=== PATIENT | female | born 1955 | race Caucasian/White ===

== ENCOUNTER 2018-10-17 21:09 | Emergency (ER) | payer MEDICARE, MEDICAID ==
[~2018-10-17] VITALS: Ht 154.9 cm; Wt 90.7 kg
--- OUTSIDE RECORDS SUMMARY | 2018-10-17 21:13 | XMS REPORT | Clinical Summary ---
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 history of psychiatric condition FH DIABETES V18.0 Active Shannan Sullivan RN Family history of diabetes mellitus HYPERTENSION 401.1 Active Andrea Man MD Benign essential hypertension DEPRESSION 311 Active Andrea Man MD Depressive disorder, not elsewhere classified HEALTH MAINTENANCE EXAM V70.0 Active Andrea Man MD Routine general medical examination at a health care facility ANXIETY 300.00 Active Andrea Man MD Anxiety state, unspecified PERIMENOPAUSAL STATUS V49.81 Active Andrea Man MD Asymptomatic postmenopausal status (age-related) (natural) TOBACCO ABUSE 305.1 Active Andrea Man MD Tobacco use disorder OTHER ABNORMAL GLUCOSE 790.29 Active May OLSEN Other abnormal glucose Medication List Medication Instructions Start Date Stop Date Generic Name NDC Status Provider Patient Instruction HYDROCODONE-ACETAMINOPHEN 7.5-325 MG TABS 1-2 TABS A DAY NEEDED FOR PAIN HYDROCODONE-ACETAMINOPHEN 24894437959 Active Andrea Man MD Active HYDROCODONE-ACETAMINOPHEN 7.5-500 MG TABS 1 to 2 a day as needed for pain HYDROCODONE-ACETAMINOPHEN 71210933383 No Longer Active Gris [place] Active ZOLOFT 50 MG TAB 1 tablet by mouth daily for stress/anxiety SERTRALINE HCL 66925382783 Active Sheila Casillas [employer] 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 [employer]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 Active ALPRAZOLAM 1 MG TAB 1/2 to 1 bid prn ALPRAZOLAM 49243256614 Active Andrea Man MD Active HYDROCODONE-ACETAMINOPHEN 7.5-500 MG/15ML SOLN 1-2 Q 4-6 HRS PAIN HYDROCODONE-ACETAMINOPHEN 24027302376 No Longer Active May Radford RMA Active AZOPT 1 % SUSP 2drops each at bedtime BRINZOLAMIDE 71194785223 Active Shannan Sullivan RN Active TRAVATAN Z 0.004 % SOLN 1-2 drops each 4x aday TRAVOPROST 32298377716 Active Shannan Sullivan RN Active HYDROCHLOROTHIAZIDE 25 MG TABS 1 DAILY HYDROCHLOROTHIAZIDE 58225869440 Active Andrea Man MD Active ATENOLOL 50 MG TABS 1 DAILY ATENOLOL 29879828512 Active Andrea Man MD Active DIAZEPAM 5 MG TABS TAKE ONE TABLET BY MOUTH TWO TIMES DAILY DIAZEPAM 75781818417 No Longer Active Andrea Man MD Active HYDROCODONE-ACETAMINOPHEN 7.5-500 MG/15ML SOLN 1-2 Q 4-6 HRS PAIN HYDROCODONE-ACETAMINOPHEN 7.5-500 MG/15ML SOLN 2825714 HYDROCODONE- ACETAMINOPHEN Inactive HYDROCODONE-ACETAMINOPHEN 7.5-500 MG TABS 1 to 2 a day as needed for pain HYDROCODONE-ACETAMINOPHEN 7.5-500 MG TABS 183969 HYDROCODONE-ACETAMINOPHEN Inactive Immunizations Vaccine Administration Date Value Standard Description Seasonal influenza vaccine, injectable, containing preservative, for > 3 years old (Afluria, FluLaval, Fluzone, Fluvirin, Fluarix, Agriflu(>=18 yo)) Fluzone (>3 yrs.) [[id number]] Influenza, seasonal, injectable Encounters Code Encounter Date Provider Facility CPT-68205 Level 3 Est. Patient 12:46:17 CDT Andrea Man MD [facility] CPT-05929 Level 3 Est. Patient 11:14:42 CDT Andrea Man MD [facility] Procedures Code Procedure Name Date Entry Date Standard Description CPT-000 Give Appropriate Flu Vaccine 11:14:42 CDT CPT-87849 Administration single or combination vaccine inc oral 10 :10:38 CDT CPT-43471 Influenza split virus > age 3 10:10:38 CDT
--- OUTSIDE RECORDS SUMMARY | 2018-10-17 21:13 | XMS REPORT | Clinical Summary ---
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 psychiatric condition FH DIABETES V18.0 [...] TABS A DAY NEEDED FOR PAIN HYDROCODONE-ACETAMINOPHEN 61307646451 Active Andrea Man MD Active HYDROCODONE-ACETAMINOPHEN 7.5-500 MG TABS 1 to 2 a day as needed for pain HYDROCODONE-ACETAMINOPHEN 70482372161 No Longer Active Grisconnor Omerr Active ZOLOFT 50 MG TAB 1 tablet by mouth daily for stress/anxiety SERTRALINE HCL 26142767059 Active Sheila Casillas WEALTH MANAGEMENT MANAGER Active ALPRAZOLAM 1 MG TAB 1/2 to 1 bid prn ALPRAZOLAM 47834330893 Active Andrea Man MD Active HYDROCODONE-ACETAMINOPHEN 7.5-500 MG/15ML SOLN 1-2 Q 4-6 HRS PAIN HYDROCODONE-ACETAMINOPHEN 40141866488 No Longer Active May Radford RMA Active AZOPT 1 % SUSP 2drops each at bedtime BRINZOLAMIDE 91577889365 Active Shannan Sullivan RN Active TRAVATAN Z 0.004 % SOLN 1-2 drops each 4x aday TRAVOPROST 24950445988 Active Shannan Sullivan RN Active HYDROCHLOROTHIAZIDE 25 MG TABS 1 DAILY HYDROCHLOROTHIAZIDE 77335614822 Active Andrea Man MD Active ATENOLOL 50 MG TABS 1 DAILY ATENOLOL 70838356476 Active Andrea Man MD Active DIAZEPAM 5 MG TABS TAKE ONE TABLET BY MOUTH TWO TIMES DAILY DIAZEPAM 16575800783 No Longer Active Andrea Man MD Active HYDROCODONE-ACETAMINOPHEN 7.5-500 MG/15ML SOLN 1-2 Q 4-6 HRS PAIN HYDROCODONE-ACETAMINOPHEN 7.5-500 MG/15ML SOLN HYDROCODONE- ACETAMINOPHEN Inactive HYDROCODONE-ACETAMINOPHEN 7.5-500 MG TABS 1 to 2 a day as needed for pain HYDROCODONE-ACETAMINOPHEN 7.5-500 MG TABS HYDROCODONE-ACETAMINOPHEN Inactive Immunizations Vaccine Administration Date Value Standard Description Seasonal influenza vaccine, injectable, containing preservative, for > 3 years old (Afluria, FluLaval, Fluzone, Fluvirin, Fluarix, Agriflu(>=18 yo)) Fluzone (>3 yrs.) [[id number]] Influenza, seasonal, injectable Encounters Code Encounter Date Provider Facility CPT-86217 Level 3 Est. Patient 12:46:17 CDT Andrea Man MD [facility] CPT-57756 Level 3 Est. Patient 11:14:42 CDT Andrea Man MD [facility] Procedures Code Procedure Name Date Entry Date Standard Description CPT-000 Give Appropriate Flu Vaccine 11:14:42 CDT CPT-33976 Administration single or combination vaccine inc oral 10 :10:38 CDT CPT-31309 Influenza split virus > age 3 10:10:38 CDT
--- OUTSIDE RECORDS SUMMARY | 2018-10-17 21:13 | XMS REPORT | Clinical Summary ---
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 FH DIABETES V18.0 [...] TABS A DAY NEEDED FOR PAIN HYDROCODONE-ACETAMINOPHEN 98343919800 Active Andrea Man MD Active HYDROCODONE-ACETAMINOPHEN 7.5-500 MG TABS 1 to 2 a day as needed for pain HYDROCODONE-ACETAMINOPHEN 70615384414 No Longer Active Gris [place] Active ZOLOFT 50 MG TAB 1 tablet by mouth daily for stress/anxiety SERTRALINE HCL 57883926550 Active Sheila Casillas RESEARCH ASSOCIATE QUALITY CONTROL QC Active ALPRAZOLAM 1 MG TAB 1/2 to 1 bid prn ALPRAZOLAM 61041629233 Active Andrea Man MD Active HYDROCODONE-ACETAMINOPHEN 7.5-500 MG/15ML SOLN 1-2 Q 4-6 HRS PAIN HYDROCODONE-ACETAMINOPHEN 63645319953 No Longer Active May Radford RMA Active AZOPT 1 % SUSP 2drops each at bedtime BRINZOLAMIDE 27208017426 Active Shannan Sullivan RN Active TRAVATAN Z 0.004 % SOLN 1-2 drops each 4x aday TRAVOPROST 28651461021 Active Shannan Sullivan RN Active HYDROCHLOROTHIAZIDE 25 MG TABS 1 DAILY HYDROCHLOROTHIAZIDE 66413404942 Active Andrea Man MD Active ATENOLOL 50 MG TABS 1 DAILY ATENOLOL 95826423559 Active Andrea Man MD Active DIAZEPAM 5 MG TABS TAKE ONE TABLET BY MOUTH TWO TIMES DAILY DIAZEPAM 13955998080 No Longer Active Andrea Man MD Active HYDROCODONE-ACETAMINOPHEN 7.5-500 MG/15ML SOLN 1-2 Q 4-6 HRS PAIN HYDROCODONE-ACETAMINOPHEN 7.5-500 MG/15ML SOLN 6657966 HYDROCODONE- ACETAMINOPHEN Inactive HYDROCODONE-ACETAMINOPHEN 7.5-500 MG TABS 1 to 2 a day as needed for pain HYDROCODONE-ACETAMINOPHEN 7.5-500 MG TABS 728158 HYDROCODONE-ACETAMINOPHEN Inactive Immunizations Vaccine Administration Date Value Standard Description Seasonal influenza vaccine, injectable, containing preservative, for > 3 years old (Afluria, FluLaval, Fluzone, Fluvirin, Fluarix, Agriflu(>=18 yo)) Fluzone (>3 yrs.) [[id number]] Influenza, seasonal, injectable Encounters Code Encounter Date Provider Facility CPT-17974 Level 3 Est. Patient 12:46:17 CDT Andrea Man MD [facility] CPT-59598 Level 3 Est. Patient 11:14:42 CDT Andrea Man MD [facility] Procedures Code Procedure Name Date Entry Date Standard Description CPT-000 Give Appropriate Flu Vaccine 11:14:42 CDT CPT-32208 Administration single or combination vaccine inc oral 10 :10:38 CDT CPT-57970 Influenza split virus > age 3 10:10:38 CDT
--- OUTSIDE RECORDS SUMMARY | 2018-10-17 21:14 | XMS REPORT | Clinical Summary ---
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 FH DIABETES V18.0 [...] TABS A DAY NEEDED FOR PAIN HYDROCODONE-ACETAMINOPHEN 71057315659 Active Andrea Man MD Active HYDROCODONE-ACETAMINOPHEN 7.5-500 MG TABS 1 to 2 a day as needed for pain HYDROCODONE-ACETAMINOPHEN 43395487646 No Longer Active Grisconnor Omerr Active ZOLOFT 50 MG TAB 1 tablet by mouth daily for stress/anxiety SERTRALINE HCL 05757001372 Active Sheila Casillas MARKET DIRECTOR Active ALPRAZOLAM 1 MG TAB 1/2 to 1 bid prn ALPRAZOLAM 23181507464 Active Andrea Man MD Active HYDROCODONE-ACETAMINOPHEN 7.5-500 MG/15ML SOLN 1-2 Q 4-6 HRS PAIN HYDROCODONE-ACETAMINOPHEN 16211849120 No Longer Active May Radford RMA Active AZOPT 1 % SUSP 2drops each at bedtime BRINZOLAMIDE 51767143039 Active Shannan Sullivan RN Active TRAVATAN Z 0.004 % SOLN 1-2 drops each 4x aday TRAVOPROST 18215679791 Active Shannan Sullivan RN Active HYDROCHLOROTHIAZIDE 25 MG TABS 1 DAILY HYDROCHLOROTHIAZIDE 40471305465 Active Andrea Man MD Active ATENOLOL 50 MG TABS 1 DAILY ATENOLOL 00239227424 Active Andrea Man MD Active DIAZEPAM 5 MG TABS TAKE ONE TABLET BY MOUTH TWO TIMES DAILY DIAZEPAM 11994226366 No Longer Active Andrea Man MD Active [...] Fluvirin, Fluarix, Agriflu(>=18 yo)) Fluzone (>3 yrs.) [[id number]] Influenza, seasonal, injectable Encounters Code Encounter Date Provider Facility CPT-95115 Level 3 Est. Patient 12:46:17 CDT Andrea Man MD [facility] CPT-58453 Level 3 Est. Patient 11:14:42 CDT Andrea Man MD [facility] Procedures Code Procedure Name Date Entry Date Standard Description CPT-000 Give Appropriate Flu Vaccine 11:14:42 CDT CPT-73908 Administration single or combination vaccine inc oral 10 :10:38 CDT CPT-92198 Influenza split virus > age 3 10:10:38 CDT
--- OUTSIDE RECORDS SUMMARY | 2018-10-17 21:14 | XMS REPORT | Clinical Summary ---
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 history of psychiatric condition FH DIABETES V18.0 [...] TABS A DAY NEEDED FOR PAIN HYDROCODONE-ACETAMINOPHEN 72872967226 Active Andrea Man MD Active HYDROCODONE-ACETAMINOPHEN 7.5-500 MG TABS 1 to 2 a day as needed for pain HYDROCODONE-ACETAMINOPHEN 69742182104 No Longer Active Gris Oliver Active ZOLOFT 50 MG TAB 1 tablet by mouth daily for stress/anxiety SERTRALINE HCL 28951282224 Active Sheila Casillas MMD UNIT TEACHER Active ALPRAZOLAM 1 MG TAB 1/2 to 1 bid prn ALPRAZOLAM 15440228013 Active Andrea Man MD Active HYDROCODONE-ACETAMINOPHEN 7.5-500 MG/15ML SOLN 1-2 Q 4-6 HRS PAIN HYDROCODONE-ACETAMINOPHEN 36475368137 No Longer Active May Radford RMA Active AZOPT 1 % SUSP 2drops each at bedtime BRINZOLAMIDE 56483962128 Active Shannan Sullivan RN Active TRAVATAN Z 0.004 % SOLN 1-2 drops each 4x aday TRAVOPROST 77120854986 Active Shannan Sullivan RN Active HYDROCHLOROTHIAZIDE 25 MG TABS 1 DAILY HYDROCHLOROTHIAZIDE 79952748339 Active Andrea Man MD Active ATENOLOL 50 MG TABS 1 DAILY ATENOLOL 10926310359 Active Andrea Man MD Active DIAZEPAM 5 MG TABS TAKE ONE TABLET BY MOUTH TWO TIMES DAILY DIAZEPAM 56511143067 No Longer Active Andrea Man MD Active HYDROCODONE-ACETAMINOPHEN 7.5-500 MG/15ML SOLN 1-2 Q 4-6 HRS PAIN HYDROCODONE-ACETAMINOPHEN 7.5-500 MG/15ML SOLN 7426989 HYDROCODONE- ACETAMINOPHEN Inactive HYDROCODONE-ACETAMINOPHEN 7.5-500 MG TABS 1 to 2 a day as needed for pain HYDROCODONE-ACETAMINOPHEN 7.5-500 MG TABS 249302 HYDROCODONE-ACETAMINOPHEN Inactive Immunizations Vaccine Administration Date Value Standard Description Seasonal influenza vaccine, injectable, containing preservative, for > 3 years old (Afluria, FluLaval, Fluzone, Fluvirin, Fluarix, Agriflu(>=18 yo)) Fluzone (>3 yrs.) [[id number]] Influenza, seasonal, injectable Encounters Code Encounter Date Provider Facility CPT-38721 Level 3 Est. Patient 12:46:17 CDT Andrea Man MD [facility] CPT-49675 Level 3 Est. Patient 11:14:42 CDT Andrea Man MD [facility] Procedures Code Procedure Name Date Entry Date Standard Description CPT-000 Give Appropriate Flu Vaccine 11:14:42 CDT CPT-74973 Administration single or combination vaccine inc oral 10 :10:38 CDT CPT-00930 Influenza split virus > age 3 10:10:38 CDT
--- OUTSIDE RECORDS SUMMARY | 2018-10-17 21:14 | XMS REPORT | Clinical Summary ---
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 history of psychiatric condition FH DIABETES V18.0 [...] TABS A DAY NEEDED FOR PAIN HYDROCODONE-ACETAMINOPHEN 19628419525 Active Andrea Man MD Active HYDROCODONE-ACETAMINOPHEN 7.5-500 MG TABS 1 to 2 a day as needed for pain HYDROCODONE-ACETAMINOPHEN 68988674695 No Longer Active Grisconnor Omerr Active ZOLOFT 50 MG TAB 1 tablet by mouth daily for stress/anxiety SERTRALINE HCL 94838049547 Active Sheila Casillas SCHOOL TEACHER Active ALPRAZOLAM 1 MG TAB 1/2 to 1 bid prn ALPRAZOLAM 97089191690 Active Andrea Man MD Active HYDROCODONE-ACETAMINOPHEN 7.5-500 MG/15ML SOLN 1-2 Q 4-6 HRS PAIN HYDROCODONE-ACETAMINOPHEN 92291904642 No Longer Active May Radford RMA Active AZOPT 1 % SUSP 2drops each at bedtime BRINZOLAMIDE 64354933624 Active Shannan Sullivan RN Active TRAVATAN Z 0.004 % SOLN 1-2 drops each 4x aday TRAVOPROST 96122341783 Active Shannan Sullivan RN Active HYDROCHLOROTHIAZIDE 25 MG TABS 1 DAILY HYDROCHLOROTHIAZIDE 91653495109 Active Andrea Man MD Active ATENOLOL 50 MG TABS 1 DAILY ATENOLOL 34147166573 Active Andrea Man MD Active DIAZEPAM 5 MG TABS TAKE ONE TABLET BY MOUTH TWO TIMES DAILY DIAZEPAM 05584694638 No Longer Active Andrea Man MD Active [...] Fluvirin, Fluarix, Agriflu(>=18 yo)) Fluzone (>3 yrs.) [[id number]] Influenza, seasonal, injectable Encounters Code Encounter Date Provider Facility CPT-80136 Level 3 Est. Patient 12:46:17 CDT Andrea Man MD [facility] CPT-72358 Level 3 Est. Patient 11:14:42 CDT Andrea Man MD [facility] Procedures Code Procedure Name Date Entry Date Standard Description CPT-000 Give Appropriate Flu Vaccine 11:14:42 CDT CPT-05596 Administration single or combination vaccine inc oral 10 :10:38 CDT CPT-21318 Influenza split virus > age 3 10:10:38 CDT
--- OUTSIDE RECORDS SUMMARY | 2018-10-17 21:14 | XMS REPORT | Clinical Summary ---
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 history of psychiatric condition FH DIABETES V18.0 [...] TABS A DAY NEEDED FOR PAIN HYDROCODONE-ACETAMINOPHEN 41839277133 Active Andrea Man MD Active HYDROCODONE-ACETAMINOPHEN 7.5-500 MG TABS 1 to 2 a day as needed for pain HYDROCODONE-ACETAMINOPHEN 72354191006 No Longer Active Gris [place] Active ZOLOFT 50 MG TAB 1 tablet by mouth daily for stress/anxiety SERTRALINE HCL 77757018431 Active Sheila Casillas TRIM CREW SUPERVISOR Active ALPRAZOLAM 1 MG TAB 1/2 to 1 bid prn ALPRAZOLAM 39498918083 Active Andrea Man MD Active HYDROCODONE-ACETAMINOPHEN 7.5-500 MG/15ML SOLN 1-2 Q 4-6 HRS PAIN HYDROCODONE-ACETAMINOPHEN 94166205827 No Longer Active May Radford RMA Active AZOPT 1 % SUSP 2drops each at bedtime BRINZOLAMIDE 96132073409 Active Shannan Sullivan RN Active TRAVATAN Z 0.004 % SOLN 1-2 drops each 4x aday TRAVOPROST 73706655038 Active Shannan Sullivan RN Active HYDROCHLOROTHIAZIDE 25 MG TABS 1 DAILY HYDROCHLOROTHIAZIDE 18260970849 Active Andrea aMn MD Active ATENOLOL 50 MG TABS 1 DAILY ATENOLOL 69226802895 Active Andrea Man MD Active DIAZEPAM 5 MG TABS TAKE ONE TABLET BY MOUTH TWO TIMES DAILY DIAZEPAM 44568269958 No Longer Active Andrea Man MD Active HYDROCODONE-ACETAMINOPHEN 7.5-500 MG/15ML SOLN 1-2 Q 4-6 HRS PAIN HYDROCODONE-ACETAMINOPHEN 7.5-500 MG/15ML SOLN 3485864 HYDROCODONE- ACETAMINOPHEN Inactive HYDROCODONE-ACETAMINOPHEN 7.5-500 MG TABS 1 to 2 a day as needed for pain HYDROCODONE-ACETAMINOPHEN 7.5-500 MG TABS 084019 HYDROCODONE-ACETAMINOPHEN Inactive Immunizations Vaccine Administration Date Value Standard Description Seasonal influenza vaccine, injectable, containing preservative, for > 3 years old (Afluria, FluLaval, Fluzone, Fluvirin, Fluarix, Agriflu(>=18 yo)) Fluzone (>3 yrs.) [[id number]] Influenza, seasonal, injectable Encounters Code Encounter Date Provider Facility CPT-59333 Level 3 Est. Patient 12:46:17 CDT Andrea Man MD [facility] CPT-27186 Level 3 Est. Patient 11:14:42 CDT Andrea Man MD [facility] Procedures Code Procedure Name Date Entry Date Standard Description CPT-000 Give Appropriate Flu Vaccine 11:14:42 CDT CPT-71480 Administration single or combination vaccine inc oral 10 :10:38 CDT CPT-19042 Influenza split virus > age 3 10:10:38 CDT
--- OUTSIDE RECORDS SUMMARY | 2018-10-17 21:14 | XMS REPORT | Clinical Summary ---
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 of psychiatric condition FH DIABETES V18.0 [...] TABS A DAY NEEDED FOR PAIN HYDROCODONE-ACETAMINOPHEN 11417234699 Active Andrea Man MD Active HYDROCODONE-ACETAMINOPHEN 7.5-500 MG TABS 1 to 2 a day as needed for pain HYDROCODONE-ACETAMINOPHEN 63356735287 No Longer Active Grisconnor Omerr Active ZOLOFT 50 MG TAB 1 tablet by mouth daily for stress/anxiety SERTRALINE HCL 33867758781 Active Sheila Casillas FRENCH EDGE OPERATOR Active ALPRAZOLAM 1 MG TAB 1/2 to 1 bid prn ALPRAZOLAM 93383355560 Active Andrea Man MD Active HYDROCODONE-ACETAMINOPHEN 7.5-500 MG/15ML SOLN 1-2 Q 4-6 HRS PAIN HYDROCODONE-ACETAMINOPHEN 58250393523 No Longer Active May Radford RMA Active AZOPT 1 % SUSP 2drops each at bedtime BRINZOLAMIDE 13735902787 Active Shannan Sullivan RN Active TRAVATAN Z 0.004 % SOLN 1-2 drops each 4x aday TRAVOPROST 18018141001 Active Shannan Sullivan RN Active HYDROCHLOROTHIAZIDE 25 MG TABS 1 DAILY HYDROCHLOROTHIAZIDE 72913543154 Active Andrea Man MD Active ATENOLOL 50 MG TABS 1 DAILY ATENOLOL 59561931077 Active Andrea Man MD Active DIAZEPAM 5 MG TABS TAKE ONE TABLET BY MOUTH TWO TIMES DAILY DIAZEPAM 00156916468 No Longer Active Andrea Man MD Active [...] Fluvirin, Fluarix, Agriflu(>=18 yo)) Fluzone (>3 yrs.) [[id number]] Influenza, seasonal, injectable Encounters Code Encounter Date Provider Facility CPT-82552 Level 3 Est. Patient 12:46:17 CDT Andrea Man MD [facility] CPT-61136 Level 3 Est. Patient 11:14:42 CDT Andrea Man MD [facility] Procedures Code Procedure Name Date Entry Date Standard Description CPT-000 Give Appropriate Flu Vaccine 11:14:42 CDT CPT-11351 Administration single or combination vaccine inc oral 10 :10:38 CDT CPT-97119 Influenza split virus > age 3 10:10:38 CDT
--- OUTSIDE RECORDS SUMMARY | 2018-10-17 21:15 | XMS REPORT | Clinical Summary ---
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 of psychiatric condition FH DIABETES V18.0 [...] TABS A DAY NEEDED FOR PAIN HYDROCODONE-ACETAMINOPHEN 48969317160 Active Andrea Man MD Active HYDROCODONE-ACETAMINOPHEN 7.5-500 MG TABS 1 to 2 a day as needed for pain HYDROCODONE-ACETAMINOPHEN 32419173947 No Longer Active Grisconnor Omerr Active ZOLOFT 50 MG TAB 1 tablet by mouth daily for stress/anxiety SERTRALINE HCL 09010375344 Active Sheila Casillas LEATHER BELT SHAPER Active ALPRAZOLAM 1 MG TAB 1/2 to 1 bid prn ALPRAZOLAM 62057491949 Active Andrea Man MD Active HYDROCODONE-ACETAMINOPHEN 7.5-500 MG/15ML SOLN 1-2 Q 4-6 HRS PAIN HYDROCODONE-ACETAMINOPHEN 93061878215 No Longer Active May Radford RMA Active AZOPT 1 % SUSP 2drops each at bedtime BRINZOLAMIDE 86492626501 Active Shannan Sullivan RN Active TRAVATAN Z 0.004 % SOLN 1-2 drops each 4x aday TRAVOPROST 24846241034 Active Shannan Sullivan RN Active HYDROCHLOROTHIAZIDE 25 MG TABS 1 DAILY HYDROCHLOROTHIAZIDE 20549614245 Active Andrea Man MD Active ATENOLOL 50 MG TABS 1 DAILY ATENOLOL 67811644998 Active Andrea Man MD Active DIAZEPAM 5 MG TABS TAKE ONE TABLET BY MOUTH TWO TIMES DAILY DIAZEPAM 36145168812 No Longer Active Andrea Man MD Active [...] Fluvirin, Fluarix, Agriflu(>=18 yo)) Fluzone (>3 yrs.) [[id number]] Influenza, seasonal, injectable Encounters Code Encounter Date Provider Facility CPT-23826 Level 3 Est. Patient 12:46:17 CDT Andrea Man MD [facility] CPT-79631 Level 3 Est. Patient 11:14:42 CDT Andrea Man MD [facility] Procedures Code Procedure Name Date Entry Date Standard Description CPT-000 Give Appropriate Flu Vaccine 11:14:42 CDT CPT-11695 Administration single or combination vaccine inc oral 10 :10:38 CDT CPT-73892 Influenza split virus > age 3 10:10:38 CDT
--- OUTSIDE RECORDS SUMMARY | 2018-10-17 21:15 | XMS REPORT | Continuity of Care Document ---
Author Organization Unknown Address Unknown Allergies There is no data. Medications There is no data. Problems There is no data. Procedures There is no data. Results There is no data. Encounters ACCT No. Visit Date/Time Discharge Status Pt. Type Provider Facility Loc./Unit Complaint [id number] 06/09/2018 07:33:00 06/09/2018 23:59:59 CLS Preadmit ANGELES ALAMO DO [facility] RAD POST MENOPAUSAL BLEEDING [id number] 01/12/2014 09:32:00 01/12/2014 23:59:59 CLS Outpatient [id number] 10/17/2018 21:10:00 ACT Emergency MEL COYNE MD [facility] ER FALL
[2018-10-17] MEDS ORDERED: FLUT16SP22 (21:18)
[2018-10-17] MEDS ORDERED: ALB0.5V (21:18)
[2018-10-17] MEDS ORDERED: HYDR-3816 (21:18)
[2018-10-17] MEDS ORDERED: FLUO20CA25 (21:18)
--- NOTE | 2018-10-17 21:21 | ED Integumentary General ---
General Chief Complaint: Skin/Wound Problems Stated Complaint: FALL Source: patient Exam Limitations: no limitations History of Present Illness Date Seen by Provider: Oct 17, 2018 Time Seen by Provider: 21:19 Initial Comments To ER per EMS from senior living in [place] with reports of wound dehiscence. 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 She was sitting on her walker tonight at the senior living when it rolled out from beneath her, she fell to the floor and the wound dehisced. She did not hit the wound on anything. No pain with range of motion to the hip. She does have a Lucio- Lau drain in place. Timing/Duration: just prior to arrival Severity: moderate Allergies and Home Medications Allergies Coded Allergies: NSAIDS (Non-Steroidal Anti-Inflamma (Verified Allergy, Unknown, 10/17/18) diphenhydramine (Verified Allergy, Unknown, 10/17/18) lisinopril (Verified Allergy, Unknown, 10/17/18) Home Medications Cephalexin 500 Mg Capsule, 500 MG PO Q6H Prescribed by: TORI ATKINSON on 10/17/18 [id number] Patient Home Medication List Home Medication List Reviewed: Yes Review of Systems Review of Systems Constitutional: see HPI EENTM: see HPI Respiratory: no symptoms reported Genitourinary: no symptoms reported Musculoskeletal: no symptoms reported Skin: see HPI Psychiatric/Neurological: No Symptoms Reported Endocrine: No Symptoms Reported Physical Exam Vital Signs Vital Signs - First Documented 10/17/18 21:09 Temp 98.3 Pulse 68 Resp 16 B/P (MAP) 140/89 (106) Pulse Ox 96 O2 Delivery Room Air Capillary Refill : General Appearance: WD/WN, no apparent distress HEENT: PERRL/EOMI, normal ENT inspection Respiratory: no respiratory distress, no accessory muscle use Extremities: normal range of motion, other ( there is wound dehiscence to the right medial thigh that measures about 5 cm deep, 6 cm wide and 10 cm long. There is no active bleeding. the myocutaneous flap that is now the right vulvar region is dark pink with brisk capillary refill and has NOT dehisced. ) Neurologic/Psychiatric: alert, normal mood/affect, oriented x 3 Skin: normal color, warm/dry Progress/Results/Core Measures Results/Orders My Orders Orders - TORI ATKINSON APRN Lidocaine 1% Inj 20 Ml (Xylocaine 1% Inj (10/17/18 21:30) Cefazolin Injection (Ancef Injection) (10/17/18 21:30) Oxycodone/Apap 5/325mg Tablet (Percocet (10/17/18 22:45) Medications Given in ED Current Medications Medications Dose Ordered Sig/Guillermina Route Start Time Stop Time Status Last Admin Dose Admin Oxycodone/ Acetaminophen 1 tab ONCE ONCE PO 10/17/18 22:45 10/17/18 22:46 DC 10/17/18 22:48 1 TAB Vital Signs/I&O 10/17/18 10/17/18 21:09 23:04 Temp 98.3 98.1 Pulse 68 73 Resp 16 16 B/P (MAP) 140/89 (106) 121/80 (94) Pulse Ox 96 95 O2 Delivery Room Air Room Air Departure Communication (Admissions) I discussed the case with Dr. Mueller on-call for surgery. He recommends that since this has been dehisced for less than 1 hour we should anesthetize the area , irrigate, leave the drain in place and we closed with vertical mattress sutures. 2224-laceration repair note: This wound was anesthetized with a total of 30 mL of 1% lidocaine without epinephrine which is under the maximum dose of lidocaine based on 4 mg/kg of body weight plain lidocaine without epinephrine. This was then scrubbed with chlorhexidine/saline solution and irrigated with 1 L of saline. Any of the loose Monocryl sutures that were seen or removed. The wound was then closed with a total of 9 vertical mattress sutures size 2-0 Ethilon. The bulb on the Lucio-Lau drain was we compressed and dressing was placed over the wound. Oozing of blood was minimal. Ancef 1 g intramuscularly was given. Dr. Grover at the bedside during part of this and agrees with plan. At this time I placed a call to the [facility] Dr. Cota plastic surgeon that operated on her for any advice or suggestions here she may have. 2238- discussed the case with Dr. Grimaldo from gynecologic oncology at [facility]. Agrees with everything that has been done, states that patient has had a radical lobectomy with a myocutaneous flap there is no portion of the wound at this time that appears dusky, all of the tissues sutured are beefy red and this was likely the donor site from the myocutaneous flap. Impression Primary Impression: Wound dehiscence, surgical Qualified Codes: T81.31XA - Disruption of external operation (surgical) wound , not elsewhere classified, initial encounter Disposition: HOME, SELF-CARE Condition: Stable Departure-Patient Inst. Decision time for Depature: 22:28 Referrals: UNKNOWN (PCP/Family) Primary Care Physician Patient Instructions: Wound Dehiscence (DC) Add. Discharge Instructions: 1. Watch out for any sign of infection such as increasing redness fevers or chills. Keep track of the drainage from the Lucio-Lau drain. Antibiotics as directed. Return to ER for any concerns. All discharge instructions reviewed with patient and/or family. Voiced understanding. Scripts Cephalexin (Keflex) 500 Mg Capsule 500 MG PO Q6H, #28 CAP Prov: TORI ATKINSON APRN 10/17/18 Images Extremities-Lower 1 - Other-See Progress Note TORI ATKINSON APRN Oct 17, 2018 21:21
[2018-10-17] MEDS ORDERED: LIDOCAINE 1% INJ 20 ML 20 ML VIAL INJ ONE (21:30)
[2018-10-17] MEDS ORDERED: ceFAZolin INJECTION 1,000 MG VIAL IM ONE (21:30)
[2018-10-17] MEDS ORDERED: CEPH-507 PO (22:34)
[2018-10-17] MEDS ORDERED: oxyCODONE/APAP 5/325MG (PERCOCET 5) TABLET PO ONE (22:45)
[2018-10-17 23:04] VITALS: BP 121/80
== END 2018-10-17 23:15 | disposition home or self-care (01) ==
LOC: EDUNIT# 21:09 → ER 21:10
DX: T81.31XA Disruption of external operation (surgical) wound, not elsewhere classified, initial encounter (principal); Z88.6 Allergy status to analgesic agent; Z88.8 Allergy status to other drugs, medicaments and biological substances; W18.30XA Fall on same level, unspecified, initial encounter; Y92.129 Unspecified place in nursing home as the place of occurrence of the external cause
CPT/HCPCS: 12034; 96372

== ENCOUNTER → 2018-10-28 | Outpatient (CLI) | payer MEDICARE, MEDICAID ==
[~2018-10-28] MED LIST: ALB0.5V; CEPH-507 PO; FLUO20CA25; FLUT16SP22; HYDR-3816
== END ==
LOC: WOUNDCARE 09:33
PROVIDERS: ATTEND Surgery
DX: T81.32XA Disruption of internal operation (surgical) wound, not elsewhere classified, initial encounter (principal); L98.493 Non-pressure chronic ulcer of skin of other sites with necrosis of muscle; I89.0 Lymphedema, not elsewhere classified; C51.9 Malignant neoplasm of vulva, unspecified
CPT/HCPCS: 99213

== ENCOUNTER → 2018-11-02 | Outpatient (CLI) | payer MEDICAID, MEDICARE, OTHER | LOC: WOUNDCARE 14:24 | PROVIDERS: ATTEND Surgery | DX: T81.32XA Disruption of internal operation (surgical) wound, not elsewhere classified, initial encounter (principal); L98.493 Non-pressure chronic ulcer of skin of other sites with necrosis of muscle; I89.0 Lymphedema, not elsewhere classified; C51.9 Malignant neoplasm of vulva, unspecified | CPT/HCPCS: 11042; 11045 ==

== ENCOUNTER → 2018-11-11 | Outpatient (CLI) | payer OTHER | LOC: WOUNDCARE 10:38 | PROVIDERS: ATTEND Surgery | DX: T81.32XA Disruption of internal operation (surgical) wound, not elsewhere classified, initial encounter (principal); L98.492 Non-pressure chronic ulcer of skin of other sites with fat layer exposed; I89.0 Lymphedema, not elsewhere classified; C51.9 Malignant neoplasm of vulva, unspecified | CPT/HCPCS: 11042 ==

== ENCOUNTER → 2018-11-18 | Outpatient (CLI) | payer OTHER | LOC: WOUNDCARE 08:36 | PROVIDERS: ATTEND Surgery | DX: T81.32XA Disruption of internal operation (surgical) wound, not elsewhere classified, initial encounter (principal); L98.492 Non-pressure chronic ulcer of skin of other sites with fat layer exposed; I89.0 Lymphedema, not elsewhere classified; C51.9 Malignant neoplasm of vulva, unspecified | CPT/HCPCS: 11042; 87070; 87077; 87205 ==

== ENCOUNTER → 2018-11-25 | Outpatient (CLI) | payer OTHER | LOC: WOUNDCARE 08:24 | PROVIDERS: ATTEND Surgery | DX: T81.32XA Disruption of internal operation (surgical) wound, not elsewhere classified, initial encounter (principal); L98.492 Non-pressure chronic ulcer of skin of other sites with fat layer exposed; I89.0 Lymphedema, not elsewhere classified; C51.9 Malignant neoplasm of vulva, unspecified | CPT/HCPCS: 11042 ==

== ENCOUNTER → 2018-12-02 | Outpatient (CLI) | payer OTHER | LOC: WOUNDCARE 14:13 | PROVIDERS: ATTEND Surgery | DX: T81.32XA Disruption of internal operation (surgical) wound, not elsewhere classified, initial encounter (principal); L98.492 Non-pressure chronic ulcer of skin of other sites with fat layer exposed; C51.9 Malignant neoplasm of vulva, unspecified | CPT/HCPCS: 11042 ==

== ENCOUNTER → 2018-12-09 | Outpatient (CLI) | payer OTHER | LOC: WOUNDCARE 08:13 | PROVIDERS: ATTEND Surgery | DX: T81.32XA Disruption of internal operation (surgical) wound, not elsewhere classified, initial encounter (principal); L98.492 Non-pressure chronic ulcer of skin of other sites with fat layer exposed; C51.9 Malignant neoplasm of vulva, unspecified | CPT/HCPCS: 11042 ==

== ENCOUNTER → 2018-12-16 | Outpatient (CLI) | payer OTHER | LOC: WOUNDCARE 08:00 | PROVIDERS: ATTEND Surgery | DX: T81.32XA Disruption of internal operation (surgical) wound, not elsewhere classified, initial encounter (principal); L92.9 Granulomatous disorder of the skin and subcutaneous tissue, unspecified; L98.492 Non-pressure chronic ulcer of skin of other sites with fat layer exposed; C51.9 Malignant neoplasm of vulva, unspecified | CPT/HCPCS: 17250 ==

== ENCOUNTER → 2018-12-30 | Outpatient (CLI) | payer OTHER | LOC: WOUNDCARE 07:58 | PROVIDERS: ATTEND Surgery | DX: T81.32XA Disruption of internal operation (surgical) wound, not elsewhere classified, initial encounter (principal); L92.9 Granulomatous disorder of the skin and subcutaneous tissue, unspecified; L98.492 Non-pressure chronic ulcer of skin of other sites with fat layer exposed; C51.9 Malignant neoplasm of vulva, unspecified | CPT/HCPCS: 17250 ==

== ENCOUNTER → 2019-01-06 | Outpatient (CLI) | payer OTHER | LOC: WOUNDCARE 08:10 | PROVIDERS: ATTEND Surgery | DX: T81.32XA Disruption of internal operation (surgical) wound, not elsewhere classified, initial encounter (principal); L97.112 Non-pressure chronic ulcer of right thigh with fat layer exposed | CPT/HCPCS: 99212 ==

== ENCOUNTER 2019-04-14 13:46 | Outpatient (RCR) | payer MEDICARE, MEDICAID ==
[2019-02-19 14:21] LABS: BILIRUBIN,URINE NEGATIVE (NEGATIVE); CLARITY,URINE CLEAR; COLOR,URINE YELLOW; GLUCOSE, URINE (UA) NEGATIVE (NEGATIVE); KETONES,URINE NEGATIVE (NEGATIVE); LEUKOCYTE ESTERASE ,URINE 3+ (NEGATIVE); NITRITE,URINE NEGATIVE (NEGATIVE); PH,URINE 6 (5-9); PROTEIN,URINE 2+ (NEGATIVE)
[2019-02-19 14:33] LABS: RBC,URINE 0-2 /HPF
[2019-02-19 14:34] LABS: BACTERIA,URINE FEW /HPF; WBC,URINE 50-100 /HPF
[2019-02-22 14:30] LABS: CREATININE SERUM 1.75 MG/DL (0.60-1.30)
[~2019-04-14 13:46] MED LIST changes: -FLUO20CA25; +FLUO20CA45
== END 2019-04-19 | disposition home or self-care (01) ==
LOC: ONC 13:46
PROVIDERS: ATTEND Radiology Radiation Oncology
DX: Z51.0 Encounter for antineoplastic radiation therapy (principal); C51.9 Malignant neoplasm of vulva, unspecified; I12.9 Hypertensive chronic kidney disease with stage 1 through stage 4 chronic kidney disease, or unspecified chronic kidney disease; N18.4 Chronic kidney disease, stage 4 (severe); K21.9 Gastro-esophageal reflux disease without esophagitis
CPT/HCPCS: 36415; 77290; 77300; 77301; 77334; 77336; 77338; 77386; 81000; 82565; 84520; 87077; 87088; 87186; 99204; 99213

== ENCOUNTER → 2019-11-17 | Outpatient (CLI) | payer MEDICARE, MEDICAID ==
[~2019-11-17] MED LIST changes: -FLUO20CA45; +FLUO20CA46; +HYDR-34; -HYDR-3816
== END ==
LOC: EDSTATUS 04-20 11:26 → ONC 14:30
PROVIDERS: ATTEND Radiology Radiation Oncology
DX: C51.9 Malignant neoplasm of vulva, unspecified (principal); I12.9 Hypertensive chronic kidney disease with stage 1 through stage 4 chronic kidney disease, or unspecified chronic kidney disease; N18.4 Chronic kidney disease, stage 4 (severe); K21.9 Gastro-esophageal reflux disease without esophagitis
CPT/HCPCS: 99213

== ENCOUNTER 2019-11-21 01:10 | Emergency (ER) | payer MEDICARE, MEDICAID ==
[~2019-11-21] VITALS: Ht 160 cm; Wt 93.8 kg
--- OUTSIDE RECORDS SUMMARY | 2019-11-21 01:17 | XMS REPORT | Continuity of Care Document ---
Demographics Preferred Language Unknown Marital Status Unknown Taoist Affiliation Unknown Race Unknown Ethnic Group Unknown Author Organization Unknown Address Unknown Phone Unavailable Allergies Active Description Code Type Severity Reaction Onset Reported/Identified Relationship to Patient Clinical Status Yes diphenhydramine [id number] D rug Allergy Unknown N/A 10/17/2018 Yes lisinopril [id number] Drug Allerg y Unknown N/A 10/17/2018 Yes NSAIDS (Non-Steroidal Anti-Inflamma [id number] Drug Allergy Unknown N/A 10/17/2018 Medications There is no data. Problems Date Dx Coded Attending Type Code Diagnosis Diagnosed By 10/17/2018 TORI ATKINSON APRN Ot T81.31XA DISRUPTION OF EXTERNAL OPERATION (SURGIC 10/17/2018 TORI ATKINSON APRN Ot W18.30XA FALL ON SAME LEVEL, UNSPECIFIED, INITIAL 10/17/2018 TORI ATKINSON APRN Ot Y92.[address] IN DETENTION PLACE 10/17/2018 TORI ATKINSON APRN Ot Z88 .6 ALLERGY STATUS TO ANALGESIC AGENT STATUS 10/17/2018 TORI ATKINSON APRN Ot Z88 .8 ALLERGY STATUS TO OTH DRUG/MEDS/BIOL SUB 10/24/2018 TORI TAKINSON APRN Ot T81.31XA DISRUPTION OF EXTERNAL OPERATION (SURGIC 10/24/2018 TORI ATKINSON APRN Ot W18.30XA FALL ON SAME LEVEL, UNSPECIFIED, INITIAL 10/24/2018 TORI ATKINSON APRN Ot Y92.[address] IN DETENTION PLACE 10/24/2018 TORI ATKINSON APRN Ot Z88 .6 ALLERGY STATUS TO ANALGESIC AGENT STATUS 10/24/2018 TORI ATKINSON APRN Ot Z88 .8 ALLERGY STATUS TO OTH DRUG/MEDS/BIOL SUB 11/04/2018 GAIL SHAFFER MD Ot C51 .9 MALIGNANT NEOPLASM OF VULVA, UNSPECIFIED 11/04/2018 GAIL SHAFFER MD Ot I89 .0 LYMPHEDEMA, NOT ELSEWHERE CLASSIFIED 11/04/2018 GAIL SHAFFER MD Ot L98.493 NON-PRS CHRONIC ULCER OF SKIN OF SITES W 11/04/2018 GAIL SHAFFER MD Ot T81.32XA DISRUPTION OF INTERNAL OPERATION (SURGIC 11/04/2018 GAIL SHAFFER MD Ot L98.493 NON-PRS CHRONIC ULCER OF SKIN OF SITES W 11/04/2018 GAIL SHAFFER MD, Ot C51 .9 MALIGNANT NEOPLASM OF VULVA, UNSPECIFIED 11/04/2018 GAIL SHAFFER MD Ot I89 .0 LYMPHEDEMA, NOT ELSEWHERE CLASSIFIED 11/04/2018 GAIL SHAFFER MD, Ot L98.493 NON-PRS CHRONIC ULCER OF SKIN OF SITES W 11/04/2018 GAIL SHAFFER MD Ot T81.32XA DISRUPTION OF INTERNAL OPERATION (SURGIC 11/17/2018 GAIL SHAFFER MD, Ot C51 .9 MALIGNANT NEOPLASM OF VULVA, UNSPECIFIED 11/17/2018 GAIL SHAFFER MD Ot I89 .0 LYMPHEDEMA, NOT ELSEWHERE CLASSIFIED 11/17/2018 GAIL SHAFFER MD Ot L98.492 NON-PRS CHRONIC ULCER OF SKIN OF SITES W 11/17/2018 GAIL SHAFFER MD, Ot T81.32XA DISRUPTION OF INTERNAL OPERATION (SURGIC 11/19/2018 GAIL SHAFFER MD Ot C51 .9 MALIGNANT NEOPLASM OF VULVA, UNSPECIFIED 11/19/2018 GAIL SHAFFER MD Ot I89 .0 LYMPHEDEMA, NOT ELSEWHERE CLASSIFIED 11/19/2018 GAIL SHAFFER MD Ot L98.493 NON-PRS CHRONIC ULCER OF SKIN OF SITES W 11/19/2018 GAIL SHAFFER MD Ot T81.32XA DISRUPTION OF INTERNAL OPERATION (SURGIC 11/20/2018 GAIL SHAFFER MD, Ot C51 .9 MALIGNANT NEOPLASM OF VULVA, UNSPECIFIED 11/20/2018 GAIL SHAFFER MD Ot I89 .0 LYMPHEDEMA, NOT ELSEWHERE CLASSIFIED 11/20/2018 GAIL SHAFFER MD Ot L98.492 NON-PRS CHRONIC ULCER OF SKIN OF SITES W 11/20/2018 GAIL SHAFFER MD Ot T81.32XA DISRUPTION OF INTERNAL OPERATION (SURGIC 11/27/2018 GAIL SHAFFER MD, Ot C51 .9 MALIGNANT NEOPLASM OF VULVA, UNSPECIFIED 11/27/2018 GAIL SHAFFER MD Ot I89 .0 LYMPHEDEMA, NOT ELSEWHERE CLASSIFIED 11/27/2018 GAIL SHAFFER MD Ot L98.492 NON-PRS CHRONIC ULCER OF SKIN OF SITES W 11/27/2018 GAIL SHAFFER MD Ot T81.32XA DISRUPTION OF INTERNAL OPERATION (SURGIC 12/08/2018 GAIL SHAFFER MD, Ot C51 .9 MALIGNANT NEOPLASM OF VULVA, UNSPECIFIED 12/08/2018 GAIL SHAFFER MD Ot L98.492 NON-PRS CHRONIC ULCER OF SKIN OF SITES W 12/08/2018 GAIL SHAFFER MD Ot T81.32XA DISRUPTION OF INTERNAL OPERATION (SURGIC 12/11/2018 GAIL SHAFFER MD, Ot C51 .9 MALIGNANT NEOPLASM OF VULVA, UNSPECIFIED 12/11/2018 GAIL SHAFFER MD Ot L98.492 NON-PRS CHRONIC ULCER OF SKIN OF SITES W 12/11/2018 GAIL SHAFFER MD, Ot T81.32XA DISRUPTION OF INTERNAL OPERATION (SURGIC 01/05/2019 GAIL SHAFFER MD, Ot C51 .9 MALIGNANT NEOPLASM OF VULVA, UNSPECIFIED 01/05/2019 GAIL SHAFFER MD Ot L92 .9 GRANULOMATOUS DISORDER OF THE SKIN, SUBC 01/05/2019 GAIL SHAFFER MD Ot L98.492 NON-PRS CHRONIC ULCER OF SKIN OF SITES W 01/05/2019 GAIL SHAFFER MD Ot T81.32XA DISRUPTION OF INTERNAL OPERATION (SURGIC 01/12/2019 GAIL SHAFFER MD Ot L97.112 NON-PRS CHRONIC ULCER OF RIGHT THIGH W F 01/12/2019 GAIL SHAFFER MD, Ot T81.32XA DISRUPTION OF INTERNAL OPERATION (SURGIC 02/18/2019 JOSE MANUEL PENALOZA MD, Ot 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 03/16/2019 JOSE MANUEL PENALOZA MD, Ot 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 04/02/2019 JOSE MANUEL PENALOZA MD, Ot 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 04/19/2019 JOSE MANUEL PENALOZA MD, Ot 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 04/20/2019 JOSE MANUEL PENALOZA MD, Ot C51.9 MALIGNANT NEOPLASM OF VULVA, UNSPECIFIED 04/20/2019 JOSE MANUEL PENALOZA MD, Ot I12.9 HYPERTENSIVE CHRONIC KIDNEY DISEASE W ST 04/20/2019 JOSE MANUEL PENALOZA MD, Ot K21.9 GASTRO-ESOPHAGEAL REFLUX DISEASE WITHOUT 04/20/2019 JOSE MANUEL PENALOZA MD, Ot N18.4 CHRONIC KIDNEY DISEASE, STAGE 4 (SEVERE) 04/20/2019 JOSE MANUEL PENALOZA MD, Ot Z51.0 ENCOUNTER FOR ANTINEOPLASTIC RADIATION T 11/12/2019 JOSE MANUEL PENALOZA MD, Ot 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 11/18/2019 JOSE MANUEL PENALOZA MD, Ot C51.9 MALIGNANT NEOPLASM OF VULVA, UNSPECIFIED 11/18/2019 JOSE MANUEL PENALOZA MD, Ot I12.9 HYPERTENSIVE CHRONIC KIDNEY DISEASE W ST 11/18/2019 JOSE MANUEL PENALOZA MD, Ot K21.9 GASTRO-ESOPHAGEAL REFLUX DISEASE WITHOUT 11/18/2019 JOSE MANUEL PENALOZA MD, Ot N18.4 CHRONIC KIDNEY DISEASE, STAGE 4 (SEVERE) 11/18/2019 JOSE MANUEL PENALOZA MD, Ot C51.9 MALIGNANT NEOPLASM OF VULVA, UNSPECIFIED 11/18/2019 JOSE MANUEL PENALOZA MD, Ot I12.9 HYPERTENSIVE CHRONIC KIDNEY DISEASE W ST 11/18/2019 JOSE MANUEL PENALOZA MD, Ot K21.9 GASTRO-ESOPHAGEAL REFLUX DISEASE WITHOUT 11/18/2019 JOSE MANUEL PENALOZA MD, Ot N18.4 CHRONIC KIDNEY DISEASE, STAGE 4 (SEVERE) Procedures There is no data. Results Test Result Range PTH (INTACT) - 08/27/18 11:57 CALCIUM 9.3 mg/dL 8.6-10.4 PARATHYROID HORMONE, INTACT 37 pg/mL 14 -64 MAGNESIUM SERUM - 08/27/18 11:57 MAGNESIUM 2.1 mg/dL 1.5-2.5 URIC ACID, SERUM - 08/27/18 11:57 URIC ACID 6.5 mg/dL 2.5-7.0 PROTEIN, TOTAL W/CREAT, RANDOM URINE - 0 08/27/18 11:57 CREATININE, RANDOM URINE 93 mg/dL 20-27 5 PROTEIN/CREATININE RATIO 194 mg/g creat 21-161 PROTEIN, TOTAL, RANDOM UR 18 mg/dL 5-24 CBC - 08/27/18 11:57 WHITE BLOOD CELL COUNT 8.2 Thousand/uL 3 .8-10.8 RED BLOOD CELL COUNT 3.43 Million/uL 3.8 0-5.10 HEMOGLOBIN 10.7 g/dL 11.7-15.5 HEMATOCRIT 32.7 % 35.0-45.0 MCV 95.3 fL 80.0-100.0 MCH 31.2 pg 27.0-33.0 MCHC 32.7 g/dL 32.0-36.0 RDW 14.4 % 11.0-15.0 PLATELET COUNT 276 Thousand/uL 140-400 MPV 9.7 fL 7.5-12.5 ABSOLUTE NEUTROPHILS 6166 cells/uL 1500- 7800 ABSOLUTE LYMPHOCYTES 1214 cells/uL 850-3 900 ABSOLUTE MONOCYTES 549 cells/uL 200-950 ABSOLUTE EOSINOPHILS 238 cells/uL 15-500 ABSOLUTE BASOPHILS 33 cells/uL 0-200 NEUTROPHILS 75.2 % NRG LYMPHOCYTES 14.8 % NRG MONOCYTES 6.7 % NRG EOSINOPHILS 2.9 % NRG BASOPHILS 0.4 % NRG UA W/ MICROSCOPY - 08/27/18 11:57 COLOR YELLOW YELLOW APPEARANCE CLEAR CLEAR SPECIFIC GRAVITY 1.018 1.001-1.035 PH < OR = 5.0 5.0-8.0 GLUCOSE NEGATIVE NEGATIVE BILIRUBIN NEGATIVE NEGATIVE KETONES NEGATIVE NEGATIVE OCCULT BLOOD TRACE NEGATIVE PROTEIN NEGATIVE NEGATIVE NITRITE NEGATIVE NEGATIVE LEUKOCYTE ESTERASE 2+ NEGATIVE WBC 0-5 /HPF < OR = 5 RBC 0-2 /HPF < OR = 2 SQUAMOUS EPITHELIAL CELLS 20-27 /HPF < O R = 5 BACTERIA FEW /HPF NONE SEEN HYALINE CAST 0-5 /LPF NONE SEEN URIC ACID CRYSTALS FEW /HPF NONE OR FEW VITAMIN D, 25-H - 08/27/18 11:57 VITAMIN D,25-OH,TOTAL,IA 26 ng/mL 30-10 0 Gram stain microscopy - 11/18/18 09:29 Gram stain microscopy 11-19-18, 0605. NR G Bacteria identification in wound by cult ure - 11/18/18 09:29 Bacteria identification in wound by culture [id number] NRG FREE TEXT EXTERNAL SUSCEPTIBILITY REPORTED 11/22/18 08:05 NRG QUANTITY OF GROWTH FEW NRG FREE TEXT ENTRY 2 ID REPORTED 11/19/18 15:05 NRG FREE TEXT ENTRY 3 ID REPORTED 11/19/18 15:05 NRG RML Sensitivity Panel - 11/18/18 09:29 Oxacillin susceptibility test by minimum inhibitory co ncentration > NRG Clindamycin susceptibility test by minimum inhibitory concentration R NRG Erythromycin susceptibility test by minimum inhibitory concentration > NRG Vancomycin susceptibility test by minimum inhibitory c oncentration 1 NRG Levofloxacin susceptibility test by minimum inhibitory concentration > NRG Rifampin susceptibility test by minimum inhibitory con centration <= NRG Cefazolin susceptibility test by minimum inhibitory co ncentration > NRG Linezolid susceptibility test by minimum inhibitory co ncentration 2 NRG Penicillin G susceptibility test by minimum inhibitory concentration > NRG Moxifloxacin susceptibility test by minimum inhibitory concentration > NRG Minocycline susc JOSEPH <= NRG CMP - 01/26/19 10:43 GLUCOSE 148 mg/dL 65-99 UREA NITROGEN (BUN) 23 mg/dL 7-25 CREATININE 1.71 mg/dL 0.50-0.99 eGFR NON-AFR. GRENADIAN 32 mL/min/1.73m2 > OR = 60 eGFR 37 mL/min/1.73m2 > OR = 60 BUN/CREATININE RATIO 13 (calc) 6-22 SODIUM 136 mmol/L 135-146 POTASSIUM 4.2 mmol/L 3.5-5.3 CHLORIDE 99 mmol/L 98-110 CARBON DIOXIDE 24 mmol/L 20-32 CALCIUM 9.8 mg/dL 8.6-10.4 PROTEIN, TOTAL 8.7 g/dL 6.1-8.1 ALBUMIN 4.1 g/dL 3.6-5.1 GLOBULIN 4.6 g/dL (calc) 1.9-3.7 ALBUMIN/GLOBULIN RATIO 0.9 (calc) 1.0-2. 5 BILIRUBIN, TOTAL 0.4 mg/dL 0.2-1.2 ALKALINE PHOSPHATASE 148 U/L 33-130 AST 26 U/L 10-35 ALT 19 U/L 6-29 CBC - 01/26/19 10:43 WHITE BLOOD CELL COUNT 9.1 Thousand/uL 3 .8-10.8 RED BLOOD CELL COUNT 4.41 Million/uL 3.8 0-5.10 HEMOGLOBIN 13.7 g/dL 11.7-15.5 HEMATOCRIT 41.3 % 35.0-45.0 MCV 93.7 fL 80.0-100.0 MCH 31.1 pg 27.0-33.0 MCHC 33.2 g/dL 32.0-36.0 RDW 14.0 % 11.0-15.0 PLATELET COUNT 336 Thousand/uL 140-400 MPV 10.4 fL 7.5-12.5 ABSOLUTE NEUTROPHILS 6734 cells/uL 1500- 7800 ABSOLUTE LYMPHOCYTES 1411 cells/uL 850-3 900 ABSOLUTE MONOCYTES 482 cells/uL 200-950 ABSOLUTE EOSINOPHILS 446 cells/uL 15-500 ABSOLUTE BASOPHILS 27 cells/uL 0-200 NEUTROPHILS 74 % NRG LYMPHOCYTES 15.5 % NRG MONOCYTES 5.3 % NRG EOSINOPHILS 4.9 % NRG BASOPHILS 0.3 % NRG Complete urinalysis with reflex to cultu re - 02/19/19 14:07 Urine color determination YELLOW NRG Urine clarity determination CLEAR NR G Urine pH measurement by test strip 6 5-9 Specific gravity of urine by test strip 1.020 1.016-1.022 Urine protein assay by test strip, semi-quantitative 2+ NEGATIVE Urine glucose detection by automated test strip NE GATIVE NEGATIVE Erythrocytes detection in urine sediment by light micr oscopy 3+ NEGATIVE Urine ketones detection by automated test strip NE GATIVE NEGATIVE Urine nitrite detection by test strip NEGATIVE NEGATIVE Urine total bilirubin detection by test strip NEGA TIVE NEGATIVE Urine urobilinogen measurement by automated test strip (mass/volume) NORMAL NORMAL Urine leukocyte esterase detection by dipstick 3+ NEGATIVE Automated urine sediment erythrocyte cou nt by microscopy (number/high power field) [HPF] NRG Automated urine sediment leukocyte count by microscopy (number/high power field) [HPF] NRG Bacteria detection in urine sediment by light microsco py FEW NRG Squamous epithelial cells detection in u rine sediment by light microscopy NONE NRG Crystals detection in urine sediment by light microsco py NONE NRG Casts detection in urine sediment by light microscopy NONE NRG Mucus detection in urine sediment by light microscopy NEGATIVE NRG Complete urinalysis with reflex to culture YES NRG Bacterial urine culture - 02/19/19 14:07 Bacterial urine culture [id number] NRG COLONY COUNT >100,000/ML NRG FTX;REPORTABLE SUSCEPTIBILITY REPORTED 02/21/19 9:4 5 NRG FREE TEXT ENTRY 2 ID REPORTED 02/20/19 12:05 NRG Dirithromycin susceptibility test by dis k diffusion - 02/19/19 14:07 Gentamicin susceptibility test by minimum inhibitory c oncentration <= NRG Trimethoprim/sulfamethoxazole susceptibi lity test by minimum inhibitoryconcentration <= NRG Levofloxacin susceptibility test by minimum inhibitory concentration <= NRG Ampicillin susceptibility test by minimum inhibitory c oncentration > NRG Cefazolin susceptibility test by minimum inhibitory co ncentration 2 NRG Ceftriaxone susceptibility test by minimum inhibitory concentration <= NRG Ciprofloxacin susceptibility test by minimum inhibitor y concentration <= NRG Meropenem susceptibility test by minimum inhibitory co ncentration <= NRG Nitrofurantoin susceptibility test by mt nimum inhibitory concentration > NRG Amoxicillin and clavulanate potassium susc JOSEPH <= NRG PTH, Intact - 08/06/19 11:33 PTH, Intact 101 pg/mL Urinalysis - 08/06/19 11:33 Icotest N/A Negative Urine Volume Only 2cc urine, microscopic performed on an unspun specimen Urine-Appearance Clear Clear Urine-Bacteria Trace Urine-Bilirubin Negative Negative Urine-Blood Trace-intact Negative Urine-Color Yellow Colorless-[place] ow Urine-Epithelial Cells 0-5/HPF Urine-Glucose Negative Negative Urine-Ketones Trace Negative Urine-Leukocytes Trace Negative Urine-Nitrite Negative Negative Urine-Other Culture to follow Urine-pH 5.5 5-8.5 Urine-Protein 1+ Negative Urine-RBC Negative Urine-Specific [place] 1.020 1.000-1 .030 Urine-WBC Negative Urobilinogen 0.2 E.U./dL 0.2-1.0 Urine Protein/Creat - 08/06/19 11:33 MTP 49 mg/dL 0-20 Urine Creatinine 125.8 mg/dl 0.0-50.0 Urine Protein/Creat Ratio 0.39 mg/dL PTH, Intact - 08/06/19 11:33 PTH, INTACT 101 PG/ML Urine Culture - 08/06/19 11:33 PRELIM CULTURE RESULTS No Growth 24 hours FINAL CULTURE RESULTS 10,000-20,000 Gram Pos itive Mixed Coretta [id number] Skin Contaminant [id number] Further Workup done MEDIA PLATED Setup at 16:07 on 08/06/2019 CULTURE SOURCE CC Encounters ACCT No. Visit Date/Time Discharge Status Pt. Type Provider Facility Loc./Unit Complaint [id number] 08/08/2019 10:08:00 Document Registration [id number] 06/15/2019 11:20:00 06/15/2019 23:59: 59 CLS Outpatient BRENDAN TEJEDA [id number] 01/26/2019 10:15:00 Document Registration [id number] 08/27/2018 11:40:00 Document Registration [id number] 11/17/2019 14:30:00 020 23:59:59 CLS Outpatient CA ALVAREZ, JOSE MANUEL [facility] [id number] 04/14/2019 13:46:00 00:01:00 DIS Outpatient JOSE MANUEL PENALOZA MD [facility] ONC [id number] 01/06/2019 08:10:00 23:59:59 CLS Outpatient GAIL SHAFFER MD [facility] WOUNDCARE [id number] 12/30/2018 07:58:00 23:59:59 CLS Outpatient GAIL SHAFFER MD [facility]OUND[facility] [id number] 12/16/2018 08:00:00 23:59:59 CLS Outpatient GAIL SHAFFER MD [facility] WOUND[facility] [id number] 12/09/2018 08:13:00 23:59:59 CLS Outpatient GAIL SHAFFER MD [facility] WOUND[facility] [id number] 12/02/2018 14:13:00 23:59:59 CLS Outpatient GAIL SHAFFER MD [facility] WOUND[facility] [id number] 11/25/2018 08:24:00 23:59:59 CLS Outpatient GAIL SHAFFER MD [facility] WOUND[facility] [id number] 11/18/2018 08:36:00 23:59:59 CLS Outpatient GAIL SHAFFER MD [facility] WOUNDC[facility] [id number] 11/11/2018 16:51:00 23:59:59 CLS Outpatient GAIL SHAFFER MD [facility] WOUND[facility] [id number] 11/02/2018 14:24:00 23:59:59 CLS Outpatient GAIL SHAFFER MD [facility] WOUND[facility] [id number] 10/28/2018 09:33:00 23:59:59 CLS Outpatient GAIL SHAFFER MD [facility] WOUNDC[facility] [id number] 10/17/2018 21:10:00 23:15:00 DIS Emergency TORI ATKINSON APRN [facility] ER FALL [id number] 06/09/2018 07:33:00 018 23:59:59 CLS Preadmit ANGELES ALAMO DO [facility] RAD POST MENOPAUSAL BLEEDIN G [id number] 01/12/2014 09:32:00 014 23:59:59 CLS Outpatient [id number] 10/26/2019 14:03:00 10/26/2019 23:59 :00 DIS Outpatient BakerNesha [id number] 08/24/2019 14:53:00 08/24/2019 23:59 :00 DIS Outpatient Baker, Nesha [id number] 08/06/2019 14:52:00 08/06/2019 23:59 :00 DIS Outpatient Baker, Nesha [id number] 08/06/2019 12:23:00 08/06/2019 23:59 :00 DIS Outpatient MICHELLE DURAN [id number] 07/26/2019 16:21:00 07/26/2019 23:59 :00 DIS Outpatient BakerNesha
[2019-11-21] MEDS ORDERED: FAMO20TA5 (01:26)
[2019-11-21] MEDS ORDERED: ATOR10TA66 (01:26)
[2019-11-21] MEDS ORDERED: DULO60CA59 (01:26)
[2019-11-21] MEDS ORDERED: AMLO10TA7 (01:26)
[2019-11-21] MEDS ORDERED: DIAZ5TAB49 (01:26)
[2019-11-21] MEDS ORDERED: METO50TA15 (01:26)
[2019-11-21] MEDS ORDERED: FERR325T18 (01:26)
[2019-11-21] MEDS ORDERED: METO100T12 (01:26)
[2019-11-21] MEDS ORDERED: CYCL10TA9 (01:26)
[2019-11-21] MEDS ORDERED: FLUO40CA12 (01:26)
[2019-11-21] MEDS ORDERED: hydrALAZINE (APESOLINE) 20 MG/ML VIAL IV ONE (01:45)
--- NOTE | 2019-11-21 01:53 | ED Cardiac General ---
History of Present Illness General Chief Complaint: Cardiac/General Problems Stated Complaint: HIGH BP Nursing Triage Note: C/O HIGH BLOOD PRESSURE X2 WEEKS. DENIES SYMPTOMS. Source: patient Exam Limitations: no limitations History of Present Illness Date Seen by Provider: November 21, 2019 Time Seen by Provider: 01:30 Initial Comments The patient presents to ER by private conveyance from home with chief complaint of high blood pressure. He says been up for the last couple weeks. She has been on metoprolol tartrate 150 mg twice a day as well as amlodipine 10 mg. She says she's been taking them as prescribed. Took her metoprolol at 10:00 last night. She's not having any chest pain shortness of breath, anxiety, nausea, weakness, tremors or other symptoms. She says she just keep checking her blood pressure stays up around 200 systolic. She follows at [facility]. She has a history of traumatic brain injury. No history of heart attack, diabetes or smoking. No swelling in her hands or feet. No orthopnea or other symptoms. She does not follow with a fishery biologist but says in [place] many years ago she had a heart catheterization which did not find anything. She did follow with a fishery biologist once for her difficult to control blood pressure. She has a history of some intra-abdominal cancer of unknown origin for which she had surgery and radiation therapy but no chemotherapy last year. She has a history of chronic kidney disease, not on dialysis. The patient is notably a difficult historian but is able to give a more or less complete account of her history. 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 Allergies and Home Medications Allergies Coded Allergies: NSAIDS (Non-Steroidal Anti-Inflamma (Verified Allergy, Unknown, 10/17/18) diphenhydramine (Verified Allergy, Unknown, 10/17/18) lisinopril (Verified Allergy, Unknown, 10/17/18) Patient Home Medication List Home Medication List Reviewed: Yes Review of Systems Review of Systems Constitutional: No chills, No diaphoresis EENTM: No Blurred Vision, No Double Vision Respiratory: Denies Cough, Denies Shortness of Air Cardiovascular: Denies Chest Pain, Denies Edema, Denies Irregular Heart Rate, Denies Lightheadedness Gastrointestinal: Denies Constipated, Denies Diarrhea, Denies Nausea, Denies Vomiting Genitourinary: Denies Burning, Denies Discharge, Denies Drainage Musculoskeletal: No back pain, No joint pain All Other Systems Reviewed Negative Unless Noted: Yes Past Ccibdsu-Tqwqrw-Wixbdf Hx Patient Social History Alcohol Use: Denies Use Recreational Drug Use: No Smoking Status: Never a Smoker 2nd Hand Smoke Exposure: No Recent Foreign Travel: No Contact w/Someone Who Travel: No Recent Infectious Disease Expo: No Recent Hopitalizations: No Physical Abuse: No Sexual Abuse: No Mistreated: No Fear: No Immunizations Up To Date Tetanus Booster (TDap): Less than 5yrs Seasonal Allergies Seasonal Allergies: Yes Past Medical History Surgeries: Yes (TUMOR REMOVAL) Abdominal Respiratory: Yes Asthma Cardiac: Yes High Cholesterol, Hypertension 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 oz. [id number]; 36.00 BMI Method:Stated General Appearance: No Apparent Distress, WD/WN HEENT: PERRL/EOMI, Pharynx Normal, Moist Mucous Membranes Neck: Full Range of Motion, Normal Inspection Respiratory: No Accessory Muscle Use, No Respiratory Distress Cardiovascular: Regular Rate, Rhythm, No Edema, Normal Peripheral Pulses Gastrointestinal: Normal Bowel Sounds, Non Tender, Soft Neurologic/Psychiatric: Alert, Oriented x3, Normal Mood/Affect Skin: Normal Color, Warm/Dry Progress/Results/Core Measures Results/Orders Lab Results Laboratory Tests Test 11/21/19 01:53 Range/Units White Blood Count 7.1 4.3-11.0 10^3/uL Red Blood Count 3.89 L 4.35-5.85 10^6/uL Hemoglobin 12.0 11.5-16.0 G/DL Hematocrit 36 35-52 % Mean Corpuscular Volume 92 80-99 FL Mean Corpuscular Hemoglobin 31 25-34 PG Mean Corpuscular Hemoglobin Concent 33 32-36 G/DL Red Cell Distribution Width 13.6 10.0-14.5 % Platelet Count 312 130-400 10^3/uL Mean Platelet Volume 8.7 7.4-10.4 FL Neutrophils (%) (Auto) 79 H 42-75 % Lymphocytes (%) (Auto) 8 L 12-44 % Monocytes (%) (Auto) 8 0-12 % Eosinophils (%) (Auto) 5 0-10 % Basophils (%) (Auto) 0 0-10 % Neutrophils # (Auto) 5.6 1.8-7.8 X 10^3 Lymphocytes # (Auto) 0.6 L 1.0-4.0 X 10^3 Monocytes # (Auto) 0.6 0.0-1.0 X 10^3 Eosinophils # (Auto) 0.3 0.0-0.3 10^3/uL Basophils # (Auto) 0.0 0.0-0.1 10^3/uL Sodium Level 139 135-145 MMOL/L Potassium Level 3.7 3.6-5.0 MMOL/L Chloride Level 103 98-107 MMOL/L Carbon Dioxide Level 22 21-32 MMOL/L Anion Gap 14 5-14 MMOL/L Blood Urea Nitrogen 35 H 7-18 MG/DL Creatinine 1.81 H 0.60-1.30 MG/DL Estimat Glomerular Filtration Rate 28 BUN/Creatinine Ratio 19 Glucose Level 122 H 70-105 MG/DL Calcium Level 9.3 8.5-10.1 MG/DL Corrected Calcium 9.1 8.5-10.1 MG/DL Total Bilirubin 0.3 0.1-1.0 MG/DL Aspartate Amino Transf (AST/SGOT) 17 5-34 U/L Alanine Aminotransferase (ALT/SGPT) 12 0-55 U/L Alkaline Phosphatase 135 40-136 U/L Total Protein 8.6 H 6.4-8.2 GM/DL Albumin 4.2 3.2-4.5 GM/DL My Orders Orders - LITO LEAL Hydralazine Injection (Apresoline Inject (11/21/19 01:45) Cbc With Automated Diff (11/21/19 01:45) Comprehensive Metabolic Panel (11/21/19 01:45) Ed Iv/Invasive Line Start (11/21/19 01:53) Medications Given in ED Current Medications Medications Dose Ordered Sig/Guillermina Route Start Time Stop Time Status Last Admin Dose Admin Hydralazine HCl 10 mg ONCE ONCE IV 11/21/19 01:45 11/21/19 01:48 DC 11/21/19 01:55 10 MG Vital Signs/I&O 11/21/19 01:26 Temp 36.1 Pulse 76 Resp 16 B/P (MAP) 204/95 (131) Pulse Ox 97 O2 Delivery Room Air Blood Pressure Mean: 131 Progress Progress Note #1: Time: 01:54 Progress Note Aseptic patient presenting without any acute distress but the last 2 weeks of elevated pressure in a background history of difficult to control blood pressure and chronic kidney disease. She has asymptomatic hypertensive urgency. Plan to give her some hydralazine and if that'll bring her down by about 25% and put her on a low-dose of hydralazine by mouth and have her follow-up with primary care. We'll check some basic labs and observe the patient briefly for any changes. Progress Note #2: Time: 02:25 Progress Note With adequate reduction of blood pressure after single dose of hydralazine to 163/70. Patient continues to be asymptomatic. We'll have her follow-up outpatient. Departure Impression Primary Impression: Asymptomatic hypertensive urgency Disposition: 01 HOME, SELF-CARE Condition: Stable Departure-Patient Inst. Decision time for Depature: 02:25 Referrals: NO,LOCAL PHYSICIAN (PCP) Primary Care Physician AALIYAH SALES (Family) Primary Care Physician Patient Instructions: High Blood Pressure (DC) Add. Discharge Instructions: Make sure you're taking your medications as prescribed. Friday call for an appointment with your primary care provider within the next 1-2 weeks. Discuss appropriate management of blood pressure with your primary doctor provider. Hydralazine 25 mg 3 times a day with food. All discharge instructions reviewed with patient and/or family. Voiced understanding. Scripts Hydralazine HCl (Hydralazine HCl) 25 Mg Tablet 25 MG PO TID for 14 Days, #42 TAB 0 Refills Prov: LITO LEAL 11/21/19 LITO LEAL November 21, 2019 01:53
[2019-11-21 02:03] LABS: BASOPHILS % (AUTO) 0 % (0-10); EOSINOPHILS # (AUTO) 0.3 10^3/uL (0.0-0.3); EOSINOPHILS % (AUTO) 5 % (0-10); HEMATOCRIT 36 % (35-52); LYMPHOCYTES # (AUTO) 0.6 X 10^3 (1.0-4.0); LYMPHOCYTES % (AUTO) 8 % (12-44); MEAN CORPUSCULAR HEMOGLOBIN 31 PG (25-34); MEAN CORPUSCULAR HGB CONC 33 G/DL (32-36); MEAN CORPUSCULAR VOLUME 92 FL (80-99); MEAN PLATELET VOLUME 8.7 FL (7.4-10.4); MONOCYTES # (AUTO) 0.6 X 10^3 (0.0-1.0); MONOCYTES % (AUTO) 8 % (0-12); NEUTROPHILS # (AUTO) 5.6 X 10^3 (1.8-7.8); NEUTROPHILS % (AUTO) 79 % (42-75); PLATELET COUNT 312 10^3/uL (130-400); RED CELL DISTRIBUTION WIDTH 13.6 % (10.0-14.5); WHITE BLOOD COUNT 7.1 10^3/uL (4.3-11.0)
[2019-11-21 02:13] LABS: ALBUMIN 4.2 GM/DL (3.2-4.5); POTASSIUM 3.7 MMOL/L (3.6-5.0)
[2019-11-21 02:14] LABS: CALCIUM 9.3 MG/DL (8.5-10.1)
[2019-11-21 02:16] LABS: TOTAL PROTEIN 8.6 GM/DL (6.4-8.2)
[2019-11-21 02:18] LABS: BILIRUBIN,TOTAL 0.3 MG/DL (0.1-1.0)
[2019-11-21 02:19] LABS: CREATININE SERUM 1.81 MG/DL (0.60-1.30)
[2019-11-21] MEDS ORDERED: HYDR-3923 PO (02:28)
[2019-11-21 02:30] VITALS: BP 163/70
== END 2019-11-21 02:31 | disposition home or self-care (01) ==
LOC: EDUNIT# 01:10 → ER 01:12
DX: I16.0 Hypertensive urgency (principal); I12.9 Hypertensive chronic kidney disease with stage 1 through stage 4 chronic kidney disease, or unspecified chronic kidney disease; N18.9 Chronic kidney disease, unspecified; Z88.6 Allergy status to analgesic agent; Z88.8 Allergy status to other drugs, medicaments and biological substances; Z87.820 Personal history of traumatic brain injury; Z95.9 Presence of cardiac and vascular implant and graft, unspecified
CPT/HCPCS: 36415; 80053; 85025

== ENCOUNTER 2020-03-16 16:30 | Emergency (ER) | payer MEDICARE, MEDICAID ==
[~2020-03-16] VITALS: Ht 160 cm; Wt 99.4 kg
[~2020-03-16 16:30] MED LIST changes: +AMLO10TA7; +ATOR10TA66; +CYCL10TA9; +DIAZ5TAB49; +DULO60CA59; +FAMO20TA5; +FERR325T18; +FLUO40CA12; +HYDR-3923 PO; +METO100T12; +METO50TA15
[2020-03-16 16:33] VITALS: BP 197/88
[2020-03-16] MEDS ORDERED: hydrALAZINE (APESOLINE) 20 MG/ML VIAL IV ONE (16:45)
[2020-03-16] MEDS ORDERED: hydrALAZINE (APESOLINE) 20 MG/ML VIAL ONE (16:48)
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
[2020-03-16 17:10] LABS: BASOPHILS % (AUTO) 0 % (0-10); EOSINOPHILS % (AUTO) 5 % (0-10); HEMATOCRIT 35 % (35-52); HEMOGLOBIN 11.2 G/DL (11.5-16.0); LYMPHOCYTES # (AUTO) 0.5 X 10^3 (1.0-4.0); LYMPHOCYTES % (AUTO) 9 % (12-44); MEAN CORPUSCULAR HEMOGLOBIN 30 PG (25-34); MEAN CORPUSCULAR HGB CONC 32 G/DL (32-36); MEAN CORPUSCULAR VOLUME 94 FL (80-99); MEAN PLATELET VOLUME 8.8 FL (7.4-10.4); MONOCYTES % (AUTO) 8 % (0-12); NEUTROPHILS # (AUTO) 4.6 X 10^3 (1.8-7.8); NEUTROPHILS % (AUTO) 77 % (42-75); PLATELET COUNT 322 10^3/uL (130-400); WHITE BLOOD COUNT 5.9 10^3/uL (4.3-11.0)
[2020-03-16 17:11] LABS: EOSINOPHILS # (AUTO) 0.3 10^3/uL (0.0-0.3); MONOCYTES # (AUTO) 0.5 X 10^3 (0.0-1.0)
--- NOTE | 2020-03-16 17:18 | Diagnostic Imaging Report ---
INDICATION: Hypertension, shortness of breath. EXAMINATION: Two view chest, 03/16/2020. FINDINGS: Heart is unremarkable. Pulmonary vasculature is slightly congested. Lungs are clear. No infiltrate, effusion or pneumothorax. IMPRESSION: Pulmonary vascular congestion. Dictated by: Dictated on workstation # [id number]
[2020-03-16] MEDS ORDERED: FUROSEMIDE 40 MG/4 ML INJ (LASIX) ONE (17:22)
[2020-03-16 17:27] LABS: CALCIUM 9.4 MG/DL (8.5-10.1); CREATININE SERUM 2.11 MG/DL (0.60-1.30); POTASSIUM 4.3 MMOL/L (3.6-5.0)
[2020-03-16] MEDS ORDERED: FUROSEMIDE 40 MG/4 ML INJ (LASIX) IVP ONE (17:30)
== END 2020-03-16 17:45 | disposition home or self-care (01) ==
LOC: EDUNIT# 16:30 → ER FS 16:30
DX: I11.0 Hypertensive heart disease with heart failure (principal); I50.9 Heart failure, unspecified; N28.9 Disorder of kidney and ureter, unspecified; Z88.6 Allergy status to analgesic agent; Z88.8 Allergy status to other drugs, medicaments and biological substances
CPT/HCPCS: 36415; 71046; 80048; 84484; 85025; 93005

== ENCOUNTER 2022-03-26 21:35 | Inpatient (IN) | payer MEDICARE, MEDICAID ==
[~2022-03-26] VITALS: Ht 160 cm; Wt 107.4 kg
[~2022-03-26 21:35] MED LIST changes: +AMLO-251; -AMLO10TA7; -ATOR10TA66; +ATOR10TA66 PO; +CYCL10TA25 PO; -CYCL10TA9; -DIAZ5TAB49; +DIAZ5TAB49 PO; -FAMO20TA5; +FAMO20TA5 PO; -FLUO20CA46; +FLUO20CA48; -METO100T12; +METO100T12 PO
[2022-03-26] MEDS ORDERED: NS IV 1000 ML 1,000 ML IV SCH (21:45)
[2022-03-26] MEDS ORDERED: HYDROmorphone 2 MG/ML VIAL (DILAUDID) IV ONE (21:45)
[2022-03-26] MEDS ORDERED: metroNIDAZOLE 500MG/100ML IVPB 100 ML IV ONE (21:45)
[2022-03-26] MEDS ORDERED: cefTRIAXone 1 GM PRE-MIX 50 ML IV ONE (21:45)
[2022-03-26] MEDS ORDERED: ONDANSETRON 4 MG/2 ML (SDV) Z0FRAN IVP ONE (21:45)
--- NOTE | 2022-03-26 21:52 | ED Abdominal Pain ---
General Chief Complaint: Cardiac/General Problems Stated Complaint: HERNIA PAIN Nursing Triage Note: PT ARRIVAL TO ER WITH COMPLAINT OF HERNIA PAIN X1 HOUR. PT STATES THAT IT FEELS LIKE IT COULD EXPLODE. 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 PT HAS IV TO RIGHT AC. PAIN IS DESCRIBED SHARP STABBING PAIN. Source of Information: Patient Exam Limitations: No Limitations History of Present Illness Date Seen by Provider: Mar 26, 2022 Time Seen by Provider: 21:25 Initial Comments Patient to ER by EMS from home with chief complaint of 1 hour of right ventral hernia pain nausea vomiting. She states she feels like it could explode. She had received 2 doses of fentanyl 50 mcg each prior to arrival by EMS as well as started a liter of fluids. She says she has not eaten all day. She claims she is had multiple surgeries on her abdomen but cannot recount anything other than her gallbladder and hysterectomy. She does not know who the surgeon was. She has not had any fever. She describes the pain as sharp, stabbing, 8 out of 10 to 9 out of 10 despite fentanyl. She denies having passed any gas or having any bowel surgeries or bowel movements. 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 Allergies and Home Medications Allergies Coded Allergies: NSAIDS (Non-Steroidal Anti-Inflamma (Verified Allergy, Unknown, 10/17/18) diphenhydramine (Verified Allergy, Unknown, 10/17/18) lisinopril (Verified Allergy, Unknown, 10/17/18) Patient Home Medication List Home Medication List Reviewed: Yes Amlodipine Besylate (Amlodipine Besylate) 10 Mg Tablet, (Reported) Entered as Reported by: SUSAN JIMENEZ on 11/21/19125 Atorvastatin Calcium (Atorvastatin Calcium) 10 Mg Tablet, (Reported) Entered as Reported by: SUSAN JIMENEZ on 11/21/19125 Cyclobenzaprine HCl (Cyclobenzaprine HCl) 10 Mg Tablet, (Reported) Entered as Reported by: SUSAN JIMENEZ on 11/21/19125 Diazepam (Diazepam) 5 Mg Tablet, (Reported) Entered as Reported by: SUSAN JIMENEZ on 11/21/19125 Duloxetine HCl (Duloxetine HCl) 60 Mg Capsule., (Reported) Entered as Reported by: SUSAN JIMENEZ on 11/21/19125 Famotidine (Famotidine) 20 Mg Tablet, (Reported) Entered as Reported by: SUSAN JIMENEZ on 11/21/19125 Ferrous Sulfate (Ferrous Sulfate) 325 Mg Tablet, (Reported) Entered as Reported by: SUSAN JIMENEZ on 11/21/19125 Fluoxetine HCl (Prozac) 40 Mg Capsule, (Reported) Entered as Reported by: SUSAN JIMENEZ on 11/21/19125 Hydralazine HCl (Hydralazine HCl) 25 Mg Tablet, 25 MG PO TID Prescribed by: LITO LEAL on 11/21/19227 Metoprolol Tartrate (Metoprolol Tartrate) 50 Mg Tablet, (Reported) Entered as Reported by: SUSAN JIMENEZ on 11/21/19125 Metoprolol Tartrate (Metoprolol Tartrate) 100 Mg Tablet, (Reported) Entered as Reported by: SUSAN JIMENEZ on 11/21/19125 Review of Systems Review of Systems Constitutional: No chills, No diaphoresis EENTM: No Blurred Vision, No Double Vision Respiratory: Denies Cough, Denies Shortness of Air Cardiovascular: Denies Chest Pain, Denies Lightheadedness Gastrointestinal: See HPI, Abdomen Distended, Abdominal Pain, Constipated; Denies Diarrhea; Nausea, Poor Fluid Intake, Vomiting Genitourinary: Denies Burning, Denies Discharge Musculoskeletal: No back pain, No joint pain Past Oxaajpl-Dfqeif-Alxajo Hx Patient Social History Tobacco Use?: Yes Tobacco type used: Cigarettes Smoking Status: Current Everyday Smoker Use of E-Cig and/or Vaping dev: No Substance use?: No Alcohol Use?: No Pt feels they are or have been: No Immunizations Up To Date Tetanus Booster (TDap): Less than 5yrs Influenza Vaccine Up-to-Date: No; Not Current Seasonal Allergies Seasonal Allergies: Yes Past Medical History Surgeries: Yes (TUMOR REMOVAL) Abdominal Respiratory: Yes Asthma Cardiac: Yes High Cholesterol, Hypertension Neurological: No [employer]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 oz. 90.536373uc; 38.00 BMI Method:Stated General Appearance: moderate distress, obese HEENT: PERRL/EOMI, TMs normal; No pharynx normal; other (Dry oropharynx mucosa) Neck: non-tender, full range of motion Respiratory: lungs clear, normal breath sounds, no respiratory distress, no accessory muscle use Cardiovascular: normal peripheral pulses, regular rate, rhythm, tachycardia (130) Peripheral Pulses: 2+ Radial Pulses (R), 2+ Radial Pulses (L) Gastrointestinal: soft, no pulsatile mass, abnormal bowel sounds, tenderness, hernia (Right ventral wall hernia associated with a surgical scar in the right upper quadrant abdomen that is approximately 5 cm diameter, soft, appears to be mostly reducible but very tender. No bowel sounds are heard over it.) Extremities: normal range of motion, non-tender, normal capillary refill Neurologic/Psychiatric: alert, oriented x 3 Focused Exam Lactate Level 03/26/22 21:57: Lactic Acid Level 1.87 Lactic Acid Level Laboratory Tests Test 03/26/22 21:57 Lactic Acid Level 1.87 MMOL/L (0.50-2.00) Progress/Results/Core Measures Results/Orders Lab Results Laboratory Tests Test 03/26/22 21:43 03/26/22 21:57 03/26/22 22:44 Range/Units White Blood Count 15.4 H 4.3-11.0 10^3/uL Red Blood Count 4.70 3.80-5.11 10^6/uL Hemoglobin 14.6 11.5-16.0 g/dL Hematocrit 43 35-52 % Mean Corpuscular Volume 92 80-99 fL Mean Corpuscular Hemoglobin 31 25-34 pg Mean Corpuscular Hemoglobin Concent 34 32-36 g/dL Red Cell Distribution Width 13.5 10.0-14.5 % Platelet Count 258 130-400 10^3/uL Mean Platelet Volume 9.0 9.0-12.2 fL Immature Granulocyte % (Auto) 1 % Neutrophils (%) (Auto) 95 H 42-75 % Lymphocytes (%) (Auto) 2 L 12-44 % Monocytes (%) (Auto) 2 0-12 % Eosinophils (%) (Auto) 0 0-10 % Basophils (%) (Auto) 0 0-10 % Neutrophils # (Auto) 14.7 H 1.8-7.8 10^3/uL Lymphocytes # (Auto) 0.3 L 1.0-4.0 10^3/uL Monocytes # (Auto) 0.3 0.0-1.0 10^3/uL Eosinophils # (Auto) 0.0 0.0-0.3 10^3/uL Basophils # (Auto) 0.0 0.0-0.1 10^3/uL Immature Granulocyte # (Auto) 0.1 0.0-0.1 10^3/uL Neutrophils % (Manual) 97 % Monocytes % (Manual) 3 % Polychromasia MODERATE Prothrombin Time 14.8 H 12.2-14.7 SEC INR Comment 1.1 0.8-1.4 Activated Partial Thromboplast Time 29 24-35 SEC Sodium Level 139 135-145 MMOL/L Potassium Level 4.0 3.6-5.0 MMOL/L Chloride Level 101 98-107 MMOL/L Carbon Dioxide Level 18 L 21-32 MMOL/L Anion Gap 20 H 5-14 MMOL/L Blood Urea Nitrogen 40 H 7-18 MG/DL Creatinine 2.00 H 0.60-1.30 MG/DL Estimat Glomerular Filtration Rate 27 BUN/Creatinine Ratio 20 Glucose Level 173 H 70-105 MG/DL Calcium Level 10.1 8.5-10.1 MG/DL Corrected Calcium 10.1 8.5-10.1 MG/DL Magnesium Level 1.9 1.6-2.4 MG/DL Total Bilirubin 0.7 0.1-1.0 MG/DL Aspartate Amino Transf (AST/SGOT) 27 5-34 U/L Alanine Aminotransferase (ALT/SGPT) 18 0-55 U/L Alkaline Phosphatase 100 40-136 U/L Total Protein 8.8 H 6.4-8.2 GM/DL Albumin 4.0 3.2-4.5 GM/DL Lactic Acid Level 1.87 0.50-2.00 MMOL/L My Orders Orders - LITO LEAL Hydromorphone Injection (Dilaudid Inject (9/27/22 21:45) Ondansetron Injection (Zofran Injectio (03/26/22 21:45) Ed Iv/Invasive Line Start (03/26/22 21:44) Ns Iv 1000 Ml (Sodium Chloride 0.9%) (03/26/22 21:45) Cbc With Automated Diff (03/26/22 21:44) Comprehensive Metabolic Panel (03/26/22 21:44) Blood Culture (03/26/22 21:44) Sputum Culture (03/26/22 21:44) Urinalysis (03/26/22 21:44) Urine Culture (03/26/22 21:44) Protime With Inr (03/26/22:44) Partial Thromboplastin Time (03/26/22 21:44) Chest 1 View, Ap/Pa Only (03/26/22 21:44) Ed Iv/Invasive Line Start (03/26/22 21:44) Ed Iv/Invasive Line Start (03/26/22 21:44) Vital Signs Adult Sepsis Patie Q15M (03/26/22 21:44) O2 (03/26/22 21:44) Remove Rings In Anticipation O (03/26/22 21:44) Lactic Acid Analyzer (03/26/22 21:44) Ceftriaxone 1 Gm Pre-Mix (Rocephin 1 Gm (03/26/22 21:45) Metronidazole 500mg/100ml Ivpb (Flagyl 5 (03/26/22 21:45) Magnesium (03/26/22 21:44) Manual Differential (03/26/22 21:43) Ct Abdomen/Pelvis Wo (03/26/22 21:44) Catheter(Urinary) Insert & Ass 03,15 (03/26/22 22:52) Medications Given in ED Current Medications Medications Dose Ordered Sig/Giullermina Route Start Time Stop Time Status Last Admin Dose Admin Ceftriaxone Sodium/Dextrose 50 ml @ 100 mls/hr ONCE ONCE IV 03/26/22 21:45 03/26/22 22:14 DC 03/26/22 22:22 100 MLS/HR Hydromorphone HCl 0.5 mg ONCE ONCE IV 03/26/22 21:45 03/26/22 21:47 DC 03/26/22 21:57 0.5 MG Metronidazole 100 ml @ 100 mls/hr ONCE ONCE IV 03/26/22 21:45 03/26/22 22:44 DC 03/26/22 22:22 100 MLS/HR Vital Signs/I&O 03/26/22 03/26/22 21:39 22:00 Temp 36.9 Pulse 126 Resp 18 B/P (MAP) 251/156 (187) Pulse Ox 95 96 O2 Delivery Room Air Nasal Cannula O2 Flow Rate 2.00 Blood Pressure Mean: 187 Progress Progress Note : Time: 21:[address] of the abdomen/pelvis with IV contrast. 2 L of fluids based on an adjusted ideal body weight, septic work-up with Rocephin and Flagyl for potential intra- abdominal infection versus bowel obstruction related to a hernia site. Half milligram Dilaudid, 8 mg of ondansetron for nausea. Diagnostic Imaging Diagonstic Imaging: Xray Plain Films/CT/US/NM/MRI: chest Comments [facility] [place] [place] NAME: ALEXANDRAOswaldoYesikaKAJAL [facility] REC#: [id number] PT STATUS: REG ER : 1955 PHYSICIAN: LITO LEAL MD ADMIT DATE: 03/26/22/ER Signed Date of Exam:03/26/22 CHEST 1 VIEW, AP/PA ONLY PATIENT HISTORY: Sepsis. TECHNIQUE: Single frontal view of the chest. COMPARISON: 03/16/2020 FINDINGS: The lung volumes are mildly low. No focal consolidation is seen. No large pleural effusion or pneumothorax is seen. The cardiomediastinal silhouette is normal in size and contour. No acute osseous abnormality is seen. IMPRESSION: Lung volumes with no acute pulmonary abnormality seen. Dictated by: Dictated on workstation # [id number] Dict: 03/26/222157 Trans: 03/26/222213 [facility] [id number] Interpreted by: MAX MORIN MD Electronically signed by: MAX MORIN MD 03/26/222213 Reviewed: Reviewed by Fl Diagonstic Imaging: CT (Without IV contrast) Plain Films/CT/US/NM/MRI: abdomen, pelvis Comments [facility] [place] [place] NAME: KAJAL CASTREJON [facility] REC#: [id number] PT STATUS: REG ER : 1955 PHYSICIAN: LITO LEAL MD ADMIT DATE: 03/26/22/ER Draft Date of Exam:03/26/22 CT ABDOMEN/PELVIS WO PROCEDURE: CT abdomen and pelvis without contrast. TECHNIQUE: Multiple contiguous axial images were obtained through the abdomen and pelvis without the use of intravenous contrast. Auto Exposure Controls were utilized during the CT exam to meet ALARA standards for radiation dose reduction. INDICATION: Abdominal pain, right ventral hernia, possible obstruction. COMPARISON: None FINDINGS: There is atelectasis in the dependent right lung. The heart is normal in size. The distal esophagus is distended with fluid. The liver demonstrates no focal lesions. There is a large stone in the gallbladder measuring 3.3 cm. There is gallbladder wall thickening. The spleen appears normal. The pancreas is normal. The adrenal glands appear normal. The left kidney is severely atrophic. The right kidney appears normal. There is no hydronephrosis or obstructing calculi. There is a right ventral hernia with an aperture measuring about 5 cm. This contains loops of colon, but no evidence of strangulation or obstruction. The appendix appears normal. There are anastomotic sutures in the bowel. The stomach is fluid-filled and mildly distended. The bowel loops are decompressed. There is aortic atherosclerosis. No free fluid or free air is seen. No acute osseous abnormality is seen. There is deformity of the left pubis which may be from remote trauma. There are sclerotic densities in the femoral heads, may represent areas of osteonecrosis. IMPRESSION: 1. Right ventral hernia containing a loop of colon but with no evidence of obstruction or strangulation. 2. Large calcified gallstone with thickening of the gallbladder wall. This is nonspecific, but a cholecystitis is not excluded. 3. Fluid-filled stomach with distended fluid-filled distal esophagus, likely due to reflux. Dictated on workstation # [id number] Dict: 03/26/222237 Trans: 03/26/228 BR[facility] [id number] Interpreted by: MAX MORIN MD Electronically signed by: Reviewed: Reviewed by Me Departure Communication (Admissions) Time/Spoke to Admitting Phy: 22:[address] Cam who agrees to admit the patient with medical consult. N.p.o. and he will see her in the morning. Time/Spoke to Consulting Phy: 23:[address] Yu who agrees to consult for medicine. Impression Primary Impression: Cholecystitis with cholelithiasis Qualified Codes: K80.00 - Calculus of gallbladder with acute cholecystitis without obstruction Disposition: ADMITTED INPATIENT Condition: Stable Admissions Decision to Admit Reason: Admit from ER (General) Decision to Admit/Date: Mar 26, 2022 Time/Decision to Admit Time: 22:58 Departure-Patient Inst. Referrals: NO,LOCAL PHYSICIAN (PCP) Primary Care Physician AALIYAH SALES (Family) Primary Care Physician LITO LEAL Mar 26, 2022 21:52
[2022-03-26 21:54] LABS: BASOPHILS % (AUTO) 0 % (0-10); EOSINOPHILS % (AUTO) 0 % (0-10); HEMATOCRIT 43 % (35-52); HEMOGLOBIN 14.6 g/dL (11.5-16.0); LYMPHOCYTES # (AUTO) 0.3 10^3/uL (1.0-4.0); LYMPHOCYTES % (AUTO) 2 % (12-44); MEAN CORPUSCULAR HEMOGLOBIN 31 pg (25-34); MEAN CORPUSCULAR HGB CONC 34 g/dL (32-36); MEAN CORPUSCULAR VOLUME 92 fL (80-99); MONOCYTES # (AUTO) 0.3 10^3/uL (0.0-1.0); MONOCYTES % (AUTO) 2 % (0-12); NEUTROPHILS # (AUTO) 14.7 10^3/uL (1.8-7.8); NEUTROPHILS % (AUTO) 95 % (42-75); PLATELET COUNT 258 10^3/uL (130-400); WHITE BLOOD COUNT 15.4 10^3/uL (4.3-11.0)
[2022-03-26 22:01] LABS: INR 1.1 (0.8-1.4); PROTHROMBIN TIME PATIENT 14.8 SEC (12.2-14.7)
--- NOTE | 2022-03-26 22:02 | Diagnostic Imaging Report ---
PATIENT HISTORY: Sepsis. TECHNIQUE: Single frontal view of the chest. COMPARISON: 03/16/2020 FINDINGS: The lung volumes are mildly low. No focal consolidation is seen. No large pleural effusion or pneumothorax is seen. The cardiomediastinal silhouette is normal in size and contour. No acute osseous abnormality is seen. IMPRESSION: Lung volumes with no acute pulmonary abnormality seen. Dictated by: Dictated on workstation # [id number]
[2022-03-26 22:07] LABS: MONOCYTES % (MANUAL) 3 %; NEUTROPHILS % (MANUAL) 97 %; POLYCHROMASIA MODERATE
[2022-03-26 22:13] LABS: BILIRUBIN,TOTAL 0.7 MG/DL (0.1-1.0); CALCIUM 10.1 MG/DL (8.5-10.1); MAGNESIUM 1.9 MG/DL (1.6-2.4); TOTAL PROTEIN 8.8 GM/DL (6.4-8.2)
--- NOTE | 2022-03-26 22:50 | Diagnostic Imaging Report ---
PROCEDURE: CT abdomen and pelvis without contrast. TECHNIQUE: Multiple contiguous axial images were obtained through the abdomen and pelvis without the use of intravenous contrast. Auto Exposure Controls were utilized during the CT exam to meet ALARA standards for radiation dose reduction. INDICATION: Abdominal pain, right ventral hernia, possible obstruction. COMPARISON: None FINDINGS: There is atelectasis in the dependent right lung. The heart is normal in size. The distal esophagus is distended with fluid. The liver demonstrates no focal lesions. There is a large stone in the gallbladder measuring 3.3 cm. There is gallbladder wall thickening. The spleen appears normal. The pancreas is normal. The adrenal glands appear normal. The left kidney is severely atrophic. The right kidney appears normal. There is no hydronephrosis or obstructing calculi. There is a right ventral hernia with an aperture measuring about 5 cm. This contains loops of colon, but no evidence of strangulation or obstruction. The appendix appears normal. There are anastomotic sutures in the bowel. The stomach is fluid-filled and mildly distended. The bowel loops are decompressed. There is aortic atherosclerosis. No free fluid or free air is seen. No acute osseous abnormality is seen. There is deformity of the left pubis which may be from remote trauma. There are sclerotic densities in the femoral heads, may represent areas of osteonecrosis. IMPRESSION: 1. Right ventral hernia containing a loop of colon but with no evidence of obstruction or strangulation. 2. Large calcified gallstone with thickening of the gallbladder wall. This is nonspecific, but a cholecystitis is not excluded. 3. Fluid-filled stomach with distended fluid-filled distal esophagus, likely due to reflux. Dictated by: Dictated on workstation # [id number]
[2022-03-26 22:55] LABS: BILIRUBIN,URINE NEGATIVE (NEGATIVE); CLARITY,URINE CLEAR; COLOR,URINE YELLOW; GLUCOSE, URINE (UA) NEGATIVE (NEGATIVE); KETONES,URINE 1+ (NEGATIVE); LEUKOCYTE ESTERASE ,URINE NEGATIVE (NEGATIVE); NITRITE,URINE NEGATIVE (NEGATIVE); PROTEIN,URINE 3+ (NEGATIVE)
[2022-03-26 23:00] LABS: BACTERIA,URINE NEGATIVE /HPF; RBC,URINE 0-2 /HPF; SQUAMOUS EPITHELIAL CELL,UR 0-2 /HPF; WBC,URINE 0-2 /HPF
[2022-03-26] MEDS ORDERED: NS (IVPB) 250 ML ONE (23:13)
[2022-03-26] MEDS ORDERED: KETAMINE 50 MG/5 ML SYRINGE IV ONE (23:15)
[2022-03-27] VITALS (16 sets, daily range): BP systolic 145–242; BP diastolic 97–141
[2022-03-27] MEDS ORDERED: LACTATED RINGERS 1,000 ML IV ONE (00:30)
[2022-03-27] MEDS ORDERED: ONDANSETRON 4 MG/2 ML (SDV) Z0FRAN IV PRN (01:00)
[2022-03-27] MEDS: LACTATED RINGERS 1,000 ML IV SCH ×4 (01:02→18:19)
[2022-03-27] MEDS ORDERED: NITRO DRIP 25000 MCG/D5W 250 ML IV ONE ×2 (02:27→02:30)
[2022-03-27] MEDS ORDERED: ASPIRIN 325 MG (5 GR) TABLET PO ONE (02:30)
[2022-03-27] MEDS: HYDROmorphone 2 MG/ML VIAL (DILAUDID) IV PRN (02:40)
--- NOTE | 2022-03-27 02:59 | Tele-ICU Progress Note ---
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 CT ABD showed the hernia with loops of bowel but without evidence for encarceration or strangulation. On presentation to ED, BP up to 250/150, no documentation of chest pain at that time. Admitted to the floor but transferred for BP 218/141, HR 131 and 12/10 chest pain. Received dilauded shortly before my evaluation. - CP: start nitro gtt, check troponin, give aspirin, consult cardiology - hypertensive emergency: given chest pain, will need to be more aggressive about BP control. For now, will use nitro for goal SBP 160-180. May need to adjust goals if persistant CP at that pressure. Once ACS is excluded, will change to cardizem gtt given tachycardia. - CKD: creatinine of 2 slightly worse than baseline 1.8. Received contrast in ED. LR at 150 ongoing. Monitor daily renal function. Avoid nephrotoxins as much as possible. - hazel: despite reports of cholecystectomy has a report of a stone WITH thickened GB wall. Images do appear to have a well circumscribed GB with a very large stone. Recommend surgical consult in AM. Focused Exam Lactate Level 03/26/22 21:57: Lactic Acid Level 1.87 Height, Weight, BMI Height: 5'1.00" Weight: 200lbs. oz. 90.388843yg; 37.69 BMI Method:Stated SCHUYLER VELAZQUEZ MD Mar 27, 2022 02:59
[2022-03-27 03:00] LABS: BASOPHILS % (AUTO) 0 % (0-10); EOSINOPHILS % (AUTO) 0 % (0-10); HEMATOCRIT 41 % (35-52); HEMOGLOBIN 13.8 g/dL (11.5-16.0); LYMPHOCYTES # (AUTO) 0.2 10^3/uL (1.0-4.0); LYMPHOCYTES % (AUTO) 1 % (12-44); MEAN CORPUSCULAR HEMOGLOBIN 31 pg (25-34); MEAN CORPUSCULAR HGB CONC 33 g/dL (32-36); MEAN CORPUSCULAR VOLUME 93 fL (80-99); MEAN PLATELET VOLUME 9.3 fL (9.0-12.2); MONOCYTES # (AUTO) 0.5 10^3/uL (0.0-1.0); MONOCYTES % (AUTO) 3 % (0-12); NEUTROPHILS # (AUTO) 18.7 10^3/uL (1.8-7.8); NEUTROPHILS % (AUTO) 96 % (42-75); PLATELET COUNT 188 10^3/uL (130-400); WHITE BLOOD COUNT 19.6 10^3/uL (4.3-11.0)
[2022-03-27] MEDS ORDERED: EPINEPHrine 1 MG INJECTION 4 MG in NS (IVPB) 248 ML IV SCH (03:00)
[2022-03-27 03:22] LABS: ALBUMIN 3.7 GM/DL (3.2-4.5); POTASSIUM 3.6 MMOL/L (3.6-5.0)
[2022-03-27 03:23] LABS: CALCIUM 9.5 MG/DL (8.5-10.1)
[2022-03-27 03:25] LABS: TOTAL PROTEIN 7.8 GM/DL (6.4-8.2)
[2022-03-27 03:26] LABS: BILIRUBIN,TOTAL 0.6 MG/DL (0.1-1.0)
[2022-03-27 03:28] LABS: CREATININE SERUM 1.87 MG/DL (0.60-1.30)
[2022-03-27 03:31] LABS: MAGNESIUM 1.7 MG/DL (1.6-2.4)
[2022-03-27] MEDS: NOREPINEPHRINE 8 MG/250 ML 250 ML IV SCH ×2 (03:31→17:31)
[2022-03-27] MEDS: VASOPRESSIN INJECTION 20 UNIT in NS (IVPB) 100 ML IV SCH ×2 (03:31→12:58)
[2022-03-27] MEDS: inSUlin ASPART (NovoLOG) 1 UNIT/0.01 ML (CHARGE PER UNIT) SC SCH ×3 (03:32→15:55)
[2022-03-27] MEDS ORDERED: APAP 325 MG/10.15 ML LIQ (TYLENOL) UDC PO PRN (08:00)
[2022-03-27] MEDS ORDERED: PIPERACILLIN SODIUM/TAZOBACTAM 4.5 GM in NS (IVPB) 100 ML IV ONE ×2 (08:15→08:30)
[2022-03-27] MEDS: meTOprolol TARTRATE 50 MG (LOPRESSOR) TAB PO SCH ×2 (08:34→21:06)
[2022-03-27] MEDS: PANTOPRAZOLE 40 MG (PROTONIX) VIAL IV SCH (08:34)
[2022-03-27] MEDS: ASPIRIN E.C. 81 MG (ECOTRIN) TAB PO SCH (08:34)
--- NOTE | 2022-03-27 08:40 | Consultation-Cardiology ---
HPI-Cardiology Cardiology Consultation: Date of Consultation 03/27/22 Date of Admission 03/26/22 Attending Physician Catherine,Local Physician Admitting Physician Admitting Physician: Angus Cam DO Attending Physician: Angus Cam DO Consulting Physician JEREMIAS MANNING JR, MD HPI: Time Seen by a Provider: 08:35 Chief Complaint: REASON FOR CONSULTATION: Hypertensive emergency and elevated troponin level. I had the pleasure of seeing Janice in the intensive care unit at [facility] in [place], [place] this morning. She was very drowsy when I spoke with her and it was difficult to get her to answer questions without falling asleep. She did receive some Dilaudid last evening for abdominal pain. She came to the hospital on 03/26 due to abdominal pain at the site of her ventral hernia. She underwent a CT scan that did not show any evidence of obstruction. She was admitted to the medical floor. Then late last evening/early this morning, her blood pressure became markedly elevated. A troponin level was drawn that was found to be elevated and she was transferred to the intensive care unit on a nitroglycerin infusion. This morning on 1 occasion she told me she had chest pain but when I asked her again a minute later, she denied chest pain. She states that she has been having some dyspnea on exertion and paroxysmal noctu rnal dyspnea but denies orthopnea. She denies palpitations, lightheadedness, syncope, or ankle edema. Because of the hypertensive emergency and elevated troponin level, a cardiology consultation was requested. She believes she had a heart attack in the past and has an unknown number of coronary stents. She does not recall ever being told she has heart failure. She also apparently told the nurse last evening that she had not been taking any of her medications for the past couple of days due to her abdominal pain. Certain portions of this document may have been dictated utilizing voice recognition technology. Inherent to this technology, typographical and grammatical errors may exist. As much as I am diligent to identify and correct these mistakes, some errors may remain in the document. Review of Systems-Cardiology Review of Systems Other comments Review of 10 organ systems is as per the history of present illness, otherwise negative. However, due to her altered mental status, some of her answers may not be reliable. QHC-Exafch-Saemhj Hx Patient Social History Smoking Status: Current Everyday Smoker 2nd Hand Smoke Exposure: No Have you traveled recently?: No Alcohol Use?: No Pt feels they are or have been: No Tobacco type used: Cigarettes Immunizations Up To Date Tetanus Booster (TDap): Less than 5yrs Past Medical History PMH As described under Assessment. Allergies and Home Medications Allergies Coded Allergies: NSAIDS (Non-Steroidal Anti-Inflamma (Verified Allergy, Unknown, 03/27/22) patient tolerated aspirin diphenhydramine (Verified Allergy, Unknown, 10/17/18) lisinopril (Verified Allergy, Unknown, 10/17/18) Patient Home Medication List Home Medication List Reviewed: Yes Amlodipine Besylate (Amlodipine Besylate) 10 Mg Tablet, (Reported) Entered as Reported by: SUSAN JIMENEZ on 11/21/19125 Atorvastatin Calcium (Atorvastatin Calcium) 10 Mg Tablet, (Reported) Entered as Reported by: SUSAN JIMNEEZ on 11/21/19125 Cyclobenzaprine HCl (Cyclobenzaprine HCl) 10 Mg Tablet, (Reported) Entered as Reported by: SUSAN JIMENEZ on 11/21/19125 Diazepam (Diazepam) 5 Mg Tablet, (Reported) Entered as Reported by: SUSAN JIMENEZ on 11/21/19125 Duloxetine HCl (Duloxetine HCl) 60 Mg Capsule., (Reported) Entered as Reported by: SUSAN JIMENEZ on 11/21/19125 Famotidine (Famotidine) 20 Mg Tablet, (Reported) Entered as Reported by: SUASN JIMENEZ on 11/21/19125 Ferrous Sulfate (Ferrous Sulfate) 325 Mg Tablet, (Reported) Entered as Reported by: SUSAN JIMENEZ on 11/21/19125 Fluoxetine HCl (Prozac) 40 Mg Capsule, (Reported) Entered as Reported by: SUSAN JIMENEZ on 11/21/19125 Hydralazine HCl (Hydralazine HCl) 25 Mg Tablet, 25 MG PO TID Prescribed by: LITO LEAL on 11/21/19227 Metoprolol Tartrate (Metoprolol Tartrate) 50 Mg Tablet, (Reported) Entered as Reported by: SUSAN JIMENEZ on 11/21/19125 Metoprolol Tartrate (Metoprolol Tartrate) 100 Mg Tablet, (Reported) Entered as Reported by: SUSAN JIMENEZ on 11/21/19125 Exam Vital Signs Vital Signs Date Time Temp Pulse Resp B/P (MAP) Pulse Ox O2 Delivery O2 Flow Rate FiO2 03/27/22 08:33 38.0 03/27/22 08:00 122 38 169/103 (125) 94 Nasal Cannula 2.00 Physical Exam General: Somnolent but arousable to voice but then falls asleep. No acute distress. Well nourished and appears stated age. She is obese. Eye: Extraocular movements are intact. Conjunctivae are clear. There are no xanthelasma. HENT: Normocephalic. Atraumatic. Carotid pulsations 2/2 without bruits. Neck: Jugular venous pressure does not appear elevated. No thyromegaly appreciated. Respiratory: Lungs are clear to auscultation. Respirations are non-labored. Breath sounds are equal. Symmetrical chest wall expansion. Cardiovascular: Normal rate. Regular rhythm. Distant S1/S2. No murmur. No gallop. Point of maximal impulse is not appear displaced. Good pulses equal in all extremities. No edema. Gastrointestinal: Soft. Normal bowel sounds. Skin: Skin turgor is normal. There is no pallor. Musculoskeletal: No kyphosis or scoliosis appreciated. Neurologic: Somnolent and oriented to person only. Cranial nerves 3-12 appear grossly intact. The patient has good motor tone strength in the upper and lower extremities bilaterally. Psychiatric: Somnolent. Labs Laboratory Tests Test 03/26/22 21:43 03/26/22 21:57 03/26/22 22:44 03/27/22 02:18 Range/Units White Blood Count 15.4 H 19.6 H 4.3-11.0 10^3/uL Red Blood Count 4.70 4.44 3.80-5.11 10^6/uL Hemoglobin 14.6 13.8 11.5-16.0 g/dL Hematocrit 43 41 35-52 % Mean Corpuscular Volume 92 93 80-99 fL Mean Corpuscular Hemoglobin 31 31 25-34 pg Mean Corpuscular Hemoglobin Concent 34 33 32-36 g/dL Red Cell Distribution Width 13.5 13.7 10.0-14.5 % Platelet Count 258 188 130-400 10^3/uL Mean Platelet Volume 9.0 9.3 9.0-12.2 fL Immature Granulocyte % (Auto) 1 1 % Neutrophils (%) (Auto) 95 H 96 H 42-75 % Lymphocytes (%) (Auto) 2 L 1 L 12-44 % Monocytes (%) (Auto) 2 3 0-12 % Eosinophils (%) (Auto) 0 0 0-10 % Basophils (%) (Auto) 0 0 0-10 % Neutrophils # (Auto) 14.7 H 18.7 H 1.8-7.8 10^3/uL Lymphocytes # (Auto) 0.3 L 0.2 L 1.0-4.0 10^3/uL Monocytes # (Auto) 0.3 0.5 0.0-1.0 10^3/uL Eosinophils # (Auto) 0.0 0.0 0.0-0.3 10^3/uL Basophils # (Auto) 0.0 0.0 0.0-0.1 10^3/uL Immature Granulocyte # (Auto) 0.1 0.1 0.0-0.1 10^3/uL Neutrophils % (Manual) 97 % Monocytes % (Manual) 3 % Polychromasia MODERATE Prothrombin Time 14.8 H 12.2-14.7 SEC INR Comment 1.1 0.8-1.4 Activated Partial Thromboplast Time 29 24-35 SEC Sodium Level 139 142 135-145 MMOL/L Potassium Level 4.0 3.6 3.6-5.0 MMOL/L Chloride Level 101 104 98-107 MMOL/L Carbon Dioxide Level 18 L 18 L 21-32 MMOL/L Anion Gap 20 H 20 H 5-14 MMOL/L Blood Urea Nitrogen 40 H 36 H 7-18 MG/DL Creatinine 2.00 H 1.87 H 0.60-1.30 MG/DL Estimat Glomerular Filtration Rate 27 30 BUN/Creatinine Ratio 20 19 Glucose Level 173 H 162 H 70-105 MG/DL Calcium Level 10.1 9.5 8.5-10.1 MG/DL Corrected Calcium 10.1 9.7 8.5-10.1 MG/DL Magnesium Level 1.9 1.7 1.6-2.4 MG/DL Total Bilirubin 0.7 0.6 0.1-1.0 MG/DL Aspartate Amino Transf (AST/SGOT) 27 28 5-34 U/L Alanine Aminotransferase (ALT/SGPT) 18 16 0-55 U/L Alkaline Phosphatase 100 100 40-136 U/L Total Protein 8.8 H 7.8 6.4-8.2 GM/DL Albumin 4.0 3.7 3.2-4.5 GM/DL Lactic Acid Level 1.87 0.50-2.00 MMOL/L Urine Color YELLOW Urine Clarity CLEAR Urine pH 5.0 5-9 Urine Specific [place] >=1.030 1.016-1.022 Urine Protein 3+ H NEGATIVE Urine Glucose (UA) NEGATIVE NEGATIVE Urine Ketones 1+ H NEGATIVE Urine Nitrite NEGATIVE NEGATIVE Urine Bilirubin NEGATIVE NEGATIVE Urine Urobilinogen 0.2 < = 1.0 MG/DL Urine Leukocyte Esterase NEGATIVE NEGATIVE Urine RBC (Auto) 2+ H NEGATIVE Urine RBC 0-2 /HPF Urine WBC 0-2 /HPF Urine Squamous Epithelial Cells 0-2 /HPF Urine Renal Epithelial Cells NONE /HPF Urine Crystals NONE /LPF Urine Bacteria NEGATIVE /HPF Urine Casts NONE /LPF Urine Mucus NEGATIVE /LPF Urine Culture Indicated CULTURE PENDING Phosphorus Level 3.0 2.3-4.7 MG/DL Troponin I 1.310 *H <0.028 NG/ML Triglycerides Level 92 <150 MG/DL Cholesterol Level 198 < 200 MG/DL LDL Cholesterol Direct 116 1-129 MG/DL VLDL Cholesterol 18 5-40 MG/DL HDL Cholesterol 50 40-60 MG/DL Procalcitonin 3.28 H <0.10 NG/ML Thyroid Stimulating Hormone (TSH) 2.68 0.35-4.94 UIU/ML Test 03/27/22 07:44 03/27/22 08:38 Range/Units Glucometer 164 H 70-110 MG/DL ECG Impression ECG Comment Electrocardiogram from this morning at 0209 showed sinus tachycardia at 129 bpm with left atrial abnormality, borderline anterior ST elevation and anterolateral ST-T wave changes concerning for ischemia. Diagnosis/Problems Diagnosis/Problems (1) Non-ST elevation myocardial infarction (NSTEMI), initial care episode Assessment & Plan: She appears to be suffering a possible non-ST elevation myocardial infarction. Follow-up troponin level is currently pending. Her electrocardiogram is concerning for anterior and possibly lateral ischemia as outlined above. I have ordered an echocardiogram for this morning. I have started her on aspirin, restarted her beta-amadeo and intensified her dose of statin medication. We may need to consider further evaluation with a cardiac catheterization. However, I am concerned that if she has sepsis, this could increase the risk of possible complications if we needed to place a coronary stent. Depending upon the results of the next troponin level, I may start her on venous heparin infusion. (2) Hypertensive emergency without congestive heart failure Assessment & Plan: Her blood pressure was markedly elevated earlier this morni ng and she has an elevated troponin level concerning for myocardial injury as outlined above. These findings are consistent with a hypertensive emergency. She is currently on a nitroglycerin infusion. I have restarted her metoprolol tartrate which she takes at home although I am starting with 50 mg twice daily. I would avoid overtreating the hypertension in the event she develops septic shock. (3) Mixed hyperlipidemia Assessment & Plan: She was taking atorvastatin at home and I have intensified the dose due to the possible non-ST elevation myocardial infarction. (4) Sepsis Assessment & Plan: She is febrile, has an elevated white count and tachycardia. These findings are all concerning for sepsis. I ordered 2 blood cultures. Urine culture is pending. The hospitalist and eICU will be managing this condition. (5) Primary hypertension Assessment & Plan: I have restarted her metoprolol tartrate as outlined above. I would avoid aggressive treatment of the hypertension until we have her possible sepsis treated and under control. Otherwise, if she develops septic shock, we could have trouble maintaining adequate blood pressure. (6) Coronary artery disease with unstable angina pectoris Assessment & Plan: As above. (7) Acute kidney injury superimposed on chronic kidney disease Assessment & Plan: The most recent blood work she had in our system was from 2019 and her creatinine ranged from 1.8-2.1 at that point in time. Her current baseline creatinine is unknown. She has been receiving some intravenous fluids since admission. She has already received at least 1 L of lactated Ringer's. Her renal function will need to be monitored closely. (8) Cigarette smoker Assessment & Plan: She needs to quit smoking. (9) Obesity Assessment & Plan: She needs to work on weight loss. JEREMIAS MANNING JR, MD Mar 27, 2022 08:40
[2022-03-27] MEDS ORDERED: HEParin 1000 UNIT/ML (10ML VIAL) FOR BOLUS IV PRN (09:00)
[2022-03-27] MEDS ORDERED: ENOXAPARIN 40 MG/0.4 ML (LOVENOX) SYR SC SCH (09:00)
[2022-03-27 09:07] LABS: HEMATOCRIT 39 % (35-52); HEMOGLOBIN 13.1 g/dL (11.5-16.0); MEAN CORPUSCULAR HEMOGLOBIN 32 pg (25-34); MEAN CORPUSCULAR HGB CONC 34 g/dL (32-36); MEAN CORPUSCULAR VOLUME 94 fL (80-99); MEAN PLATELET VOLUME 9.6 fL (9.0-12.2); PLATELET COUNT 204 10^3/uL (130-400); WHITE BLOOD COUNT 25.8 10^3/uL (4.3-11.0)
[2022-03-27 09:16] LABS: INR 1.1 (0.8-1.4); PROTHROMBIN TIME PATIENT 14.9 SEC (12.2-14.7)
--- NOTE | 2022-03-27 09:30 | History & Physical ---
INESSA BARBOSA 03/27/22 0930: History of Present Illness History of Present Illness Reason for visit/HPI Patient is a 66 y/o F with history of HTN, TBI, CKD, and multiple abdominal surgeries, including XRT for gynecological CA of the medial right thigh and vulvar area who presented to ER for severe abdominal pain onset last night. Her initial complaint was the she felt like her right ventral hernia "was going to explode". On exam, the hernia was able to be reduced and was not strangulated. CT abdomen showed thickened gallbladder wall with stones despite patient's report of having prior cholecystectomy. She was then moved to 4th floor and surgery was consulted. Later on patient developed blood pressure of 250s/150s and was moved to ICU. Cardiology consulted. This morning, BP is 158/102. Troponin was 1.31 and EKG showed anterolateral ischemia. CXR shows no acute abnormality. Procalcitonin is 3.28. WBC count elevated at 19.6 as well. Patient is confused and her baseline mentation is unclear. She mainly answers yes/no. Her abdomen is element winding machine tender to palpation over the hernia and RUQ. Date of Admission Mar 26, 2022 at 23:02 Date Seen by a Provider: Mar 27, 2022 Time Seen by a Provider: 09:19 I consulted on this patient on 03/27/22 09:19 Attending Physician No,Local Physician Admitting Physician Admitting Physician: Angus Cam DO Attending Physician: Angus Cam DO Consult Allergies and Home Medications Allergies Coded Allergies: NSAIDS (Non-Steroidal Anti-Inflamma (Verified Allergy, Unknown, 03/27/22) patient tolerated aspirin diphenhydramine (Verified Allergy, Unknown, 10/17/18) lisinopril (Verified Allergy, Unknown, 10/17/18) Patient Home Medication List Home Medication List Reviewed: Yes Atorvastatin Calcium (Atorvastatin Calcium) 10 Mg Tablet, 10 MG PO 1600, (Reported) Entered as Reported by: SUSAN JIMENEZ on 11/21/19 0126 Last Action: Reviewed Brimonidine Tartrate/Timolol (Combigan Eye Drops) 0.2 %-0.5 % Drops, 1 DROP OU BID, (Reported) Entered as Reported by: CARSON MCLAUGHLIN on 03/27/22 1342 Last Action: Reviewed Cyclobenzaprine HCl (Cyclobenzaprine HCl) 10 Mg Tablet, 10 MG PO TID, (Reported) Entered as Reported by: SUSAN JIMENEZ on 11/21/19125 Last Action: Reviewed Diazepam (Diazepam) 5 Mg Tablet, 5 MG PO HS, (Reported) Entered as Reported by: SUSAN JIMENEZ on 11/21/19125 Last Action: Reviewed Famotidine (Famotidine) 20 Mg Tablet, 20 MG PO 0800,1600, (Reported) Entered as Reported by: SUSAN JIMENEZ on 11/21/19125 Last Action: Reviewed Ferrous Sulfate (Ferosul) 325 Mg (65 Mg Iron) Tablet, 325 MG PO 0800,1600, (Reported) Entered as Reported by: CARSON MCLAUGHLIN on 03/27/221450 Last Action: Reviewed Fluoxetine HCl (Fluoxetine HCl) 40 Mg Capsule, 40 MG PO DAILY, (Reported) Entered as Reported by: CARSON MCLAUGHLIN on 03/27/221450 Last Action: Reviewed Furosemide (Furosemide) 40 Mg Tablet, 40 MG PO DAILY, (Reported) Entered as Reported by: CARSON MCLAUGHLIN on 03/27/221450 Last Action: Reviewed Gabapentin (Neurontin) 300 Mg Capsule, 300 MG PO TID, (Reported) Entered as Reported by: CARSON MCLAUGHLIN on 03/27/221450 Last Action: Reviewed Hydrochlorothiazide (Hydrochlorothiazide) 25 Mg Tablet, 25 MG PO DAILY, (Reported) Entered as Reported by: CARSON MCLAUGHLIN on 03/27/221450 Last Action: Reviewed Hydrocodone/Acetaminophen (Hydrocodone-Acetamin 5-325 mg) 5 Mg-325 Mg Tablet, 1 EA PO Q8H PRN for PAIN-MODERATE (5-7), (Reported) Entered as Reported by: CARSON MCLAUGHLIN on 03/27/221450 Last Action: Reviewed Metoprolol Tartrate (Metoprolol Tartrate) 100 Mg Tablet, 200 MG PO 0800,1600, (Reported) Entered as Reported by: SUSAN JIMENEZ on 11/21/19125 Last Action: Reviewed Woodworth-3/Dha/Epa/Fish Oil (Fish Oil 1,000 mg Softgel) 300 Mg-1,000 Mg Capsule, 1,000 MG PO DAILY, (Reported) Entered as Reported by: CARSON MCLAUGHLIN on 03/27/221450 Last Action: Reviewed Pantoprazole Sodium (Pantoprazole Sodium) 40 Mg Tablet., 40 MG PO 0800,1600, (Reported) Entered as Reported by: CARSON MCLAUGHLIN on 03/27/22 1451 Last Action: Reviewed Discontinued Medications Amlodipine Besylate (Amlodipine Besylate) 10 Mg Tablet, (Reported) Discontinued Reason: No Longer Taking Entered as Reported by: SUSAN JIMENEZ on 11/21/19125 Last Action: Discontinued Duloxetine HCl (Duloxetine HCl) 60 Mg Capsule., (Reported) Discontinued Reason: No Longer Taking Entered as Reported by: SUSAN JIMENEZ on 11/21/19125 Last Action: Discontinued Ferrous Sulfate (Ferrous Sulfate) 325 Mg Tablet, (Reported) Discontinued Reason: No Longer Taking Entered as Reported by: SUSAN JIMENEZ on 11/21/19125 Last Action: Discontinued Fluoxetine HCl (Prozac) 40 Mg Capsule, (Reported) Discontinued Reason: No Longer Taking Entered as Reported by: SUSAN JIMENEZ on 11/21/19125 Last Action: Discontinued Hydralazine HCl (Hydralazine HCl) 25 Mg Tablet, 25 MG PO TID Discontinued Reason: No Longer Taking Prescribed by: LITO LEAL on 11/21/19227 Last Action: Discontinued Metoprolol Tartrate (Metoprolol Tartrate) 50 Mg Tablet, (Reported) Discontinued Reason: No Longer Taking Entered as Reported by: SUSAN JIMENEZ on 11/21/19125 Last Action: Discontinued Past Kiqltlp-Trambr-Mxfxcd Hx Patient Social History Tobacco Use?: Yes Tobacco type used: Cigarettes Smoking Status: Current Everyday Smoker Use of E-Cig and/or Vaping dev: No Substance use?: No Alcohol Use?: No Pt feels they are or have been: No Immunizations Up To Date Tetanus Booster (TDap): Unknown Seasonal Allergies Seasonal Allergies: Yes Current Status status: No status: No Advance Directives: No Communicates: Verbally Primary Language: Upper Sorbian Preferred Spoken Language: Upper Sorbian Is interpretation needed?: No Implanted or Applied Medical D: None Past Medical History Surgeries: Abdominal Asthma High Cholesterol, 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 Gastroesophageal Reflux Arthritis Cataract Did You Recieve Any Treatments: Yes (gynecological CA) What Type of Treatment Did You: Surgical Intervention Anxiety, Depression Blood Disorders: No Review of Systems ROS-Unable to Obtain: patient is confused at present and unable to give many answers to questions Gastrointestinal: RUQ, abdominal pain (RUQ) Physical Exam Vital Signs Vital Signs - First Documented 03/26/22 03/26/22 21:39 22:00 Temp 36.9 Pulse 126 Resp 18 B/P (MAP) 251/156 (187) Pulse Ox 95 O2 Delivery Room Air O2 Flow Rate 2.00 Capillary Refill : Less Than 3 Seconds Height, Weight, BMI Height: 5'1.00" Weight: 200lbs. oz. [id number]; 37.69 BMI Method:Stated General Appearance: Obese HEENT: Moist Mucous Membranes Respiratory: Chest Non Tender, No Accessory Muscle Use, No Respiratory Distress Cardiovascular: No Murmur, Tachycardia Gastrointestinal: Hernia (right ventral hernia), Tenderness (tenderness to palpation over RUQ) Extremity: No Pedal Edema, Calf Tenderness; No Swelling Skin: Normal Color, Warm/Dry Assessment/Plan Assessment and Plan Assessment: Sepsis Acute Cholecystitis with Cholelithiasis NSTEMI Hypertensive Emergency Hyperlipidemia Chornic Kidney Disease Obesity Current Smoker Plan: Supportive care and IVF Monitor patient labs and replace prn Continue Ceftriaxone Zosyn for more broad spectrum coverage Repeat troponins Consult Cardiology regarding dosage adjustments on cardiac drugs Consult Surgery for cholecystectomy and possible hernia repair Problems: (1) Non-ST elevation myocardial infarction (NSTEMI), initial care episode Assessment & Plan: She appears to be suffering a possible non-ST elevation myocardial infarction. Follow-up troponin level is currently pending. Her electrocardiogram is concerning for anterior and possibly lateral ischemia as outlined above. I have ordered an echocardiogram for this morning. I have started her on aspirin, restarted her beta-amadeo and intensified her dose of statin medication. We may need to consider further evaluation with a cardiac catheterization. However, I am concerned that if she has sepsis, this could increase the risk of possible complications if we needed to place a coronary stent. Depending upon the results of the next troponin level, I may start her on venous heparin infusion. (2) Hypertensive emergency without congestive heart failure Assessment & Plan: Her blood pressure was markedly elevated earlier this morning and she has an elevated troponin level concerning for myocardial injury as outlined above. These findings are consistent with a hypertensive emergency. She is currently on a nitroglycerin infusion. I have restarted her metoprolol tartrate which she takes at home although I am starting with 50 mg twice daily. I would avoid overtreating the hypertension in the event she develops septic shock. (3) Mixed hyperlipidemia Assessment & Plan: She was taking atorvastatin at home and I have intensified the dose due to the possible non-ST elevation myocardial infarction. (4) Sepsis Assessment & Plan: She is febrile, has an elevated white count and tachycardia. These findings are all concerning for sepsis. I ordered 2 blood cultures. Urine culture is pending. The hospitalist and eICU will be managing this condition. (5) Primary hypertension Assessment & Plan: I have restarted her metoprolol tartrate as outlined above. I would avoid aggressive treatment of the hypertension until we have her possible sepsis treated and under control. Otherwise, if she develops septic shock, we could have trouble maintaining adequate blood pressure. (6) Coronary artery disease with unstable angina pectoris Assessment & Plan: As above. (7) Acute kidney injury superimposed on chronic kidney disease Assessment & Plan: The most recent blood work she had in our system was from 2019 and her creatinine ranged from 1.8-2.1 at that point in time. Her current baseline creatinine is unknown. She has been receiving some intravenous fluids since admission. She has already received at least 1 L of lactated Ringer's. Her renal function will need to be monitored closely. (8) Cigarette smoker Assessment & Plan: She needs to quit smoking. (9) Obesity Assessment & Plan: She needs to work on weight loss. BHUPENDRAAMINAHGalina SOTELO 03/28/22 0527: History of Present Illness History of Present Illness Reason for visit/HPI CC: NSTEMI with sepsis and HTN emergency HPI: This is a 66yoWF who has multiple medical issues including TBI who presented to the ER with abdominal pain and was found to have a large gallstone and biliary colic so she was admitted for choly to be performed but upon arrival to floor her BP was 230-130 and tachycardic at 120 so she as immediately moved to the ICU and found to have elevated troponin/NSTEMI and Cardiology and EICU was consulted. Antibiotics initiated broad spectrum to cover for gallbladder source. Allergies and Home Medications Allergies Coded Allergies: NSAIDS (Non-Steroidal Anti-Inflamma (Verified Allergy, Unknown, 03/27/22) patient tolerated aspirin diphenhydramine (Verified Allergy, Unknown, 10/17/18) lisinopril (Verified Allergy, Unknown, 10/17/18) Patient Home Medication List Home Medication List Reviewed: Yes Atorvastatin Calcium (Atorvastatin Calcium) 10 Mg Tablet, 10 MG PO 1600, (Reported) Entered as Reported by: SUSAN JIMENEZ on 11/21/19125 Last Action: Reviewed Brimonidine Tartrate/Timolol (Combigan Eye Drops) 0.2 %-0.5 % Drops, 1 DROP OU BID, (Reported) Entered as Reported by: CARSON MCLAUGHLIN on 03/27/22 155 Last Action: Reviewed Cyclobenzaprine HCl (Cyclobenzaprine HCl) 10 Mg Tablet, 10 MG PO TID, (Reported) Entered as Reported by: SUSAN JIMENEZ on 11/21/19125 Last Action: Reviewed Diazepam (Diazepam) 5 Mg Tablet, 5 MG PO HS, (Reported) Entered as Reported by: SUSAN JIMENEZ on 11/21/19125 Last Action: Reviewed Famotidine (Famotidine) 20 Mg Tablet, 20 MG PO 0800,1600, (Reported) Entered as Reported by: SUSAN JIMENEZ on 11/21/19125 Last Action: Reviewed Ferrous Sulfate (Ferosul) 325 Mg (65 Mg Iron) Tablet, 325 MG PO 0800,1600, (Reported) Entered as Reported by: CARSON MCLAUGHLIN on 03/27/221450 Last Action: Reviewed Fluoxetine HCl (Fluoxetine HCl) 40 Mg Capsule, 40 MG PO DAILY, (Reported) Entered as Reported by: CARSON MCLAUGHLIN on 03/27/221450 Last Action: Reviewed Furosemide (Furosemide) 40 Mg Tablet, 40 MG PO DAILY, (Reported) Entered as Reported by: CARSON MCLAUGHLIN on 03/27/221450 Last Action: Reviewed Gabapentin (Neurontin) 300 Mg Capsule, 300 MG PO TID, (Reported) Entered as Reported by: CARSON MCLAUGHLIN on 03/27/221450 Last Action: Reviewed Hydrochlorothiazide (Hydrochlorothiazide) 25 Mg Tablet, 25 MG PO DAILY, (Reported) Entered as Reported by: CARSON MCLAUGHLIN on 03/27/221450 Last Action: Reviewed Hydrocodone/Acetaminophen (Hydrocodone-Acetamin 5-325 mg) 5 Mg-325 Mg Tablet, 1 EA PO Q8H PRN for PAIN-MODERATE (5-7), (Reported) Entered as Reported by: CARSON MCLAUGHLIN on 03/27/221450 Last Action: Reviewed Metoprolol Tartrate (Metoprolol Tartrate) 100 Mg Tablet, 200 MG PO 0800,1600, (Reported) Entered as Reported by: SUSAN JIMENEZ on 11/21/19125 Last Action: Reviewed Woodworth-3/Dha/Epa/Fish Oil (Fish Oil 1,000 mg Softgel) 300 Mg-1,000 Mg Capsule, 1,000 MG PO DAILY, (Reported) Entered as Reported by: CARSON MCLAUGHLIN on 03/27/221450 Last Action: Reviewed Pantoprazole Sodium (Pantoprazole Sodium) 40 Mg Tablet.dr, 40 MG PO 0800,1600, (Reported) Entered as Reported by: CARSON MCLAUGHLIN on 03/27/221450 Last Action: Reviewed Discontinued Medications Amlodipine Besylate (Amlodipine Besylate) 10 Mg Tablet, (Reported) Discontinued Reason: No Longer Taking Entered as Reported by: SUSAN JIMENEZ on 11/21/19125 Last Action: Discontinued Duloxetine HCl (Duloxetine HCl) 60 Mg Capsule.dr, (Reported) Discontinued Reason: No Longer Taking Entered as Reported by: SUSAN JIMENEZ on 11/21/19125 Last Action: Discontinued Ferrous Sulfate (Ferrous Sulfate) 325 Mg Tablet, (Reported) Discontinued Reason: No Longer Taking Entered as Reported by: SUSAN JIMENEZ on 11/21/19125 Last Action: Discontinued Fluoxetine HCl (Prozac) 40 Mg Capsule, (Reported) Discontinued Reason: No Longer Taking Entered as Reported by: SUSAN JIMENEZ on 11/21/19125 Last Action: Discontinued Hydralazine HCl (Hydralazine HCl) 25 Mg Tablet, 25 MG PO TID Discontinued Reason: No Longer Taking Prescribed by: LITO LEAL on 11/21/19227 Last Action: Discontinued Metoprolol Tartrate (Metoprolol Tartrate) 50 Mg Tablet, (Reported) Discontinued Reason: No Longer Taking Entered as Reported by: SUSAN JIMENEZ on 11/21/19125 Last Action: Discontinued Past Dlvdayp-Fbtvie-Aayqgo Hx Patient Social History Marrital Status: single Employed/Student: unemployed Smoking Status: Unknown if Ever Smoked Past Medical History High Cholesterol, Hypertension Traumatic Brain Injury Review of Systems Constitutional: see HPI Physical Exam General Appearance: Chronically ill, Mild Distress, Obese, Other (confused) Respiratory: Lungs Clear, Normal Breath Sounds Cardiovascular: Tachycardia Extremity: Normal Capillary Refill, Normal Inspection, Normal Range of Motion, Non Tender, No Calf Tenderness, No Pedal Edema Neurologic/Psychiatric: Alert, Disoriented Assessment/Plan Assessment and Plan ICU Dot ESCUDERO Yobani BP control Cardiology consultation Problems: (1) Sepsis (2) Acute kidney injury superimposed on chronic kidney disease (3) Non-ST elevation myocardial infarction (NSTEMI), initial care episode (4) Cholecystitis with cholelithiasis Status: Acute Qualifiers: Qualified Codes: K80.00 - Calculus of gallbladder with acute cholecystitis without obstruction (5) Mixed hyperlipidemia (6) Obesity (7) Hypertensive emergency without congestive heart failure (8) Cigarette smoker Admission Diagnosis Admission Status: Inpatient Order (span 2 midnights) Reason for Inpatient Admission: sepsis with NSTEMI Supervisory-Addendum Brief Verification & Attestation Participated in pt care: history, MDM, physical Personally performed: exam, history, MDM, supervision of care Care discussed with: Medical Student Procedures: n/a Results interpretation: Verified all documentation Verification and Attestation of Medical Student E/M Service A medical student performed and documented this service in my presence. I reviewed and verified all information documented by the medical student and made modifications to such information, when appropriate. I personally performed the physical exam and medical decision making. Tiara Huizar, Mar 28, 2022,05:27 INESSA BARBOSA Mar 27, 2022 09:30 TIARA HUIZAR DO Mar 28, 2022 05:27
[2022-03-27] MEDS: HEParin DRIP 25000 UNIT/500ML 500 ML IV SCH (09:45)
--- NOTE | 2022-03-27 11:29 | Consultation - Surgery ---
History of Present Illness History of Present Illness Patient Consulted On(yaakov/time) 03/27/22 11:24 Time Seen by Provider: 09:43 History of Present Illness Surgery asked to admit pt for possibly acute Cholecystitis with Cholelithiasis. HPI per ED: Patient to ER by EMS from home with chief complaint of 1 hour of right ventral hernia pain nausea vomiting. She states she feels like it could explode. She had received 2 doses of fentanyl 50 mcg each prior to arrival by EMS as well as started a liter of fluids. She says she has not eaten all day. She claims she is had multiple surgeries on her abdomen but cannot recount anything other than her gallbladder and hysterectomy. She does not know who the surgeon was. She has not had any fever. She describes the pain as sharp, stabbing, 8 out of 10 to 9 out of 10 despite fentanyl. She denies having passed any gas or having any bowel surgeries or bowel movements. 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 When I saw the pt this am she was in the ICU, had gone from the 4th floor up to ICU in the middle of the night because of Hypertensive Emergency. E-ICU consult done and also noted to have elevated Troponin and Cardiology consult done. While talking to pt she seemed pleasant and answered questions; however, she answered almost all of them incorrectly. She could not tell me previous surgeries and when I asked if she had lung cancer, she said yes. All information obtained from chart, pt is not reliable; unsure if this is new because, she answered questions wrong last night in ER. Allergies and Home Medications Allergies Coded Allergies: NSAIDS (Non-Steroidal Anti-Inflamma (Verified Allergy, Unknown, 03/27/22) patient tolerated aspirin diphenhydramine (Verified Allergy, Unknown, 10/17/18) lisinopril (Verified Allergy, Unknown, 10/17/18) Patient Home Medication List Home Medication List Reviewed: Yes Amlodipine Besylate (Amlodipine Besylate) 10 Mg Tablet, (Reported) Entered as Reported by: SUSAN JIMENEZ on 11/21/19 012 Atorvastatin Calcium (Atorvastatin Calcium) 10 Mg Tablet, (Reported) Entered as Reported by: SUSAN JIMENEZ on 11/21/19 0126 Cyclobenzaprine HCl (Cyclobenzaprine HCl) 10 Mg Tablet, (Reported) Entered as Reported by: SUSAN JIMENEZ on 11/21/19125 Diazepam (Diazepam) 5 Mg Tablet, (Reported) Entered as Reported by: SUSAN JIMENEZ on 11/21/19125 Duloxetine HCl (Duloxetine HCl) 60 Mg Capsule., (Reported) Entered as Reported by: SUSAN JIMENEZ on 11/21/19125 Famotidine (Famotidine) 20 Mg Tablet, (Reported) Entered as Reported by: SUSAN JIMENEZ on 11/21/19125 Ferrous Sulfate (Ferrous Sulfate) 325 Mg Tablet, (Reported) Entered as Reported by: SUSAN JIMENEZ on 11/21/19125 Fluoxetine HCl (Prozac) 40 Mg Capsule, (Reported) Entered as Reported by: SUSAN JIMENEZ on 11/21/19125 Hydralazine HCl (Hydralazine HCl) 25 Mg Tablet, 25 MG PO TID Prescribed by: LITO LEAL on 11/21/19227 Metoprolol Tartrate (Metoprolol Tartrate) 50 Mg Tablet, (Reported) Entered as Reported by: SUSAN JIMENEZ on 11/21/19125 Metoprolol Tartrate (Metoprolol Tartrate) 100 Mg Tablet, (Reported) Entered as Reported by: SUSAN JIMENEZ on 11/21/19125 Past Ngixjrt-Hewhio-Zoxrit Hx Patient Social History Smoking Status: Current Everyday Smoker 2nd Hand Smoke Exposure: No Recent Hopitalizations: No Alcohol Use?: No Have you traveled recently?: No Immunizations Up To Date Tetanus Booster (TDap): Less than 5yrs Seasonal Allergies Seasonal Allergies: Yes Surgeries History of Surgeries: Yes (Vulvar tumor removal) Surgeries: Abdominal (possible ostomy, has a LUQ incision), Hysterectomy Respiratory History of Respiratory Disorde: Yes Respiratory Disorders: Asthma Cardiovascular History of Cardiac Disorders: Yes Cardiac Disorders: High Cholesterol, Hypertension Neurological History of Neurological Disord: No Reproductive System SURGICAL NURSE History: Menopausal Genitourinary History of Genitourinary Disor: No Gastrointestinal History of Gastrointestinal Di: Yes (COLOSTOMY) Gastrointestinal Disorders: Gastroesophageal Reflux Musculoskeletal History of Musculoskeletal Dis: Yes Musculoskeletal Disorders: Arthritis Endocrine History of Endocrine Disorders: No HEENT History of HEENT Disorders: Yes HEENT Disorders: Cataract Cancer History of Cancer: Yes Psychosocial History of Psychiatric Problem: Yes Behavioral Health Disorders: Anxiety, Depression Integumentary History of Skin or Integumenta: No Blood Transfusions History of Blood Disorders: No Family Medical History Significant Family History: Other Conditions/Hx (unable to obtain pt not reliable) Review of Systems-General ROS-Unable to Obtain: pt answers yes to almost everything, then changes answer next time you ask Physical Exam-General Problems Physical Exam Vital Signs Vital Signs - First Documented 03/26/22 03/26/22 21:39 22:00 Temp 36.9 Pulse 126 Resp 18 B/P (MAP) 251/156 (187) Pulse Ox 95 O2 Delivery Room Air O2 Flow Rate 2.00 Capillary Refill : Less Than 3 Seconds General Appearance: mild distress, obese Eyes: Bilateral Eye PERRL, Bilateral Eye EOMI HEENT: pharynx normal; No scleral icterus (R), No scleral icterus (L); other (poor dentition) Neck: non-tender, supple Respiratory: lungs clear, normal breath sounds, no respiratory distress, no accessory muscle use Cardiovascular: no gallop, tachycardia Gastrointestinal: no organomegaly; No guarding; tenderness (diffusely), hernia (large RUQ at site of incision) Rectal: deferred Back: no CVA tenderness, no vertebral tenderness Extremities: no pedal edema, no calf tenderness, normal capillary refill Neurologic/Psychiatric: alert, disoriented x 3 Skin: normal color, warm/dry Lymphatic: no adenopathy (neck, axilla or groin) Data Review Labs Laboratory Tests 03/26/22 21:43: White Blood Count 15.4H, Red Blood Count 4.70, Hemoglobin 14.6, Hematocrit 43, Mean Corpuscular Volume 92, Mean Corpuscular Hemoglobin 31, Mean Corpuscular Hemoglobin Concent 34, Red Cell Distribution Width 13.5, Platelet Count 258, Me an Platelet Volume 9.0, Immature Granulocyte % (Auto) 1, Neutrophils (%) (Auto) 95H, Lymphocytes (%) (Auto) 2L, Monocytes (%) (Auto) 2, Eosinophils (%) (Auto) 0, Basophils (%) (Auto) 0, Neutrophils # (Auto) 14.7H, Lymphocytes # (Auto) 0.3L , Monocytes # (Auto) 0.3, Eosinophils # (Auto) 0.0, Basophils # (Auto) 0.0, Immature Granulocyte # (Auto) 0.1, Neutrophils % (Manual) 97, Monocytes % (Manual) 3, Polychromasia MODERATE, Prothrombin Time 14.8H, INR Comment 1.1, Activated Partial Thromboplast Time 29, Sodium Level 139, Potassium Level 4.0, Chloride Level 101, Carbon Dioxide Level 18L, Anion Gap 20H, Blood Urea Nitrogen 40H, Creatinine 2.00H, Estimat Glomerular Filtration Rate 27, BUN/Creatinine Ratio 20, Glucose Level 173H, Calcium Level 10.1, Corrected Calcium 10.1, Magnesium Level 1.9, Total Bilirubin 0.7, Aspartate Amino Transf (AST/SGOT) 27, Alanine Aminotransferase (ALT/SGPT) 18, Alkaline Phosphatase 100, Total Protein 8.8H, Albumin 4.0 03/26/22 21:57: Lactic Acid Level 1.87 03/26/22 22:44: Urine Color YELLOW, Urine Clarity CLEAR, Urine pH 5.0, Urine Specific [place] >=1.030, Urine Protein 3+H, Urine Glucose (UA) NEGATIVE, Urine Ketones 1+H, Urine Nitrite NEGATIVE, Urine Bilirubin NEGATIVE, Urine Urobilinogen 0.2, Urine Leukocyte Esterase NEGATIVE, Urine RBC (Auto) 2+H, Urine RBC 0-2, Urine WBC 0-2, Urine Squamous Epithelial Cells 0-2, Urine Renal Epithelial Cells NONE, Urine Crystals NONE, Urine Bacteria NEGATIVE, Urine Casts NONE, Urine Mucus NEGATIVE, Urine Culture Indicated CULTURE PENDING 03/27/22 02:18: White Blood Count 19.6H, Red Blood Count 4.44, Hemoglobin 13.8, Hematocrit 41, Mean Corpuscular Volume 93, Mean Corpuscular Hemoglobin 31, Mean Corpuscular Hemoglobin Concent 33, Red Cell Distribution Width 13.7, Platelet Count 188, Mean Platelet Volume 9.3, Immature Granulocyte % (Auto) 1, Neutrophils (%) (Auto) 96H, Lymphocytes (%) (Auto) 1L, Monocytes (%) (Auto) 3, Eosinophils (%) (Auto) 0, Basophils (%) (Auto) 0, Neutrophils # (Auto) 18.7H, Lymphocytes # (Auto) 0.2L, Monocytes # (Auto) 0.5, Eosinophils # (Auto) 0.0, Basophils # (Auto) 0.0, Immature Granulocyte # (Auto) 0.1, Sodium Level 142, Potassium Level 3.6, Chloride Level 104, Carbon Dioxide Level 18L, Anion Gap 20H, Blood Urea Nitrogen 36H, Creatinine 1.87H, Estimat Glomerular Filtration Rate 30, BUN/Creatinine Ratio 19, Glucose Level 162H, Calcium Level 9.5, Corrected Calcium 9.7, Magnesium Level 1.7, Total Bilirubin 0.6, Aspartate Amino Transf (AST/SGOT) 28, Alanine Aminotransferase (ALT/SGPT) 16, Alkaline Phosphatase 100, Total Protein 7.8, Albumin 3.7, Phosphorus Level 3.0, Troponin I 1.310*H, Triglycerides Level 92, Cholesterol Level 198, LDL Cholesterol Direct 116, VLDL Cholesterol 18, HDL Cholesterol 50, Procalcitonin 3.28H, Thyroid Stimulating Hormone (TSH) 2.68 03/27/22 07:44: White Blood Count 25.8H, Red Blood Count 4.16, Hemoglobin 13.1, Hematocrit 39, Mean Corpuscular Volume 94, Mean Corpuscular Hemoglobin 32, Mean Corpuscular Hemoglobin Concent 34, Red Cell Distribution Width 13.7, Platelet Count 204, Mean Platelet Volume 9.6, Prothrombin Time 14.9H, INR Comment 1.1, Activated Partial Thromboplast Time 30, Troponin I 1.164*H 03/27/22 08:38: Glucometer 164H 03/27/22 08:45: Lactic Acid Level 1.32 Radiology Date of Exam:03/26/22 CT ABDOMEN/PELVIS WO PROCEDURE: CT abdomen and pelvis without contrast. TECHNIQUE: Multiple contiguous axial images were obtained through the abdomen and pelvis without the use of intravenous contrast. Auto Exposure Controls were utilized during the CT exam to meet ALARA standards for radiation dose reduction. INDICATION: Abdominal pain, right ventral hernia, possible obstruction. COMPARISON: None FINDINGS: There is atelectasis in the dependent right lung. The heart is normal in size. The distal esophagus is distended with fluid. The liver demonstrates no focal lesions. There is a large stone in the gallbladder measuring 3.3 cm. There is gallbladder wall thickening. The spleen appears normal. The pancreas is normal. The adrenal glands appear normal. The left kidney is severely atrophic. The right kidney appears normal. There is no hydronephrosis or obstructing calculi. There is a right ventral hernia with an aperture measuring about 5 cm. This contains loops of colon, but no evidence of strangulation or obstruction. The appendix appears normal. There are anastomotic sutures in the bowel. The stomach is fluid-filled and mildly distended. The bowel loops are decompressed. There is aortic atherosclerosis. No free fluid or free air is seen. No acute osseous abnormality is seen. There is deformity of the left pubis which may be from remote trauma. There are sclerotic densities in the femoral heads, may represent areas of osteonecrosis. IMPRESSION: 1. Right ventral hernia containing a loop of colon but with no evidence of obstruction or strangulation. 2. Large calcified gallstone with thickening of the gallbladder wall. This is nonspecific, but a cholecystitis is not excluded. 3. Fluid-filled stomach with distended fluid-filled distal esophagus, likely due to reflux. Dictated by: Dictated on workstation # [id number] Dict: 03/26/22 2238 Trans: 03/26/22 2256 [facility] [id number] Interpreted by: MAX MORIN MD Electronically signed by: MAX MORIN MD 03/26/22 2256 Assessment/Plan Assessment/Plan Assessment/Plan Possible Acute Cholecystitis with Cholelithiasis Chronic Renal Failure Hypertensive emergency NSTEMI DM Leukocytosis Incarcerated Ventral/Incisional hernia Pt may be having an MO and Cardiology has ordered an Echo. She has an elevated WBC, not sure from what although it could be the gallbladder. Her renal failure appears to be chronic; Cr in 2019 was also 1.75 and 2.1 in 2020. Her blood pressure has come down with IV medications, but is still high and may need an oral agent added. Will need to wait and see what Cardiology recommends before deciding to do surgery. Although, if this really is an acute Cholecystitis we may wind up having to do surgery even in the face of MO. Will make sure to control DM. The hernia is not the problem at this time, but will monitor. I reviewed the CT films myself and discussed case with the other physicians. RACHID GONZALES DO Mar 27, 2022 11:29
[2022-03-27] MEDS ORDERED: NS IV 1000 ML 1,000 ML IV SCH (11:45)
[2022-03-27] MEDS: MICONAZOLE 2% POWDER (DESENEX AF) 90 GM TOP SCH ×2 (12:58→21:06)
[2022-03-27] MEDS: fentaNYL INJ 100 MCG/2 ML AMP IV PRN ×3 (13:09→19:24)
[2022-03-27] MEDS ORDERED: HYDR25TA4 PO (14:51)
[2022-03-27] MEDS ORDERED: PANT40TA52 PO (14:51)
[2022-03-27] MEDS ORDERED: ACHD5005 PO (14:51)
[2022-03-27] MEDS ORDERED: GABA300C PO (14:51)
[2022-03-27] MEDS ORDERED: FLUO40CA PO (14:51)
[2022-03-27] MEDS ORDERED: FERR325T24 PO (14:51)
[2022-03-27] MEDS ORDERED: FURO40TA4 PO (14:51)
[2022-03-27] MEDS ORDERED: OMEG-160 PO (14:51)
[2022-03-27] MEDS ORDERED: NITRO DRIP 25000 MCG/D5W 250 ML IV SCH (15:00)
[2022-03-27] MEDS ORDERED: BRIM5DRO OU (15:52)
[2022-03-27] MEDS ORDERED: FUROSEMIDE 40 MG/4 ML INJ (LASIX) IVP NR (16:00)
[2022-03-27] MEDS ORDERED: PIPERACILLIN/TAZO 4.5 GM VIAL (ZOSYN) IV ONE (16:07)
[2022-03-27] MEDS: PIPERACILLIN SODIUM/TAZOBACTAM 4.5 GM in NS (IVPB) 100 ML IV SCH (16:09)
[2022-03-27] MEDS: NITROGLYCERIN 0.4 MG SL TABS BTL 25'S SL PRN ×3 (17:31→17:43)
[2022-03-27] MEDS: NITRO DRIP 25000 MCG/D5W 250 ML IV SCH (18:52)
[2022-03-27] MEDS ORDERED: RT-ALBUTEROL/IPRATROPIUM 3 ML (DUONEB) VIAL ONE (20:13)
[2022-03-27] MEDS ORDERED: RT-ALBUTEROL/IPRATROPIUM 3 ML (DUONEB) VIAL INH PRN (20:15)
[2022-03-28] MEDS: inSUlin ASPART (NovoLOG) 1 UNIT/0.01 ML (CHARGE PER UNIT) SC SCH ×4 (00:01→19:00)
[2022-03-28] MEDS: PIPERACILLIN SODIUM/TAZOBACTAM 4.5 GM in NS (IVPB) 100 ML IV SCH ×3 (00:02→17:11)
[2022-03-28] MEDS: VASOPRESSIN INJECTION 20 UNIT in NS (IVPB) 100 ML IV SCH ×3 (00:03→23:28)
[2022-03-28] MEDS: LACTATED RINGERS 1,000 ML IV SCH ×4 (00:05→21:35)
[2022-03-28] MEDS: fentaNYL INJ 100 MCG/2 ML AMP IV PRN ×3 (02:09→12:28)
[2022-03-28] MEDS: RT-ALBUTEROL/IPRATROPIUM 3 ML (DUONEB) VIAL INH SCH ×6 (02:27→22:02)
[2022-03-28] MEDS: NOREPINEPHRINE 8 MG/250 ML 250 ML IV SCH ×2 (04:59→20:27)
[2022-03-28] MEDS ORDERED: NS IV 500 ML 500 ML IV PRN (05:15)
[2022-03-28 05:16] LABS: BASOPHILS % (AUTO) 0 % (0-10); EOSINOPHILS % (AUTO) 0 % (0-10); HEMATOCRIT 32 % (35-52); HEMOGLOBIN 10.2 g/dL (11.5-16.0); LYMPHOCYTES # (AUTO) 0.4 10^3/uL (1.0-4.0); LYMPHOCYTES % (AUTO) 3 % (12-44); MEAN CORPUSCULAR HEMOGLOBIN 31 pg (25-34); MEAN CORPUSCULAR HGB CONC 32 g/dL (32-36); MEAN CORPUSCULAR VOLUME 97 fL (80-99); MEAN PLATELET VOLUME 9.5 fL (9.0-12.2); MONOCYTES # (AUTO) 0.4 10^3/uL (0.0-1.0); MONOCYTES % (AUTO) 3 % (0-12); NEUTROPHILS % (AUTO) 94 % (42-75); PLATELET COUNT 143 10^3/uL (130-400); WHITE BLOOD COUNT 14.9 10^3/uL (4.3-11.0)
[2022-03-28 05:30] LABS: ALBUMIN 2.7 GM/DL (3.2-4.5); POTASSIUM 3.6 MMOL/L (3.6-5.0)
[2022-03-28 05:31] LABS: CALCIUM 8.6 MG/DL (8.5-10.1)
[2022-03-28 05:32] LABS: TOTAL PROTEIN 5.9 GM/DL (6.4-8.2)
[2022-03-28 05:34] LABS: BILIRUBIN,TOTAL 0.5 MG/DL (0.1-1.0)
[2022-03-28 05:35] LABS: PHOSPHORUS 3.4 MG/DL (2.3-4.7)
[2022-03-28 05:36] LABS: CREATININE SERUM 2.42 MG/DL (0.60-1.30)
[2022-03-28 05:38] LABS: MAGNESIUM 1.5 MG/DL (1.6-2.4)
[2022-03-28] MEDS: KCL 20 MEQ TAB (K-DUR) PO SCH (05:49)
[2022-03-28] MEDS: POTASSIUM CL 10MEQ/50ML IVPB 50 ML IV SCH (05:49)
[2022-03-28] MEDS: MAGNESIUM 1 GM/100 ML IVPB 100 ML IV SCH ×3 (05:49→07:25)
--- NOTE | 2022-03-28 07:03 | Progress Note - Surgery ---
PAULINE VU 03/28/22 0703: Subjective Date Seen by a Provider: Mar 28, 2022 Time Seen by a Provider: 06:50 Subjective/Events-last exam Patient says she feels better today. She is still confused. When I asked her about abdominal pain she said it was better than yesterday and "only hurts a lit tle" but when asked to rate the pain she said it was 10/10. She has not had a BM since admission, has not ambulated. She has a xie in place and voiced no complaints. Review of Systems Pulmonary: No Dyspnea, No Cough Cardiovascular: No: Chest Pain, Palpitations, Lt Headedness Gastrointestinal: Abdominal Pain; No: Nausea, Vomiting, Diarrhea, Constipation Neurological: Confusion Focused Exam Lactate Level 03/26/22 21:57: Lactic Acid Level 1.87 03/27/22 08:45: Lactic Acid Level 1.32 Objective Exam Vital Signs Date Time Temp Pulse Resp B/P (MAP) Pulse Ox O2 Delivery O2 Flow Rate FiO2 03/28/22 06:00 86 24 112/59 (76) 94 Nasal Cannula 2.00 03/28/22 06:00 36.5 03/28/22 05:00 80 25 113/62 (79) 94 Nasal Cannula 2.00 03/28/22 04:00 36.0 03/28/22 03:45 36.9 84 22 98/62 (74) 94 Nasal Cannula 2.00 03/28/22 03:45 93 Nasal Cannula 2.00 03/28/22 03:00 87 34 100/57 (71) 92 Nasal Cannula 2.00 03/28/22 02:32 36.0 03/28/22 02:28 94 Nasal Cannula 2.00 03/28/22 02:00 90 24 124/70 (88) 93 Nasal Cannula 2.00 03/28/22 01:00 92 26 124/72 (89) 93 Nasal Cannula 2.00 03/28/22 00:56 94 03/27/22 23:45 93 Nasal Cannula 2.00 03/27/22 23:45 37.0 92 20 136/82 (100) 93 Nasal Cannula 2.00 03/27/22 23:00 93 26 147/81 (103) 92 Nasal Cannula 2.00 03/27/22 22:00 96 28 153/85 (107) 93 Nasal Cannula 2.00 03/27/22 21:00 94 25 148/85 (106) 95 Nasal Cannula 2.00 03/27/22 20:20 94 Nasal Cannula 2.00 03/27/22 20:00 89 22 132/81 (98) 93 Nasal Cannula 2.00 03/27/22 19:52 37.1 03/27/22 19:30 93 Nasal Cannula 2.00 03/27/22 19:00 92 18 161/90 (113) 93 Nasal Cannula 2.00 03/27/22 18:52 90 148/86 03/27/22 18:50 89 03/27/22 18:00 79 25 117/79 (92) 93 Nasal Cannula 2.00 03/27/22 17:00 88 25 150/93 (112) 96 Nasal Cannula 2.00 03/27/22 16:09 37.0 03/27/22 16:03 Nasal Cannula 2.00 03/27/22 16:00 94 24 158/93 (114) 97 Nasal Cannula 2.00 03/27/22 15:36 37.0 03/27/22 15:00 98 25 157/96 (116) 95 Nasal Cannula 2.00 03/27/22 14:00 93 23 131/82 (98) 96 Nasal Cannula 2.00 03/27/22 13:04 37.0 03/27/22 13:00 98 24 160/94 (116) 95 Nasal Cannula 2.00 03/27/22 12:37 98 21 149/94 (112) 95 Nasal Cannula 2.00 03/27/22 12:35 Nasal Cannula 2.00 03/27/22 12:00 98 03/27/22 12:00 37.1 03/27/22 11:00 96 20 146/91 (109) 95 Nasal Cannula 2.00 03/27/22 10:00 108 26 149/93 (111) 94 Nasal Cannula 2.00 03/27/22 09:29 36.9 03/27/22 09:00 118 20 140/80 (100) 94 Nasal Cannula 2.00 03/27/22 08:33 38.0 03/27/22 08:00 38.0 03/27/22 08:00 122 38 169/104 (125) 94 Nasal Cannula 2.00 03/27/22 08:00 122 38 169/103 (125) 94 Nasal Cannula 2.00 03/27/22 07:48 Nasal Cannula 2.00 03/27/22 07:00 124 160/109 (126) 94 Nasal Cannula 2.00 03/27/22 07:00 124 169/102 (124) 94 Nasal Cannula 2.00 I & O 03/28/22 07:00 Intake Total 2920 ml Output Total 1375 ml Balance 1545 ml Capillary Refill : Less Than 3 Seconds General Appearance: Chronically ill, Mild Distress, Obese, Other (confused) HEENT: PERRL/EOMI, Moist Mucous Membranes Neck: Non Tender, Supple Respiratory: No Accessory Muscle Use, No Respiratory Distress, Wheezing (right lung on expiration) Cardiovascular: Regular Rate, Rhythm, No Murmur, Tachycardia Peripheral Pulses: 2+ Dorsalis Pedis (R), 2+ Left Dors-Pedis (L), 2+ Radial Pulses (R), 2+ Radial Pulses (L) Gastrointestinal: soft; No guarding; tenderness (RUQ to deep palpation), hernia (large RUQ at site of incision) Extremity: Non Tender, No Calf Tenderness, No Pedal Edema Neurologic/Psychiatric: Alert, Disoriented Skin: Normal Color, Warm/Dry Lymphatic: No Adenopathy (cervical) Results Lab Laboratory Tests 03/27/22 07:44: White Blood Count 25.8H, Red Blood Count 4.16, Hemoglobin 13.1, Hematocrit 39, Mean Corpuscular Volume 94, Mean Corpuscular Hemoglobin 32, Mean Corpuscular Hemoglobin Concent 34, Red Cell Distribution Width 13.7, Platelet Count 204, Mean Platelet Volume 9.6, Prothrombin Time 14.9H, INR Comment 1.1, Activated P artial Thromboplast Time 30, Troponin I 1.164*H 03/27/22 08:38: Glucometer 164H 03/27/22 08:45: Lactic Acid Level 1.32 03/27/22 12:25: Troponin I 1.078*H 03/27/22 15:00: Activated Partial Thromboplast Time 164*H 03/27/22 15:17: Glucometer 120H 03/27/22 17:30: Troponin I 0.810*H 03/27/22 22:55: Activated Partial Thromboplast Time 70H 03/28/22 00:01: Glucometer 110 03/28/22 04:40: White Blood Count 14.9H, Red Blood Count 3.28L, Hemoglobin 10.2#L, Hematocrit 32L, Mean Corpuscular Volume 97, Mean Corpuscular Hemoglobin 31, Mean Corpuscular Hemoglobin Concent 32, Red Cell Distribution Width 14.0, Platelet Count 143, Mean Platelet Volume 9.5, Immature Granulocyte % (Auto) 1, Neutrophils (%) (Auto) 94H, Lymphocytes (%) (Auto) 3L, Monocytes (%) (Auto) 3, Eosinophils (%) (Auto) 0, Basophils (%) (Auto) 0, Neutrophils # (Auto) 14.0H, Lymphocytes # (Auto) 0.4L, Monocytes # (Auto) 0.4, Eosinophils # (Auto) 0.0, Basophils # (Auto) 0.0, Immature Granulocyte # (Auto) 0.1, Activated Partial Thromboplast Time 75H, Sodium Level 144, Potassium Level 3.6, Chloride Level 108H, Carbon Dioxide Level 22, Anion Gap 14, Blood Urea Nitrogen 33H, Creatinine 2.42H, Estimat Glomerular Filtration Rate 22, BUN/Creatinine Ratio 14, Glucose Level 116H, Calcium Level 8.6, Corrected Calcium 9.6, Phosphorus Level 3.4, Magnesium Level 1.5L, Total Bilirubin 0.5, Aspartate Amino Transf (AST/SGOT) 18, Alanine Aminotransferase (ALT/SGPT) 9, Alkaline Phosphatase 71, Total Protein 5.9L, Albumin 2.7L Microbiology 03/26/22 Urine Culture - Final, Complete NO GROWTH 03/26/22 Blood Culture - Preliminary, Resulted Gram Negative Noah Assessment/Plan Assessment/Plan Assessment/Plan Possible Acute Cholecystitis with Cholelithiasis Chronic Renal Failure Hypertensive emergency NSTEMI DM Leukocytosis Incarcerated Ventral/Incisional hernia WBC improved to 14.9, was 25.8 yesterday. Blood culture was positive for gram negative noah. She has been started on zosyn, will await sensitivity. Her renal failure appears to be chronic; Cr in 2019 was also 1.75 and 2.1 in 2020. Her blood pressure has come down with IV medications, has also been started on IV and oral nitro. If this really is an acute Cholecystitis we may wind up having to do surgery even in the face of DE. Will make sure to control DM. The hernia is not the problem at this time, but will monitor. RACHID GONZALES DO 03/28/22 1337: Subjective Time Seen by a Provider: 11:16 Subjective/Events-last exam Pt seen and examined, she is still confused. Nurse stated pt complained of RUQ pain; however, when I asked ti was all over. She does not appear to be in any distress Review of Systems Pulmonary: No Dyspnea, No Cough Cardiovascular: No: Chest Pain, Palpitations Gastrointestinal: Abdominal Pain; No: Nausea, Vomiting Neurological: Confusion Objective Exam General Appearance: Chronically ill, Obese HEENT: PERRL/EOMI, Moist Mucous Membranes Respiratory: No Accessory Muscle Use, No Respiratory Distress, Wheezing (right lung on expiration) Cardiovascular: Regular Rate, Rhythm, No Murmur Gastrointestinal: soft; No guarding; tenderness (all quadrants when pressed), hernia (large RUQ at site of incision) Neurologic/Psychiatric: Alert, Disoriented Assessment/Plan Assessment/Plan Assessment/Plan Possible Acute Cholecystitis with Cholelithiasis Chronic Renal Failure Hypertensive emergency NSTEMI DM Leukocytosis Incarcerated Ventral/Incisional hernia WBC improved to 14.9, was 25.8 yesterday. Blood culture was positive for gram negative noah. She has been started on zosyn, will await sensitivity. Her renal failure appears to be chronic; Cr in 2019 was also 1.75 and 2.1 in 2020. Her blood pressure has come down with IV medications, has also been started on IV and oral nitro. If this really is an acute Cholecystitis we may wind up having to do surgery even in the face of DE. Will make sure to control DM. The hernia is not the problem at this time, but will monitor. Cardiology thinks she is probably having an DE, but can't do catheterization if she is septic. Pt had 1 out of 2 blood cultures positive, urine culture was negative. I don't think she is septic and am not sure what to do about her abdominal pain. I believe she has an acute cholecystitis/cholelithiasis, but don't think surgery is the right thing at this point. If she gets worse and we think it is from the Gallbladder than we may need to do cholecystectomy. Supervisory-Addendum Brief Verification & Attestation Participated in pt care: history, MDM, physical Personally performed: exam, history, MDM, supervision of care Care discussed with: Medical Student Procedures: n/a Verification and Attestation of Medical Student E/M Service A medical student performed and documented this service. I then reviewed and verified all information documented by the medical student and made modifications to such information, when appropriate. I personally performed a physical exam, medical decision making and then discussed any differences between the notes and made revisions as necessary to create one note. Rachid Gonzales , 03/28/22 , 13:37 PAULINE VU Mar 28, 2022 07:03 RACHID GONZALES DO Mar 28, 2022 13:37
--- NOTE | 2022-03-28 08:48 | Tele-ICU Progress Note ---
Subjective Date Seen by a Provider: Mar 28, 2022 Time Seen by a Provider: 08:43 Subjective/Events-last exam eICU progress note 66 yo F admitted for HTN crisis, started on IV NTG @ 10, Was having CP yesterday but now CP gone BP now 116/82, Cr is now 2.42 BUN 33, has received contrast, baseline Cr 1.8-Probably a combination of HTN, contrast Sepsis Event Evaluation Height, Weight, BMI Height: 5'1.00" Weight: 200lbs. oz. [id number]; 39.25 BMI Method:Stated Focused Exam Lactate Level 03/26/22 21:57: Lactic Acid Level 1.87 03/27/22 08:45: Lactic Acid Level 1.32 Exam Exam Patient acknowledged, consented, and participated in this virtual visit which was conducted using real time audio/video Vital Signs Date Time Temp Pulse Resp B/P (MAP) Pulse Ox O2 Delivery O2 Flow Rate FiO2 03/28/22 08:00 79 19 116/62 (80) 93 Nasal Cannula 2.00 03/28/22 07:41 36.5 03/28/22 07:13 93 Nasal Cannula 2.00 03/28/22 07:00 81 26 111/80 (90) 93 Nasal Cannula 2.00 03/28/22 07:00 80 03/28/22 06:00 86 24 112/59 (76) 94 Nasal Cannula 2.00 03/28/22 06:00 36.5 03/28/22 05:00 80 25 113/62 (79) 94 Nasal Cannula 2.00 03/28/22 04:00 36.0 03/28/22 03:45 36.9 84 22 98/62 (74) 94 Nasal Cannula 2.00 03/28/22 03:45 93 Nasal Cannula 2.00 03/28/22 03:00 87 34 100/57 (71) 92 Nasal Cannula 2.00 03/28/22 02:32 36.0 03/28/22 02:28 94 Nasal Cannula 2.00 03/28/22 02:00 90 24 124/70 (88) 93 Nasal Cannula 2.00 03/28/22 01:00 92 26 124/72 (89) 93 Nasal Cannula 2.00 03/28/22 00:56 94 03/27/22 23:45 93 Nasal Cannula 2.00 03/27/22 23:45 37.0 92 20 136/82 (100) 93 Nasal Cannula 2.00 03/27/22 23:00 93 26 147/81 (103) 92 Nasal Cannula 2.00 03/27/22 22:00 96 28 153/85 (107) 93 Nasal Cannula 2.00 03/27/22 21:00 94 25 148/85 (106) 95 Nasal Cannula 2.00 03/27/22 20:20 94 Nasal Cannula 2.00 03/27/22 20:00 89 22 132/81 (98) 93 Nasal Cannula 2.00 03/27/22 19:52 37.1 03/27/22 19:30 93 Nasal Cannula 2.00 03/27/22 19:00 92 18 161/90 (113) 93 Nasal Cannula 2.00 03/27/22 18:52 90 148/86 03/27/22 18:50 89 03/27/22 18:00 79 25 117/79 (92) 93 Nasal Cannula 2.00 03/27/22 17:00 88 25 150/93 (112) 96 Nasal Cannula 2.00 03/27/22 16:09 37.0 03/27/22 16:03 Nasal Cannula 2.00 03/27/22 16:00 94 24 158/93 (114) 97 Nasal Cannula 2.00 03/27/22 15:36 37.0 03/27/22 15:00 98 25 157/96 (116) 95 Nasal Cannula 2.00 03/27/22 14:00 93 23 131/82 (98) 96 Nasal Cannula 2.00 03/27/22 13:04 37.0 03/27/22 13:00 98 24 160/94 (116) 95 Nasal Cannula 2.00 03/27/22 12:37 98 21 149/94 (112) 95 Nasal Cannula 2.00 03/27/22 12:35 Nasal Cannula 2.00 03/27/22 12:00 98 03/27/22 12:00 37.1 03/27/22 11:00 96 20 146/91 (109) 95 Nasal Cannula 2.00 03/27/22 10:00 108 26 149/93 (111) 94 Nasal Cannula 2.00 03/27/22 09:29 36.9 03/27/22 09:00 118 20 140/80 (100) 94 Nasal Cannula 2.00 I & O 03/28/22 07:00 Intake Total 2920 ml Output Total 1375 ml Balance 1545 ml Height & Weight Height: 5'1.00" Weight: 200lbs. oz. [id number]; 39.25 BMI Method:Stated General Appearance: Chronically ill, Mild Distress, Obese, Other (confused) HEENT: PERRL/EOMI, Moist Mucous Membranes Neck: Non Tender, Supple Respiratory: No Accessory Muscle Use, No Respiratory Distress, Wheezing (right lung on expiration) Cardiovascular: Regular Rate, Rhythm, No Murmur, Tachycardia Capillary Refill: Less Than 3 Seconds Peripheral Pulses: 2+ Dorsalis Pedis (R), 2+ Left Dors-Pedis (L), 2+ Radial Pulses (R), 2+ Radial Pulses (L) Gastrointestinal: normal bowel sounds, soft; No guarding; tenderness (RUQ to deep palpation), hernia (large RUQ at site of incision), other (RUQ pain-has gall stone on CT) Extremity: Non Tender, No Calf Tenderness, No Pedal Edema Neurologic/Psychiatric: Alert, Disoriented, Other (oriented x 2, does not know year, ) Skin: Normal Color, Warm/Dry Lymphatic: No Adenopathy (cervical) Results Lab Laboratory Tests 03/26/22 21:43 03/27/22 02:18 03/27/22 07:44 03/28/22 04:40 Assessment/Plan Assessment/Plan HTN crisis, now better, will continue on metoprolol, IV NTG @ 10 will try to taper, NPO now but may need GB removed On IV Zosyn for GNR in blood On IV heparin for ACS, EKG showed PVC's possible anterior lateral wall ischemia Critical Care: Critically Ill Patient Time spent with patient (mins): 30 JUAREZ GAN MD Mar 28, 2022 08:48
[2022-03-28] MEDS: PANTOPRAZOLE 40 MG (PROTONIX) VIAL IV SCH (09:41)
[2022-03-28] MEDS: HEParin DRIP 25000 UNIT/500ML 500 ML IV SCH ×2 (10:25→14:18)
--- NOTE | 2022-03-28 11:03 | Progress Note ---
INESSA BARBOSA 03/28/22 1103: Subjective Date Seen by a Provider: Mar 28, 2022 Time Seen by a Provider: 10:53 Subjective/Events-last exam Patient is more alert today and able to answer most questions. She is still confused about the timing of things, but knows why she is here for the most part. She still has tenderness to palpation of the RUQ mainly and wheezy lungs on auscultation. She denies any chest pain this morning, despite having some yesterday evening for which she received IV nitroglycerin. Troponin at that time was noted to be 0.810. Echo from yesterday shows LVEF of 30-35% with likely stress induced cardiomyopathy. Currently BP seems to be stable at 112/59. Focused Exam Lactate Level 03/26/22 21:57: Lactic Acid Level 1.87 03/27/22 08:45: Lactic Acid Level 1.32 Objective Exam Last Set of Vital Signs Vital Signs Date Time Temp Pulse Resp B/P (MAP) Pulse Ox O2 Delivery O2 Flow Rate FiO2 03/28/22 10:00 77 25 125/73 (90) 93 Nasal Cannula 2.00 03/28/22 07:41 36.5 Capillary Refill : Less Than 3 Seconds I&O Intake and Output 03/28/22 00:00 Intake Total 1820 ml Output Total 1400 ml Balance 420 ml Intake Oral 20 ml IV Total 1800 ml Output Urine Total 1400 ml Daily Weight Change No General: Cooperative Lungs: Other (slight wheezes in bilateral lungs) Heart: Regular Rate Abdomen: Other (tenderness to palpation of the RUQ) Extremities: No Tenderness/Swelling Psych/Mental Status: Other (Confused) Results Lab Laboratory Tests 03/27/22 12:25: Troponin I 1.078*H 03/27/22 15:00: Activated Partial Thromboplast Time 164*H 03/27/22 15:17: Glucometer 120H 03/27/22 17:30: Troponin I 0.810*H 03/27/22 22:55: Activated Partial Thromboplast Time 70H 03/28/22 00:01: Glucometer 110 03/28/22 04:40: Activated Partial Thromboplast Time 75H, White Blood Count 14.9H, Red Blood Count 3.28L, Hemoglobin 10.2#L, Hematocrit 32L, Mean Corpuscular Volume 97, Mean Corpuscular Hemoglobin 31, Mean Corpuscular Hemoglobin Concent 32, Red Cell Distribution Width 14.0, Platelet Count 143, Mean Platelet Volume 9.5, Immature Granulocyte % (Auto) 1, Neutrophils (%) (Auto) 94H, Lymphocytes (%) (Auto) 3L, Monocytes (%) (Auto) 3, Eosinophils (%) (Auto) 0, Basophils (%) (Auto) 0, Neutrophils # (Auto) 14.0H, Lymphocytes # (Auto) 0.4L, Monocytes # (Auto) 0.4, Eosinophils # (Auto) 0.0, Basophils # (Auto) 0.0, Immature Granulocyte # (Auto) 0.1, Sodium Level 144, Potassium Level 3.6, Chloride Level 108H, Carbon Dioxide Level 22, Anion Gap 14, Blood Urea Nitrogen 33H, Creatinine 2.42H, Estimat Glome rular Filtration Rate 22, BUN/Creatinine Ratio 14, Glucose Level 116H, Calcium Level 8.6, Corrected Calcium 9.6, Phosphorus Level 3.4, Magnesium Level 1.5L, Total Bilirubin 0.5, Aspartate Amino Transf (AST/SGOT) 18, Alanine Aminotransferase (ALT/SGPT) 9, Alkaline Phosphatase 71, Total Protein 5.9L, Albumin 2.7L Microbiology 03/27/22 MRSA Screen - Final, Complete MRSA not isolated 03/26/22 Urine Culture - Final, Complete NO GROWTH 03/26/22 Blood Culture - Preliminary, Resulted Gram Negative Noah Assessment/Plan Assessment/Plan Assess & Plan/Chief Complaint Assessment: Sepsis Acute Cholecystitis with Cholelithiasis NSTEMI Hypertensive Emergency Hyperlipidemia Chornic Kidney Disease Obesity Current Smoker Plan: Supportive care and IVF Monitor patient labs and replace prn Zosyn for more broad spectrum coverage of gram negative rods Consult Cardiology regarding dosage adjustments on cardiac drugs On IV Heparin Surgery is waiting for BP to be more controlled before proceeding with cholecystectomy Clinical Quality Measures Admission Status Admission Dx Assessment: Sepsis Acute Cholecystitis with Cholelithiasis NSTEMI Hypertensive Emergency Hyperlipidemia Chornic Kidney Disease Obesity Current Smoker Plan: Supportive care and IVF Monitor patient labs and replace prn Continue Ceftriaxone Zosyn for more broad spectrum coverage Repeat troponins Consult Cardiology regarding dosage adjustments on cardiac drugs Consult Surgery for cholecystectomy and possible hernia repair TIARA HUIZAR DO 03/29/22 0516: Subjective Subjective/Events-last exam Improved overall Abdominal pain the same Reviewed BP trend Review of Systems General: Fatigue, Malaise Gastrointestinal: Abdominal Pain Neurological: Confusion Objective Exam General: Alert, Cooperative, No Acute Distress Lungs: Clear to Auscultation Heart: Regular Rate Assessment/Plan Assessment/Plan Assess & Plan/Chief Complaint Zosyn for bacteremia Monitor in ICU Supervisory-Addendum Brief Verification & Attestation Participated in pt care: history, MDM, physical Personally performed: exam, history, MDM, supervision of care Care discussed with: Medical Student Procedures: n/a Results interpretation: Verified all documentation Verification and Attestation of Medical Student E/M Service A medical student performed and documented this service in my presence. I reviewed and verified all information documented by the medical student and made modifications to such information, when appropriate. I personally performed the physical exam and medical decision making. Tiara Huizar, Mar 29, 2022,05:15 INESSA BARBOSA Mar 28, 2022 11:03 TIARA HUIZAR DO Mar 29, 2022 05:16
--- NOTE | 2022-03-28 12:05 | Cardiology Progress Note ---
Progress Note-Cardiology Events since last exam Date Seen by Provider: Mar 28, 2022 Time Seen by Provider: 11:59 Events since last exam I am following her due to probable NSTEMI. She remains in the intensive care unit. She still has some intermittent at left-sided chest pain but this is at the lower costal margin. She has been intermittently complaining about abdominal pain but then when she is examined, she seems to be nontender. She does have some ongoing dyspnea. She denies palpitations, syncope, or ankle edema. Certain portions of this document may have been dictated utilizing voice recognition technology. Inherent to this technology, typographical and grammatical errors may exist. As much as I am diligent to identify and correct these mistakes, some errors may remain in the document. Vitals Last set of Vitals Signs Vital Signs 03/28/22 03/28/22 15:00 16:00 Temp 36.9 Pulse 72 Resp 26 B/P (MAP) 112/98 (103) Pulse Ox 100 O2 Delivery Nasal Cannula O2 Flow Rate 2.00 Labs Labs Laboratory Tests 03/28/22 04:40 03/28/22 14:15 Exam Vital Signs Vital Signs Date Time Temp Pulse Resp B/P (MAP) Pulse Ox O2 Delivery O2 Flow Rate FiO2 03/28/22 16:00 36.9 03/28/22 15:00 72 26 112/98 (103) 100 Nasal Cannula 2.00 Physical Exam General: Alert. No acute distress. She is obese. She is wearing oxygen by nasal cannula. Eye: No xanthelasma. HENT: Normocephalic. Neck: Jugular venous pressure does not appear elevated. Respiratory: Lungs have scattered wheezes bilaterally.. Respirations are non- labored. Breath sounds are equal. Symmetrical chest wall expansion. Cardiovascular: Normal rate. Regular rhythm. Distant S1/S2. No murmur. No gallop. No edema. Gastrointestinal: Soft. Normal bowel sounds. Skin: Warm. Dry. Neurologic: Alert and oriented to person, place, time. Cranial nerves 3-11 grossly intact. Psychiatric: Cooperative. Appropriate mood & affect. Labs Laboratory Tests Test 03/27/22 17:30 03/27/22 22:55 03/28/22 00:01 03/28/22 04:40 Range/Units Troponin I 0.810 *H <0.028 NG/ML Activated Partial Thromboplast Time 70 H 75 H 24-35 SEC Glucometer 110 70-110 MG/DL White Blood Count 14.9 H 4.3-11.0 10^3/uL Red Blood Count 3.28 L 3.80-5.11 10^6/uL Hemoglobin 10.2 #L 11.5-16.0 g/dL Hematocrit 32 L 35-52 % Mean Corpuscular Volume 97 80-99 fL Mean Corpuscular Hemoglobin 31 25-34 pg Mean Corpuscular Hemoglobin Concent 32 32-36 g/dL Red Cell Distribution Width 14.0 10.0-14.5 % Platelet Count 143 130-400 10^3/uL Mean Platelet Volume 9.5 9.0-12.2 fL Immature Granulocyte % (Auto) 1 % Neutrophils (%) (Auto) 94 H 42-75 % Lymphocytes (%) (Auto) 3 L 12-44 % Monocytes (%) (Auto) 3 0-12 % Eosinophils (%) (Auto) 0 0-10 % Basophils (%) (Auto) 0 0-10 % Neutrophils # (Auto) 14.0 H 1.8-7.8 10^3/uL Lymphocytes # (Auto) 0.4 L 1.0-4.0 10^3/uL Monocytes # (Auto) 0.4 0.0-1.0 10^3/uL Eosinophils # (Auto) 0.0 0.0-0.3 10^3/uL Basophils # (Auto) 0.0 0.0-0.1 10^3/uL Immature Granulocyte # (Auto) 0.1 0.0-0.1 10^3/uL Sodium Level 144 135-145 MMOL/L Potassium Level 3.6 3.6-5.0 MMOL/L Chloride Level 108 H 98-107 MMOL/L Carbon Dioxide Level 22 21-32 MMOL/L Anion Gap 14 5-14 MMOL/L Blood Urea Nitrogen 33 H 7-18 MG/DL Creatinine 2.42 H 0.60-1.30 MG/DL Estimat Glomerular Filtration Rate 22 BUN/Creatinine Ratio 14 Glucose Level 116 H 70-105 MG/DL Calcium Level 8.6 8.5-10.1 MG/DL Corrected Calcium 9.6 8.5-10.1 MG/DL Phosphorus Level 3.4 2.3-4.7 MG/DL Magnesium Level 1.5 L 1.6-2.4 MG/DL Total Bilirubin 0.5 0.1-1.0 MG/DL Aspartate Amino Transf (AST/SGOT) 18 5-34 U/L Alanine Aminotransferase (ALT/SGPT) 9 0-55 U/L Alkaline Phosphatase 71 40-136 U/L Total Protein 5.9 L 6.4-8.2 GM/DL Albumin 2.7 L 3.2-4.5 GM/DL Test 03/28/22 11:58 03/28/22 14:15 Range/Units Glucometer 96 70-110 MG/DL Sodium Level 140 135-145 MMOL/L Potassium Level 3.3 L 3.6-5.0 MMOL/L Chloride Level 106 98-107 MMOL/L Carbon Dioxide Level 22 21-32 MMOL/L Anion Gap 12 5-14 MMOL/L Blood Urea Nitrogen 33 H 7-18 MG/DL Creatinine 2.14 H 0.60-1.30 MG/DL Estimat Glomerular Filtration Rate 25 BUN/Creatinine Ratio 15 Glucose Level 104 70-105 MG/DL Calcium Level 8.5 8.5-10.1 MG/DL Diagnosis/Problems Diagnosis/Problems (1) Non-ST elevation myocardial infarction (NSTEMI), initial care episode Assessment & Plan: She appears to have suffered a possible non-ST elevation myocardial infarction. Her troponins have trended downward. Her echocardiogram shows findings consistent with stress-induced cardiomyopathy (Takotsubo cardiomyopathy) but this can only be diagnosed at cardiac catheterization. I have started her on aspirin, restarted her beta-amadeo and intensified her dose of statin medication. I also started her on intravenous heparin infusion. Her renal function is worsening. We ultimately may want to consider a cardiac catheterization but we will need to wait for her renal function to stabilize. (2) Hypertensive emergency without congestive heart failure Assessment & Plan: Her blood pressure was markedly elevated at the time of admission and she had an elevated troponin level concerning for myocardial injury as outlined above. These findings are consistent with a hypertensive rio rgency. I have restarted her metoprolol tartrate which she takes at home although I am starting with 50 mg twice daily. I would avoid overtreating the hypertension in the event she develops septic shock. (3) Cardiomyopathy Assessment & Plan: As above, she may have Takotsubo cardiomyopathy. I will change her metoprolol to tartrate over to metoprolol succinate. She is not currently a candidate for JUAN RAMON inhibitor, ARB, aldosterone antagonist or Entresto due to the worsening renal function. I will obtain a follow-up chest x-ray in the morning since she has received a fair amount of IV fluids for the possible early sepsis. (4) Mixed hyperlipidemia Assessment & Plan: She was taking atorvastatin at home and I have intensified the dose due to the possible non-ST elevation myocardial infarction. (5) Sepsis Assessment & Plan: She was febrile, has an elevated white count and tachycardia. These findings are all concerning for sepsis. The hospitalist and eICU will be managing this condition. (6) Primary hypertension Assessment & Plan: I have restarted her metoprolol tartrate as outlined above. Given that she now seems to have cardiomyopathy, I have changed this over to metoprolol succinate as outlined above. I would avoid aggressive treatment of the hypertension until we have her possible sepsis treated and under control. Otherwise, if she develops septic shock, we could have trouble maintaining adequate blood pressure. (7) Coronary artery disease with unstable angina pectoris Assessment & Plan: As above. (8) Acute kidney injury superimposed on chronic kidney disease Assessment & Plan: The most recent blood work she had in our system was from 2019 and her creatinine ranged from 1.8-2.1 at that point in time. Her current baseline creatinine is unknown. She has been receiving some intravenous fluids since admission. She has already received at least 1 L of lactated Ringer's. Her renal function will need to be monitored closely. Her renal function is worse as of today, 03/28. (9) Cigarette smoker Assessment & Plan: She needs to quit smoking. (10) Obesity Assessment & Plan: She needs to work on weight loss. JEREMIAS MANNING JR, MD Mar 28, 2022 12:04
[2022-03-28] MEDS: meTOprolol TARTRATE 50 MG (LOPRESSOR) TAB PO SCH (12:16)
[2022-03-28] MEDS: ASPIRIN E.C. 81 MG (ECOTRIN) TAB PO SCH (12:16)
[2022-03-28] MEDS: MICONAZOLE 2% POWDER (DESENEX AF) 90 GM TOP SCH ×2 (12:33→21:14)
[2022-03-28 14:43] LABS: CALCIUM 8.5 MG/DL (8.5-10.1); CREATININE SERUM 2.14 MG/DL (0.60-1.30); POTASSIUM 3.3 MMOL/L (3.6-5.0)
--- NOTE | 2022-03-28 15:35 | Progress Note ---
Standard Progress Note Progress Notes/Assess & Plan Date Seen by a Provider: Mar 28, 2022 Time Seen by a Provider: 15:34 Progress/Assessment & Plan potassium 3.3, will replace orally 20 Meq KCl JUAREZ GAN MD Mar 28, 2022 15:35
[2022-03-28] MEDS ORDERED: POTASSIUM BICARB 20 MEQ (EFFER-K) TABLET PO NR (16:15)
[2022-03-28] MEDS: NITRO DRIP 25000 MCG/D5W 250 ML IV SCH (18:45)
[2022-03-28] MEDS: meTOproloL SUCCINATE 50 MG (TOPROL XL) TAB PO SCH (21:14)
[2022-03-28] MEDS ORDERED: cefTRIAXone 1 GM/50 ML (PRE-MIX) IV SCH (22:00)
[2022-03-29] MEDS: PIPERACILLIN SODIUM/TAZOBACTAM 4.5 GM in NS (IVPB) 100 ML IV SCH ×3 (00:45→16:05)
[2022-03-29] MEDS: RT-ALBUTEROL/IPRATROPIUM 3 ML (DUONEB) VIAL INH SCH ×6 (02:00→22:11)
[2022-03-29 05:07] LABS: BASOPHILS % (AUTO) 0 % (0-10); EOSINOPHILS # (AUTO) 0.2 10^3/uL (0.0-0.3); EOSINOPHILS % (AUTO) 2 % (0-10); HEMATOCRIT 29 % (35-52); HEMOGLOBIN 9.1 g/dL (11.5-16.0); LYMPHOCYTES # (AUTO) 0.6 10^3/uL (1.0-4.0); LYMPHOCYTES % (AUTO) 4 % (12-44); MEAN CORPUSCULAR HEMOGLOBIN 31 pg (25-34); MEAN CORPUSCULAR HGB CONC 32 g/dL (32-36); MEAN CORPUSCULAR VOLUME 97 fL (80-99); MEAN PLATELET VOLUME 9.5 fL (9.0-12.2); MONOCYTES # (AUTO) 0.3 10^3/uL (0.0-1.0); MONOCYTES % (AUTO) 2 % (0-12); NEUTROPHILS # (AUTO) 13.2 10^3/uL (1.8-7.8); NEUTROPHILS % (AUTO) 91 % (42-75); PLATELET COUNT 138 10^3/uL (130-400); WHITE BLOOD COUNT 14.5 10^3/uL (4.3-11.0)
[2022-03-29 05:29] LABS: ALBUMIN 2.6 GM/DL (3.2-4.5); BILIRUBIN,TOTAL 0.5 MG/DL (0.1-1.0); CALCIUM 8.5 MG/DL (8.5-10.1); CREATININE SERUM 2.32 MG/DL (0.60-1.30); MAGNESIUM 1.9 MG/DL (1.6-2.4); PHOSPHORUS 2.8 MG/DL (2.3-4.7); POTASSIUM 3.3 MMOL/L (3.6-5.0); TOTAL PROTEIN 5.9 GM/DL (6.4-8.2)
[2022-03-29] MEDS: POTASSIUM CL 10MEQ/50ML IVPB 50 ML IV SCH (05:47)
[2022-03-29] MEDS: MAGNESIUM 1 GM/100 ML IVPB 100 ML IV SCH (05:47)
[2022-03-29] MEDS: KCL 20 MEQ TAB (K-DUR) PO SCH ×3 (05:47→20:08)
[2022-03-29] MEDS: inSUlin ASPART (NovoLOG) 1 UNIT/0.01 ML (CHARGE PER UNIT) SC SCH ×4 (06:00→17:51)
[2022-03-29] MEDS: LACTATED RINGERS 1,000 ML IV SCH (06:36)
[2022-03-29] MEDS ORDERED: KCL 10 MEQ TAB (MICRO K) PO SCH (07:00)
--- NOTE | 2022-03-29 07:45 | Diagnostic Imaging Report ---
Indication: 66-year-old female presents with chest pain Comparisons: 03/26/2022 FINDINGS: Single view chest shows the cardiac contour to be within normal limits. There is aortic calcific atherosclerosis.. There is some prominent central vascularity suggesting element of mild failure. Few scattered areas of atelectasis seen in the lower lobes. No confluent consolidations present. There is no effusion or pneumothorax. Soft tissues and bony thorax are unremarkable. IMPRESSION: 1. Mild congestive heart failure. There is some minimal basilar atelectatic infiltrates. 2. There is aortic calcific atherosclerosis. Dictated by: Dictated on workstation # [id number]
--- NOTE | 2022-03-29 07:58 | Progress Note - Surgery ---
PAULINE VU 03/29/22 0758: Subjective Date Seen by a Provider: Mar 29, 2022 Time Seen by a Provider: 07:30 Subjective/Events-last exam Patient said she is feeling better today. She appears more alert, still endorses having abdominal pain, but says it is better than it was yesterday. She has not had a BM since admission, she has a xie in place. She is not ambulating. Review of Systems Pulmonary: No Dyspnea, No Cough Cardiovascular: No: Chest Pain, Lt Headedness Gastrointestinal: Abdominal Pain; No: Nausea, Vomiting Focused Exam Lactate Level 03/26/22 21:57: Lactic Acid Level 1.87 03/27/22 08:45: Lactic Acid Level 1.32 Objective Exam Vital Signs Date Time Temp Pulse Resp B/P (MAP) Pulse Ox O2 Delivery O2 Flow Rate FiO2 03/29/22 07:19 96 Room Air 03/29/22 07:00 92 159/87 (111) 93 Room Air 03/29/22 07:00 86 03/29/22 06:00 82 153/89 (110) Nasal Cannula 2.00 03/29/22 05:00 85 130/78 (95) Nasal Cannula 2.00 03/29/22 04:00 83 140/116 (124) Nasal Cannula 2.00 03/29/22 04:00 94 Nasal Cannula 4.00 03/29/22 03:00 84 17 129/77 (94) 94 Nasal Cannula 2.00 03/29/22 02:00 96 Nasal Cannula 2.00 03/29/22 02:00 89 21 104/62 (76) Nasal Cannula 2.00 03/29/22 01:00 86 117/70 (86) 95 Nasal Cannula 2.00 03/29/22 01:00 85 03/29/22 00:00 86 94 Nasal Cannula 2.00 03/29/22 00:00 94 Nasal Cannula 4.00 03/28/22 23:00 85 124/73 (90) Nasal Cannula 2.00 03/28/22 22:02 96 Nasal Cannula 2.00 03/28/22 22:00 89 138/73 (94) 94 Nasal Cannula 2.00 03/28/22 21:00 93 129/93 (105) 94 Nasal Cannula 2.00 03/28/22 20:00 73 131/59 (83) 91 Nasal Cannula 2.00 03/28/22 20:00 95 Nasal Cannula 4.00 03/28/22 19:00 85 36 136/73 (94) 94 Nasal Cannula 2.00 03/28/22 19:00 83 03/28/22 18:27 94 Nasal Cannula 2.00 03/28/22 18:00 85 136/103 (114) 95 Nasal Cannula 2.00 03/28/22 17:00 73 138/68 (91) 94 Nasal Cannula 2.00 03/28/22 16:00 36.9 03/28/22 16:00 77 26 98/74 (82) 94 Nasal Cannula 2.00 03/28/22 16:00 94 Nasal Cannula 2.00 03/28/22 15:00 72 26 112/98 (103) 100 Nasal Cannula 2.00 03/28/22 14:55 93 Nasal Cannula 2.00 03/28/22 14:00 66 26 120/63 (82) 93 Nasal Cannula 2.00 03/28/22 13:42 95 Nasal Cannula 2.00 03/28/22 13:00 79 26 121/63 (82) 93 Nasal Cannula 2.00 03/28/22 13:00 79 03/28/22 12:28 36.8 03/28/22 12:04 36.6 03/28/22 12:00 95 Nasal Cannula 2.00 03/28/22 12:00 82 27 130/66 (87) 92 Nasal Cannula 2.00 03/28/22 11:55 36.8 86 23 125/66 (85) 93 Nasal Cannula 2.00 03/28/22 11:12 92 Nasal Cannula 2.00 03/28/22 11:00 85 22 125/68 (87) 94 Nasal Cannula 2.00 03/28/22 10:00 77 25 125/73 (90) 93 Nasal Cannula 2.00 03/28/22 09:00 81 24 118/62 (80) 94 Nasal Cannula 2.00 03/28/22 08:00 79 19 116/62 (80) 93 Nasal Cannula 2.00 I & O 03/29/22 07:00 Intake Total 4400 ml Output Total 1100 ml Balance 3300 ml Capillary Refill : Less Than 3 Seconds General Appearance: Chronically ill, Obese HEENT: PERRL/EOMI, Moist Mucous Membranes Neck: Non Tender, Supple Respiratory: No Accessory Muscle Use, No Respiratory Distress, Wheezing (right lung on expiration) Cardiovascular: Regular Rate, Rhythm, No Murmur Peripheral Pulses: 2+ Dorsalis Pedis (R), 2+ Left Dors-Pedis (L), 2+ Radial Pulses (R), 2+ Radial Pulses (L) Gastrointestinal: soft; No guarding; tenderness (RUQ), hernia (large RUQ at site of incision) Extremity: Non Tender, No Calf Tenderness, No Pedal Edema Neurologic/Psychiatric: Alert, Disoriented Skin: Normal Color, Warm/Dry Lymphatic: No Adenopathy (cervical) Results Lab Laboratory Tests 03/28/22 11:58: Glucometer 96 03/28/22 14:15: Sodium Level 140, Potassium Level 3.3L, Chloride Level 106, Carbon Dioxide Level 22, Anion Gap 12, Blood Urea Nitrogen 33H, Creatinine 2.14H, Estimat Glomerular Filtration Rate 25, BUN/Creatinine Ratio 15, Glucose Level 104, Calcium Level 8.5 03/28/22 18:56: Glucometer 99 03/29/22 00:07: Glucometer 104 03/29/22 04:40: White Blood Count 14.5H, Red Blood Count 2.95L, Hemoglobin 9.1L, Hematocrit 29L, Mean Corpuscular Volume 97, Mean Corpuscular Hemoglobin 31, Mean Corpuscular Hemoglobin Concent 32, Red Cell Distribution Width 14.3, Platelet Count 138, Mean Platelet Volume 9.5, Immature Granulocyte % (Auto) 1, Neutrophils (%) (Auto) 91H, Lymphocytes (%) (Auto) 4L, Monocytes (%) (Auto) 2, Eosinophils (%) (Auto) 2, Basophils (%) (Auto) 0, Neutrophils # (Auto) 13.2H, Lymphocytes # (Auto) 0.6L, Monocytes # (Auto) 0.3, Eosinophils # (Auto) 0.2, Basophils # (Auto) 0.0, Immature Granulocyte # (Auto) 0.1, Activated Partial Thromboplast Ti me 69H, Sodium Level 135, Potassium Level 3.3L, Chloride Level 103, Carbon Dioxide Level 20L, Anion Gap 12, Blood Urea Nitrogen 33H, Creatinine 2.32H, Estimat Glomerular Filtration Rate 23, BUN/Creatinine Ratio 14, Glucose Level 98, Calcium Level 8.5, Corrected Calcium 9.6, Phosphorus Level 2.8, Magnesium Level 1.9, Total Bilirubin 0.5, Aspartate Amino Transf (AST/SGOT) 17, Alanine Aminotransferase (ALT/SGPT) 12, Alkaline Phosphatase 107, Total Protein 5.9L, Albumin 2.6L 03/29/22 06:29: Glucometer 105 Microbiology 03/27/22 Blood Culture - Preliminary, Resulted No growth 03/27/22 MRSA Screen - Final, Complete MRSA not isolated 03/26/22 Urine Culture - Final, Complete NO GROWTH Assessment/Plan Assessment/Plan Assessment/Plan Possible Acute Cholecystitis with Cholelithiasis Chronic Renal Failure Hypertensive emergency- BP still elevated but improved NSTEMI DM Leukocytosis Incarcerated Ventral/Incisional hernia WBC still elevated at 14.5, was 14.9 yesterday. Blood culture was positive for enterobacter gergoviae. She has been started on zosyn, will await sensitivity. Her renal failure appears to be chronic. Her blood pressure has come down with IV medications, has also been started on IV and oral nitro. If this really is an acute Cholecystitis and her condition worsens we may wind up having to do surgery even in the face of NV. Will make sure to control DM. The hernia is not the problem at this time, but will monitor. ANGUS GONZALES DO 03/29/22 1559: Subjective Time Seen by a Provider: 09:25 Subjective/Events-last exam Pt seen and examined, she is more alert today. When asked about abdominal pain she states it is RUQ, but then states "right where my hernia is". She also states she was supposed to go up to for gallbladder surgery; however, she then says it was scheduled for this weekend (which is very unlikely). Review of Systems Pulmonary: No Dyspnea, No Cough Cardiovascular: No: Chest Pain Gastrointestinal: Abdominal Pain; No: Nausea, Vomiting Objective Exam General Appearance: Chronically ill, Obese HEENT: PERRL/EOMI, Moist Mucous Membranes Respiratory: No Accessory Muscle Use, No Respiratory Distress, Wheezing (right lung on expiration) Cardiovascular: Regular Rate, Rhythm, No Murmur Gastrointestinal: soft; No guarding; tenderness (RUQ), hernia (large RUQ at s ite of incision) Extremity: No Calf Tenderness, No Pedal Edema Neurologic/Psychiatric: Alert, Disoriented Skin: Normal Color, Warm/Dry Assessment/Plan Assessment/Plan Assessment/Plan Possible Acute Cholecystitis with Cholelithiasis Chronic Renal Failure Hypertensive emergency- BP still elevated but improved NSTEMI DM Leukocytosis Incarcerated Ventral/Incisional hernia I am not sure if her pain is from the hernia or the gallbladder. I think she probably has some acute cholecystitis, but still think most of her pain is re lated to the hernia. I still do not really see an indication to do an acute surgery, definitely not urgent or emergent at this time. In light of possible NV will hold off on surgery, unless things change. WBC still elevated at 14.5, was 14.9 yesterday. Blood culture was positive for enterobacter gergoviae; which is more related to Respiratory than GI and interestingly is found in many cosmetics. She has been started on zosyn, will await sensitivity. Her renal failure appears to be chronic. Her blood pressure has come down with IV medications, has also been started on IV and oral nitro. Will make sure to control DM. The hernia is not the problem at this time, but will monitor. Supervisory-Addendum Brief Verification & Attestation Participated in pt care: history, MDM, physical Personally performed: exam, history, MDM, supervision of care Care discussed with: Medical Student Procedures: n/a Verification and Attestation of Medical Student E/M Service A medical student performed and documented this service. I then reviewed and verified all information documented by the medical student and made modifications to such information, when appropriate. I personally performed a physical exam, medical decision making and then discussed any differences gurwinderw een the notes and made revisions as necessary to create one note. Angus Gonzales , 03/29/22 , 15:59 PAULINE VU Mar 29, 2022 07:58 ANGUS GONZALES DO Mar 29, 2022 15:59
[2022-03-29] MEDS: ASPIRIN E.C. 81 MG (ECOTRIN) TAB PO SCH (08:08)
[2022-03-29] MEDS: meTOproloL SUCCINATE 50 MG (TOPROL XL) TAB PO SCH ×2 (08:08→20:08)
[2022-03-29] MEDS: MICONAZOLE 2% POWDER (DESENEX AF) 90 GM TOP SCH ×2 (08:08→20:09)
[2022-03-29] MEDS: PANTOPRAZOLE 40 MG (PROTONIX) VIAL IV SCH (08:08)
--- NOTE | 2022-03-29 08:45 | Cardiology Progress Note ---
Progress Note-Cardiology Events since last exam Date Seen by Provider: Mar 29, 2022 Time Seen by Provider: 08:41 Events since last exam I am following her due to probable NSTEMI now noted to have dilated cardiomy opathy and heart failure. Overall, she feels better this morning. She denies chest discomfort but still has some epigastric discomfort. Her breathing has improved. She denies palpitations, syncope, or ankle edema. Certain portions of this document may have been dictated utilizing voice recognition technology. Inherent to this technology, typographical and grammatical errors may exist. As much as I am diligent to identify and correct these mistakes, some errors may remain in the document. Vitals Last set of Vitals Signs Vital Signs 03/29/22 03/29/22 03/29/22 06:00 07:57 08:00 Temp 36.8 Pulse 86 Resp 26 B/P (MAP) 144/76 (98) Pulse Ox 91 O2 Delivery Room Air O2 Flow Rate 2.00 Labs Labs Laboratory Tests 03/28/22 14:15 03/29/22 04:40 Exam Vital Signs Vital Signs Date Time Temp Pulse Resp B/P (MAP) Pulse Ox O2 Delivery O2 Flow Rate FiO2 03/29/22 08:00 86 26 144/76 (98) 91 Room Air 03/29/22 07:57 36.8 03/29/22 06:00 2.00 Physical Exam General: Alert. No acute distress. She is obese. Eye: No xanthelasma. HENT: Normocephalic. Neck: Jugular venous pressure does not appear elevated. Respiratory: Lungs have some slight scattered wheezes. Respirations are non- labored. Breath sounds are equal. Symmetrical chest wall expansion. Cardiovascular: Normal rate. Regular rhythm. Distant S1/S2. No murmur. No gallop. No edema. Gastrointestinal: Soft. Normal bowel sounds. Skin: Warm. Dry. Neurologic: Alert and oriented to person, place, time. Cranial nerves 3-11 g rossly intact. Psychiatric: Cooperative. Appropriate mood & affect. Labs Laboratory Tests Test 03/28/22 11:58 03/28/22 14:15 03/28/22 18:56 03/29/22 00:07 Range/Units Glucometer 96 99 104 70-110 MG/DL Sodium Level 140 135-145 MMOL/L Potassium Level 3.3 L 3.6-5.0 MMOL/L Chloride Level 106 98-107 MMOL/L Carbon Dioxide Level 22 21-32 MMOL/L Anion Gap 12 5-14 MMOL/L Blood Urea Nitrogen 33 H 7-18 MG/DL Creatinine 2.14 H 0.60-1.30 MG/DL Estimat Glomerular Filtration Rate 25 BUN/Creatinine Ratio 15 Glucose Level 104 70-105 MG/DL Calcium Level 8.5 8.5-10.1 MG/DL Test 03/29/22 04:40 03/29/22 06:29 03/29/22 08:25 Range/Units White Blood Count 14.5 H 4.3-11.0 10^3/uL Red Blood Count 2.95 L 3.80-5.11 10^6/uL Hemoglobin 9.1 L 11.5-16.0 g/dL Hematocrit 29 L 35-52 % Mean Corpuscular Volume 97 80-99 fL Mean Corpuscular Hemoglobin 31 25-34 pg Mean Corpuscular Hemoglobin Concent 32 32-36 g/dL Red Cell Distribution Width 14.3 10.0-14.5 % Platelet Count 138 130-400 10^3/uL Mean Platelet Volume 9.5 9.0-12.2 fL Immature Granulocyte % (Auto) 1 % Neutrophils (%) (Auto) 91 H 42-75 % Lymphocytes (%) (Auto) 4 L 12-44 % Monocytes (%) (Auto) 2 0-12 % Eosinophils (%) (Auto) 2 0-10 % Basophils (%) (Auto) 0 0-10 % Neutrophils # (Auto) 13.2 H 1.8-7.8 10^3/uL Lymphocytes # (Auto) 0.6 L 1.0-4.0 10^3/uL Monocytes # (Auto) 0.3 0.0-1.0 10^3/uL Eosinophils # (Auto) 0.2 0.0-0.3 10^3/uL Basophils # (Auto) 0.0 0.0-0.1 10^3/uL Immature Granulocyte # (Auto) 0.1 0.0-0.1 10^3/uL Activated Partial Thromboplast Time 69 H 24-35 SEC Sodium Level 135 135-145 MMOL/L Potassium Level 3.3 L 3.6-5.0 MMOL/L Chloride Level 103 98-107 MMOL/L Carbon Dioxide Level 20 L 21-32 MMOL/L Anion Gap 12 5-14 MMOL/L Blood Urea Nitrogen 33 H 7-18 MG/DL Creatinine 2.32 H 0.60-1.30 MG/DL Estimat Glomerular Filtration Rate 23 BUN/Creatinine Ratio 14 Glucose Level 98 70-105 MG/DL Calcium Level 8.5 8.5-10.1 MG/DL Corrected Calcium 9.6 8.5-10.1 MG/DL Phosphorus Level 2.8 2.3-4.7 MG/DL Magnesium Level 1.9 1.6-2.4 MG/DL Total Bilirubin 0.5 0.1-1.0 MG/DL Aspartate Amino Transf (AST/SGOT) 17 5-34 U/L Alanine Aminotransferase (ALT/SGPT) 12 0-55 U/L Alkaline Phosphatase 107 40-136 U/L Total Protein 5.9 L 6.4-8.2 GM/DL Albumin 2.6 L 3.2-4.5 GM/DL Glucometer 105 70-110 MG/DL Prothrombin Time 15.7 H 12.2-14.7 SEC INR Comment 1.2 0.8-1.4 Diagnosis/Problems Diagnosis/Problems (1) Non-ST elevation myocardial infarction (NSTEMI), initial care episode Assessment & Plan: She appears to have suffered a possible non-ST elevation myocardial infarction. Her troponins have trended downward. Her echocardiogram shows findings consistent with stress-induced cardiomyopathy (Takotsubo cardiomyopathy) but this can only be diagnosed at cardiac catheterization. I have started her on aspirin, restarted her beta-amadeo and intensified her dose of statin medication. I also started her on intravenous heparin infusion. I would suggest we continue heparin until 03/30 and then stop. Her renal function is worsening. We ultimately may want to consider a cardiac catheterization but we will need to wait for her renal function to stabilize. I will consult her regular veterinary inspector to help decide on timing of a cardiac catheterization. (2) Acute HFrEF (heart failure with reduced ejection fraction) Assessment & Plan: Her chest x-ray from 03/29 shows evidence of pulmonary edema. Her intravenous fluids were discontinued. I am concerned about giving her intravenous diuretic due to her renal function. As above, I will consult her veterinary inspector. (3) Cardiomyopathy Assessment & Plan: As above, she may have Takotsubo cardiomyopathy. I changed her metoprolol to tartrate over to metoprolol succinate. She is not currently a candidate for JUAN RAMON inhibitor, ARB, aldosterone antagonist or Entresto due to the worsening renal function. (4) Hypertensive emergency Assessment & Plan: Blood pressures have improved. Initially, she did not have signs or symptoms of heart failure but as noted above, on 03/29 her chest x-ray showed pulmonary edema. (5) Mixed hyperlipidemia Assessment & Plan: She was taking atorvastatin at home and I have intensified the dose due to the possible non-ST elevation myocardial infarction. (6) Sepsis Assessment & Plan: She was febrile, has an elevated white count and tachycardia. These findings are all concerning for sepsis. The hospitalist and eICU will be managing this condition. General surgery is also following the patient due to cholelithiasis. (7) Primary hypertension Assessment & Plan: I have restarted her metoprolol tartrate as outlined above. Given that she now seems to have cardiomyopathy, I have changed this over to metoprolol succinate as outlined above. I would avoid aggressive treatment of the hypertension until we have her possible sepsis treated and under control. Otherwise, if she develops septic shock, we could have trouble maintaining adequate blood pressure. (8) Coronary artery disease with unstable angina pectoris Assessment & Plan: As above. (9) Acute kidney injury superimposed on chronic kidney disease Assessment & Plan: The most recent blood work she had in our system was from 2019 and her creatinine ranged from 1.8-2.1 at that point in time. Her current baseline creatinine prior to that is unknown. She had been receiving some intravenous fluids since admission. I will consult her outpatient veterinary inspector. Her renal function will need to be monitored closely. (10) Cigarette smoker Assessment & Plan: She needs to quit smoking. (11) Morbid obesity Assessment & Plan: She needs to work on weight loss. Some of the weight change here in the hospital could be due to volume retention. JEREMIAS MANNING JR, MD Mar 29, 2022 08:44
[2022-03-29 08:54] LABS: INR 1.2 (0.8-1.4); PROTHROMBIN TIME PATIENT 15.7 SEC (12.2-14.7)
[2022-03-29] MEDS: NITRO DRIP 25000 MCG/D5W 250 ML IV SCH (09:51)
--- NOTE | 2022-03-29 10:44 | Physical Therapy Evaluation ---
PT Evaluation-General Medical Diagnosis Admission Date Mar 26, 2022 at 23:02 Medical Diagnosis: NSTEMI Onset Date: Apr 05, 2022 Therapy Diagnosis Therapy Diagnosis: impaired mobility, strength Height/Weight Height (Feet): 5 Height (Inches): 1.00 Weight (Pounds): 200 Precautions Precautions/Isolations: Fall Prevention, Standard Precautions Weight Bear Status Right Lower Extremity: Right Weight Bearing/Tolerated Left Lower Extremity: Left Weight Bearing/Tolerated Referral Physician: Dorina Reason for Referral: Evaluation/Treatment Medical History History of Falls (past yr): Yes Prior Surgery (last 100 days): Unknown Additional Medical History Past Medical History Surgeries: Abdominal Asthma High Cholesterol, Hypertension 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 2-Twtjzfbqxh-mygyreh completes the activity by him/herself with no assistance from a helper. 5-Set-up or Clean-up Assistance-helper sets up or cleans up; patient completes activity. [place] assists only prior to or following the activity. 4-Supervision or Touching Assistance-helper provides verbal cues and/or touching/steadying and/or contact guard assistance as patient completes activity. Assistance may be provided throughout the activity or intermittently. 3-Partial/Moderate Assistance-helper does LESS THAN HALF the effort. [place] lifts, holds or supports trunk or limbs, but provides less than half the effort. 2-Substantial/Maximal Assistance-helper does MORE THAN HALF the effort. [place] lifts or holds trunk or limbs and provides more than half the effort. 8-Mxgdowwpp-eftrct does ALL the effort. Patient does none of the effort to complete the activity. Or, the assistance of 2 or more helpers is required for the patient to complete the activity. If activity was not attempted, code reason: 7-Patient Refused. 9-Not Applicable-not attempted and the patient did not perform the activity before the current illness, exacerbation or injury. 10-Not Attempted due to Environmental Limitations-(lack of equipment, weather restraints, etc.). 88-Not Attempted due to Medical Conditions or Safety Concerns. Bed Mobility: 6 Transfers (B,C,W/C): 6 Gait: 6 Prior Devices Use: Walker Patient states she has a walker but tries not to use it at home. PT Evaluation-Current Subjective Patient in bed pre tx, agrees to PT, has unrated pain in right hip. Pt/Family Goals to be independent at home. Objective Patient Orientation: Person, Place, Situation Attachments: Oxygen, Christie Catheter, IV ROM/Strength ROM Lower Extremities WNL Strength Lower Extremities LLE grossly 4/5, RLE grossly 3+/5 Sensory Hearing: Functional Sensation Right Lower Extremit: Impaired Sensation Left Lower Extremity: Impaired Transfers Roll Left to Right (QC): 3 Lying to Sitting/Side of Bed(Q: 3 Sit to Stand (QC): 3 Chair/Nwa-rd-Gizyf Xfer(QC): 3 min assist transfer to recliner, patient needs assist guiding the walker, cues for stepping and positioning, patient seems to be confused on how to move after standing Balance Sitting Static: Fair Sitting Dynamic: Fair Standing Static: Poor Standing Dynamic: Poor Treatment seated BLE exercise x20 (AP, LAQ) Assessment/Needs Patient in recliner post tx with nurse call, phone, tray, all needs met. Patient has impaired mobility, strength, endurance. Min assist for supine to sit and sit to stand. Rehab Potential: Fair PT Hat Block Bench Hand Goals Jail Goals PT Jail Goals Time Frame: Apr 05, 2022 Roll Left & Right (QC): 6 Sit to Lying (QC): 6 Lying-Sitting on Side/Bed(QC): 6 Sit to Stand (QC): 4 Chair/Cdc-na-Rpzki Xfer(QC): 4 Walk 10 feet (QC): 4 Walk 50ft with 2 Turns (QC): 4 PT Plan Problem List Problem List: Activity Tolerance, Functional Strength, Safety, Balance, Gait, Transfer, Bed Mobility, ROM Treatment/Plan Treatment Plan: Continue Plan of Care Treatment Plan: Bed Mobility, Education, Functional Activity Pj, Functional Strength, Gait, Safety, Therapeutic Exercise, Transfers Treatment Duration: Apr 05, 2022 Frequency: 6 times per week Estimated Hrs Per Day: .25 hour per day Patient and/or Family Agrees t: Yes Safety Risks/Education Patient Education: Transfer Techniques, Correct Positioning, Safety Issues Teaching Recipient: Patient Teaching Methods: Demonstration, Discussion Response to Teaching: Reinforcement Needed Discharge Recommendations Plan Patient will perform bed mobility and transfer training, balance and endurance training, functional strengthening, gait training, and education, to improve functional mobility and independence at home. Therapy Discharge Recommendati: Scheduled Assistance, Home & Family, Post Acute PT Time/GCodes Time In: 1002 Time Out: 1016 Total Billed Treatment Time: 14 Total Billed Treatment 1 visit KELVIN Jaramillo' MARI PEOPLES PT Mar 29, 2022 10:44
[2022-03-29] MEDS: NOREPINEPHRINE 8 MG/250 ML 250 ML IV SCH (10:59)
[2022-03-29] MEDS: VASOPRESSIN INJECTION 20 UNIT in NS (IVPB) 100 ML IV SCH (11:00)
--- NOTE | 2022-03-29 11:21 | Tele-ICU Progress Note ---
Subjective Date Seen by a Provider: Mar 29, 2022 Time Seen by a Provider: 11:21 Subjective/Events-last exam (Tele-ICU Physician , Progress Note ) Available chart/ vitals / labs / Images reviewed Video assessment done using teleICU camera, rest of exam as per RN Discussed with RN Events overnight : Afebrile hemodynamically stable Respiratory - ra I/O = Drips: lr 150 Pressors- no Consultants: Hospital course: A/P Possible Acute Cholecystitis with Cholelithiasis - sx follows - cotn ABX NSTEMIA, Takotsubo cardiomyopathy - as per cards - on heparin gtt TERE/CKD -slightly worse , follow closely on LR 150 DM II - ISS , as per franky ALVAREZ Ovesity HTN - -as per cards - NTG gtt - po started Hypoxia - on 4 l cxr reviewed - will watch carefully with increased IVF , try IS Lines : PERIPH , (Central Line Necessity Reviewed) Christie: + OG: Nutrition: Analgesia: Anxiety/ delirium VTE Prophylaxis: Stress Ulcer Prophylaxis: Plans in collaboration with bedside consultants and IM MDs. Discussed with RN to reach out if any questions or concerns A total of 22 minutes of critical care time was devoted to this patient today, required to treat and/or prevent further deterioration of critical care condition ( as above ) . Sepsis Event Evaluation Height, Weight, BMI Height: 5'1.00" Weight: 200lbs. oz. 90.507809nr; 39.96 BMI Method:Stated Focused Exam Lactate Level 03/26/22 21:57: Lactic Acid Level 1.87 03/27/22 08:45: Lactic Acid Level 1.32 Exam Exam Patient acknowledged, consented, and participated in this virtual visit which was conducted using real time audio/video Vital Signs Date Time Temp Pulse Resp B/P (MAP) Pulse Ox O2 Delivery O2 Flow Rate FiO2 03/29/22 11:00 74 28 142/75 (97) 91 Room Air 03/29/22 11:00 78 163/72 03/29/22 10:59 78 163/72 03/29/22 10:19 93 Nasal Cannula 3.00 03/29/22 10:00 78 23 163/72 (102) 96 Room Air 03/29/22 09:51 77 163/72 03/29/22 09:00 77 30 159/87 (111) 98 Room Air 03/29/22 08:00 86 26 144/76 (98) 91 Room Air 03/29/22 08:00 94 Nasal Cannula 4.00 03/29/22 07:57 36.8 03/29/22 07:19 96 Room Air 03/29/22 07:00 92 159/87 (111) 93 Room Air 03/29/22 07:00 86 03/29/22 06:00 82 153/89 (110) Nasal Cannula 2.00 03/29/22 05:00 85 130/78 (95) Nasal Cannula 2.00 03/29/22 04:00 83 140/116 (124) Nasal Cannula 2.00 03/29/22 04:00 94 Nasal Cannula 4.00 03/29/22 03:00 84 17 129/77 (94) 94 Nasal Cannula 2.00 03/29/22 02:00 96 Nasal Cannula 2.00 03/29/22 02:00 89 21 104/62 (76) Nasal Cannula 2.00 03/29/22 01:00 86 117/70 (86) 95 Nasal Cannula 2.00 03/29/22 01:00 85 03/29/22 00:00 86 94 Nasal Cannula 2.00 03/29/22 00:00 94 Nasal Cannula 4.00 03/28/22 23:00 85 124/73 (90) Nasal Cannula 2.00 03/28/22 22:02 96 Nasal Cannula 2.00 03/28/22 22:00 89 138/73 (94) 94 Nasal Cannula 2.00 03/28/22 21:00 93 129/93 (105) 94 Nasal Cannula 2.00 03/28/22 20:00 73 131/59 (83) 91 Nasal Cannula 2.00 03/28/22 20:00 95 Nasal Cannula 4.00 03/28/22 19:00 85 36 136/73 (94) 94 Nasal Cannula 2.00 03/28/22 19:00 83 03/28/22 18:27 94 Nasal Cannula 2.00 03/28/22 18:00 85 136/103 (114) 95 Nasal Cannula 2.00 03/28/22 17:00 73 138/68 (91) 94 Nasal Cannula 2.00 03/28/22 16:00 36.9 03/28/22 16:00 77 26 98/74 (82) 94 Nasal Cannula 2.00 03/28/22 16:00 94 Nasal Cannula 2.00 03/28/22 15:00 72 26 112/98 (103) 100 Nasal Cannula 2.00 03/28/22 14:55 93 Nasal Cannula 2.00 03/28/22 14:00 66 26 120/63 (82) 93 Nasal Cannula 2.00 03/28/22 13:42 95 Nasal Cannula 2.00 03/28/22 13:00 79 26 121/63 (82) 93 Nasal Cannula 2.00 03/28/22 13:00 79 03/28/22 12:28 36.8 03/28/22 12:04 36.6 03/28/22 12:00 95 Nasal Cannula 2.00 03/28/22 12:00 82 27 130/66 (87) 92 Nasal Cannula 2.00 03/28/22 11:55 36.8 86 23 125/66 (85) 93 Nasal Cannula 2.00 I & O0 03/29/22 07:00 Intake Total 4400 ml Output Total 1100 ml Balance 3300 ml Height & Weight Height: 5'1.00" Weight: 200lbs. oz. 90.081271ao; 39.96 BMI Method:Stated General Appearance: Chronically ill, Obese HEENT: PERRL/EOMI, Moist Mucous Membranes Neck: Non Tender, Supple Respiratory: No Accessory Muscle Use, No Respiratory Distress, Wheezing (right lung on expiration) Cardiovascular: Regular Rate, Rhythm, No Murmur Capillary Refill: Less Than 3 Seconds Peripheral Pulses: 2+ Dorsalis Pedis (R), 2+ Left Dors-Pedis (L), 2+ Radial Pulses (R), 2+ Radial Pulses (L) Gastrointestinal: soft; No guarding; tenderness (RUQ), hernia (large RUQ at site of incision) Extremity: Non Tender, No Calf Tenderness, No Pedal Edema Neurologic/Psychiatric: Alert, Disoriented Skin: Normal Color, Warm/Dry Lymphatic: No Adenopathy (cervical) Results Lab Laboratory Tests 03/28/22 04:40 03/28/22 14:15 03/29/22 04:40 Assessment/Plan Assessment/Plan 1 NICOLA MATTHEW MD Mar 29, 2022 11:21
[2022-03-29] MEDS: FAMOTIDINE 20 MG (PEPCID) TABLET PO SCH (12:27)
--- NOTE | 2022-03-29 13:23 | Progress Note ---
INESSA BARBOSA 03/29/22 1323: Subjective Date Seen by a Provider: Mar 29, 2022 Time Seen by a Provider: 11:18 Subjective/Events-last exam Patient is alert and able to answer questions more today. She feels much better and less confused. She denies any nausea, vomiting, or chest pain at this time. Today her WBC continue to trend downwards at 14.5 today. Troponins also trending down. BP coming down with meds. Focused Exam Lactate Level 03/26/22 21:57: Lactic Acid Level 1.87 03/27/22 08:45: Lactic Acid Level 1.32 Objective Exam Last Set of Vital Signs Vital Signs Date Time Temp Pulse Resp B/P (MAP) Pulse Ox O2 Delivery O2 Flow Rate FiO2 03/29/22 12:00 97 Nasal Cannula 4.00 03/29/22 12:00 76 23 161/73 (102) 03/29/22 11:58 36.5 Capillary Refill : Less Than 3 Seconds I&O Intake and Output 03/29/22 00:00 Intake Total 5260 ml Output Total 1175 ml Balance 4085 ml Intake Oral 1360 ml IV Total 3900 ml Output Urine Total 1175 ml General: Alert, Cooperative Lungs: Clear to Auscultation, Normal Air Movement Heart: Regular Rate, No Murmurs Abdomen: Soft, Other (RUQ tenderness, right ventral hernia ) Psych/Mental Status: Mood NL Results Lab Laboratory Tests 03/28/22 14:15: Sodium Level 140, Potassium Level 3.3L, Chloride Level 106, Carbon Dioxide Level 22, Anion Gap 12, Blood Urea Nitrogen 33H, Creatinine 2.14H, Estimat Glomerular Filtration Rate 25, BUN/Creatinine Ratio 15, Glucose Level 104, Calcium Level 8.5 03/28/22 18:56: Glucometer 99 03/29/22 00:07: Glucometer 104 03/29/22 04:40: Sodium Level 135, Potassium Level 3.3L, Chloride Level 103, Carbon Dioxide Level 20L, Anion Gap 12, Blood Urea Nitrogen 33H, Creatinine 2.32H, Estimat Glomerular Filtration Rate 23, BUN/Creatinine Ratio 14, Glucose Level 98, Calcium Level 8.5, White Blood Count 14.5H, Red Blood Count 2.95L, Hemoglobin 9.1L, Hematocrit 29L, Mean Corpuscular Volume 97, Mean Corpuscular Hemoglobin 31, Mean Corpuscular Hemoglobin Concent 32, Red Cell Distribution Width 14.3, Platelet Count 138, Mean Platelet Volume 9.5, Immature Granulocyte % (Auto) 1, Neutrophils (%) (Auto) 91H, Lymphocytes (%) (Auto) 4L, Monocytes (%) (Auto) 2, Eosinophils (%) (Auto) 2, Basophils (%) (Auto) 0, Neutrophils # (Auto) 13.2H, Lymphocytes # (Auto) 0.6L, Monocytes # (Auto) 0.3, Eosinophils # (Auto) 0.2, Basophils # (Auto) 0.0, Immature Granulocyte # (Auto) 0.1, Activated Partial Thromboplast Time 69H, Corrected Calcium 9.6, Phosphorus Level 2.8, Magnesium Level 1.9, Total Bilirubin 0.5, Aspartate Amino Transf (AST/SGOT) 17, Alanine Aminotransferase (ALT/SGPT) 12, Alkaline Phosphatase 107, Total Protein 5.9L, Albumin 2.6L 03/29/22 06:29: Glucometer 105 03/29/22 08:25: Prothrombin Time 15.7H, INR Comment 1.2 03/29/22 11:34: Glucometer 95 Microbiology 03/27/22 Blood Culture - Preliminary, Resulted No growth 03/27/22 MRSA Screen - Final, Complete MRSA not isolated 03/26/22 Urine Culture - Final, Complete NO GROWTH Assessment/Plan Assessment/Plan Assess & Plan/Chief Complaint Assessment: Sepsis - Resolved Acute Cholecystitis with Cholelithiasis NSTEMI Hypertensive Emergency Hyperlipidemia Chronic Kidney Disease Obesity Current Smoker Plan: Transfer to 4th floor Supportive care and IVF Oral Bicarb replacement Potassium replacement Bedside bladder scan Zosyn for more broad spectrum coverage of gram negative rods On ASA, metoprolol, statin and IV Heparin Surgery is waiting for cardiac issues to be more controlled before proceeding with cholecystectomy. Cardiology will wait for nephrology to stabilize her renal function before doing cardiac cath. Creat is 2.32, whereas patient baseline according to Dr. Johnson are around 2.4 Clinical Quality Measures Admission Status Admission Dx Assessment: Sepsis Acute Cholecystitis with Cholelithiasis NSTEMI Hypertensive Emergency Hyperlipidemia Chornic Kidney Disease Obesity Current Smoker Plan: Supportive care and IVF Monitor patient labs and replace prn Continue Ceftriaxone Zosyn for more broad spectrum coverage Repeat troponins Consult Cardiology regarding dosage adjustments on cardiac drugs Consult Surgery for cholecystectomy and possible hernia repair TIARA HUIZAR DO 03/30/22 0607: Subjective Subjective/Events-last exam Improved status Moving to 4th floor PT OT ordered Supervisory-Addendum Brief Verification & Attestation Participated in pt care: history, MDM, physical Personally performed: exam, history, MDM, supervision of care Care discussed with: Medical Student Procedures: n/a Results interpretation: Verified all documentation Verification and Attestation of Medical Student E/M Service A medical student performed and documented this service in my presence. I reviewed and verified all information documented by the medical student and made modifications to such information, when appropriate. I personally performed the physical exam and medical decision making. Tiara Huizar, Mar 30, 2022,06:06 INESSA BARBOSA Mar 29, 2022 13:23 TIARA HUIZAR DO Mar 30, 2022 06:07
[2022-03-29] MEDS: CYCLOBENZAPRINE 10 MG (FLEXERIL) TAB PO SCH ×2 (13:37→20:08)
[2022-03-29] MEDS: GABAPENTIN 300 MG (NEURONTIN) CAP PO SCH ×2 (13:38→20:08)
[2022-03-29] MEDS: HYDROcodone/APAP 5 MG/325 MG (LORTAB) TAB PO PRN (13:50)
--- NOTE | 2022-03-29 15:21 | Occupational Therapy Eval ---
OT Evaluation-General/PLF Medical Diagnosis Admission Date Mar 26, 2022 at 23:02 Medical Diagnosis: NSTEMI Onset Date: Apr 05, 2022 Therapy Diagnosis Therapy Diagnosis: decreased ADL status Height/Weight Height (Feet): 5 Height (Inches): 1.00 Weight (Pounds): 200 Precautions Precautions/Isolations: Fall Prevention, Standard Precautions Referral Physician: Dorina Referral Reason: Evaluation/Treatment Medical History Additional Medical History Asthma, High Cholesterol, Hypertension, Gastroesophageal Reflux, Arthritis, Cataract, Anxiety, Depression, TBI, CKD, multiple abdominal surgeries. Current History ED due to severe abdominal pain. Social History Home: Apartment Current Living Status: Alone Entry Into Home: Level Entry ADL-Prior Level of Function SCALE: Activities may be completed with or without assistive devices. 7-Ubikaifxzj-vybqmyy completes the activity by him/herself with no assistance from a helper. 5-Set-up or Clean-up Assistance-helper sets up or cleans up; patient completes activity. Labadie assists only prior to or following the activity. 4-Supervision or Touching Assistance-helper provides verbal cues and/or touching/steadying and/or contact guard assistance as patient completes activity. Assistance may be provided throughout the activity or intermittently. 3-Partial/Moderate Assistance-helper does LESS THAN HALF the effort. Labadie lifts, holds or supports trunk or limbs, but provides less than half the effort. 2-Substantial/Maximal Assistance-helper does MORE THAN HALF the effort. Labadie lifts or holds trunk or limbs and provides more than half the effort. 7-Qukfpcsim-ujcpiv does ALL the effort. Patient does none of the effort to complete the activity. Or, the assistance of 2 or more helpers is required for the patient to complete the activity. If activity was not attempted, code reason: 7-Patient Refused. 9-Not Applicable-not attempted and the patient did not perform the activity before the current illness, exacerbation or injury. 10-Not Attempted due to Environmental Limitations-(lack of equipment, weather restraints, etc.). 88-Not Attempted due to Medical Conditions or Safety Concerns. ADL PLOF Comments Pt reports IND with ADLs and functional mobility at PLOF, using a walker Self Care: Independent Functional Cognition: Independent DME/Equipment: Bath Chair, Shower OT Current Status Subjective Pt in recliner, agreeable to OT Tx. Pt's nurse states OK for pt to have OT at this time. Pt states pain in abdominal region. When asked to rate pain, pt states it is more of indigestion. Pt never rated pain. Pt appeared slightly confused, never fully answering questions asked by OT, even when worded slightly differently. Mental Status/Objective Patient Orientation: Person, Confused, Place, Situation Attachments: Christie Catheter, IV, Oxygen Current Upper Extremity ROM WFL Upper Extremity Strength grossly 3+/5 ADL-Treatment Eating (QC): 6 (IND with liquid diet) Oral Hygiene (QC): 4 (Per clincial judgment, supervision to SBA would be required) Shower/Bathe Self (QC): 3 (Per clincial judgment, pt would require assistance with washing BLEs and buttocks at this time due to abdominal pain.) On/Off Footwear (QC): 1 (Pt unable to doff/don gripper socks due to abdominal pain.) Other Treatments Pt in recliner, provided information about PLOF and home set up to her ability. Pt appeared slightly confused, not fully answering all questions asked by OT, even with questions worded slightly differently. Pt attempted footwear, but unable to bend forward due to abdominal discomfort/pain. Pt's O2 saturation dropped into 80%'s, mostly as pt is talking. With cues for pursed lip breathing, O2 saturation quickly returned into the 90%'s. Pt declined out of chair activities at this time. Per PT report, pt requires min A with mobilit y/transfers on this date. Post tx, pt in recliner, call light in reach and all needs met. Pt's tray with liquid lunch in front of her. Education OT Patient Education: Correct positioning, Modified ADL techniques, Progress toward Goal/Update tx plan, Purpose of tx/functional activities, Rehab process Teaching Recipient: Patient Teaching Methods: Discussion Response to Teaching: Reinforcement Needed OT Mcc Goals Mcc Goals Time Frame: Apr 12, 2022 Oral Hygiene (QC): 5 Toileting Hygiene (QC): 4 Shower/Bathe Self (QC): 4 Upper Body Dressing (QC): 5 Lower Body Dressing (QC): 4 On/Off Footwear (QC): 4 Additional Goals: 1-Demonstrate ADL Tasks, 2-Verbalize Understanding, 3- ImproveStrength/Pj 1=Demonstrate adherence to instructed precautions during ADL tasks. 2=Patient will verbalize/demonstrate understanding of assistive devices/jose fications for ADL. 3=Patient will improve strength/tolerance for activity to enable patient to perform ADL's. OT Education/Plan Problem List/Assessment Assessment: Decreased Activ Tolerance, Decreased Safety Aware, Decreased UE Strength, Impaired Funct Balance, Impaired I ADL's, Impaired Self-Care Skills Pt would benefit from skilled OT services at this time in order to increase safety and independence with ADLs and increase BUE strength and activity tolerance, in order to maximize LOF for safe return home. Discharge Recommendations Plan/Recommendations: Continue POC Treatment Plan/Plan of Care Patient would benefit from OT for education, treatment and training to promote independence in ADL's, mobility, safety and/or upper extremity function for ADL's. Plan of Care: ADL Retraining, Functional Mobility, UE Funct Exercise/Act Treatment Duration: Apr 12, 2022 Frequency: 3 times per week (3-5 times per week) Estimated Hrs Per Day: .25 hour per day Agreement: Yes Rehab Potential: Fair Time/GCodes Start Time: 13:12 Stop Time: 13:30 Total Time Billed (hr/min): 18 Billed Treatment Time 1ROHITH ADDISON OT Mar 29, 2022 15:21
[2022-03-29 16:01] VITALS: BP 171/91
[2022-03-29] MEDS: FERROUS SULF 325 MG (IRON) TAB PO SCH (16:06)
[2022-03-29] MEDS: PANTOPRAZOLE 40 MG (PROTONIX) TAB PO SCH (16:06)
[2022-03-29] MEDS: AtorvaSTATin TABLET 10 MG TABLET PO SCH (16:06)
[2022-03-29] MEDS: meTOprolol TARTRATE 50 MG (LOPRESSOR) TAB PO SCH (16:06)
[2022-03-29 19:42] VITALS: BP 171/94
[2022-03-29] MEDS: SODIUM BICARBONATE 650 MG TABLET PO SCH (20:08)
[2022-03-29] MEDS: TIMOLOL MALEATE 0.5% 5 ML (TIMOPTIC) BTL OU SCH (20:09)
[2022-03-29] MEDS: BRIMONIDINE 0.2% (ALPHAGAN) OPHTH SOLN 5 ML BTL OU SCH (20:09)
[2022-03-29 23:51] VITALS: BP 164/98
[2022-03-29] MEDS: HEParin DRIP 25000 UNIT/500ML 500 ML IV SCH (23:59)
[2022-03-30] VITALS (22 sets, daily range): BP systolic 133–174; BP diastolic 63–87
[2022-03-30] MEDS: inSUlin ASPART (NovoLOG) 1 UNIT/0.01 ML (CHARGE PER UNIT) SC SCH ×4 (00:02→18:24)
[2022-03-30] MEDS: PIPERACILLIN SODIUM/TAZOBACTAM 4.5 GM in NS (IVPB) 100 ML IV SCH ×3 (01:45→16:01)
[2022-03-30] MEDS: RT-ALBUTEROL/IPRATROPIUM 3 ML (DUONEB) VIAL INH SCH ×6 (02:28→23:49)
[2022-03-30] MEDS: NITROGLYCERIN 0.4 MG SL TABS BTL 25'S SL PRN (05:29)
[2022-03-30] MEDS: HYDROmorphone 2 MG/ML VIAL (DILAUDID) IV PRN (05:40)
[2022-03-30] MEDS ORDERED: FUROSEMIDE 40 MG/4 ML INJ (LASIX) IVP ONE (05:45)
[2022-03-30 06:20] LABS: BASOPHILS % (AUTO) 0 % (0-10); EOSINOPHILS # (AUTO) 0.3 10^3/uL (0.0-0.3); EOSINOPHILS % (AUTO) 2 % (0-10); HEMATOCRIT 31 % (35-52); HEMOGLOBIN 10.3 g/dL (11.5-16.0); LYMPHOCYTES # (AUTO) 0.4 10^3/uL (1.0-4.0); LYMPHOCYTES % (AUTO) 3 % (12-44); MEAN CORPUSCULAR HEMOGLOBIN 31 pg (25-34); MEAN CORPUSCULAR HGB CONC 33 g/dL (32-36); MEAN CORPUSCULAR VOLUME 95 fL (80-99); MEAN PLATELET VOLUME 9.8 fL (9.0-12.2); MONOCYTES # (AUTO) 0.5 10^3/uL (0.0-1.0); MONOCYTES % (AUTO) 4 % (0-12); NEUTROPHILS # (AUTO) 13.6 10^3/uL (1.8-7.8); NEUTROPHILS % (AUTO) 90 % (42-75); PLATELET COUNT 154 10^3/uL (130-400); WHITE BLOOD COUNT 15.1 10^3/uL (4.3-11.0)
--- NOTE | 2022-03-30 06:26 | Progress Note - Hospitalist ---
Subjective HPI/CC On Admission Date Seen by Provider: Mar 30, 2022 Time Seen by Provider: 10:00 Subjective/Events-last exam Patient improved Sleeping on biPAP ABG improved Required transfer to ICU again early this am Lasix 80mg IVP given Acidosis improved Focused Exam Lactate Level Objective Exam Vital Signs Vital Signs Date Time Temp Pulse Resp B/P (MAP) Pulse Ox O2 Delivery O2 Flow Rate FiO2 03/30/22 13:00 68 21 165/81 (109) 98 NIV Bilevel 35.00 03/30/22 12:00 35 03/30/22 11:39 35.8 Capillary Refill : Less Than 3 Seconds General Appearance: No Apparent Distress, WD/WN, Chronically ill, Obese Respiratory: Lungs Clear, Normal Breath Sounds Cardiovascular: Regular Rate, Rhythm Results/Procedures Lab Laboratory Tests 03/30/22 06:10 03/30/22 12:09 Patient resulted labs reviewed. Assessment/Plan Assessment and Plan Assess & Plan/Chief Complaint Assessment: Acute respiratory failure with hypoxia and hypercapnia and respiratory acidosis requiring biPAP Acute volume overload Sepsis-resolved Acute Cholecystitis with Cholelithiasis on abx NSTEMI Hypertensive Emergency improved Hyperlipidemia Chornic Kidney Disease follows with Dr Elizabeth Lewis Current Smoker Plan: Move to ICU BiPAP Supportive care and IVF Monitor patient labs and replace prn Continue Ceftriaxone Zosyn for more broad spectrum coverage Repeat troponins Consult Cardiology regarding dosage adjustments on cardiac drugs Consult Surgery for cholecystectomy and possible hernia repair Critical Care Critically Ill Patient Diagnosis/Problems Diagnosis/Problems (1) Sepsis (2) Acute kidney injury superimposed on chronic kidney disease (3) Non-ST elevation myocardial infarction (NSTEMI), initial care episode (4) Cholecystitis with cholelithiasis Status: Acute Qualifiers: Cholelithiasis location: gallbladder Cholecystitis acuity: acute Biliary obstruction: without biliary obstruction Qualified Codes: K80.00 - Calculus of gallbladder with acute cholecystitis without obstruction (5) Mixed hyperlipidemia (6) Obesity (7) Hypertensive emergency without congestive heart failure (8) Cigarette smoker Clinical Quality Measures Admission Status Admission Dx ICU Zosyn DC Rocephin BP control Cardiology consultation MOODY HUIZAR DO Mar 30, 2022 06:26
[2022-03-30 06:39] LABS: ALBUMIN 2.8 GM/DL (3.2-4.5); BILIRUBIN,TOTAL 0.7 MG/DL (0.1-1.0); CREATININE SERUM 2.37 MG/DL (0.60-1.30); MAGNESIUM 2.1 MG/DL (1.6-2.4); TOTAL PROTEIN 6.8 GM/DL (6.4-8.2)
[2022-03-30 07:04] LABS: ABG BASE EXCESS -2.2 MMOL/L (-2.5-2.5); ABG OXYGEN SATURATION 99 % (94-100); ABG PCO2 52 MMHG (35-45); ABG PO2 252 MMHG (79-93); ABG TCO2 25.4 MMOL/L (21.0-31.0)
[2022-03-30 07:16] LABS: ABG PH 7.28 (7.37-7.43); ALLENS TEST Y
[2022-03-30 07:17] LABS: INSPIRED O2 80; PATIENT TEMP 36.2; VENTILATOR NO
--- NOTE | 2022-03-30 08:04 | Tele-ICU Progress Note ---
Subjective Date Seen by a Provider: Mar 30, 2022 Time Seen by a Provider: 08:04 Subjective/Events-last exam (Tele-ICU Physician , consultation) Available chart/ vitals / labs / Images reviewed H&P is from ER notes Patient's information available about PMH, allergy reviewed in EMR. ROS as per chart and RN report Video assessment done using teleICU camera, rest of exam as per RN Discussed with RN. This patient is transferred today to the intensive care unit because of respiratory distress and hypoxia associated with the tachycardia. Prior to this patient diagnosed to have a suspected acute cholecystitis and non-STEMI associated with hypertension. There is a contemplation of doing cholecystectomy and cardiac catheterization. Cardiac catheterization is on hold due to her CKD with acute decompensation. She was getting IV fluids on the floor. In the ICU she is placed on BiPAP ventilation with which her oxygen saturation improved also given Lasix. Currently she is not able to give any history I have reviewed with the RN BARIATRIC Sepsis Event Evaluation Height, Weight, BMI Height: 5'1.00" Weight: 200lbs. oz. 90.591901ud; 39.96 BMI Method:Stated Focused Exam Lactate Level 03/27/22 08:45: Lactic Acid Level 1.32 Exam Exam Patient acknowledged, consented, and participated in this virtual visit which was conducted using real time audio/video Vital Signs Date Time Temp Pulse Resp B/P (MAP) Pulse Ox O2 Delivery O2 Flow Rate FiO2 03/30/22 08:01 NIV Bilevel 45.00 03/30/22 08:01 36.4 03/30/22 07:00 79 03/30/22 07:00 82 20 146/83 (104) 100 NIV Bilevel 80.00 03/30/22 06:40 18 100 80.00 03/30/22 06:10 36.9 03/30/22 05:40 124 21 99 100.00 03/30/22 03:31 36.9 67 18 174/87 (116) 95 Nasal Cannula 3.00 03/30/22 02:28 93 Nasal Cannula 3.50 03/29/22 23:51 36.0 70 18 164/98 (120) 95 Nasal Cannula 3.00 03/29/22 22:11 94 Nasal Cannula 3.50 03/29/22 20:00 Nasal Cannula 4.00 03/29/22 19:42 36.7 71 19 171/94 (119) 97 Nasal Cannula 3.00 03/29/22 18:54 96 Nasal Cannula 3.00 03/29/22 16:01 36.4 79 19 171/91 (117) 98 Nasal Cannula 3.00 03/29/22 15:12 94 Nasal Cannula 3.00 03/29/22 13:00 82 21 141/72 (95) 91 Room Air 03/29/22 12:00 97 Nasal Cannula 4.00 03/29/22 12:00 76 23 161/73 (102) 96 Room Air 03/29/22 11:58 36.5 03/29/22 11:00 74 28 142/75 (97) 91 Room Air 03/29/22 11:00 78 163/72 03/29/22 10:59 78 163/72 03/29/22 10:19 93 Nasal Cannula 3.00 03/29/22 10:00 78 23 163/72 (102) 96 Room Air 03/29/22 09:51 77 163/72 03/29/22 09:00 77 30 159/87 (111) 98 Room Air I & O 03/30/22 07:00 Intake Total 1470 ml Output Total 390 ml Balance 1080 ml Height & Weight Height: 5'1.00" Weight: 200lbs. oz. 90.823149nc; 39.96 BMI Method:Stated General Appearance: Chronically ill, Obese HEENT: PERRL/EOMI, Moist Mucous Membranes Neck: Non Tender, Supple Respiratory: No Accessory Muscle Use, No Respiratory Distress, Wheezing (right lung on expiration) Cardiovascular: Regular Rate, Rhythm, No Murmur Capillary Refill: Less Than 3 Seconds Peripheral Pulses: 2+ Dorsalis Pedis (R), 2+ Left Dors-Pedis (L), 2+ Radial Pulses (R), 2+ Radial Pulses (L) Gastrointestinal: soft; No guarding; tenderness (RUQ), hernia (large RUQ at site of incision) Extremity: No Calf Tenderness, No Pedal Edema Neurologic/Psychiatric: Alert, Disoriented Skin: Normal Color, Warm/Dry Lymphatic: No Adenopathy (cervical) Other comments PE PER RN Results Lab Laboratory Tests 03/28/22 14:15 03/29/22 04:40 03/30/22 06:10 Assessment/Plan Assessment/Plan 1. Acute hypoxic respiratory failure requiring BiPAP ventilation probably due to developing flash pulmonary edema. 2. Accelerated hypertension 3. Non-STEMI 4. Suspected acute cholecystitis with a large gallstone. 5. Morbid obesity. Recommendations 1. Continue BiPAP ventilation 16/8 with 40% FiO2 and wean as tolerated. We will repeat a blood gas this afternoon 2. Will give IV hydralazine as needed for systolic blood pressure over 150. Further management per cardiology 3. IV fluids are on hold 4. IV antibiotics will be continued and diet consultant on the case. 5. DVT prophylaxis. Critical Care: Critically Ill Patient Time spent with patient (mins): 35 CHRISTI CHIN MD Mar 30, 2022 08:04
--- NOTE | 2022-03-30 08:39 | Diagnostic Imaging Report ---
Indication: Dyspnea. Comparison: 03/29/2022. Discussion: Single portable upright view of the chest was obtained. New bilateral mixed interstitial and alveolar infiltrates, favor edema over pneumonia given the rapid development. Borderline cardiomegaly is stable. No pleural fluid or pneumothorax. No osseous abnormality. Impression: 1. New moderate to severe bilateral pulmonary infiltrates, favor edema over pneumonia. Dictated by: Dictated on workstation # [id number]
--- NOTE | 2022-03-30 09:02 | Progress Note - Surgery ---
GUERITA MAYEN 03/30/22 0902: Subjective Subjective/Events-last exam Pt was moved from the 4th floor to the ICU after experiencing respiratory distress between 5:00 and 6:00 this morning. Her sats dropped to the mid 50s and she reported dyspnea. She is being on bipap with O2 sat of 98 currently. CXR revealed bilateral infiltrates suspicious for pulmonary edema. Pt reports weakness and diffuse pain that is worse at the RUQ. She does not remember what happened to bring her to the ICU from the floor. She is very quiet and weak when answering my questions, which makes it hard to understand. She is not currently using accessory muscles to breath and has no signs of cyanosis. She does not recall last BM or meal, catheter in place. Review of Systems General: Fatigue, Malaise HEENT: Other (pt would not open her eyes to talk to me) Pulmonary: Dyspnea; No Cough Cardiovascular: Orthopnea; No: Palpitations Gastrointestinal: Abdominal Pain (pain in RUQ on palpation); No: Nausea, Vomiting Neurological: Weakness, Confusion Objective Exam Vital Signs Date Time Temp Pulse Resp B/P (MAP) Pulse Ox O2 Delivery O2 Flow Rate FiO2 03/30/22 08:01 NIV Bilevel 45.00 03/30/22 08:01 36.4 03/30/22 08:00 80 19 165/84 (111) 98 NIV Bilevel 80.00 03/30/22 08:00 96 NIV Bilevel 45 03/30/22 07:00 79 03/30/22 07:00 82 20 146/83 (104) 100 NIV Bilevel 80.00 03/30/22 06:40 18 100 80.00 03/30/22 06:10 36.9 03/30/22 05:40 124 21 99 100.00 03/30/22 03:31 36.9 67 18 174/87 (116) 95 Nasal Cannula 3.00 03/30/22 02:28 93 Nasal Cannula 3.50 03/29/22 23:51 36.0 70 18 164/98 (120) 95 Nasal Cannula 3.00 03/29/22 22:11 94 Nasal Cannula 3.50 03/29/22 20:00 Nasal Cannula 4.00 03/29/22 19:42 36.7 71 19 171/94 (119) 97 Nasal Cannula 3.00 03/29/22 18:54 96 Nasal Cannula 3.00 03/29/22 16:01 36.4 79 19 171/91 (117) 98 Nasal Cannula 3.00 03/29/22 15:12 94 Nasal Cannula 3.00 03/29/22 13:00 82 21 141/72 (95) 91 Room Air 03/29/22 12:00 97 Nasal Cannula 4.00 03/29/22 12:00 76 23 161/73 (102) 96 Room Air 03/29/22 11:58 36.5 03/29/22 11:00 74 28 142/75 (97) 91 Room Air 03/29/22 11:00 78 163/72 03/29/22 10:59 78 163/72 03/29/22 10:19 93 Nasal Cannula 3.00 03/29/22 10:00 78 23 163/72 (102) 96 Room Air 03/29/22 09:51 77 163/72 03/29/22 09:00 77 30 159/87 (111) 98 Room Air I & O 03/30/22 07:00 Intake Total 1470 ml Output Total 390 ml Balance 1080 ml Capillary Refill : Less Than 3 Seconds General Appearance: Chronically ill, Obese HEENT: PERRL/EOMI, Moist Mucous Membranes Neck: Non Tender, Supple; No Lymphadenopathy (L), No Lymphadenopathy (R) Respiratory: No Accessory Muscle Use, Crackles (crackles bl), Respiratory Distress (her sats dropped to the mid 50s), Wheezing (both lungs on expiration) Cardiovascular: Regular Rate, Rhythm, No Murmur Peripheral Pulses: 1+ Dorsalis Pedis (R), 1+ Left Dors-Pedis (L); 2+ Radial Pulses (R), 2+ Radial Pulses (L) Gastrointestinal: soft; No guarding; tenderness (RUQ), hernia (large RUQ at site of incision) Extremity: No Calf Tenderness, No Pedal Edema Neurologic/Psychiatric: Alert, Disoriented Skin: Normal Color, Cool (cool at bl ankles, weak posterior tibial pulse bl) Lymphatic: No Adenopathy (cervical) Results Lab Laboratory Tests 03/29/22 11:34: Glucometer 95 03/29/22 18:23: Glucometer 112H 03/29/22 23:55: Glucometer 91 03/30/22 06:10: White Blood Count 15.1H, Red Blood Count 3.29L, Hemoglobin 10.3L, Hematocrit 31L , Mean Corpuscular Volume 95, Mean Corpuscular Hemoglobin 31, Mean Corpuscular Hemoglobin Concent 33, Red Cell Distribution Width 14.3, Platelet Count 154, Mean Platelet Volume 9.8, Immature Granulocyte % (Auto) 1, Neutrophils (%) (Auto) 90H, Lymphocytes (%) (Auto) 3L, Monocytes (%) (Auto) 4, Eosinophils (%) (Auto) 2, Basophils (%) (Auto) 0, Neutrophils # (Auto) 13.6H, Lymphocytes # (Auto) 0.4L, Monocytes # (Auto) 0.5, Eosinophils # (Auto) 0.3, Basophils # (Auto) 0.0, Immature Granulocyte # (Auto) 0.2H, Activated Partial Thromboplast Time 69H, Sodium Level 139, Potassium Level 4.0, Chloride Level 105, Carbon Dioxide Level 19L, Anion Gap 15H, Blood Urea Nitrogen 32H, Creatinine 2.37H, Estimat Glomerular Filtration Rate 22, BUN/Creatinine Ratio 14, Glucose Level 109H, Calcium Level 9.0, Corrected Calcium 10.0, Magnesium Level 2.1, Total Bilirubin 0.7, Aspartate Amino Transf (AST/SGOT) 48H, Alanine Aminotransferase (ALT/SGPT) 30, Alkaline Phosphatase 310H, Troponin I 0.198H, Total Protein 6.8, Albumin 2.8L 03/30/22 06:50: Blood Gas Puncture Site RIGHT RADIAL, Blood Gas Patient Temperature 36.2, Arterial Blood pH 7.28*L, Arterial Blood Partial Pressure CO2 52H, Arterial Blood Partial Pressure O2 252H, Arterial Blood HCO3 24, Arterial Blood Total CO2 25.4, Arterial Blood Oxygen Saturation 99, Arterial Blood Base Excess -2.2, Tanner Test Y, Blood Gas Ventilator Setting NO, Blood Gas Inspired Oxygen 80 Microbiology 03/27/22 Blood Culture - Preliminary, Resulted No growth 03/27/22 MRSA Screen - Final, Complete MRSA not isolated 03/26/22 Urine Culture - Final, Complete NO GROWTH Assessment/Plan Assessment/Plan Assessment/Plan Possible Acute Cholecystitis with Cholelithiasis Chronic Renal Failure Hypertensive emergency- BP still elevated NSTEMI DM Leukocytosis Incarcerated Ventral/Incisional hernia Respiratory distress Pt is still reporting RUQ pain and has elevated PT and alk phos. This could be due to cholecystitis with cholelithiasis, but with her cardio and respiratory status cholecystectomy is not a priority. WBC still elevated at 15.1, was 14.5 yesterday. Blood culture was positive for enterobacter gergoviae; which is more related to Respiratory than GI and interestingly is found in many cosmetics. She has been started on zosyn, will await sensitivity. Her renal failure appears to be chronic. Her blood pressure has come down with IV medications, has also been started on IV and oral nitro. Will make sure to control DM. The hernia is not the problem at this time, but will monitor. RACHID CAM DO 03/30/22 1427: Subjective Time Seen by a Provider: 09:39 Subjective/Events-last exam Pt seen and examined, spoke with nurse who stated she mainly got transferred up because of respiratory distress. She currently is doing ok with BiPap and appears mostly comfortable. When I asked her about pain in RUQ, she said I think so. Review of Systems General: Fatigue, Malaise Pulmonary: Dyspnea; No Cough Cardiovascular: Orthopnea; No: Palpitations Gastrointestinal: Abdominal Pain (pain in RUQ on palpation); No: Nausea, Vomiting Neurological: Weakness, Confusion Objective Exam General Appearance: Chronically ill, Obese Respiratory: Crackles (crackles bl), Respiratory Distress (her sats dropped to the mid 50s), Wheezing (both lungs on expiration) Cardiovascular: Regular Rate, Rhythm, No Murmur Gastrointestinal: soft; No guarding; tenderness (RUQ), hernia (large RUQ at site of incision) Extremity: No Calf Tenderness, No Pedal Edema Neurologic/Psychiatric: Alert, Disoriented Skin: Normal Color, Cool (cool at bl ankles, weak posterior tibial pulse bl) Results Radiology Date of Exam:03/30/22 CHEST 1 VIEW, AP/PA ONLY Indication: Dyspnea. Comparison: 03/29/2022. Discussion: Single portable upright view of the chest was obtained. New bilateral mixed interstitial and alveolar infiltrates, favor edema over pneumonia given the rapid development. Borderline cardiomegaly is stable. No pleural fluid or pneumothorax. No osseous abnormality. Impression: 1. New moderate to severe bilateral pulmonary infiltrates, favor edema over pneumonia. Dictated by: Dictated on workstation # [id number] Dict: 03/30/22 0836 Trans: 03/30/22 1323 [facility] [id number] Interpreted by: JEREMIAS SUBRAMANIAN MD Electronically signed by: JEREMIAS SUBRAMANIAN MD 03/30/22 1323 Assessment/Plan Assessment/Plan Assessment/Plan Respiratory distress Possible Acute Cholecystitis with Cholelithiasis Chronic Renal Failure Hypertensive emergency- BP still elevated NSTEMI DM Leukocytosis Incarcerated Ventral/Incisional hernia Respiratory distress required her to be sent back to ICU; apparently O2 dropped to 50%, her CXR looked like bilateral edema and is getting lasix. Continue BiPap. Pt is still reporting RUQ pain and has elevated PT and alk phos. This could be due to cholecystitis with cholelithiasis, but with her cardio and respiratory status cholecystectomy is not a priority. WBC still elevated at 15.1, was 14.5 yesterday. Blood culture was positive for enterobacter gergoviae; which is more related to Respiratory than GI and interestingly is found in many cosmetics. She has been started on zosyn, will await sensitivity. Her renal failure appears to be chronic. Her blood pressure has come down with IV medications, has also been started on IV and oral nitro. Will make sure to control DM. The hernia is not the problem at this time, but will monitor. Supervisory-Addendum Brief Verification & Attestation Participated in pt care: history, MDM, physical Personally performed: exam, history, MDM, supervision of care Care discussed with: Medical Student Procedures: n/a Verification and Attestation of Medical Student E/M Service A medical student performed and documented this service. I then reviewed and ve rified all information documented by the medical student and made modifications to such information, when appropriate. I personally performed a physical exam, medical decision making and then discussed any differences between the notes and made revisions as necessary to create one note. Rachid Cam , 03/30/22 , 14:27 GUERITA MAYEN Mar 30, 2022 09:02 RACHID CAM DO Mar 30, 2022 14:27
[2022-03-30] MEDS: hydrALAZINE (APESOLINE) 20 MG/ML VIAL IV PRN ×2 (09:27→14:21)
[2022-03-30] MEDS: PANTOPRAZOLE 40 MG (PROTONIX) VIAL IV SCH (09:27)
[2022-03-30] MEDS: BRIMONIDINE 0.2% (ALPHAGAN) OPHTH SOLN 5 ML BTL OU SCH ×2 (09:29→21:44)
[2022-03-30] MEDS: TIMOLOL MALEATE 0.5% 5 ML (TIMOPTIC) BTL OU SCH ×2 (09:29→21:25)
[2022-03-30] MEDS: MICONAZOLE 2% POWDER (DESENEX AF) 90 GM TOP SCH ×2 (09:29→21:25)
[2022-03-30] MEDS: FERROUS SULF 325 MG (IRON) TAB PO SCH ×2 (09:34→15:49)
[2022-03-30] MEDS: GABAPENTIN 300 MG (NEURONTIN) CAP PO SCH ×3 (09:35→21:25)
[2022-03-30] MEDS: FAMOTIDINE 20 MG (PEPCID) TABLET PO SCH (09:35)
[2022-03-30] MEDS: CYCLOBENZAPRINE 10 MG (FLEXERIL) TAB PO SCH ×3 (09:35→21:25)
[2022-03-30] MEDS: SODIUM BICARBONATE 650 MG TABLET PO SCH ×2 (09:35→21:25)
[2022-03-30] MEDS: OMEGA 3 (FISH OIL) 1000 MG CAP PO SCH (09:35)
[2022-03-30] MEDS: FLUoxetine HCL 20 MG (PROzac) CAP PO SCH (09:35)
[2022-03-30] MEDS: PANTOPRAZOLE 40 MG (PROTONIX) TAB PO SCH ×2 (09:35→15:49)
[2022-03-30] MEDS: ASPIRIN E.C. 81 MG (ECOTRIN) TAB PO SCH (09:35)
[2022-03-30] MEDS: meTOprolol TARTRATE 50 MG (LOPRESSOR) TAB PO SCH ×2 (09:35→15:49)
[2022-03-30] MEDS: KCL 20 MEQ TAB (K-DUR) PO SCH ×2 (09:35→21:25)
[2022-03-30] MEDS: NITRO DRIP 25000 MCG/D5W 250 ML IV SCH (09:36)
[2022-03-30] MEDS: meTOproloL SUCCINATE 50 MG (TOPROL XL) TAB PO SCH ×2 (09:36→21:25)
--- NOTE | 2022-03-30 10:18 | Occ Therapy Progress Note ---
Therapy Progress Note Pt had transferred to 4th floor, but transferred back to ICU due to increase medical complexity. OT will need new orders when pt is more medically stable and able to actively participate in skilled tx.D/C from OT. RIP PAREDES OT Mar 30, 2022 10:18
--- NOTE | 2022-03-30 10:36 | Physical Therapy Progress Note ---
Therapy Progress Note Patient transferred to ICU. PT will need new orders to continue when appropriate. MARI PEOPLES PT Mar 30, 2022 10:35
--- NOTE | 2022-03-30 11:05 | Cardiology Progress Note ---
Subjective Date Seen by Provider: Mar 30, 2022 Time Seen by Provider: 11:00 Subjective/Events-last exam Patient was seen in intensive care unit, maintained on BiPAP Sedated on Dilaudid, opening her eyes. Slightly confused. No chest pain. Review of Systems General: No Chills, No Night Sweats; Fatigue; No Malaise, No Appetite, No Other HEENT: No Head Aches, No Visual Changes, No Eye Pain, No Ear Pain, No Dysphasia, No Sinus Congestion, No Post Nasal Drip, No Sore Throat, No Other Pulmonary: Dyspnea; No Cough, No Pleuritic Chest Pain, No Other Cardiovascular: Edema; No: Chest Pain, Palpitations, Orthopnea, Paroxysmal Noc. Dyspnea, Lt Headedness, Other Objective-Cardiology Exam Last Set of Vital Signs Vital Signs 03/30/22 03/30/22 03/30/22 08:00 08:01 10:00 Temp 36.4 Pulse 74 Resp 15 B/P (MAP) 138/65 (89) Pulse Ox 98 O2 Delivery NIV Bilevel O2 Flow Rate 45.00 FiO2 45 I&O Intake and Output 03/30/22 00:00 Intake Total 1650 ml Output Total 890 ml Balance 760 ml Intake Oral 600 ml IV Total 1050 ml Output Urine Total 890 ml # Voids 2 # Bowel Movements 1 General: Alert, Cooperative, Moderate Distress Neck: Supple Lungs: Clear to Auscultation, Normal Air Movement Heart: Regular Rate, Normal S1, Normal S2, No Murmurs Abdomen: Soft, Other (RUQ tenderness, right ventral hernia ) Extremities: No Clubbing, No Tenderness/Swelling Skin: No Rashes, No Breakdown Neuro: Other (Lethargic) Psych/Mental Status: Mood NL Results Lab Laboratory Tests 03/30/22 06:10 A/P-Cardiology Admission Diagnosis Acute respiratory failure Congestive heart failure, acute on chronic left ventricular systolic dysfunction, ischemic cardiomyopathy Coronary artery disease Sepsis Assessment/Plan Acute respiratory failure, flash pulmonary edema. Patient was transferred to [facility] Maintained on BiPAP and received 80 mg of Lasix Continue with aggressive diuresis and monitor closely Congestive heart failure, acute left ventricular systolic dysfunction, most probably ischemic cardiomyopathy. Had elevated troponin and treated conservatively with Dr. Mendiola. Non-ST elevation myocardial infarction, elevated troponin level, had EKG changes progressed to T wave inversion in the anterolateral leads. Treated conservatively at this point. Has been managed by Dr. Mendiola Continue with aspirin and Lovenox. Monitor closely and consider cardiac catheterization once clinically more stable Acute on chronic renal insufficiency Dr. Jami Pompa was consulted and reported that her baseline creatinine is around 2.4. Planning to start IV fluid in preparation for cardiac catheterization once her pulmonary status is more stable. Hypertensive emergency, blood pressure is better, continue to monitor closely Hyperlipidemia, maintained on statin. Sepsis, acute cholecystitis, UTI, managed and followed by Dr. Cam So far recommendation for conservative management. Tobaccoism Morbid obesity, BMI 40. SUNNY ROBBINS MD Mar 30, 2022 11:05
[2022-03-30 12:28] LABS: CALCIUM 8.8 MG/DL (8.5-10.1)
[2022-03-30 12:32] LABS: CREATININE SERUM 2.47 MG/DL (0.60-1.30)
[2022-03-30 12:48] LABS: ABG BASE EXCESS -0.8 MMOL/L (-2.5-2.5); ABG OXYGEN SATURATION 98 % (94-100); ABG PCO2 43 MMHG (35-45); ABG PH 7.36 (7.37-7.43); ABG PO2 90 MMHG (79-93); ABG TCO2 25.6 MMOL/L (21.0-31.0)
[2022-03-30 12:49] LABS: ALLENS TEST YES-POS
[2022-03-30 12:50] LABS: INSPIRED O2 35% BIPAP; PATIENT TEMP 95.6; VENTILATOR NO
[2022-03-30] MEDS: AtorvaSTATin TABLET 10 MG TABLET PO SCH (15:49)
[2022-03-30] MEDS ORDERED: LABETALOL HCL 20 MG/4 ML VIAL ONE (17:37)
[2022-03-30] MEDS: LABETALOL HCL 20 MG/4 ML VIAL IV PRN (17:38)
[2022-03-31] VITALS (28 sets, daily range): BP systolic 132–178; BP diastolic 62–98
[2022-03-31] MEDS: LABETALOL HCL 20 MG/4 ML VIAL IV PRN ×3 (00:09→22:51)
[2022-03-31] MEDS: PIPERACILLIN SODIUM/TAZOBACTAM 4.5 GM in NS (IVPB) 100 ML IV SCH ×3 (01:59→16:55)
[2022-03-31] MEDS: RT-ALBUTEROL/IPRATROPIUM 3 ML (DUONEB) VIAL INH SCH ×6 (02:17→22:08)
[2022-03-31 05:40] LABS: BASOPHILS % (AUTO) 0 % (0-10); EOSINOPHILS # (AUTO) 0.2 10^3/uL (0.0-0.3); EOSINOPHILS % (AUTO) 3 % (0-10); HEMATOCRIT 27 % (35-52); HEMOGLOBIN 8.6 g/dL (11.5-16.0); LYMPHOCYTES # (AUTO) 0.6 10^3/uL (1.0-4.0); LYMPHOCYTES % (AUTO) 9 % (12-44); MEAN CORPUSCULAR HEMOGLOBIN 31 pg (25-34); MEAN CORPUSCULAR HGB CONC 32 g/dL (32-36); MEAN CORPUSCULAR VOLUME 96 fL (80-99); MEAN PLATELET VOLUME 9.9 fL (9.0-12.2); MONOCYTES # (AUTO) 0.4 10^3/uL (0.0-1.0); MONOCYTES % (AUTO) 6 % (0-12); NEUTROPHILS # (AUTO) 5.5 10^3/uL (1.8-7.8); NEUTROPHILS % (AUTO) 81 % (42-75); PLATELET COUNT 137 10^3/uL (130-400); WHITE BLOOD COUNT 6.8 10^3/uL (4.3-11.0)
[2022-03-31] MEDS: NITRO DRIP 25000 MCG/D5W 250 ML IV SCH (05:45)
[2022-03-31] MEDS: inSUlin ASPART (NovoLOG) 1 UNIT/0.01 ML (CHARGE PER UNIT) SC SCH ×4 (06:00→18:10)
[2022-03-31 06:07] LABS: ALBUMIN 2.6 GM/DL (3.2-4.5)
[2022-03-31 06:08] LABS: POTASSIUM 4.2 MMOL/L (3.6-5.0)
[2022-03-31 06:09] LABS: CALCIUM 8.9 MG/DL (8.5-10.1)
[2022-03-31 06:10] LABS: TOTAL PROTEIN 6.1 GM/DL (6.4-8.2)
[2022-03-31 06:12] LABS: BILIRUBIN,TOTAL 0.5 MG/DL (0.1-1.0)
[2022-03-31 06:14] LABS: CREATININE SERUM 2.65 MG/DL (0.60-1.30)
[2022-03-31] MEDS: HEParin DRIP 25000 UNIT/500ML 500 ML IV SCH (06:52)
--- NOTE | 2022-03-31 07:59 | Progress Note - Hospitalist ---
Subjective HPI/CC On Admission Date Seen by Provider: Mar 31, 2022 Time Seen by Provider: 10:00 Subjective/Events-last exam Improved status No major issues 3L/min BIPAP at night No concerns Review of Systems General: Fatigue, Malaise Objective Exam Vital Signs Vital Signs Date Time Temp Pulse Resp B/P (MAP) Pulse Ox O2 Delivery O2 Flow Rate FiO2 03/31/22 18:00 63 155/79 (104) 98 Nasal Cannula 2.00 03/31/22 16:00 36.3 03/31/22 07:21 17 03/31/22 04:00 30 Capillary Refill : Less Than 3 Seconds General Appearance: No Apparent Distress, WD/WN, Chronically ill, Obese Respiratory: Lungs Clear, Normal Breath Sounds Cardiovascular: Regular Rate, Rhythm Neurologic/Psychiatric: Alert, Oriented x3, No Motor/Sensory Deficits, Normal Mood/Affect Results/Procedures Lab Laboratory Tests 03/31/22 05:08 Patient resulted labs reviewed. Assessment/Plan Assessment and Plan Assess & Plan/Chief Complaint Assessment: Acute respiratory failure with hypoxia and hypercapnia and respiratory acidosis requiring biPAP Acute volume overload Sepsis-resolved Acute Cholecystitis with Cholelithiasis on abx NSTEMI Hypertensive Emergency improved Hyperlipidemia Chornic Kidney Disease follows with Dr Elizabeth Lewis Current Smoker Plan: Move to ICU BiPAP Supportive care and IVF Monitor patient labs and replace prn Continue abx Zosyn for more broad spectrum coverage Repeat troponins Consult Cardiology regarding dosage adjustments on cardiac drugs Consult Surgery for cholecystectomy and possible hernia repair Critical Care Critically Ill Patient Diagnosis/Problems Diagnosis/Problems (1) Sepsis (2) Acute kidney injury superimposed on chronic kidney disease (3) Non-ST elevation myocardial infarction (NSTEMI), initial care episode (4) Cholecystitis with cholelithiasis Status: Acute Qualifiers: Cholelithiasis location: gallbladder Cholecystitis acuity: acute Biliary obstruction: without biliary obstruction Qualified Codes: K80.00 - Calculus of gallbladder with acute cholecystitis without obstruction (5) Mixed hyperlipidemia (6) Obesity (7) Hypertensive emergency without congestive heart failure (8) Cigarette smoker Clinical Quality Measures Admission Status Admission Dx ICU Zosyn DC Rocephin BP control Cardiology consultation MOODY HUIZAR DO Mar 31, 2022 07:59
[2022-03-31] MEDS: CYCLOBENZAPRINE 10 MG (FLEXERIL) TAB PO SCH ×3 (08:23→20:40)
[2022-03-31] MEDS: SODIUM BICARBONATE 650 MG TABLET PO SCH ×2 (08:23→20:36)
[2022-03-31] MEDS: FERROUS SULF 325 MG (IRON) TAB PO SCH ×2 (08:23→15:57)
[2022-03-31] MEDS: PANTOPRAZOLE 40 MG (PROTONIX) TAB PO SCH ×2 (08:23→15:56)
[2022-03-31] MEDS: OMEGA 3 (FISH OIL) 1000 MG CAP PO SCH (08:23)
[2022-03-31] MEDS: FAMOTIDINE 20 MG (PEPCID) TABLET PO SCH (08:24)
[2022-03-31] MEDS: MICONAZOLE 2% POWDER (DESENEX AF) 90 GM TOP SCH ×2 (08:24→20:37)
[2022-03-31] MEDS: ASPIRIN E.C. 81 MG (ECOTRIN) TAB PO SCH (08:24)
[2022-03-31] MEDS: GABAPENTIN 300 MG (NEURONTIN) CAP PO SCH ×3 (08:24→20:36)
[2022-03-31] MEDS: FLUoxetine HCL 20 MG (PROzac) CAP PO SCH (08:24)
[2022-03-31] MEDS: meTOproloL SUCCINATE 50 MG (TOPROL XL) TAB PO SCH ×2 (08:24→20:35)
[2022-03-31] MEDS: KCL 20 MEQ TAB (K-DUR) PO SCH ×2 (08:24→20:36)
[2022-03-31] MEDS: meTOprolol TARTRATE 50 MG (LOPRESSOR) TAB PO SCH ×2 (08:24→15:56)
[2022-03-31] MEDS: TIMOLOL MALEATE 0.5% 5 ML (TIMOPTIC) BTL OU SCH ×2 (08:25→20:36)
[2022-03-31] MEDS: BRIMONIDINE 0.2% (ALPHAGAN) OPHTH SOLN 5 ML BTL OU SCH ×2 (08:25→20:36)
--- NOTE | 2022-03-31 09:11 | Tele-ICU Progress Note ---
Subjective Date Seen by a Provider: Mar 31, 2022 Subjective/Events-last exam This virtual visit was conducted using real time audio/video. Thank you for asking us to see this patient for respiratory insufficiency due to flash pulmonary edema. Admitted w cholecystitis, cholelithiasis, hypertensive urgency and NSTEMI noted. Recent events: Transferred back to ICU 03/30 for resp. distress. Placed on BiPAP, now on 3 LPM NC. Positive BC for Ebacter Gerrgoviae. PE: VSS. Obese. O2 sat 99% on #LPM. HEENT: No obvious masses, adenopathy or JVD. Chest: wheezing on auscultation. CV: RRR S1 S2 No murmur or added sounds. Abd: Non-tender. Bowel sounds Y. : Unremarkable. Christie Y. [employer]ECT/psychiatric: Grossly intact. No obvious focal findings. Extremities: Trace edema. Capillary refill < 3 seconds. Skin: unremarkable. Results: Elevated BUN 38, Creat 2.65. Decreased Hb 8.6. B.36/3/90 on 35%. CXR: Hyperinflated, B infilts C/W pulm. edema. . Available chart/ vitals / labs / images reviewed. Video assessment done using teleICU camera, rest of exam as per RN. A/P: Respiratory insufficiency: Continue present management with NC, PRN BiPAP Monitor for increasing oxygenation needs and/or need for intubation. Critical Care: critically ill patient. Cont.abx, Heparin, PPI, NTG SL, ASA, statin, Gabap. Discussed with RN Haven. Asked RN to reach out to eICU if any questions or concerns later. Time spent with patient/coordination of care with other health professionals (mins): 23 Sepsis Event Evaluation Height, Weight, BMI Height: 5'1.00" Weight: 200lbs. oz. 90.905322nc; 41.67 BMI Method:Stated Exam Exam Patient acknowledged, consented, and participated in this virtual visit which was conducted using real time audio/video Vital Signs Date Time Temp Pulse Resp B/P (MAP) Pulse Ox O2 Delivery O2 Flow Rate FiO2 03/31/22 08:23 Nasal Cannula 3.00 03/31/22 08:00 64 158/66 (96) 94 NIV Bilevel 25.00 03/31/22 07:52 36.1 03/31/22 07:21 65 17 97 25.00 03/31/22 07:00 60 03/31/22 07:00 61 149/62 (91) 97 NIV Bilevel 25.00 03/31/22 06:00 62 153/64 (93) 98 Nasal Cannula 3.00 03/31/22 05:00 64 156/71 (99) 98 Nasal Cannula 3.00 03/31/22 04:00 98 NIV Bilevel 3.00 30 03/31/22 04:00 68 151/65 (93) 98 Nasal Cannula 3.00 03/31/22 03:00 66 143/64 (90) 98 Nasal Cannula 3.00 03/31/22 02:17 65 19 97 30.00 03/31/22 02:00 65 151/66 (94) 97 Nasal Cannula 3.00 03/31/22 01:00 68 03/31/22 01:00 67 18 144/70 (94) 97 Nasal Cannula 3.00 03/31/22 00:00 95 Nasal Cannula 3.00 03/31/22 00:00 69 17 135/63 (87) 98 Nasal Cannula 3.00 03/30/22 23:55 18 98 30.00 03/30/22 23:49 93 Nasal Cannula 3.00 03/30/22 23:00 71 33 169/80 (109) 100 Nasal Cannula 3.00 03/30/22 22:00 71 171/85 (113) 100 Nasal Cannula 3.00 03/30/22 21:49 Nasal Cannula 3.00 03/30/22 21:00 64 162/70 (100) 99 NIV Bilevel 30.00 03/30/22 20:00 65 161/72 (101) 98 NIV Bilevel 30.00 03/30/22 20:00 99 NIV Bilevel 30 03/30/22 20:00 35.6 03/30/22 19:00 66 03/30/22 19:00 67 150/72 (98) 99 NIV Bilevel 30.00 03/30/22 18:16 67 20 100 30.00 03/30/22 18:00 67 156/73 (100) 99 NIV Bilevel 30.00 03/30/22 17:00 71 15 170/78 (108) 99 NIV Bilevel 30.00 03/30/22 16:00 36.0 03/30/22 16:00 89 16 156/74 (101) 98 NIV Bilevel 30.00 03/30/22 16:00 99 NIV Bilevel 30 03/30/22 15:06 NIV Bilevel 30.00 03/30/22 15:00 67 16 133/63 (86) 98 NIV Bilevel 35.00 03/30/22 14:30 69 16 98 30.00 03/30/22 14:00 69 11 165/81 (109) 98 NIV Bilevel 35.00 03/30/22 13:00 68 21 165/81 (109) 98 NIV Bilevel 35.00 03/30/22 12:32 67 03/30/22 12:00 98 NIV Bilevel 35 03/30/22 12:00 70 29 154/77 (102) 98 NIV Bilevel 35.00 03/30/22 11:39 35.8 03/30/22 11:00 72 16 154/73 (100) 99 NIV Bilevel 35.00 03/30/22 10:00 74 15 138/65 (89) 98 NIV Bilevel 45.00 I & O 03/31/22 07:00 Intake Total 600 ml Output Total 1275 ml Balance -675 ml Height & Weight Height: 5'1.00" Weight: 200lbs. oz. 90.034624cu; 41.67 BMI Method:Stated General Appearance: No Apparent Distress, WD/WN, Chronically ill, Obese HEENT: PERRL/EOMI, Moist Mucous Membranes Neck: Non Tender, Supple Respiratory: Lungs Clear, Normal Breath Sounds Cardiovascular: Regular Rate, Rhythm Capillary Refill: Less Than 3 Seconds Peripheral Pulses: 1+ Dorsalis Pedis (R), 1+ Left Dors-Pedis (L); 2+ Radial Pulses (R), 2+ Radial Pulses (L) Gastrointestinal: soft; No guarding; tenderness (RUQ), hernia (large RUQ at site of incision) Extremity: No Calf Tenderness, No Pedal Edema Neurologic/Psychiatric: Alert, Disoriented Skin: Normal Color, Cool (cool at bl ankles, weak posterior tibial pulse bl) Lymphatic: No Adenopathy (cervical) Results Lab Laboratory Tests 03/30/22 06:10 03/30/22 12:09 03/31/22 05:08 Assessment/Plan Assessment/Plan See free text Critical Care: Critically Ill Patient SOPHIE RICHARD MD Mar 31, 2022 09:11
[2022-03-31] MEDS: PANTOPRAZOLE 40 MG (PROTONIX) VIAL IV SCH (09:26)
[2022-03-31] MEDS: hydrALAZINE (APESOLINE) 20 MG/ML VIAL IV PRN ×2 (09:38→16:57)
--- NOTE | 2022-03-31 09:38 | Cardiology Progress Note ---
Subjective Date Seen by Provider: Mar 31, 2022 Time Seen by Provider: 09:37 Subjective/Events-last exam Patient was seen at bedside, laying down comfortably Feeling better today, breathing better, eating breakfast. Review of Systems General: No Chills, No Night Sweats; Fatigue; No Malaise, No Appetite, No Other HEENT: No Head Aches, No Visual Changes, No Eye Pain, No Ear Pain, No Dysphasia, No Sinus Congestion, No Post Nasal Drip, No Sore Throat, No Other Pulmonary: Dyspnea; No Cough, No Pleuritic Chest Pain, No Other Cardiovascular: No: Chest Pain, Palpitations, Orthopnea, Paroxysmal Noc. Dyspnea, Edema, Lt Headedness, Other Objective-Cardiology Exam Last Set of Vital Signs Vital Signs 03/31/22 03/31/22 03/31/22 03/31/22 03/31/22 04:00 07:21 07:52 08:00 08:23 Temp 36.1 Pulse 64 Resp 17 B/P (MAP) 158/66 (96) Pulse Ox 94 O2 Delivery Nasal Cannula O2 Flow Rate 3.00 FiO2 30 I&O Intake and Output 03/31/22 00:00 Intake Total 560 ml Output Total 975 ml Balance -415 ml Intake Oral 360 ml IV Total 200 ml Output Urine Total 975 ml # Urine Diapers 2 General: Alert, Cooperative, Moderate Distress Neck: Supple Lungs: Clear to Auscultation, Normal Air Movement Heart: Regular Rate, Normal S1, Normal S2, No Murmurs Abdomen: Soft, Other (RUQ tenderness, right ventral hernia ) Extremities: No Clubbing, No Tenderness/Swelling Skin: No Rashes, No Breakdown Neuro: Other (Lethargic) Psych/Mental Status: Mood NL Results Lab Laboratory Tests 03/30/22 12:09 03/31/22 05:08 A/P-Cardiology Admission Diagnosis Acute respiratory failure Congestive heart failure, acute on chronic left ventricular systolic dysfunction, ischemic cardiomyopathy Coronary artery disease Sepsis Assessment/Plan Status post acute respiratory failure, flash pulmonary edema. Patient was transferred to ICU Patient was on BiPAP, currently on oxygen nasal cannula Received Lasix Improving slowly. Congestive heart failure, acute left ventricular systolic dysfunction, most probably ischemic cardiomyopathy. Had elevated troponin and treated conservatively with Dr. Mendiola. Non-ST elevation myocardial infarction, elevated troponin level, had EKG changes progressed to T wave inversion in the anterolateral leads. Treated conservatively at this point. Has been managed by Dr. Mendiola Continue with aspirin and Lovenox. Monitor closely and consider cardiac catheterization once clinically more stable Acute on chronic renal insufficiency Dr. Jami Pompa was consulted and reported that her baseline creatinine is around 2.4. Planning to start IV fluid in preparation for cardiac catheterization once her pulmonary status is more stable. Hypertensive emergency, blood pressure is better, continue to monitor closely Hyperlipidemia, maintained on statin. Sepsis, acute cholecystitis, UTI, managed and followed by Dr. Cam So far recommendation for conservative management. Tobaccoism Morbid obesity, BMI 40. SUNNY ROBBINS MD Mar 31, 2022 09:38
--- NOTE | 2022-03-31 10:05 | Progress Note - Surgery ---
GUERITA MAYEN 03/31/22 1005: Subjective Date Seen by a Provider: Mar 31, 2022 Time Seen by a Provider: 10:02 Subjective/Events-last exam Pt is lying in bed comfortably brushing her hair. Pt reports she feels much better than yesterday and is glad she is off bipap. She reports diffuse weakness and malaise this morning. She has an intermittent cough. Pain in RUQ currently 4/10 with occasional radiation to her back. Lying down makes her pain better and bending to the right side hurts worse. She reports cardiology is planning to cath her today or tomorrow, she could not remember what they had told her exactly. Had a liquid BM this morning and is draining yellow urine via catheter. Review of Systems General: No Chills; Malaise, Appetite (pt says she is hungry and ready to be off liquid diet) HEENT: No Head Aches, No Visual Changes Pulmonary: No Dyspnea; Cough Cardiovascular: No: Chest Pain, Palpitations Gastrointestinal: Abdominal Pain (pain in RUQ); No: Nausea, Vomiting Genitourinary: No Hematuria; Other (catheter draining yellow urine) Neurological: Weakness (pt reports feeling diffusely weak), Confusion (pt mildly confused in regards to what cardiology had told her about the plan) Objective Exam Vital Signs Date Time Temp Pulse Resp B/P (MAP) Pulse Ox O2 Delivery O2 Flow Rate FiO2 03/31/22 09:00 67 160/74 (102) 99 Nasal Cannula 3.00 03/31/22 08:23 Nasal Cannula 3.00 03/31/22 08:00 64 158/66 (96) 94 NIV Bilevel 25.00 03/31/22 07:52 36.1 03/31/22 07:21 65 17 97 25.00 03/31/22 07:00 60 03/31/22 07:00 61 149/62 (91) 97 NIV Bilevel 25.00 03/31/22 06:00 62 153/64 (93) 98 Nasal Cannula 3.00 03/31/22 05:00 64 156/71 (99) 98 Nasal Cannula 3.00 03/31/22 04:00 98 NIV Bilevel 3.00 30 03/31/22 04:00 68 151/65 (93) 98 Nasal Cannula 3.00 03/31/22 03:00 66 143/64 (90) 98 Nasal Cannula 3.00 03/31/22 02:17 65 19 97 30.00 03/31/22 02:00 65 151/66 (94) 97 Nasal Cannula 3.00 03/31/22 01:00 68 03/31/22 01:00 67 18 144/70 (94) 97 Nasal Cannula 3.00 03/31/22 00:00 95 Nasal Cannula 3.00 03/31/22 00:00 69 17 135/63 (87) 98 Nasal Cannula 3.00 03/30/22 23:55 18 98 30.00 03/30/22 23:49 93 Nasal Cannula 3.00 03/30/22 23:00 71 33 169/80 (109) 100 Nasal Cannula 3.00 03/30/22 22:00 71 171/85 (113) 100 Nasal Cannula 3.00 03/30/22 21:49 Nasal Cannula 3.00 03/30/22 21:00 64 162/70 (100) 99 NIV Bilevel 30.00 03/30/22 20:00 65 161/72 (101) 98 NIV Bilevel 30.00 03/30/22 20:00 99 NIV Bilevel 30 03/30/22 20:00 35.6 03/30/22 19:00 66 03/30/22 19:00 67 150/72 (98) 99 NIV Bilevel 30.00 03/30/22 18:16 67 20 100 30.00 03/30/22 18:00 67 156/73 (100) 99 NIV Bilevel 30.00 03/30/22 17:00 71 15 170/78 (108) 99 NIV Bilevel 30.00 03/30/22 16:00 36.0 03/30/22 16:00 89 16 156/74 (101) 98 NIV Bilevel 30.00 03/30/22 16:00 99 NIV Bilevel 30 03/30/22 15:06 NIV Bilevel 30.00 03/30/22 15:00 67 16 133/63 (86) 98 NIV Bilevel 35.00 03/30/22 14:30 69 16 98 30.00 03/30/22 14:00 69 11 165/81 (109) 98 NIV Bilevel 35.00 03/30/22 13:00 68 21 165/81 (109) 98 NIV Bilevel 35.00 03/30/22 12:32 67 10/1/22 12:00 98 NIV Bilevel 35 03/30/22 12:00 70 29 154/77 (102) 98 NIV Bilevel 35.00 03/30/22 11:39 35.8 03/30/22 11:00 72 16 154/73 (100) 99 NIV Bilevel 35.00 I & O 03/31/22 07:00 Intake Total 600 ml Output Total 1275 ml Balance -675 ml Capillary Refill : Less Than 3 Seconds General Appearance: No Apparent Distress, WD/WN, Chronically ill, Obese HEENT: PERRL/EOMI, Moist Mucous Membranes; No Scleral Icterus (L), No Scleral Icterus (R) Neck: Non Tender, Supple Respiratory: Chest Non Tender, No Accessory Muscle Use, Wheezing (bl wheezes on expiration) Cardiovascular: Regular Rate, Rhythm, No Murmur Peripheral Pulses: 1+ Dorsalis Pedis (R), 1+ Left Dors-Pedis (L); 2+ Radial Pulses (R), 2+ Radial Pulses (L) Gastrointestinal: soft; No guarding; tenderness (RUQ), hernia (large RUQ at site of incision) Extremity: No Calf Tenderness, No Pedal Edema Neurologic/Psychiatric: Alert, Disoriented Skin: Normal Color, Cool (cool at bl ankles, weak posterior tibial pulse bl) Lymphatic: No Adenopathy (cervical) Results Lab Laboratory Tests 03/30/22 11:40: Glucometer 108 03/30/22 12:09: Sodium Level 136, Potassium Level 4.0, Chloride Level 104, Carbon Dioxide Level 22, Anion Gap 10, Blood Urea Nitrogen 34H, Creatinine 2.47H, Estimat Glomerular Filtration Rate 21, BUN/Creatinine Ratio 14, Glucose Level 101, Calcium Level 8.8 03/30/22 12:40: Blood Gas Puncture Site RT RAD, Blood Gas Patient Temperature 95.6, Arterial Blood pH 7.36L, Arterial Blood Partial Pressure CO2 43, Arterial Blood Partial Pressure O2 90, Arterial Blood HCO3 24, Arterial Blood Total CO2 25.6, Arterial Blood Oxygen Saturation 98, Arterial Blood Base Excess -0.8, Tanner Test YES-POS, Blood Gas Ventilator Setting NO, Blood Gas Inspired Oxygen 35% BIPAP 03/30/22 17:56: Glucometer 78 03/31/22 00:10: Glucometer 81 03/31/22 05:08: White Blood Count 6.8, Red Blood Count 2.82L, Hemoglobin 8.6L, Hematocrit 27L, Mean Corpuscular Volume 96, Mean Corpuscular Hemoglobin 31, Mean Corpuscular Hemoglobin Concent 32, Red Cell Distribution Width 14.6H, Platelet Count 137, Mean Platelet Volume 9.9, Immature Granulocyte % (Auto) 1, Neutrophils (%) (Auto) 81H, Lymphocytes (%) (Auto) 9L, Monocytes (%) (Auto) 6, Eosinophils (%) (Auto) 3, Basophils (%) (Auto) 0, Neutrophils # (Auto) 5.5, Lymphocytes # (Auto) 0.6L, Monocytes # (Auto) 0.4, Eosinophils # (Auto) 0.2, Basophils # (Auto) 0.0, Immature Granulocyte # (Auto) 0.1, Activated Partial Thromboplast Time 68H, Sodium Level 138, Potassium Level 4.2, Chloride Level 105, Carbon Dioxide Level 23, Anion Gap 10, Blood Urea Nitrogen 38H, Creatinine 2.65H, Estimat Glomerular Filtration Rate 20, BUN/Creatinine Ratio 14, Glucose Level 91, Calcium Level 8.9 , Corrected Calcium 10.0, Magnesium Level 2.0, Total Bilirubin 0.5, Aspartate Amino Transf (AST/SGOT) 23, Alanine Aminotransferase (ALT/SGPT) 18, Alkaline Phosphatase 217H, Total Protein 6.1L, Albumin 2.6L 03/31/22 05:10: Glucometer 86 Microbiology 03/30/22 MRSA Screen - Final, Complete MRSA not isolated 03/27/22 Blood Culture - Preliminary, Resulted No growth 03/26/22 Urine Culture - Final, Complete NO GROWTH Assessment/Plan Assessment/Plan Assessment/Plan Respiratory distress- much improved today Possible Acute Cholecystitis with Cholelithiasis Chronic Renal Failure Hypertensive emergency- BP still elevated, 153/64 today NSTEMI- troponins trended down last measured yesterday .198 DM Leukocytosis- WBC down to 6.8 today from 15 yesterday Incarcerated Ventral/Incisional hernia Pts respiratory status is much better today on 3L by nasal canula. White count is dropping, continue IV abx. Pt reports cardiology wanting to cath, I cannot find this in the progress note. Her creatinine was 2.31 today. Continue sliding scale insulin, last glucose measurement was 91. Cholecystectomy when appropriate. ANGUS CAM DO 03/31/22 1422: Subjective Time Seen by a Provider: 12:21 Subjective/Events-last exam Pt seen and examined, she actually looks much better today. She is still feeling weak, but thinks her abdominal pain is better. Review of Systems General: No Chills; Malaise, Appetite (pt says she is hungry and ready to be off liquid diet) HEENT: No Head Aches, No Visual Changes Pulmonary: No Dyspnea; Cough Cardiovascular: No: Chest Pain, Palpitations Gastrointestinal: Abdominal Pain (pain in RUQ); No: Nausea, Vomiting Genitourinary: No Hematuria; Other (catheter draining yellow urine) Neurological: Weakness (pt reports feeling diffusely weak), Confusion (pt mildly confused in regards to what cardiology had told her about the plan) Objective Exam General Appearance: No Apparent Distress, Chronically ill, Obese HEENT: PERRL/EOMI, Moist Mucous Membranes; No Scleral Icterus (L), No Scleral Icterus (R) Respiratory: Chest Non Tender, No Accessory Muscle Use, Crackles, Decreased Breath Sounds, Wheezing (bl wheezes on expiration) Cardiovascular: Regular Rate, Rhythm, No Murmur Gastrointestinal: soft; No guarding; tenderness (RUQ), hernia (large RUQ at site of incision) Extremity: No Calf Tenderness, No Pedal Edema Neurologic/Psychiatric: Alert, Disoriented Assessment/Plan Assessment/Plan Assessment/Plan Respiratory distress- much improved today Possible Acute Cholecystitis with Cholelithiasis - WBC now normal Chronic Renal Failure Hypertensive emergency- BP still elevated, 153/64 today NSTEMI- troponins trended down last measured yesterday .198 DM Leukocytosis- WBC down to 6.8 today from 15 yesterday Incarcerated Ventral/Incisional hernia Pts respiratory status is much better today on 3L by nasal canula. White count is dropping, continue IV abx. Pt reports cardiology wanting to cath, apparently determination will be made tomorrow. Her creatinine was 2.31 today. Continue sliding scale insulin, last glucose measurement was 91. Cholecystectomy when a ppropriate; most likely will do as an outpt because she is improving and need to take care of cardiac issues first. Supervisory-Addendum Brief Verification & Attestation Participated in pt care: history, MDM, physical Personally performed: exam, history, MDM, supervision of care Care discussed with: Medical Student Procedures: n/a Verification and Attestation of Medical Student E/M Service A medical student performed and documented this service. I then reviewed and verified all information documented by the medical student and made modifications to such information, when appropriate. I personally performed a physical exam, medical decision making and then discussed any differences between the notes and made revisions as necessary to create one note. Angus Cam , 03/31/22 , 14:20 GUERITA MAYEN Mar 31, 2022 10:05 ANGUS CAM DO Mar 31, 2022 14:22
[2022-03-31] MEDS ORDERED: FUROSEMIDE 40 MG/4 ML INJ (LASIX) IVP ONE (14:15)
[2022-03-31] MEDS: AtorvaSTATin TABLET 10 MG TABLET PO SCH (15:56)
[2022-04-01] VITALS (16 sets, daily range): BP systolic 145–180; BP diastolic 52–81
[2022-04-01] MEDS: PIPERACILLIN SODIUM/TAZOBACTAM 4.5 GM in NS (IVPB) 100 ML IV SCH (01:58)
[2022-04-01] MEDS ORDERED: PIPERACILLIN SODIUM/TAZOBACTAM 4.5 GM in NS (IVPB) 100 ML IV ONE (02:00)
[2022-04-01] MEDS: hydrALAZINE (APESOLINE) 20 MG/ML VIAL IV PRN ×2 (02:10→06:44)
[2022-04-01] MEDS: RT-ALBUTEROL/IPRATROPIUM 3 ML (DUONEB) VIAL INH SCH ×6 (02:36→22:05)
[2022-04-01 05:08] LABS: BASOPHILS % (AUTO) 0 % (0-10); EOSINOPHILS # (AUTO) 0.4 10^3/uL (0.0-0.3); EOSINOPHILS % (AUTO) 6 % (0-10); HEMATOCRIT 28 % (35-52); HEMOGLOBIN 9.1 g/dL (11.5-16.0); LYMPHOCYTES # (AUTO) 0.7 10^3/uL (1.0-4.0); LYMPHOCYTES % (AUTO) 12 % (12-44); MEAN CORPUSCULAR HEMOGLOBIN 31 pg (25-34); MEAN CORPUSCULAR HGB CONC 33 g/dL (32-36); MEAN CORPUSCULAR VOLUME 95 fL (80-99); MEAN PLATELET VOLUME 9.9 fL (9.0-12.2); MONOCYTES # (AUTO) 0.5 10^3/uL (0.0-1.0); MONOCYTES % (AUTO) 8 % (0-12); NEUTROPHILS # (AUTO) 4.4 10^3/uL (1.8-7.8); NEUTROPHILS % (AUTO) 72 % (42-75); PLATELET COUNT 131 10^3/uL (130-400); WHITE BLOOD COUNT 6.1 10^3/uL (4.3-11.0)
[2022-04-01 05:19] LABS: ALBUMIN 2.6 GM/DL (3.2-4.5)
[2022-04-01 05:20] LABS: POTASSIUM 4.8 MMOL/L (3.6-5.0)
[2022-04-01 05:21] LABS: CALCIUM 8.8 MG/DL (8.5-10.1)
[2022-04-01 05:22] LABS: TOTAL PROTEIN 6.3 GM/DL (6.4-8.2)
[2022-04-01 05:24] LABS: BILIRUBIN,TOTAL 0.4 MG/DL (0.1-1.0)
[2022-04-01 05:26] LABS: CREATININE SERUM 2.8 MG/DL (0.60-1.30)
[2022-04-01 05:28] LABS: MAGNESIUM 1.9 MG/DL (1.6-2.4)
[2022-04-01] MEDS: NITRO DRIP 25000 MCG/D5W 250 ML IV SCH (05:45)
[2022-04-01] MEDS: inSUlin ASPART (NovoLOG) 1 UNIT/0.01 ML (CHARGE PER UNIT) SC SCH ×5 (06:00→23:59)
--- NOTE | 2022-04-01 06:42 | Progress Note - Surgery ---
GUERITA MAYEN 04/01/22 0642: Subjective Date Seen by a Provider: Apr 01, 2022 Time Seen by a Provider: 06:36 Subjective/Events-last exam Pt is lying in bed comfortably watching tv. She reports minimal RUQ pain this morning that is improved from yesterday still ranks the pain 5/10. She required bipap again last night for a few hours, is now back on 3L by nasal cannula with no complaints of shortness of breath. She has had liquid BM and is draining yellow urine from catheter. She denies any other pain or complaints. She is on a liquid diet and told me she wants food and is hungry. Review of Systems General: No Chills, No Night Sweats; Appetite (increased) HEENT: No Head Aches, No Visual Changes Pulmonary: No Dyspnea (pt had episode requiring bipap last night but denies shortness of breath); Cough (intermitent) Cardiovascular: No: Chest Pain, Palpitations Gastrointestinal: Abdominal Pain (tender RUQ, improved from yesterday); No: Nausea, Vomiting Genitourinary: No Dysuria, No Hematuria Neurological: No: Change in speech, Seizures Objective Exam Vital Signs Date Time Temp Pulse Resp B/P (MAP) Pulse Ox O2 Delivery O2 Flow Rate FiO2 04/01/22 04:00 62 149/68 (102) 98 Nasal Cannula 3.00 04/01/22 04:00 96 Nasal Cannula 3.00 04/01/22 03:55 36.3 04/01/22 03:00 62 145/67 (97) 97 Nasal Cannula 3.00 04/01/22 02:36 97 Nasal Cannula 3.00 04/01/22 02:00 60 161/69 (112) 99 Nasal Cannula 3.00 04/01/22 01:00 64 04/01/22 01:00 64 159/69 (105) 98 Nasal Cannula 3.00 04/01/22 00:19 36.4 04/01/22 00:00 95 Nasal Cannula 3.00 04/01/22 00:00 63 161/75 (121) 98 Nasal Cannula 3.00 03/31/22 23:00 64 172/78 (119) 97 Nasal Cannula 3.00 03/31/22 22:08 100 Nasal Cannula 3.00 03/31/22 22:00 62 167/76 (108) 99 Nasal Cannula 3.00 03/31/22 21:30 64 167/75 (115) 100 Nasal Cannula 3.00 03/31/22 21:00 60 171/85 (112) 100 NIV Bilevel 30.00 03/31/22 20:00 57 151/77 (108) 96 NIV Bilevel 30.00 03/31/22 20:00 35.4 03/31/22 20:00 96 NIV Bilevel 3.00 30 03/31/22 19:00 60 150/74 (105) 96 NIV Bilevel 30.00 03/31/22 19:00 60 03/31/22 18:48 60 22 97 25.00 03/31/22 18:00 63 155/79 (104) 98 Nasal Cannula 2.00 03/31/22 17:00 59 153/74 (100) 100 Nasal Cannula 2.00 03/31/22 16:00 97 Nasal Cannula 3.00 03/31/22 16:00 59 178/92 (120) 99 Nasal Cannula 2.00 03/31/22 16:00 36.3 03/31/22 15:00 59 163/79 (107) 98 Nasal Cannula 2.00 03/31/22 14:53 93 Nasal Cannula 2.00 03/31/22 14:00 57 136/87 (103) 100 Nasal Cannula 2.00 03/31/22 13:00 55 141/98 (112) 98 Nasal Cannula 2.00 03/31/22 12:37 56 03/31/22 12:00 98 Nasal Cannula 3.00 03/31/22 12:00 36.2 03/31/22 12:00 55 145/67 (93) 97 Nasal Cannula 2.00 03/31/22 11:42 Nasal Cannula 2.00 03/31/22 11:26 98 Nasal Cannula 2.00 03/31/22 11:00 57 148/73 (98) 98 Nasal Cannula 3.00 03/31/22 10:00 62 132/73 (92) 99 Nasal Cannula 3.00 03/31/22 09:00 67 160/74 (102) 99 Nasal Cannula 3.00 03/31/22 08:30 98 Nasal Cannula 3.00 03/31/22 08:23 Nasal Cannula 3.00 03/31/22 08:00 64 158/66 (96) 94 NIV Bilevel 25.00 03/31/22 07:52 36.1 03/31/22 07:21 65 17 97 25.00 03/31/22 07:00 60 03/31/22 07:00 61 149/62 (91) 97 NIV Bilevel 25.00 I & O 04/01/22 07:00 Intake Total 1750 ml Output Total 1240 ml Balance 510 ml Capillary Refill : Less Than 3 Seconds General Appearance: No Apparent Distress, WD/WN, Chronically ill, Obese HEENT: PERRL/EOMI, Moist Mucous Membranes; No Scleral Icterus (L), No Scleral Icterus (R) Neck: Non Tender, Supple Respiratory: Lungs Clear, No Accessory Muscle Use, Wheezing (bl wheeze present on expiration) Cardiovascular: Regular Rate, Rhythm, No Murmur Peripheral Pulses: 1+ Dorsalis Pedis (R), 1+ Left Dors-Pedis (L); 2+ Radial Pulses (R), 2+ Radial Pulses (L) Gastrointestinal: soft; No guarding; tenderness (RUQ), hernia (large RUQ at site of incision) Extremity: No Calf Tenderness, No Pedal Edema Neurologic/Psychiatric: Alert, Oriented x3, Normal Mood/Affect Skin: Normal Color, Cool (cool at bl ankles, weak posterior tibial pulse bl) Lymphatic: No Adenopathy (cervical) Results Lab Laboratory Tests 03/31/22 12:03: Glucometer 90 03/31/22 17:49: Glucometer 122H 04/01/22 00:10: Glucometer 101 04/01/22 04:55: White Blood Count 6.1, Red Blood Count 2.93L, Hemoglobin 9.1L, Hematocrit 28L, Mean Corpuscular Volume 95, Mean Corpuscular Hemoglobin 31, Mean Corpuscular Hemoglobin Concent 33, Red Cell Distribution Width 14.4, Platelet Count 131, Mean Platelet Volume 9.9, Immature Granulocyte % (Auto) 2, Neutrophils (%) (Auto) 72, Lymphocytes (%) (Auto) 12, Monocytes (%) (Auto) 8, Eosinophils (%) (Auto) 6, Basophils (%) (Auto) 0, Neutrophils # (Auto) 4.4, Lymphocytes # (Auto) 0.7L, Monocytes # (Auto) 0.5, Eosinophils # (Auto) 0.4H, Basophils # (Auto) 0.0, Immature Granulocyte # (Auto) 0.1, Activated Partial Thromboplast Time 63H, Sodium Level 134L, Potassium Level 4.8, Chloride Level 101, Carbon Dioxide Level 23, Anion Gap 10, Blood Urea Nitrogen 40H, Creatinine 2.80H, Estimat Glomerular Filtration Rate 18, BUN/Creatinine Ratio 14, Glucose Level 102, Calcium Level 8.8, Corrected Calcium 9.9, Magnesium Level 1.9, Total Bilirubin 0.4, Aspartate Amino Transf (AST/SGOT) 17, Alanine Aminotransferase (ALT/SGPT) 16, Alkaline Phosphatase 247H, Total Protein 6.3L, Albumin 2.6L 04/01/22 06:05: Glucometer 110 Microbiology 03/30/22 MRSA Screen - Final, Complete MRSA not isolated 03/27/22 Blood Culture - Preliminary, Resulted No growth 03/26/22 Urine Culture - Final, Complete NO GROWTH Assessment/Plan Assessment/Plan Assessment/Plan Respiratory distress- much improved today Possible Acute Cholecystitis with Cholelithiasis - WBC now normal 6.1 today Chronic Renal Failure Hypertensive emergency- BP still elevated, 149/68 today NSTEMI- troponins trended down last measured .198 DM Leukocytosis- WBC down to 6.1 today from 15 two days ago Incarcerated Ventral/Incisional hernia Pts respiratory status is much better today on 3L by nasal canula. Required bipap last night from 6 to 9:30. White count is dropping, continue IV abx. Pt reports she still does not have definitive answer on timing of cardiac cathet erization. Continue sliding scale insulin, last glucose measurement was 102. Cholecystectomy when appropriate; most likely will do as an outpt because she is improving and need to take care of cardiac issues first. ANGUS CAM DO 04/01/22 1237: Subjective Time Seen by a Provider: 11:58 Subjective/Events-last exam Pt seen and examined, sitting up in chair eating her lunch. She states she is hungry and would like more than clears. Denied N/V, only minimal abdominal pain. Review of Systems General: No Chills, No Night Sweats Pulmonary: No Dyspnea (pt had episode requiring bipap last night but denies shortness of breath); Cough (intermitent) Cardiovascular: No: Chest Pain, Palpitations Gastrointestinal: Abdominal Pain (tender RUQ, improved from yesterday); No: Nausea, Vomiting Genitourinary: No Dysuria, No Hematuria Objective Exam General Appearance: No Apparent Distress, Chronically ill, Obese HEENT: PERRL/EOMI, Moist Mucous Membranes; No Scleral Icterus (L), No Scleral Icterus (R) Respiratory: No Accessory Muscle Use, No Respiratory Distress, Wheezing (bl wheeze present on expiration) Cardiovascular: Regular Rate, Rhythm, No Murmur Gastrointestinal: soft; No guarding; tenderness (RUQ), hernia (large RUQ at site of incision) Extremity: No Calf Tenderness, No Pedal Edema Neurologic/Psychiatric: Alert, Oriented x3 Assessment/Plan Assessment/Plan Assessment/Plan Possible Acute Cholecystitis with Cholelithiasis - WBC now normal 6.1 today Respiratory distress- episode of BiPap last night but now back on 3L NC and does not appear to be in respiratory distress Chronic Renal Failure - possibly getting worse Hypertensive emergency- BP still elevated, 149/68 today NSTEMI- troponins trended down last measured .198 DM Leukocytosis- resolved, 6.1 today Incarcerated Ventral/Incisional hernia Pts respiratory status is much better today on 3L by nasal canula. Required bipap last night from 6 to 9:30. White count is dropping, continue IV abx. Pt reports she still does not have definitive answer on timing of cardiac catheterization. Continue sliding scale insulin, last glucose measurement was 102. Cholecystectomy when appropriate; most likely will do as an outpt because she is improving and need to take care of cardiac issues first. Supervisory-Addendum Brief Verification & Attestation Participated in pt care: history, MDM, physical Personally performed: exam, history, MDM, supervision of care Care discussed with: Medical Student Procedures: n/a Verification and Attestation of Medical Student E/M Service A medical student performed and documented this service. I then reviewed and verified all information documented by the medical student and made modifications to such information, when appropriate. I personally performed a physical exam, medical decision making and then discussed any differences between the notes and made revisions as necessary to create one note. Angus Cam , 04/01/22 , 12:36 GUERITA MAYEN Apr 01, 2022 06:42 ANGUS CAM DO Apr 01, 2022 12:37
--- NOTE | 2022-04-01 07:40 | Physical Therapy Progress Note ---
Therapy Progress Note PT will require new orders due to transfer to ICU. COMPA SAEED PT Apr 01, 2022 07:40
[2022-04-01] MEDS: FERROUS SULF 325 MG (IRON) TAB PO SCH ×2 (08:11→16:09)
[2022-04-01] MEDS: SODIUM BICARBONATE 650 MG TABLET PO SCH ×2 (08:11→19:56)
[2022-04-01] MEDS: KCL 20 MEQ TAB (K-DUR) PO SCH ×2 (08:12→19:56)
[2022-04-01] MEDS: PANTOPRAZOLE 40 MG (PROTONIX) TAB PO SCH ×2 (08:12→16:09)
[2022-04-01] MEDS: GABAPENTIN 300 MG (NEURONTIN) CAP PO SCH ×3 (08:12→19:55)
[2022-04-01] MEDS: FAMOTIDINE 20 MG (PEPCID) TABLET PO SCH (08:12)
[2022-04-01] MEDS: CYCLOBENZAPRINE 10 MG (FLEXERIL) TAB PO SCH ×3 (08:12→19:55)
[2022-04-01] MEDS: FLUoxetine HCL 20 MG (PROzac) CAP PO SCH (08:12)
[2022-04-01] MEDS: OMEGA 3 (FISH OIL) 1000 MG CAP PO SCH (08:12)
[2022-04-01] MEDS: TIMOLOL MALEATE 0.5% 5 ML (TIMOPTIC) BTL OU SCH ×2 (08:13→19:56)
[2022-04-01] MEDS: MICONAZOLE 2% POWDER (DESENEX AF) 90 GM TOP SCH ×2 (08:13→19:57)
[2022-04-01] MEDS: BRIMONIDINE 0.2% (ALPHAGAN) OPHTH SOLN 5 ML BTL OU SCH ×2 (08:13→19:57)
[2022-04-01] MEDS: ASPIRIN E.C. 81 MG (ECOTRIN) TAB PO SCH (08:13)
--- NOTE | 2022-04-01 08:20 | Cardiology Progress Note ---
Progress Note-Cardiology Events since last exam Date Seen by Provider: Apr 01, 2022 Time Seen by Provider: 08:19 Events since last exam I am following her due to NSTEMI and acute heart failure with reduced ejection fraction. On Friday she was transferred to the floor. However, she developed worsening shortness of breath and was placed on BiPAP and transferred back to the intensive care unit. Her blood pressure remained elevated and she was placed on high-dose metoprolol tartrate. This morning she feels better. She denies dyspnea at rest. She does have a cough. Her main complaint is back pain. She denies chest pain, palpitations, syncope, or ankle edema. Certain portions of this document may have been dictated utilizing voice recognition technology. Inherent to this technology, typographical and grammatical errors may exist. As much as I am diligent to identify and correct these mistakes, some errors may remain in the document. Vitals Last set of Vitals Signs Vital Signs 03/31/22 03/31/22 04/01/22 18:48 20:00 08:00 Temp 36.5 Pulse 70 Resp 22 B/P (MAP) 180/78 (112) Pulse Ox 97 O2 Delivery Nasal Cannula O2 Flow Rate 3.00 FiO2 30 Labs Labs Laboratory Tests 04/01/22 04:55 Exam Vital Signs Vital Signs Date Time Temp Pulse Resp B/P (MAP) Pulse Ox O2 Delivery O2 Flow Rate FiO2 04/01/22 08:00 70 180/78 (112) 97 Nasal Cannula 3.00 04/01/22 08:00 36.5 03/31/22 20:00 30 03/31/22 18:48 22 Physical Exam General: Alert. No acute distress. She is obese. Eye: No xanthelasma. HENT: Normocephalic. Neck: Jugular venous pressure does not appear elevated. Respiratory: Lungs have some scattered coarse upper airway sounds. Respirations are non-labored. Breath sounds are equal. Symmetrical chest wall expansion. Cardiovascular: Normal rate. Regular rhythm. Distant S1/S2. No murmur. No gallop. No edema. Gastrointestinal: Soft. Normal bowel sounds. Skin: Warm. Dry. Neurologic: Alert and oriented to person, place, time. Cranial nerves 3-11 grossly intact. Psychiatric: Cooperative. Appropriate mood & affect. Labs Laboratory Tests Test 03/31/22 12:03 03/31/22 17:49 04/01/22 00:10 04/01/22 04:55 Range/Units Glucometer 90 122 H 101 70-110 MG/DL White Blood Count 6.1 4.3-11.0 10^3/uL Red Blood Count 2.93 L 3.80-5.11 10^6/uL Hemoglobin 9.1 L 11.5-16.0 g/dL Hematocrit 28 L 35-52 % Mean Corpuscular Volume 95 80-99 fL Mean Corpuscular Hemoglobin 31 25-34 pg Mean Corpuscular Hemoglobin Concent 33 32-36 g/dL Red Cell Distribution Width 14.4 10.0-14.5 % Platelet Count 131 130-400 10^3/uL Mean Platelet Volume 9.9 9.0-12.2 fL Immature Granulocyte % (Auto) 2 % Neutrophils (%) (Auto) 72 42-75 % Lymphocytes (%) (Auto) 12 12-44 % Monocytes (%) (Auto) 8 0-12 % Eosinophils (%) (Auto) 6 0-10 % Basophils (%) (Auto) 0 0-10 % Neutrophils # (Auto) 4.4 1.8-7.8 10^3/uL Lymphocytes # (Auto) 0.7 L 1.0-4.0 10^3/uL Monocytes # (Auto) 0.5 0.0-1.0 10^3/uL Eosinophils # (Auto) 0.4 H 0.0-0.3 10^3/uL Basophils # (Auto) 0.0 0.0-0.1 10^3/uL Immature Granulocyte # (Auto) 0.1 0.0-0.1 10^3/uL Activated Partial Thromboplast Time 63 H 24-35 SEC Sodium Level 134 L 135-145 MMOL/L Potassium Level 4.8 3.6-5.0 MMOL/L Chloride Level 101 98-107 MMOL/L Carbon Dioxide Level 23 21-32 MMOL/L Anion Gap 10 5-14 MMOL/L Blood Urea Nitrogen 40 H 7-18 MG/DL Creatinine 2.80 H 0.60-1.30 MG/DL Estimat Glomerular Filtration Rate 18 BUN/Creatinine Ratio 14 Glucose Level 102 70-105 MG/DL Calcium Level 8.8 8.5-10.1 MG/DL Corrected Calcium 9.9 8.5-10.1 MG/DL Magnesium Level 1.9 1.6-2.4 MG/DL Total Bilirubin 0.4 0.1-1.0 MG/DL Aspartate Amino Transf (AST/SGOT) 17 5-34 U/L Alanine Aminotransferase (ALT/SGPT) 16 0-55 U/L Alkaline Phosphatase 247 H 40-136 U/L Total Protein 6.3 L 6.4-8.2 GM/DL Albumin 2.6 L 3.2-4.5 GM/DL Test 04/01/22 06:05 Range/Units Glucometer 110 70-110 MG/DL Diagnosis/Problems Diagnosis/Problems (1) Non-ST elevation myocardial infarction (NSTEMI), initial care episode Assessment & Plan: She appears to have suffered a possible non-ST elevation myocardial infarction. Her troponins trended downward. Her echocardiogram shows findings consistent with stress-induced cardiomyopathy (Takotsubo cardiomyopathy) but this can only be diagnosed at cardiac catheterization. I have started her on aspirin, restarted her beta-amadeo and intensified her dose of statin medication. She received intravenous heparin since around the time of admission for over 5 days. This can now be discontinued. I took the liberty of ordering the DVT prophylaxis dose of enoxaparin. Her renal function continues to be tenuous. We ultimately may want to consider a cardiac catheterization but we will need to wait for her renal function to stabilize. (2) Acute HFrEF (heart failure with reduced ejection fraction) Assessment & Plan: Her chest x-rays have shown evidence of pulmonary edema. Her intravenous fluids were discontinued. I am concerned about giving her intravenous diuretic due to her renal function but she did receive some intravenous furosemide over the weekend. (3) Cardiomyopathy Assessment & Plan: As above, she may have Takotsubo cardiomyopathy. There is no indication that this is ischemic cardiomyopathy. I changed her metoprolol to tartrate over to metoprolol succinate but then she was started back on metopro lol tartrate over the weekend due to hypertension. The cardiology guidelines for the management of cardiomyopathy and heart failure with reduced ejection fraction recommend metoprolol succinate, carvedilol or bisoprolol as beta- blockers of choice and treatment of these conditions. I will stop the metoprolol tartrate and increase the metoprolol succinate. She is not currently a candidate for JUAN RAMON inhibitor, ARB, aldosterone antagonist or Entresto due to the worsening renal function. Since she cannot take any of these medications, I will start her on hydralazine and nitrates. (4) Hypertensive emergency Assessment & Plan: Blood pressures had improved but worsened over the weekend. Initially, she did not have signs or symptoms of heart failure but as noted above, her chest x-rays have now shown pulmonary edema. I will adjust the nitrates and hydralazine to optimize her blood pressure control. I would avoid using calcium channel blockers. (5) Mixed hyperlipidemia Assessment & Plan: She was taking atorvastatin at home and I intensified the dose due to the possible non-ST elevation myocardial infarction but this got changed back to her home dose when she was transferred. I will again increase the dose of atorvastatin. (6) Sepsis Assessment & Plan: She was febrile, had an elevated white count and tachycardia. These findings are all concerning for sepsis although she did not develop hypotension. The hospitalist and eICU will be managing this condition. General surgery is also following the patient due to cholelithiasis. (7) Primary hypertension Assessment & Plan: As above. (8) Coronary artery disease with unstable angina pectoris Assessment & Plan: As above. (9) Acute kidney injury superimposed on chronic kidney disease Assessment & Plan: According to her patient registration representative, her creatinine hovers around 2.2-2.4. This would make a cardiac catheterization somewhat risky because we could put her into renal failure due to the contrast load. Her renal function will need to be monitored closely. (10) Cigarette smoker Assessment & Plan: She needs to quit smoking. (11) Morbid obesity Assessment & Plan: She needs to work on weight loss. Some of the weight change here in the hospital could be due to volume retention. JEREMIAS MANNING JR, MD Apr 01, 2022 08:20
[2022-04-01] MEDS: hydrALAZINE (APRESOLINE) 25 MG TAB PO SCH ×3 (08:32→21:24)
[2022-04-01] MEDS: ISOSORBIDE MONONITRATE 60 MG (IMDUR) TAB PO SCH (08:33)
[2022-04-01] MEDS: meTOproloL SUCCINATE 50 MG (TOPROL XL) TAB PO SCH ×2 (08:33→19:56)
--- NOTE | 2022-04-01 08:37 | Tele-ICU Progress Note ---
Subjective Date Seen by a Provider: Apr 01, 2022 Time Seen by a Provider: 08:36 Subjective/Events-last exam 66 yo F admitted in pulm edema on 03/26 also cholecystitis which is improving with less need for pain meds HTN, NSTEMI On 3 lpm NC, has less abd pain, CXR from today is improving Sepsis Event Evaluation Height, Weight, BMI Height: 5'1.00" Weight: 200lbs. oz. [id number]; 41.83 BMI Method:Stated Exam Exam Patient acknowledged, consented, and participated in this virtual visit which was conducted using real time audio/video Vital Signs Date Time Temp Pulse Resp B/P (MAP) Pulse Ox O2 Delivery O2 Flow Rate FiO2 04/01/22 08:00 70 180/78 (112) 97 Nasal Cannula 3.00 04/01/22 08:00 36.5 04/01/22 07:27 66 04/01/22 07:00 64 172/71 (104) 98 Nasal Cannula 3.00 04/01/22 06:00 61 166/74 (115) 98 Nasal Cannula 3.00 04/01/22 05:30 61 157/71 (113) 97 Nasal Cannula 3.00 04/01/22 05:00 62 163/72 (121) 96 Nasal Cannula 3.00 04/01/22 04:00 62 149/68 (102) 98 Nasal Cannula 3.00 04/01/22 04:00 96 Nasal Cannula 3.00 04/01/22 03:55 36.3 04/01/22 03:00 62 145/67 (97) 97 Nasal Cannula 3.00 04/01/22 02:36 97 Nasal Cannula 3.00 04/01/22 02:00 60 161/69 (112) 99 Nasal Cannula 3.00 04/01/22 01:00 64 04/01/22 01:00 64 159/69 (105) 98 Nasal Cannula 3.00 04/01/22 00:19 36.4 04/01/22 00:00 95 Nasal Cannula 3.00 04/01/22 00:00 63 161/75 (121) 98 Nasal Cannula 3.00 03/31/22 23:00 64 172/78 (119) 97 Nasal Cannula 3.00 03/31/22 22:08 100 Nasal Cannula 3.00 03/31/22 22:00 62 167/76 (108) 99 Nasal Cannula 3.00 03/31/22 21:30 64 167/75 (115) 100 Nasal Cannula 3.00 03/31/22 21:00 60 171/85 (112) 100 NIV Bilevel 30.00 03/31/22 20:00 57 151/77 (108) 96 NIV Bilevel 30.00 03/31/22 20:00 35.4 03/31/22 20:00 96 NIV Bilevel 3.00 30 03/31/22 19:00 60 150/74 (105) 96 NIV Bilevel 30.00 03/31/22 19:00 60 03/31/22 18:48 60 22 97 25.00 03/31/22 18:00 63 155/79 (104) 98 Nasal Cannula 2.00 03/31/22 17:00 59 153/74 (100) 100 Nasal Cannula 2.00 03/31/22 16:00 97 Nasal Cannula 3.00 03/31/22 16:00 59 178/92 (120) 99 Nasal Cannula 2.00 03/31/22 16:00 36.3 03/31/22 15:00 59 163/79 (107) 98 Nasal Cannula 2.00 03/31/22 14:53 93 Nasal Cannula 2.00 03/31/22 14:00 57 136/87 (103) 100 Nasal Cannula 2.00 03/31/22 13:00 55 141/98 (112) 98 Nasal Cannula 2.00 03/31/22 12:37 56 03/31/22 12:00 98 Nasal Cannula 3.00 03/31/22 12:00 36.2 03/31/22 12:00 55 145/67 (93) 97 Nasal Cannula 2.00 03/31/22 11:42 Nasal Cannula 2.00 03/31/22 11:26 98 Nasal Cannula 2.00 03/31/22 11:00 57 148/73 (98) 98 Nasal Cannula 3.00 03/31/22 10:00 62 132/73 (92) 99 Nasal Cannula 3.00 03/31/22 09:00 67 160/74 (102) 99 Nasal Cannula 3.00 I & O 04/01/22 07:00 Intake Total 1950 ml Output Total 1640 ml Balance 310 ml Height & Weight Height: 5'1.00" Weight: 200lbs. oz. 90.859812pm; 41.83 BMI Method:Stated General Appearance: No Apparent Distress, WD/WN, Chronically ill, Obese HEENT: PERRL/EOMI, Moist Mucous Membranes; No Scleral Icterus (L), No Scleral Icterus (R) Neck: Non Tender, Supple Respiratory: Lungs Clear, No Accessory Muscle Use, Rhonci, Wheezing (bl wheeze present on expiration) Cardiovascular: Regular Rate, Rhythm, No Murmur Capillary Refill: Less Than 3 Seconds Peripheral Pulses: 1+ Dorsalis Pedis (R), 1+ Left Dors-Pedis (L); 2+ Radial Pulses (R), 2+ Radial Pulses (L) Gastrointestinal: normal bowel sounds, non tender, soft; No guarding; tenderness (RUQ), hernia (large RUQ at site of incision) Extremity: No Calf Tenderness, No Pedal Edema Neurologic/Psychiatric: Alert, Oriented x3, Normal Mood/Affect Skin: Normal Color, Cool (cool at bl ankles, weak posterior tibial pulse bl) Lymphatic: No Adenopathy (cervical) Results Lab Laboratory Tests 03/30/22 12:09 03/31/22 05:08 04/01/22 04:55 Assessment/Plan Assessment/Plan Cholecystitis, COPD, recent NSTEMI, last tropnin down at [id number] will continue on pain meds Cr 2.80, baseine is about 2.6 about same, pt has CKD would like to have renal svc to see, await visit from reconciler Cardiogist to see re NSTEMI, Critical Care: Critically Ill Patient Time spent with patient (mins): 30 JUAREZ GAN MD Apr 01, 2022 08:37
--- NOTE | 2022-04-01 10:44 | Physical Therapy Evaluation ---
PT Evaluation-General Medical Diagnosis Admission Date Mar 26, 2022 at 23:02 Medical Diagnosis: NSTEMI Onset Date: Apr 13, 2022 Therapy Diagnosis Therapy Diagnosis: generalized weakness/debility Height/Weight Height (Feet): 5 Height (Inches): 1.00 Weight (Pounds): 200 Precautions Precautions/Isolations: Fall Prevention, Standard Precautions Weight Bear Status Right Lower Extremity: Right Weight Bearing/Tolerated Left Lower Extremity: Left Weight Bearing/Tolerated Referral Physician: Aimee Reason for Referral: Evaluation/Treatment Medical History Pertinent Medical History: HTN History of Falls (past yr): Yes Prior Surgery (last 100 days): No Current History Transfer to ICU Reviewed History: Yes Social History Home: Apartment Current Living Status: Alone Entry Into Home: Level Entry Prior Prior Level of Function SCALE: Activities may be completed with or without assistive devices. 2-Fvhonhuott-idrhmbe completes the activity by him/herself with no assistance from a helper. 5-Set-up or Clean-up Assistance-helper sets up or cleans up; patient completes activity. [place] assists only prior to or following the activity. 4-Supervision or Touching Assistance-helper provides verbal cues and/or touching/steadying and/or contact guard assistance as patient completes activity. Assistance may be provided throughout the activity or intermittently. 3-Partial/Moderate Assistance-helper does LESS THAN HALF the effort. [place] lifts, holds or supports trunk or limbs, but provides less than half the effort. 2-Substantial/Maximal Assistance-helper does MORE THAN HALF the effort. [place] lifts or holds trunk or limbs and provides more than half the effort. 5-Jaqlunzpb-vpxyfw does ALL the effort. Patient does none of the effort to complete the activity. Or, the assistance of 2 or more helpers is required for the patient to complete the activity. If activity was not attempted, code reason: 7-Patient Refused. 9-Not Applicable-not attempted and the patient did not perform the activity before the current illness, exacerbation or injury. 10-Not Attempted due to Environmental Limitations-(lack of equipment, weather restraints, etc.). 88-Not Attempted due to Medical Conditions or Safety Concerns. Bed Mobility: 6 Transfers (B,C,W/C): 6 Gait: 6 Indoor Mobility (Ambulation): Independent Prior Devices Use: Walker PT Evaluation-Current Subjective Patient agrees to PT. Pain Numeric Pain Scale: 10-Worst Possible Pain Location: Right Location Body Site: Hip Pain Description: Chronic Objective Patient Orientation: Normal For Age Attachments: Oxygen, Christie Catheter ROM/Strength ROM Lower Extremities bilateral LE WFL Strength Lower Extremities 3-/5 grossly bilateral LE all planes Integumentary/Posture Integumentary refer to nursing notes Bladder Incontinence: Christie Cath Posture WFL Neuromuscular (Tone, Coordination, Reflexes) diminished coordination due to weakness Sensory Vision: Functional (2) Hearing: Functional Sensation Right Lower Extremit: Impaired Sensation Left Lower Extremity: Impaired Transfers Lying to Sitting/Side of Bed(Q: 2 Sit to Stand (QC): 2 (retropulsive) Chair/Jwe-ct-Kclqq Xfer(QC): 2 Gait Does the Patient Walk?: No and Walking Goal IS indicated Mode of Locomotion: Walk Anticipated Mode of Locomotion: Walk Distance: 5 steps Gait Assistive Device: FWW Balance Sitting Static: Fair Sitting Dynamic: Fair Standing Static: Poor Standing Dynamic: Poor Assessment/Needs 66 y.o. female, will benefit from skilled PT to address functional strength and mobility to improve current LOF. Patient is currently at max LOF with all mobility and is retropulsive with sit to stand and transfer to recliner. Rehab Potential: Guarded PT Machine Fastener Goals Machine Fastener Goals PT Machine Fastener Goals Time Frame: Apr 13, 2022 Roll Left & Right (QC): 6 Sit to Lying (QC): 6 Lying-Sitting on Side/Bed(QC): 6 Sit to Stand (QC): 4 Chair/Rhp-yt-Utzvm Xfer(QC): 4 Walk 10 feet (QC): 4 Walk 50ft with 2 Turns (QC): 4 PT Plan Problem List Problem List: Activity Tolerance, Functional Strength, Safety, Balance, Gait, Transfer, Bed Mobility Treatment/Plan Treatment Plan: Continue Plan of Care Treatment Plan: Bed Mobility, Education, Functional Activity Pj, Functional Strength, Gait, Safety, Therapeutic Exercise, Transfers Treatment Duration: Apr 13, 2022 Frequency: 6 times per week Estimated Hrs Per Day: .25 hour per day Patient and/or Family Agrees t: Yes Time/GCodes Time In: 815 Time Out: 831 Total Billed Treatment Time: 16 Total Billed Treatment 1 visit EVModC 16 min COMPA SAEED PT Apr 01, 2022 10:44
--- NOTE | 2022-04-01 11:15 | Diagnostic Imaging Report ---
INDICATION: Cough. TECHNIQUE/COMPARISON: A frontal chest was obtained at 8:20 AM and compared to 03/30/2022. FINDINGS: The heart is borderline in size. There is central vascular congestion. Compared to 03/30/2022, the bilateral infiltrates appear to be improving but not entirely resolved. There is no pneumothorax or pleural fluid. IMPRESSION: Improving bibasilar infiltrates, right greater than left, without complete resolution. No pneumothorax or pleural fluid. Dictated by: Dictated on workstation # [id number]
[2022-04-01] MEDS: ENOXAPARIN INJECTION 30 MG/0.3 ML SYR SC SCH (13:00)
--- NOTE | 2022-04-01 13:10 | Progress Note - Hospitalist ---
SHAHZAD SU 04/01/22 1310: Subjective HPI/CC On Admission Date Seen by Provider: Apr 01, 2022 Time Seen by Provider: 10:20 Subjective/Events-last exam Pt resting comfortably in chair, feeling much better today. She is no longer SOB with 97% NC 3L. Heparin DC today by cardiology. She finished her last round of zosyn this am. She refused to take ASA this morning as her PCP told her it could worsen her kidney function. Review of Systems General: No Chills, No Night Sweats HEENT: No Head Aches Pulmonary: No Dyspnea Cardiovascular: No: Chest Pain Gastrointestinal: Abdominal Pain (improved); No: Nausea, Vomiting Genitourinary: No Dysuria, No Frequency Neurological: Weakness (general weak feeling, no lateralization ); No: Numbness Objective Exam Vital Signs Vital Signs Date Time Temp Pulse Resp B/P (MAP) Pulse Ox O2 Delivery O2 Flow Rate FiO2 04/01/22 11:03 36.5 56 19 151/75 (100) 97 Nasal Cannula 3.00 03/31/22 20:00 30 Capillary Refill : Less Than 3 Seconds General Appearance: No Apparent Distress, Obese HEENT: PERRL/EOMI, Pharynx Normal Neck: Non Tender, Supple Respiratory: Chest Non Tender, Lungs Clear, Normal Breath Sounds, No Accessory Muscle Use, No Respiratory Distress Cardiovascular: Regular Rate, Rhythm, No Murmur Gastrointestinal: Normal Bowel Sounds, Non Tender (mild TTP of RUQ, this has improved); No Distended, No Guarding; Hernia (ventral hernia) Back: No CVA Tenderness Extremity: Non Tender, No Calf Tenderness Neurologic/Psychiatric: Alert, Oriented x3, Normal Mood/Affect Reflexes: 2+ Ankle (R), 2+ Ankle (L) Skin: Normal Color, Warm/Dry Lymphatic: No Adenopathy (supraclavicular or axillary ) Results/Procedures Lab Laboratory Tests 04/01/22 04:55 Patient resulted labs reviewed. Assessment/Plan Assessment and Plan Assess & Plan/Chief Complaint Respiratory Failure with hypoxia and hypercapnia - no longer requiring BIPAP. - 97% NC 3L, tolerating well Acute HFrEF - Today's CXR shows improving bibasilar infiltrates, right greater than left, without complete resolution. No pneumothorax or pleural fluid. Continue monitoring kidney function and volume status. Stable at this time. - Cardiology consulted regarding cardiac drug dosing Sepsis - resolved Acute cholecystitis with cholelithiasis - finished last round of Abx today. No significant abdominal pain at this time. - Surgery consulted. It appears cholecystectomy will be outpatient, once kidney and cardiac problems addressed. NSTEMI - troponins trended downward. Cardiology DC heparin and started DVT prophylaxis. Hypertensive Emergency - improved. Cardiology consulted regarding BP medication, recommended to avoid calcium channel blockers HLD - monitor lipids, continue medications CKD -managed by Dr. Johnson. Baseline Cr 2.2-2.4 Her Cr today is 2.8. Obesity Smoker She will be moved to medical floor and PT/OT will be added to treatment regimen. TIARA YU DO 04/02/22 0524: Subjective Subjective/Events-last exam Patient dramatically improved Moving to fourth floor Needs cardiac catheterization cholecystectomy but renal function is concerning and will delay both Review of Systems General: Fatigue, Malaise Objective Exam General Appearance: No Apparent Distress, WD/WN, Chronically ill, Obese Respiratory: Lungs Clear, Normal Breath Sounds Cardiovascular: Regular Rate, Rhythm Neurologic/Psychiatric: Alert, Oriented x3, No Motor/Sensory Deficits, Normal Mood/Affect Assessment/Plan Assessment and Plan Assess & Plan/Chief Complaint Moved to fourth floor Supervisory-Addendum Brief Verification & Attestation Participated in pt care: history, MDM, physical Personally performed: exam, history, MDM, supervision of care Care discussed with: Medical Student Procedures: n/a Results interpretation: Verified all documentation Verification and Attestation of Medical Student E/M Service A medical student performed and documented this service in my presence. I reviewed and verified all information documented by the medical student and made modifications to such information, when appropriate. I personally performed the physical exam and medical decision making. Tiara Yu, Apr 02, 2022,05:23 SHAHZAD SU Apr 01, 2022 13:10 TIARA YU DO Apr 02, 2022 05:24
--- NOTE | 2022-04-01 14:16 | Occupational Therapy Eval ---
OT Evaluation-General/PLF Medical Diagnosis Admission Date Mar 26, 2022 at 23:02 Medical Diagnosis: NSTEMI Onset Date: Apr 13, 2022 Therapy Diagnosis Therapy Diagnosis: decreased ADL status Height/Weight Height (Feet): 5 Height (Inches): 1.00 Weight (Pounds): 200 Precautions Precautions/Isolations: Fall Prevention, Standard Precautions Referral Physician: Aimee Referral Reason: Evaluation/Treatment Medical History Pertinent Medical History: HTN Additional Medical History Asthma, High Cholesterol, Hypertension, Gastroesophageal Reflux, Arthritis, Cataract, Anxiety, Depression, TBI, CKD, multiple abdominal surgeries. Current History ED due to severe abdominal pain. Social History Home: Apartment Current Living Status: Alone Entry Into Home: Level Entry ADL-Prior Level of Function SCALE: Activities may be completed with or without assistive devices. 7-Jklbbhaekn-lyovunm completes the activity by him/herself with no assistance from a helper. 5-Set-up or Clean-up Assistance-helper sets up or cleans up; patient completes activity. [place] assists only prior to or following the activity. 4-Supervision or Touching Assistance-helper provides verbal cues and/or touching/steadying and/or contact guard assistance as patient completes activity. Assistance may be provided throughout the activity or intermittently. 3-Partial/Moderate Assistance-helper does LESS THAN HALF the effort. [place] lifts, holds or supports trunk or limbs, but provides less than half the effort. 2-Substantial/Maximal Assistance-helper does MORE THAN HALF the effort. [place] lifts or holds trunk or limbs and provides more than half the effort. 9-Hjrklnfcj-qoyrip does ALL the effort. Patient does none of the effort to complete the activity. Or, the assistance of 2 or more helpers is required for the patient to complete the activity. If activity was not attempted, code reason: 7-Patient Refused. 9-Not Applicable-not attempted and the patient did not perform the activity before the current illness, exacerbation or injury. 10-Not Attempted due to Environmental Limitations-(lack of equipment, weather restraints, etc.). 88-Not Attempted due to Medical Conditions or Safety Concerns. ADL PLOF Comments Pt reports IND with ADLs and functional mobility at PLOF, using a walker Self Care: Independent Functional Cognition: Independent OT Current Status Subjective Pt in recliner, incontinent of BM with call light going off. Mental Status/Objective Patient Orientation: Person, Place, Situation Attachments: Christie Catheter, Oxygen Current Hand Dominance: Right Upper Extremity Strength grossly 3+/5 ADL-Treatment Eating (QC): 6 (IND with lunch, pt ate 100%) Toileting Hygiene (QC): 2 (Max A overall, pt incontinent of BM) Other Treatments Pt in recliner, max A sit to stand, then min A in standing. OT performed pos terior hygiene for pt, pt able to perform pericare. Another sit to stand performed, max A in order to place clean yony pad down. Pt returned seated. Post tx, pt in recliner, call light in reach and all needs met. Education OT Patient Education: Correct positioning, Modified ADL techniques, Progress toward Goal/Update tx plan, Purpose of tx/functional activities, Rehab process Teaching Recipient: Patient Teaching Methods: Discussion Response to Teaching: Verbalize Understanding, Reinforcement Needed OT Correction Goals [place] Goals Time Frame: Apr 12, 2022 Oral Hygiene (QC): 5 Toileting Hygiene (QC): 4 Shower/Bathe Self (QC): 4 Upper Body Dressing (QC): 5 Lower Body Dressing (QC): 4 On/Off Footwear (QC): 4 Additional Goals: 1-Demonstrate ADL Tasks, 2-Verbalize Understanding, 3- ImproveStrength/Pj 1=Demonstrate adherence to instructed precautions during ADL tasks. 2=Patient will verbalize/demonstrate understanding of assistive devices/modifications for ADL. 3=Patient will improve strength/tolerance for activity to enable patient to perform ADL's. OT Education/Plan Problem List/Assessment Assessment: Decreased Activ Tolerance, Decreased UE Strength, Impaired Funct Balance, Impaired I ADL's, Impaired Self-Care Skills Pt would benefit from skilled OT services at this time in order to increase safe ty and independence with ADLs and increase BUE strength and activity tolerance, in order to maximize LOF for safe return home. Discharge Recommendations Plan/Recommendations: Continue POC Treatment Plan/Plan of Care Patient would benefit from OT for education, treatment and training to promote independence in ADL's, mobility, safety and/or upper extremity function for ADL's. Plan of Care: ADL Retraining, Functional Mobility, UE Funct Exercise/Act Treatment Duration: Apr 12, 2022 Frequency: 3 times per week (3-5 times per week) Estimated Hrs Per Day: .25 hour per day Agreement: Yes Rehab Potential: Guarded Time/GCodes Start Time: 13:50 Stop Time: 14:00 Total Time Billed (hr/min): 10 Billed Treatment Time 1, RIP CASTILLO OT Apr 01, 2022 14:16
[2022-04-01] MEDS: AtorvaSTATin TABLET 10 MG TABLET PO SCH (16:09)
[2022-04-01] MEDS: HYDROcodone/APAP 5 MG/325 MG (LORTAB) TAB PO PRN (20:27)
[2022-04-01] MEDS ORDERED: cloNIDine 0.1 MG (CATAPRES) TAB ONE (22:21)
[2022-04-01] MEDS: cloNIDine 0.1 MG (CATAPRES) TAB PO PRN (22:23)
[2022-04-01] MEDS: HYDROmorphone 2 MG/ML VIAL (DILAUDID) IV PRN (23:25)
[2022-04-02] VITALS (8 sets, daily range): BP systolic 143–184; BP diastolic 68–87
[2022-04-02] MEDS: fentaNYL INJ 100 MCG/2 ML AMP IV PRN (02:27)
[2022-04-02] MEDS: RT-ALBUTEROL/IPRATROPIUM 3 ML (DUONEB) VIAL INH SCH ×6 (02:41→22:48)
[2022-04-02] MEDS: cloNIDine 0.1 MG (CATAPRES) TAB PO PRN ×3 (03:27→22:58)
[2022-04-02] MEDS: HYDROmorphone 2 MG/ML VIAL (DILAUDID) IV PRN (03:28)
[2022-04-02] MEDS: LABETALOL HCL 20 MG/4 ML VIAL IV PRN ×2 (04:46→04:54)
[2022-04-02 05:35] LABS: BASOPHILS % (AUTO) 0 % (0-10); EOSINOPHILS # (AUTO) 0.3 10^3/uL (0.0-0.3); EOSINOPHILS % (AUTO) 4 % (0-10); HEMATOCRIT 32 % (35-52); HEMOGLOBIN 9.9 g/dL (11.5-16.0); LYMPHOCYTES # (AUTO) 0.5 10^3/uL (1.0-4.0); LYMPHOCYTES % (AUTO) 7 % (12-44); MEAN CORPUSCULAR HEMOGLOBIN 30 pg (25-34); MEAN CORPUSCULAR HGB CONC 31 g/dL (32-36); MEAN CORPUSCULAR VOLUME 96 fL (80-99); MEAN PLATELET VOLUME 8.9 fL (9.0-12.2); MONOCYTES # (AUTO) 0.6 10^3/uL (0.0-1.0); MONOCYTES % (AUTO) 7 % (0-12); NEUTROPHILS # (AUTO) 5.7 10^3/uL (1.8-7.8); NEUTROPHILS % (AUTO) 77 % (42-75); PLATELET COUNT 168 10^3/uL (130-400); WHITE BLOOD COUNT 7.4 10^3/uL (4.3-11.0)
[2022-04-02 05:56] LABS: ALBUMIN 2.9 GM/DL (3.2-4.5); BILIRUBIN,TOTAL 0.4 MG/DL (0.1-1.0); CALCIUM 9.2 MG/DL (8.5-10.1); CREATININE SERUM 2.65 MG/DL (0.60-1.30); MAGNESIUM 1.8 MG/DL (1.6-2.4); POTASSIUM 5.1 MMOL/L (3.6-5.0); TOTAL PROTEIN 6.8 GM/DL (6.4-8.2)
[2022-04-02] MEDS: inSUlin ASPART (NovoLOG) 1 UNIT/0.01 ML (CHARGE PER UNIT) SC SCH ×4 (05:58→22:59)
[2022-04-02] MEDS: hydrALAZINE (APRESOLINE) 25 MG TAB PO SCH ×3 (06:00→19:35)
[2022-04-02 06:40] LABS: LYMPHOCYTES % (MANUAL) 7 %; NEUTROPHILS % (MANUAL) 78 %
[2022-04-02 06:41] LABS: ATYPICAL LYMPHOCYTES 1 %; EOSINOPHILS % (MANUAL) 7 %; MONOCYTES % (MANUAL) 7 %
--- NOTE | 2022-04-02 08:52 | Progress Note - Surgery ---
GUERITA MAYEN 04/02/22 0852: Subjective Date Seen by a Provider: Apr 02, 2022 Time Seen by a Provider: 08:10 Subjective/Events-last exam Pt is lying in bed comfortably awaiting breakfast and breathing treatment with respiratory therapy. She reports 2/10 pain in RUQ on palpation that is improved from yesterday. She reports soft/liquid BM last night and is draining clear yellow urine via catheter. She is tolerating solid food with good appetite. No complaints of N/V. Pt seems mildly confused when answering questions about where her pain is and her events of the last night. She denied any chest pain or shortness of breath today. Mild wheezing still present bilaterally more clearly in the lower lobes. Review of Systems General: No Chills, No Night Sweats HEENT: No Head Aches Pulmonary: No Dyspnea, No Cough Cardiovascular: No: Chest Pain, Palpitations, Lt Headedness Gastrointestinal: Abdominal Pain (2/10 in RUQ); No: Nausea, Vomiting Genitourinary: No Dysuria, No Hematuria Objective Exam Vital Signs Date Time Temp Pulse Resp B/P (MAP) Pulse Ox O2 Delivery O2 Flow Rate FiO2 04/02/22 08:12 36.3 66 18 176/82 (113) 96 Nasal Cannula 2.00 04/02/22 08:01 Nasal Cannula 3.00 04/02/22 07:48 96 Nasal Cannula 2.00 04/02/22 07:42 98 Nasal Cannula 3.00 04/02/22 07:04 63 04/02/22 05:46 65 169/75 (106) 04/02/22 04:40 36.2 67 20 184/87 (119) 97 Nasal Cannula 3.00 04/02/22 02:42 96 Nasal Cannula 3.00 04/02/22 01:00 61 04/01/22 23:18 36.4 60 18 171/81 (111) 97 Nasal Cannula 3.00 04/01/22 22:17 55 04/01/22 22:05 71 18 96 25.00 04/01/22 20:10 Nasal Cannula 3.00 04/01/22 19:13 36.5 61 20 179/79 (112) 99 Nasal Cannula 3.00 04/01/22 18:48 98 Nasal Cannula 3.00 04/01/22 15:34 36.2 59 19 165/52 (89) 100 Nasal Cannula 3.00 04/01/22 14:30 94 Nasal Cannula 3.00 04/01/22 11:03 36.5 56 19 151/75 (100) 97 Nasal Cannula 3.00 04/01/22 10:45 Nasal Cannula 3.00 04/01/22 10:05 97 Nasal Cannula 3.00 04/01/22 10:00 63 148/66 (93) 97 Nasal Cannula 2.00 04/01/22 09:00 66 164/81 (108) 98 Nasal Cannula 3.00 04/01/22 09:00 66 164/81 (108) 98 Nasal Cannula 3.00 I & O 04/02/22 07:00 Intake Total 1455 ml Output Total 2325 ml Balance -870 ml Capillary Refill : Less Than 3 Seconds General Appearance: No Apparent Distress, WD/WN, Chronically ill, Obese HEENT: PERRL/EOMI, Pharynx Normal; No Scleral Icterus (L), No Scleral Icterus (R) Neck: Non Tender, Supple Respiratory: Lungs Clear, Normal Breath Sounds Cardiovascular: Regular Rate, Rhythm, No Murmur Peripheral Pulses: 1+ Dorsalis Pedis (R), 1+ Left Dors-Pedis (L); 2+ Radial Pulses (R), 2+ Radial Pulses (L) Gastrointestinal: soft; No guarding; tenderness (RUQ), hernia (large RUQ at site of incision) Extremity: Non Tender, No Calf Tenderness Neurologic/Psychiatric: Alert, Oriented x3, No Motor/Sensory Deficits, Normal Mood/Affect Skin: Normal Color, Warm/Dry Lymphatic: No Adenopathy (supraclavicular or axillary ) Results Lab Laboratory Tests 04/01/22 11:29: Glucometer 106 04/01/22 17:07: Glucometer 101 04/01/22 23:29: Glucometer 115H 04/02/22 05:25: White Blood Count 7.4, Red Blood Count 3.27L, Hemoglobin 9.9L, Hematocrit 32L, Mean Corpuscular Volume 96, Mean Corpuscular Hemoglobin 30, Mean Corpuscular Hemoglobin Concent 31L, Red Cell Distribution Width 14.3, Platelet Count 168, Mean Platelet Volume 8.9L, Immature Granulocyte % (Auto) 4, Neutrophils (%) (Auto) 77H, Lymphocytes (%) (Auto) 7L, Monocytes (%) (Auto) 7, Eosinophils (%) (Auto) 4, Basophils (%) (Auto) 0, Neutrophils # (Auto) 5.7, Lymphocytes # (Auto) 0.5L, Monocytes # (Auto) 0.6, Eosinophils # (Auto) 0.3, Basophils # (Auto) 0.0, Immature Granulocyte # (Auto) 0.3H, Neutrophils % (Manual) 78, Lymphocytes % (Manual) 7, Monocytes % (Manual) 7, Eosinophils % (Manual) 7, Band Neutrophils , Atypical Lymphocytes 1, Sodium Level 134L, Potassium Level 5.1H, Chloride Level 101, Carbon Dioxide Level 23, Anion Gap 10, Blood Urea Nitrogen 36H, Creatinine 2.65H, Estimat Glomerular Filtration Rate 20, BUN/Creatinine Ratio 14, Glucose Level 113H, Calcium Level 9.2, Corrected Calcium 10.1, Magnesium Level 1.8, Total Bilirubin 0.4, Aspartate Amino Transf (AST/SGOT) 15, Alanine Aminotransferase (ALT/SGPT) 18, Alkaline Phosphatase 200H, Total Protein 6.8, Albumin 2.9L Microbiology 03/30/22 MRSA Screen - Final, Complete MRSA not isolated 03/27/22 Blood Culture - Final, Complete No growth 03/26/22 Urine Culture - Final, Complete NO GROWTH Assessment/Plan Assessment/Plan Assessment/Plan Possible Acute Cholecystitis with Cholelithiasis - WBC now normal 7.4 today, mild RUQ tenderness Respiratory distress- on 3L NC and does not appear to be in respiratory distress, no bipap required last night, CXR 04/01 showed improvement of infiltrates but not completely resolved Chronic Renal Failure - possibly getting worse creatinine 2.65 Hypertensive emergency- BP still elevated, 169/75 today, clonidine ordered NSTEMI- troponins trended down last measured .198, cath planned for 04/03 DM Leukocytosis- resolved, 7.4 today Incarcerated Ventral/Incisional hernia Pts respiratory status is much better today on 3L by nasal canula. White count is stable, IV abx discontinued. Bilateral lung infiltrates improving, continue breathing treatment. Pt reports she still does not have definitive answer on timing of cardiac catheterization, last note reviewed, Dr Mendiola intends to do cath 04/03 if renal function does not worsen.. Continue sliding scale insulin, last glucose measurement was 115. Cholecystectomy when appropriate; most likely will do as an outpt because she is improving and need to take care of cardiac issues first. ANGUS GONZALES DO 04/03/22 1335: Subjective Time Seen by a Provider: 12:08 Subjective/Events-last exam Pt seen and examined, no changes and feels like abdominal pain is better. Tolerating diet. She is not sure when heart cath will be done. Review of Systems General: No Chills, No Night Sweats HEENT: No Head Aches Pulmonary: No Dyspnea, No Cough Cardiovascular: No: Chest Pain, Palpitations Gastrointestinal: Abdominal Pain (2/10 in RUQ); No: Nausea, Vomiting Objective Exam General Appearance: No Apparent Distress, Chronically ill, Obese HEENT: Pharynx Normal Respiratory: Lungs Clear, Normal Breath Sounds Cardiovascular: Regular Rate, Rhythm, No Murmur Gastrointestinal: soft; No guarding; tenderness (RUQ), hernia (large RUQ at site of incision) Extremity: Non Tender, No Calf Tenderness Neurologic/Psychiatric: Alert, Oriented x3 Assessment/Plan Assessment/Plan Assessment/Plan Cholecystitis with Cholelithiasis - WBC now normal 7.4 today, mild RUQ tenderness (probably from hernia) Respiratory distress- much better and CXR improving Chronic Renal Failure - possibly getting worse creatinine 2.65 Hypertensive emergency- BP still elevated, 169/75 today, clonidine ordered NSTEMI- troponins trended down last measured .198, cath planned for 04/03 DM Leukocytosis- resolved, 7.4 today Incarcerated Ventral/Incisional hernia Pts respiratory status is much better today on 3L by nasal canula. White count is stable, IV abx discontinued. Bilateral lung infiltrates improving, continue breathing treatment. Pt reports she still does not have definitive answer on timing of cardiac catheterization, last note reviewed, Dr Mendiola intends to do cath 04/03 if renal function does not worsen.. Continue sliding scale insulin, last glucose measurement was 115. Cholecystectomy when appropriate; most likely will do as an outpt because she is improving and need to take care of cardiac issues first. Supervisory-Addendum Brief Verification & Attestation Participated in pt care: history, MDM, physical Personally performed: exam, history, MDM, supervision of care Care discussed with: Medical Student Procedures: n/a Verification and Attestation of Medical Student E/M Service A medical student performed and documented this service. I then reviewed and verified all information documented by the medical student and made modifications to such information, when appropriate. I personally performed a physical exam, medical decision making and then discussed any differences between the notes and made revisions as necessary to create one note. Angus Gonzales , 04/03/22 , 13:35 GUERITA MAYEN Apr 02, 2022 08:52 ANGUS GONZALES DO Apr 03, 2022 13:35
--- NOTE | 2022-04-02 09:31 | Physical Therapy Daily Note ---
PT Daily Note-Current Subjective Patient is confused. Agrees to PT. Has difficulty with following simple direction. Pain Section J - Health Conditions 1. Rarely or not at all 2. Occasionally 3. Frequently 4. Almost constantly 8. Unable to answer Pain Effect on Sleep: 8 Pain Interference with Therapy: 8 Pain Interference w/Day-to-Day: 8 Mental Status Patient Orientation: Confused Attachments: Oxygen, Christie Catheter Transfers SCALE: Activities may be completed with or without assistive devices. 3-Frtegppqna-ikpfiiv completes the activity by him/herself with no assistance from a helper. 5-Set-up or Clean-up Assistance-helper sets up or cleans up; patient completes activity. [place] assists only prior to or following the activity. 4-Supervision or Touching Assistance-helper provides verbal cues and/or touching/steadying and/or contact guard assistance as patient completes activity. Assistance may be provided throughout the activity or intermittently. 3-Partial/Moderate Assistance-helper does LESS THAN HALF the effort. [place] lifts, holds or supports trunk or limbs, but provides less than half the effort. 2-Substantial/Maximal Assistance-helper does MORE THAN HALF the effort. [place] lifts or holds trunk or limbs and provides more than half the effort. 4-Fyqtvvxiv-lidesi does ALL the effort. Patient does none of the effort to complete the activity. Or, the assistance of 2 or more helpers is required for the patient to complete the activity. If activity was not attempted, code reason: 7-Patient Refused. 9-Not Applicable-not attempted and the patient did not perform the activity before the current illness, exacerbation or injury. 10-Not Attempted due to Environmental Limitations-(lack of equipment, weather restraints, etc.). 88-Not Attempted due to Medical Conditions or Safety Concerns. Lying to Sitting/Side of Bed(Q: 1 Sit to Stand (QC): 2 Chair/Cua-im-Bpujv Xfer(QC): 2 patient is retropulsive with sit to stand and in seated position with inability to self correct. Patient impulsive to sit in recliner with poor body position and is unaware of safety concerns Weight Bearing Right Lower Extremity: Right Weight Bearing/Tolerated Left Lower Extremity: Left Weight Bearing/Tolerated Exercises Supine Ex: Ankle pumps, Heel Slides, Straight leg raise, Hip abd/add Supine Reps: 12 (PROM with patient resisting) Seated Therapy Exercises: Long arc quads Seated Reps: 12 (AAROM in recliner) Assessment Patient is up in recliner with needs met. patient's SAO2 remains >90% with activity with O2 in place. Patient continues to have difficulty with following simple direction. RN notified. PT Intermediate Goals Icing And Glaze Maker Goals PT Intermediate Goals Time Frame: Apr 13, 2022 Roll Left & Right (QC): 6 Sit to Lying (QC): 6 Lying-Sitting on Side/Bed(QC): 6 Sit to Stand (QC): 4 Chair/Ysu-gf-Xvdzx Xfer(QC): 4 Walk 10 feet (QC): 4 Walk 50ft with 2 Turns (QC): 4 PT Plan Treatment/Plan Treatment Plan: Continue Plan of Care Treatment Plan: Bed Mobility, Education, Functional Activity Pj, Functional Strength, Gait, Safety, Therapeutic Exercise, Transfers Treatment Duration: Apr 13, 2022 Frequency: 6 times per week Estimated Hrs Per Day: .25 hour per day Patient and/or Family Agrees t: Yes Time/GCodes Time In: 850 Time Out: 913 Total Billed Treatment Time: 23 Total Billed Treatment 1 visit FA 10 min EX 13 min COMPA SAEED PT Apr 02, 2022 09:31
[2022-04-02] MEDS: GABAPENTIN 300 MG (NEURONTIN) CAP PO SCH ×3 (09:40→19:35)
[2022-04-02] MEDS: FERROUS SULF 325 MG (IRON) TAB PO SCH ×2 (09:40→17:13)
[2022-04-02] MEDS: PANTOPRAZOLE 40 MG (PROTONIX) TAB PO SCH ×2 (09:40→17:13)
[2022-04-02] MEDS: FLUoxetine HCL 20 MG (PROzac) CAP PO SCH (09:40)
[2022-04-02] MEDS: meTOproloL SUCCINATE 50 MG (TOPROL XL) TAB PO SCH ×2 (09:41→19:34)
[2022-04-02] MEDS: SODIUM BICARBONATE 650 MG TABLET PO SCH ×2 (09:41→19:35)
[2022-04-02] MEDS: ASPIRIN E.C. 81 MG (ECOTRIN) TAB PO SCH (09:41)
[2022-04-02] MEDS: OMEGA 3 (FISH OIL) 1000 MG CAP PO SCH (09:41)
[2022-04-02] MEDS: CYCLOBENZAPRINE 10 MG (FLEXERIL) TAB PO SCH ×3 (09:41→19:34)
[2022-04-02] MEDS: ISOSORBIDE MONONITRATE 60 MG (IMDUR) TAB PO SCH (09:41)
[2022-04-02] MEDS: KCL 20 MEQ TAB (K-DUR) PO SCH ×2 (09:41→19:35)
[2022-04-02] MEDS: MICONAZOLE 2% POWDER (DESENEX AF) 90 GM TOP SCH ×2 (09:42→22:58)
[2022-04-02] MEDS: BRIMONIDINE 0.2% (ALPHAGAN) OPHTH SOLN 5 ML BTL OU SCH ×2 (09:42→19:35)
[2022-04-02] MEDS: TIMOLOL MALEATE 0.5% 5 ML (TIMOPTIC) BTL OU SCH ×2 (09:43→19:37)
[2022-04-02] MEDS ORDERED: CATHETER FLUSH 10 ML SYR IV PRN (09:45)
--- NOTE | 2022-04-02 09:56 | Cardiology Progress Note ---
Progress Note-Cardiology Events since last exam Date Seen by Provider: Apr 02, 2022 Time Seen by Provider: 09:54 Events since last exam I am following her due to NSTEMI and acute heart failure with reduced ejection fraction. On 04/01, she was transferred out of the ICU to the medical floor. She was sitting up in a chair eating breakfast. She gets some mild chest discomfort when she coughs but the cough is improving. She denies dyspnea at rest. She denies palpitations, syncope, or ankle edema. She has been refusing to take low strength aspirin because her batch attendant told her not to take aspirin because of her kidneys. Drag Vitals Last set of Vitals Signs Vital Signs 03/31/22 04/02/22 20:00 08:12 Temp 36.3 Pulse 66 Resp 18 B/P (MAP) 176/82 (113) Pulse Ox 96 O2 Delivery Nasal Cannula O2 Flow Rate 2.00 FiO2 30 Labs Labs Laboratory Tests 04/02/22 05:25 Exam Vital Signs Vital Signs Date Time Temp Pulse Resp B/P (MAP) Pulse Ox O2 Delivery O2 Flow Rate FiO2 04/02/22 08:12 36.3 66 18 176/82 (113) 96 Nasal Cannula 2.00 03/31/22 20:00 30 Physical Exam General: Alert. No acute distress. She is obese. She is wearing oxygen by nasal cannula. Eye: No xanthelasma. HENT: Normocephalic. Neck: Jugular venous pressure does not appear elevated. Respiratory: Lungs are clear to auscultation but decreased at the bases bilaterally.. Respirations are non-labored. Breath sounds are equal. Symmetrical chest wall expansion. Cardiovascular: Normal rate. Regular rhythm. 2/6 systolic ejection murmur. No gallop. No edema. Gastrointestinal: Soft. Normal bowel sounds. Skin: Warm. Dry. Neurologic: Alert and oriented to person, place, time. Cranial nerves 3-11 grossly intact. Psychiatric: Cooperative. Appropriate mood & affect. Labs Laboratory Tests Test 04/01/22 11:29 04/01/22 17:07 04/01/22 23:29 04/02/22 05:25 Range/Units Glucometer 106 101 115 H 70-110 MG/DL White Blood Count 7.4 4.3-11.0 10^3/uL Red Blood Count 3.27 L 3.80-5.11 10^6/uL Hemoglobin 9.9 L 11.5-16.0 g/dL Hematocrit 32 L 35-52 % Mean Corpuscular Volume 96 80-99 fL Mean Corpuscular Hemoglobin 30 25-34 pg Mean Corpuscular Hemoglobin Concent 31 L 32-36 g/dL Red Cell Distribution Width 14.3 10.0-14.5 % Platelet Count 168 130-400 10^3/uL Mean Platelet Volume 8.9 L 9.0-12.2 fL Immature Granulocyte % (Auto) 4 % Neutrophils (%) (Auto) 77 H 42-75 % Lymphocytes (%) (Auto) 7 L 12-44 % Monocytes (%) (Auto) 7 0-12 % Eosinophils (%) (Auto) 4 0-10 % Basophils (%) (Auto) 0 0-10 % Neutrophils # (Auto) 5.7 1.8-7.8 10^3/uL Lymphocytes # (Auto) 0.5 L 1.0-4.0 10^3/uL Monocytes # (Auto) 0.6 0.0-1.0 10^3/uL Eosinophils # (Auto) 0.3 0.0-0.3 10^3/uL Basophils # (Auto) 0.0 0.0-0.1 10^3/uL Immature Granulocyte # (Auto) 0.3 H 0.0-0.1 10^3/uL Neutrophils % (Manual) 78 % Lymphocytes % (Manual) 7 % Monocytes % (Manual) 7 % Eosinophils % (Manual) 7 % Band Neutrophils % Atypical Lymphocytes 1 % Sodium Level 134 L 135-145 MMOL/L Potassium Level 5.1 H 3.6-5.0 MMOL/L Chloride Level 101 98-107 MMOL/L Carbon Dioxide Level 23 21-32 MMOL/L Anion Gap 10 5-14 MMOL/L Blood Urea Nitrogen 36 H 7-18 MG/DL Creatinine 2.65 H 0.60-1.30 MG/DL Estimat Glomerular Filtration Rate 20 BUN/Creatinine Ratio 14 Glucose Level 113 H 70-105 MG/DL Calcium Level 9.2 8.5-10.1 MG/DL Corrected Calcium 10.1 8.5-10.1 MG/DL Magnesium Level 1.8 1.6-2.4 MG/DL Total Bilirubin 0.4 0.1-1.0 MG/DL Aspartate Amino Transf (AST/SGOT) 15 5-34 U/L Alanine Aminotransferase (ALT/SGPT) 18 0-55 U/L Alkaline Phosphatase 200 H 40-136 U/L Total Protein 6.8 6.4-8.2 GM/DL Albumin 2.9 L 3.2-4.5 GM/DL Diagnosis/Problems Diagnosis/Problems (1) Non-ST elevation myocardial infarction (NSTEMI), initial care episode Assessment & Plan: She appears to have suffered a possible non-ST elevation myocardial infarction. Her troponins trended downward. Her echocardiogram shows findings consistent with stress-induced cardiomyopathy (Takotsubo cardiomyopathy) but this can only be diagnosed at cardiac catheterization. Takotsubo cardiomyopathy also causes a troponin rise and fall and electrocardiogram changes. I have started her on aspirin, restarted her beta- amadeo and intensified her dose of statin medication. She received intravenous heparin since around the time of admission for over 5 days. I stopped the IV heparin on 04/01.. I took the liberty of ordering the DVT prophylaxis dose of enoxaparin. Her renal function continues to be tenuous. We ultimately may want to consider a cardiac catheterization but we will need to wait for her renal function to stabilize. (2) Acute HFrEF (heart failure with reduced ejection fraction) Assessment & Plan: Her chest x-rays have shown evidence of pulmonary edema. Her intravenous fluids that she received early during the admission were discontinued. I am concerned about giving her intravenous diuretic due to her renal function but she did receive some intravenous furosemide over the weekend. (3) Cardiomyopathy Assessment & Plan: As above, she may have Takotsubo cardiomyopathy. There is no indication that this is ischemic cardiomyopathy but that is certainly in the differential diagnosis. I changed her metoprolol tartrate over to metoprolol succinate but then she was started back on metoprolol tartrate over the weekend due to hypertension. The cardiology guidelines for the management of cardiomyopathy and heart failure with reduced ejection fraction recommend metoprolol succinate, carvedilol or bisoprolol as beta-blockers of choice for treatment of cardiomyopathy. I stop the metoprolol tartrate and increased the metoprolol succinate. She is not currently a candidate for JUAN RAMON inhibitor, ARB, aldosterone antagonist or Entresto due to the worsening renal function. Since she cannot take any of these medications, I started her on hydralazine and ni trates on 04/01. The hydralazine was increased this morning due to persistent hypertension. The normal maximum dose of hydralazine is 200 mg/day so we do have a little room to move. (4) Hypertensive emergency Assessment & Plan: Blood pressures remain elevated at times. I agree with increasing the dose of hydralazine as ordered by the hospitalist. If her blood pressure remains elevated, we can increase the hydralazine to a total daily dose of 200 mg as noted above. I would avoid using calcium channel blockers as this could cause worsening heart failure. (5) Mixed hyperlipidemia Assessment & Plan: She was taking atorvastatin at home and I intensified the dose due to the possible non-ST elevation myocardial infarction. (6) Sepsis Assessment & Plan: She was febrile, had an elevated white count and tachycardia. These findings are all concerning for sepsis although she did not develop hypotension. This condition seems to have improved. (7) Primary hypertension Assessment & Plan: As above. (8) Coronary artery disease with unstable angina pectoris Assessment & Plan: As above. (9) Cholelithiasis Assessment & Plan: General surgery is following her and recommend cholecystectomy at some point in time. However, due to the active cardiac issues, performing surgery now would not be ideal and would potentially increase the risk of possible cardiac complications. (10) Acute kidney injury superimposed on chronic kidney disease Assessment & Plan: According to her batch attendant, her creatinine hovers around 2.2-2.4. This would make a cardiac catheterization somewhat risky because we could put her into renal failure due to the contrast load. Her renal function will need to be monitored closely. This makes timing of a cardiac catheterization somewhat difficult. I did ask her about her thoughts on hemodialysis and she said that if her renal function gets worse and her neph rologist recommends hemodialysis, she would not be opposed. (11) Cigarette smoker Assessment & Plan: She needs to quit smoking. (12) Morbid obesity Assessment & Plan: She needs to work on weight loss. Some of the weight change here in the hospital could be due to volume retention. JEREMIAS MANNING JR, MD Apr 02, 2022 09:55
--- NOTE | 2022-04-02 11:13 | Occupational Ther Daily Note ---
OT Current Status-Daily Note Subjective Pt up in recliner, appeared slightly confused during tx, talking about random topics, and not fully answering all questions/following instructions. Mental Status/Objective Patient Orientation: Person, Confused Attachments: Christie Catheter, Oxygen ADL-Treatment Therapy Code Descriptions/Definitions Functional Rico Measure: 0=Not Assessed/NA 4=Minimal Assistance 1=Total Assistance 5=Supervision or Setup 2=Maximal Assistance 6=Modified Rico 3=Moderate Assistance 7=Complete IndependenceSCALE: Activities may be completed with or without assistive devices. 2-Bqibtubvjs-aaclsvf completes the activity by him/herself with no assistance from a helper. 5-Set-up or Clean-up Assistance-helper sets up or cleans up; patient completes activity. [employer] assists only prior to or following the activity. 4-Supervision or Touching Assistance-helper provides verbal cues and/or touching/steadying and/or contact guard assistance as patient completes activity. Assistance may be provided throughout the activity or intermittently. 3-Partial/Moderate Assistance-helper does LESS THAN HALF the effort. [employer] lifts, holds or supports trunk or limbs, but provides less than half the effort. 2-Substantial/Maximal Assistance-helper does MORE THAN HALF the effort. [employer] lifts or holds trunk or limbs and provides more than half the effort. 2-Axfshgwoo-xnjsjk does ALL the effort. Patient does none of the effort to complete the activity. Or, the assistance of 2 or more helpers is required for the patient to complete the activity. If activity was not attempted, code reason: 7-Patient Refused. 9-Not Applicable-not attempted and the patient did not perform the activity before the current illness, exacerbation or injury. 10-Not Attempted due to Environmental Limitations-(lack of equipment, weather restraints, etc.). 88-Not Attempted due to Medical Conditions or Safety Concerns. Other Treatment Pt up in recliner, moving items on tray table. OT removed pt's breakfast tray at pt request, keeping coffee on her side table. Pt agreeable to OT tx with focus on increasing BUE strength and activity tolerance. Pt completed x10 reps each of the following exercises: shoulder flexion, front punch, and finger flexion/extension. Pt required moderate verbal cues and demonstration of exercises throughout, pt easily distractable. Post tx, pt in recliner, call light in reach and all needs met. Education OT Patient Education: Correct positioning, Energy conservation, Exercise program, Modified ADL techniques, Progress toward Goal/Update tx plan, Purpose of tx/functional activities, Rehab process Teaching Recipient: Patient Teaching Methods: Demonstration, Discussion Response to Teaching: Verbalize Understanding, Return Demonstration, Reinforcement Needed OT Chcf Goals Chcf Goals Time Frame: Apr 12, 2022 Oral Hygiene (QC): 5 Toileting Hygiene (QC): 4 Shower/Bathe Self (QC): 4 Upper Body Dressing (QC): 5 Lower Body Dressing (QC): 4 On/Off Footwear (QC): 4 Additional Goals: 1-Demonstrate ADL Tasks, 2-Verbalize Understanding, 3- ImproveStrength/Pj 1=Demonstrate adherence to instructed precautions during ADL tasks. 2=Patient will verbalize/demonstrate understanding of assistive devices/modifications for ADL. 3=Patient will improve strength/tolerance for activity to enable patient to perform ADL's. OT Education/Plan Problem List/Assessment Assessment: Decreased Activ Tolerance, Decreased UE Strength, Impaired Funct Balance, Impaired I ADL's, Impaired Self-Care Skills Pt would benefit from skilled OT services at this time in order to increase safety and independence with ADLs and increase BUE strength and activity tolerance, in order to maximize LOF for safe return home. Discharge Recommendations Plan/Recommendations: Continue POC Treatment Plan/Plan of Care Patient would benefit from OT for education, treatment and training to promote independence in ADL's, mobility, safety and/or upper extremity function for ADL's. Plan of Care: ADL Retraining, Functional Mobility, UE Funct Exercise/Act Treatment Duration: Apr 12, 2022 Frequency: 3 times per week (3-5 times per week) Estimated Hrs Per Day: .25 hour per day Agreement: Yes Rehab Potential: Guarded Time/GCodes Start Time: 10:25 Stop Time: 10:35 Total Time Billed (hr/min): 10 Billed Treatment Time 1, EX RIP PAREDES OT Apr 02, 2022 11:13
--- NOTE | 2022-04-02 12:25 | Progress Note - Hospitalist ---
SALLIELATASHA 04/02/22 1225: Subjective HPI/CC On Admission Date Seen by Provider: Apr 02, 2022 Time Seen by Provider: 12:25 Subjective/Events-last exam Pt is resting comfortably in bed eating. Pt states that she has no complaints at this time. Pt's blood pressure was elevated today but has improved with additional hydralazine. Pt is back on her home 2L of oxygen and has an oxygen sat of 97%. Pt's Cr continues to improve and has decreased to 2.65 from 2.8 yesterday, which is near the pt's baseline Cr per Dr. Johnson. Cardiology and Dr. Johnson have decided that the pt will proceed with cardiac catherization tomorrow. Cholecystectomy is still planned to proceed on an outpatient basis pending the results of the cardiac catherization. Pt denies nausea, vomiting, CP, and diarrhea. Review of Systems General: No Chills, No Night Sweats HEENT: No Head Aches, No Visual Changes Pulmonary: No Cough, No Pleuritic Chest Pain Cardiovascular: No: Chest Pain, Palpitations Gastrointestinal: No: Nausea, Vomiting, Abdominal Pain Genitourinary: No Dysuria, No Frequency Musculoskeletal: No: neck pain, shoulder pain Neurological: No: Weakness, Numbness Objective Exam Vital Signs Vital Signs Date Time Temp Pulse Resp B/P (MAP) Pulse Ox O2 Delivery O2 Flow Rate FiO2 04/02/22 11:55 35.8 66 18 143/68 (93) 90 Room Air 04/02/22 11:02 2.00 03/31/22 20:00 30 Capillary Refill : Less Than 3 Seconds General Appearance: No Apparent Distress, Obese HEENT: PERRL/EOMI, Moist Mucous Membranes Neck: Normal Inspection, Supple Respiratory: Chest Non Tender, Normal Breath Sounds, No Accessory Muscle Use Cardiovascular: Regular Rate, Rhythm, No Gallop, No Murmur Gastrointestinal: Non Tender, Soft Back: Normal Inspection, No CVA Tenderness Extremity: Normal Inspection, Non Tender, No Calf Tenderness Neurologic/Psychiatric: Alert, Oriented x3 Skin: Normal Color, Warm/Dry Lymphatic: No Adenopathy Results/Procedures Lab Laboratory Tests 04/02/22 05:25 Patient resulted labs reviewed. Assessment/Plan Assessment and Plan Assess & Plan/Chief Complaint Respiratory Failure with hypoxia and hypercapnia -back on home O2 of 2L NC at 97% and tolerating well Acute HFrEF Sepsis - resolved Acute cholecystitis with cholelithiasis NSTEMI Hypertensive Emergency HLD CKD Obesity Smoker Continue to monitor BP and address as needed Cr continues to trend down to baseline, continue to monitor Pt is scheduled to have a cardiac catherization tomorrow, NPO after midnight Pt's leukocytosis has resolved, surgery has discontinued IV abx TIARA HUIZAR DO 04/03/22 0528: Subjective Subjective/Events-last exam Pt is doing pretty well Much improved status BP managed with Hydralazine Cardiac cath will be done by Dr. Mendiola for diagnostic purposes Then we will have a plan for cholecystectomy Supervisory-Addendum Brief Verification & Attestation Participated in pt care: history, MDM, physical Personally performed: exam, history, MDM, supervision of care Care discussed with: Medical Student Procedures: n/a Results interpretation: Verified all documentation Verification and Attestation of Medical Student E/M Service A medical student performed and documented this service in my presence. I reviewed and verified all information documented by the medical student and made modifications to such information, when appropriate. I personally performed the physical exam and medical decision making. Tiara Huizar, Apr 03, 2022,05:28 LATASHA RIZO Apr 02, 2022 12:25 TIARA HUIZAR DO Apr 03, 2022 05:28
[2022-04-02] MEDS: ENOXAPARIN INJECTION 30 MG/0.3 ML SYR SC SCH (13:47)
[2022-04-02] MEDS: AtorvaSTATin TABLET 10 MG TABLET PO SCH (17:13)
[2022-04-03] VITALS (12 sets, daily range): BP systolic 129–186; BP diastolic 52–75
[2022-04-03] MEDS: RT-ALBUTEROL/IPRATROPIUM 3 ML (DUONEB) VIAL INH SCH ×6 (02:25→22:11)
[2022-04-03 06:31] LABS: BASOPHILS % (AUTO) 0 % (0-10); EOSINOPHILS # (AUTO) 0.2 10^3/uL (0.0-0.3); EOSINOPHILS % (AUTO) 3 % (0-10); HEMATOCRIT 28 % (35-52); HEMOGLOBIN 9.1 g/dL (11.5-16.0); LYMPHOCYTES # (AUTO) 0.6 10^3/uL (1.0-4.0); LYMPHOCYTES % (AUTO) 9 % (12-44); MEAN CORPUSCULAR HEMOGLOBIN 31 pg (25-34); MEAN CORPUSCULAR HGB CONC 32 g/dL (32-36); MEAN CORPUSCULAR VOLUME 96 fL (80-99); MEAN PLATELET VOLUME 9.5 fL (9.0-12.2); MONOCYTES # (AUTO) 0.6 10^3/uL (0.0-1.0); MONOCYTES % (AUTO) 9 % (0-12); NEUTROPHILS # (AUTO) 5.3 10^3/uL (1.8-7.8); NEUTROPHILS % (AUTO) 77 % (42-75); PLATELET COUNT 161 10^3/uL (130-400)
[2022-04-03] MEDS: inSUlin ASPART (NovoLOG) 1 UNIT/0.01 ML (CHARGE PER UNIT) SC SCH ×3 (06:31→17:50)
[2022-04-03 06:52] LABS: ALBUMIN 2.6 GM/DL (3.2-4.5); BILIRUBIN,TOTAL 0.4 MG/DL (0.1-1.0); CALCIUM 8.9 MG/DL (8.5-10.1); CREATININE SERUM 2.61 MG/DL (0.60-1.30); MAGNESIUM 1.8 MG/DL (1.6-2.4); TOTAL PROTEIN 6.4 GM/DL (6.4-8.2)
[2022-04-03 07:23] LABS: POTASSIUM 5.9 MMOL/L (3.6-5.0)
--- NOTE | 2022-04-03 07:45 | Progress Note - Surgery ---
GUERITA MAYEN 04/03/22 0745: Subjective Date Seen by a Provider: Apr 03, 2022 Time Seen by a Provider: 07:25 Subjective/Events-last exam Pt is lying in bed comfortably. She was put on bipap last night and will switch to 2L by nasal cannula this AM. Pt reports 8/10 RUQ pain, but denies any pain on palpation and says she feels about the same as yesterday regarding her abdomen. She says she feels sore. She had a BM yesterday and is draining yellow urine via catheter. She denies any other problems this morning like chest pain, shortness of breath, N//V, or headache. Review of Systems General: No Chills, No Night Sweats HEENT: No Head Aches, No Visual Changes Pulmonary: No Cough; Other (requiring bipap overnight for the last 3 nights) Cardiovascular: No: Chest Pain, Palpitations Gastrointestinal: Abdominal Pain (tender RUQ at hernia site); No: Nausea, Vomiting Genitourinary: No Dysuria, No Hematuria Neurological: Confusion (mild confusion, gave confusing answers on pain scale and did not remember the last time she ambulated.); No: Change in speech Objective Exam Vital Signs Date Time Temp Pulse Resp B/P (MAP) Pulse Ox O2 Delivery O2 Flow Rate FiO2 04/03/22 06:59 56 18 95 25.00 04/03/22 03:37 36.2 55 16 151/71 (97) 95 NIV Bilevel 04/03/22 02:25 55 19 96 25.00 04/03/22 01:00 59 04/03/22 00:15 57 165/75 (105) 04/02/22 23:00 36.4 60 18 179/79 (112) 96 NIV Bilevel 04/02/22 22:49 69 18 95 25.00 04/02/22 20:57 145/70 (95) 04/02/22 19:41 Nasal Cannula 2.00 04/02/22 19:24 36.6 66 20 179/75 (109) 98 Nasal Cannula 2.00 04/02/22 19:18 96 Nasal Cannula 2.00 04/02/22 19:00 65 04/02/22 15:22 36.4 71 20 183/83 (116) 96 Nasal Cannula 2.00 04/02/22 14:47 92 Room Air 2.00 04/02/22 13:08 66 04/02/22 11:55 35.8 66 18 143/68 (93) 90 Room Air 04/02/22 11:07 Room Air 0.00 04/02/22 11:02 98 Nasal Cannula 2.00 04/02/22 08:12 36.3 66 18 176/82 (113) 96 Nasal Cannula 2.00 04/02/22 08:01 Nasal Cannula 3.00 04/02/22 07:48 96 Nasal Cannula 2.00 04/02/22 07:42 98 Nasal Cannula 3.00 I & O 04/03/22 07:00 Intake Total 1140 ml Output Total 1394 ml Balance -254 ml Capillary Refill : Less Than 3 Seconds General Appearance: No Apparent Distress, Obese HEENT: PERRL/EOMI, Moist Mucous Membranes; No Scleral Icterus (L), No Scleral Icterus (R) Neck: Normal Inspection, Supple Respiratory: Chest Non Tender, Normal Breath Sounds, No Accessory Muscle Use Cardiovascular: Regular Rate, Rhythm, No Murmur Peripheral Pulses: 1+ Dorsalis Pedis (R), 1+ Left Dors-Pedis (L); 2+ Radial Pulses (R), 2+ Radial Pulses (L) Gastrointestinal: soft; No guarding; tenderness (RUQ), hernia (large RUQ at site of incision) Extremity: Normal Inspection, No Calf Tenderness Neurologic/Psychiatric: Alert, Oriented x3 Skin: Normal Color, Warm/Dry Lymphatic: No Adenopathy (cervical) Results Lab Laboratory Tests 04/02/22 11:53: Glucometer 105 04/02/22 17:53: Glucometer 106 04/02/22 22:59: Glucometer 107 04/03/22 06:25: White Blood Count 7.0, Red Blood Count 2.94L, Hemoglobin 9.1L, Hematocrit 28L, Mean Corpuscular Volume 96, Mean Corpuscular Hemoglobin 31, Mean Corpuscular Hemoglobin Concent 32, Red Cell Distribution Width 14.2, Platelet Count 161, Mean Platelet Volume 9.5, Immature Granulocyte % (Auto) 3, Neutrophils (%) (Au to) 77H, Lymphocytes (%) (Auto) 9L, Monocytes (%) (Auto) 9, Eosinophils (%) (Auto) 3, Basophils (%) (Auto) 0, Neutrophils # (Auto) 5.3, Lymphocytes # (Auto) 0.6L, Monocytes # (Auto) 0.6, Eosinophils # (Auto) 0.2, Basophils # (Auto) 0.0, Immature Granulocyte # (Auto) 0.2H, Sodium Level 134L, Potassium Level 5.9H, Chloride Level 101, Carbon Dioxide Level 23, Anion Gap 10, Blood Urea Nitrogen 40H, Creatinine 2.61H, Estimat Glomerular Filtration Rate 20, BUN/Creatinine Ratio 15, Glucose Level 102, Calcium Level 8.9, Corrected Calcium 10.0, Magnesium Level 1.8, Total Bilirubin 0.4, Aspartate Amino Transf (AST/SGOT) 16, Alanine Aminotransferase (ALT/SGPT) 14, Alkaline Phosphatase 153H, Total Protein 6.4, Albumin 2.6L 04/03/22 06:27: Glucometer 103 Microbiology 03/30/22 MRSA Screen - Final, Complete MRSA not isolated 03/27/22 Blood Culture - Final, Complete No growth 03/26/22 Urine Culture - Final, Complete NO GROWTH Assessment/Plan Assessment/Plan Assessment/Plan Possible Acute Cholecystitis with Cholelithiasis - WBC now normal 7.4 today, mild RUQ tenderness Respiratory distress- on bipap and does not appear to be in respiratory distress, switching to 2LNC this AM. CXR 04/01 showed improvement of infiltrates but not completely resolved Chronic Renal Failure - creatinine 2.61, was 2.65 yesterday Hypertensive emergency- BP still elevated, 151/71 today, NSTEMI- troponins trended down last measured .198, cath planned for 04/03 DM Leukocytosis- resolved, 7.4 today Incarcerated Ventral/Incisional hernia Pts respiratory status is still requiring bipap at night, will switch to 2LNC later in the morning. White count is stable, IV abx discontinued. Bilateral lung infiltrates improving, continue breathing treatment. Pt reports she still does not have definitive answer on timing of cardiac catheterization, last note reviewed, Dr Mendiola intends to do cath 04/03 if renal function does not worsen, creatinine at 2.61 today, will likely proceed with catheterization. Cholecystectomy when appropriate; most likely will do as an outpt because she is improving and need to take care of cardiac issues first. ANGUS GONZALES DO 04/03/22 1338: Subjective Time Seen by a Provider: 12:15 Subjective/Events-last exam Pt seen and examined, appears comfortabl and plan for heart cath at 14:00 today. Review of Systems General: Night Sweats Pulmonary: No Cough; Other (requiring bipap overnight for the last 3 nights) Cardiovascular: No: Chest Pain, Palpitations Gastrointestinal: Abdominal Pain (tender RUQ at hernia site); No: Nausea, Vomiting Genitourinary: No Dysuria Objective Exam General Appearance: No Apparent Distress, Obese HEENT: Moist Mucous Membranes Respiratory: Chest Non Tender, Normal Breath Sounds, No Accessory Muscle Use Cardiovascular: Regular Rate, Rhythm, No Murmur Gastrointestinal: soft; No guarding; tenderness (RUQ), hernia (large RUQ at site of incision) Assessment/Plan Assessment/Plan Assessment/Plan Cholecystitis with cholelthiasis Incarcerated Ventral/Incision Hernia Plan for surgery as outpt (if needed) will allow cardiac optimization. Will sign off and reconsult if needed. Supervisory-Addendum Brief Verification & Attestation Participated in pt care: history, MDM, physical Personally performed: exam, history, MDM, supervision of care Care discussed with: Medical Student Procedures: n/a Verification and Attestation of Medical Student E/M Service A medical student performed and documented this service. I then reviewed and verified all information documented by the medical student and made modif ications to such information, when appropriate. I personally performed a physical exam, medical decision making and then discussed any differences between the notes and made revisions as necessary to create one note. Angus Gonzales , 04/03/22 , 13:38 GUERITA MAYEN Apr 03, 2022 07:45 ANGUS GONZALES DO Apr 03, 2022 13:38
[2022-04-03] MEDS: GABAPENTIN 300 MG (NEURONTIN) CAP PO SCH ×3 (08:36→20:38)
[2022-04-03] MEDS: SODIUM BICARBONATE 650 MG TABLET PO SCH ×2 (08:36→20:38)
[2022-04-03] MEDS: ASPIRIN E.C. 81 MG (ECOTRIN) TAB PO SCH (08:36)
[2022-04-03] MEDS: ISOSORBIDE MONONITRATE 60 MG (IMDUR) TAB PO SCH (08:36)
[2022-04-03] MEDS: FLUoxetine HCL 20 MG (PROzac) CAP PO SCH (08:36)
[2022-04-03] MEDS: meTOproloL SUCCINATE 50 MG (TOPROL XL) TAB PO SCH ×2 (08:36→20:38)
[2022-04-03] MEDS: FERROUS SULF 325 MG (IRON) TAB PO SCH ×2 (08:36→17:43)
[2022-04-03] MEDS: CYCLOBENZAPRINE 10 MG (FLEXERIL) TAB PO SCH ×3 (08:37→20:38)
[2022-04-03] MEDS: PANTOPRAZOLE 40 MG (PROTONIX) TAB PO SCH ×2 (08:37→17:43)
[2022-04-03] MEDS: OMEGA 3 (FISH OIL) 1000 MG CAP PO SCH (08:37)
--- NOTE | 2022-04-03 08:37 | Cardiology Progress Note ---
Progress Note-Cardiology Events since last exam Date Seen by Provider: Apr 03, 2022 Time Seen by Provider: 08:32 Events since last exam I am following her due to NSTEMI and heart failure with reduced ejection frac tion. She was laying in bed on BiPAP. She denies chest pain. Today she is complaining of back pain in the midthoracic area. She denies palpitations, syncope, or ankle edema. Certain portions of this document may have been dictated utilizing voice recognition technology. Inherent to this technology, typographical and grammatical errors may exist. As much as I am diligent to identify and correct these mistakes, some errors may remain in the document. Vitals Last set of Vitals Signs Vital Signs 03/31/22 04/03/22 04/03/22 20:00 12:17 13:00 Temp 36.1 Pulse 56 Resp 20 B/P (MAP) 170/75 (106) Pulse Ox 98 O2 Delivery Nasal Cannula O2 Flow Rate 2.00 FiO2 30 Labs Labs Laboratory Tests 04/03/22 06:25 04/03/22 12:15 Exam Vital Signs Vital Signs Date Time Temp Pulse Resp B/P (MAP) Pulse Ox O2 Delivery O2 Flow Rate FiO2 04/03/22 13:00 56 04/03/22 12:17 36.1 20 170/75 (106) 98 Nasal Cannula 2.00 03/31/22 20:00 30 Physical Exam General: Alert. No acute distress. She is obese. She was on BiPAP. Eye: No xanthelasma. HENT: Normocephalic. Neck: Jugular venous pressure does not appear elevated. Respiratory: Lungs have coarse upper airway sounds due to the BiPAP. Re spirations are non-labored. Breath sounds are equal. Symmetrical chest wall expansion. Cardiovascular: Normal rate. Regular rhythm. Distant S1/S2. 2/6 systolic ejection murmur. No gallop. Trace bilateral pretibial edema. Gastrointestinal: Soft. Normal bowel sounds. Skin: Warm. Dry. Neurologic: Alert and oriented to person, place, time. Cranial nerves 3-11 grossly intact. Psychiatric: Cooperative. Appropriate mood & affect. Labs Laboratory Tests Test 04/02/22 17:53 04/02/22 22:59 04/03/22 06:25 04/03/22 06:27 Range/Units Glucometer 106 107 103 70-110 MG/DL White Blood Count 7.0 4.3-11.0 10^3/uL Red Blood Count 2.94 L 3.80-5.11 10^6/uL Hemoglobin 9.1 L 11.5-16.0 g/dL Hematocrit 28 L 35-52 % Mean Corpuscular Volume 96 80-99 fL Mean Corpuscular Hemoglobin 31 25-34 pg Mean Corpuscular Hemoglobin Concent 32 32-36 g/dL Red Cell Distribution Width 14.2 10.0-14.5 % Platelet Count 161 130-400 10^3/uL Mean Platelet Volume 9.5 9.0-12.2 fL Immature Granulocyte % (Auto) 3 % Neutrophils (%) (Auto) 77 H 42-75 % Lymphocytes (%) (Auto) 9 L 12-44 % Monocytes (%) (Auto) 9 0-12 % Eosinophils (%) (Auto) 3 0-10 % Basophils (%) (Auto) 0 0-10 % Neutrophils # (Auto) 5.3 1.8-7.8 10^3/uL Lymphocytes # (Auto) 0.6 L 1.0-4.0 10^3/uL Monocytes # (Auto) 0.6 0.0-1.0 10^3/uL Eosinophils # (Auto) 0.2 0.0-0.3 10^3/uL Basophils # (Auto) 0.0 0.0-0.1 10^3/uL Immature Granulocyte # (Auto) 0.2 H 0.0-0.1 10^3/uL Sodium Level 134 L 135-145 MMOL/L Potassium Level 5.9 H 3.6-5.0 MMOL/L Chloride Level 101 98-107 MMOL/L Carbon Dioxide Level 23 21-32 MMOL/L Anion Gap 10 5-14 MMOL/L Blood Urea Nitrogen 40 H 7-18 MG/DL Creatinine 2.61 H 0.60-1.30 MG/DL Estimat Glomerular Filtration Rate 20 BUN/Creatinine Ratio 15 Glucose Level 102 70-105 MG/DL Calcium Level 8.9 8.5-10.1 MG/DL Corrected Calcium 10.0 8.5-10.1 MG/DL Magnesium Level 1.8 1.6-2.4 MG/DL Total Bilirubin 0.4 0.1-1.0 MG/DL Aspartate Amino Transf (AST/SGOT) 16 5-34 U/L Alanine Aminotransferase (ALT/SGPT) 14 0-55 U/L Alkaline Phosphatase 153 H 40-136 U/L Total Protein 6.4 6.4-8.2 GM/DL Albumin 2.6 L 3.2-4.5 GM/DL Test 04/03/22 11:56 04/03/22 12:15 Range/Units Glucometer 91 70-110 MG/DL Sodium Level 134 L 135-145 MMOL/L Potassium Level 5.7 H 3.6-5.0 MMOL/L Chloride Level 101 98-107 MMOL/L Carbon Dioxide Level 24 21-32 MMOL/L Anion Gap 9 5-14 MMOL/L Blood Urea Nitrogen 39 H 7-18 MG/DL Creatinine 2.51 H 0.60-1.30 MG/DL Estimat Glomerular Filtration Rate 21 BUN/Creatinine Ratio 16 Glucose Level 94 70-105 MG/DL Calcium Level 8.7 8.5-10.1 MG/DL Diagnosis/Problems Diagnosis/Problems (1) Non-ST elevation myocardial infarction (NSTEMI), initial care episode Assessment & Plan: She appears to have suffered a possible non-ST elevation myocardial infarction. Her troponins trended downward. Her echocardiogram shows findings consistent with stress-induced cardiomyopathy (Takotsubo cardiomyopathy) but this can only be diagnosed at cardiac catheterization. Takotsubo cardiomyopathy also causes a troponin rise and fall and electrocardiogram changes. I have started her on aspirin, restarted her beta- amadeo and intensified her dose of statin medication. She received intravenous heparin since around the time of admission for over 5 days. I stopped the IV heparin on 04/01.. I took the liberty of ordering the DVT prophylaxis dose of enoxaparin. Her renal function continues to be tenuous. She is scheduled for a cardiac catheterization later this afternoon. (2) Acute HFrEF (heart failure with reduced ejection fraction) Status: Acute Assessment & Plan: Her chest x-rays have shown evidence of pulmonary edema. Her intravenous fluids that she received early during the admission were discontinued. I am concerned about giving her intravenous diuretic due to her renal function but she did receive some intravenous furosemide over the weekend. (3) Cardiomyopathy Assessment & Plan: As above, she may have Takotsubo cardiomyopathy. She is currently on metoprolol succinate, hydralazine and nitrates. She is not currently a candidate for JUAN RAMON inhibitor, ARB, aldosterone antagonist or Entresto due to her chronic kidney disease. (4) Hypertensive emergency Assessment & Plan: Blood pressures remain elevated at times. I will adjust her hydralazine. If she needs additional agents, I would avoid using calcium channel blockers as this could cause worsening heart failure. (5) Hyperkalemia Assessment & Plan: She has been receiving oral potassium supplements. I have discontinued these. (6) Mixed hyperlipidemia Status: Chronic Assessment & Plan: She was taking atorvastatin at home and I intensified the dose due to the possible non-ST elevation myocardial infarction. (7) Sepsis Status: Resolved Assessment & Plan: She was febrile, had an elevated white count and tachycardia. These findings are all concerning for sepsis although she did not develop hypotension. This condition seems to have improved. (8) Primary hypertension Assessment & Plan: As above. (9) Coronary artery disease with unstable angina pectoris Assessment & Plan: As above. (10) Cholelithiasis Assessment & Plan: General surgery is following her and recommend cholecystectomy at some point in time. However, due to the active cardiac issues, performing surgery now would not be ideal and would potentially increase the risk of possible cardiac complications. (11) Acute kidney injury superimposed on chronic kidney disease Status: Acute Assessment & Plan: According to her airplane inspector, her creatinine hovers around 2.6. This makes a cardiac catheterization higher than normal rest because we could put her into renal failure due to the contrast load. Her renal function will need to be monitored closely. She is scheduled for a cardiac catheterization later this afternoon. I did ask her about her thoughts on hemodialysis and she said that if her renal function gets worse and her nep hrologist recommends hemodialysis, she would not be opposed. (12) Cigarette smoker Assessment & Plan: She needs to quit smoking. (13) Morbid obesity Assessment & Plan: She needs to work on weight loss. Some of the weight change here in the hospital could be due to volume retention. JEREMIAS MANNING JR, MD Apr 03, 2022 08:37
[2022-04-03] MEDS: TIMOLOL MALEATE 0.5% 5 ML (TIMOPTIC) BTL OU SCH ×2 (08:43→20:38)
[2022-04-03] MEDS: BRIMONIDINE 0.2% (ALPHAGAN) OPHTH SOLN 5 ML BTL OU SCH ×2 (08:43→20:38)
[2022-04-03] MEDS: MICONAZOLE 2% POWDER (DESENEX AF) 90 GM TOP SCH ×2 (08:44→20:38)
[2022-04-03] MEDS: hydrALAZINE (APRESOLINE) 25 MG TAB PO SCH ×2 (08:47→20:38)
[2022-04-03] MEDS ORDERED: NS IV 1000 ML 1,000 ML IV ONE (09:00)
[2022-04-03] MEDS: HYDROcodone/APAP 5 MG/325 MG (LORTAB) TAB PO PRN ×2 (09:50→17:43)
--- NOTE | 2022-04-03 10:44 | Physical Therapy Progress Note ---
Therapy Progress Note Patient refuses therapy this morning due to back pain and fatigue. Patient has a heart cath this afternoon. Will check back tomorrow. AMRI PEOPLES PT Apr 03, 2022 10:44
--- NOTE | 2022-04-03 11:02 | Occupational Ther Daily Note ---
OT Current Status-Daily Note Subjective Pt asleep in bed, easily woke to name. Pt agrees to therapy. No c/o pain at this time. Mental Status/Objective Patient Orientation: Person Attachments: IV, Oxygen Acute change in mental status: 0 Inattention: 1 Disorganized thinkin Altered level of consciousness: 0 ADL-Treatment Pt declines needing to change clothes. After set up pt completed oral care/personal hygiene, min A. Pt required verbal cues to continue to complete oral care and was confused throughout session. Pt attempted to put oral sponge in nose, required 3 redirections to complete correctly. Pt left lying supine call light/phone in reach. All needs met in room. Therapy Code Descriptions/Definitions Functional [place] Measure: 0=Not Assessed/NA 4=Minimal Assistance 1=Total Assistance 5=Supervision or Setup 2=Maximal Assistance 6=Modified [place] 3=Moderate Assistance 7=Complete IndependenceSCALE: Activities may be completed with or without assistive devices. 2-Oyesqvidhs-jiaagbh completes the activity by him/herself with no assistance from a helper. 5-Set-up or Clean-up Assistance-helper sets up or cleans up; patient completes activity. [place] assists only prior to or following the activity. 4-Supervision or Touching Assistance-helper provides verbal cues and/or touching/steadying and/or contact guard assistance as patient completes activity. Assistance may be provided throughout the activity or intermittently. 3-Partial/Moderate Assistance-helper does LESS THAN HALF the effort. [place] lifts, holds or supports trunk or limbs, but provides less than half the effort. 2-Substantial/Maximal Assistance-helper does MORE THAN HALF the effort. [place] lifts or holds trunk or limbs and provides more than half the effort. 8-Roizdnlbj-adafup does ALL the effort. Patient does none of the effort to complete the activity. Or, the assistance of 2 or more helpers is required for the patient to complete the activity. If activity was not attempted, code reason: 7-Patient Refused. 9-Not Applicable-not attempted and the patient did not perform the activity before the current illness, exacerbation or injury. 10-Not Attempted due to Environmental Limitations-(lack of equipment, weather restraints, etc.). 88-Not Attempted due to Medical Conditions or Safety Concerns. Oral Hygiene (QC): 3 OT Electron Beam Photo Mask Technician Goals Assisted Goals Time Frame: Apr 12, 2022 Oral Hygiene (QC): 5 Toileting Hygiene (QC): 4 Shower/Bathe Self (QC): 4 Upper Body Dressing (QC): 5 Lower Body Dressing (QC): 4 On/Off Footwear (QC): 4 Additional Goals: 1-Demonstrate ADL Tasks, 2-Verbalize Understanding, 3- ImproveStrength/Pj 1=Demonstrate adherence to instructed precautions during ADL tasks. 2=Patient will verbalize/demonstrate understanding of assistive devices/modifications for ADL. 3=Patient will improve strength/tolerance for activity to enable patient to perform ADL's. OT Education/Plan Problem List/Assessment Assessment: Decreased Activ Tolerance, Decreased Safety Aware, Decreased UE Strength, Impaired Self-Care Skills Pt would benefit from skilled OT services at this time in order to increase safety and independence with ADLs and increase BUE strength and activity tolerance, in order to maximize LOF for safe return home. Discharge Recommendations Plan/Recommendations: Continue POC Treatment Plan/Plan of Care Patient would benefit from OT for education, treatment and training to promote independence in ADL's, mobility, safety and/or upper extremity function for ADL's. Plan of Care: ADL Retraining, Functional Mobility, UE Funct Exercise/Act Treatment Duration: Apr 12, 2022 Frequency: 3 times per week (3-5 times per week) Estimated Hrs Per Day: .25 hour per day Agreement: Yes Rehab Potential: Guarded Time/GCodes Start Time: 10:45 Stop Time: 10:55 Total Time Billed (hr/min): 10 Billed Treatment Time 1 visit ADL 1 (10 min) WOODY CARLIN Apr 03, 2022 11:02
--- NOTE | 2022-04-03 12:32 | Progress Note - Hospitalist ---
GERRYENID 04/03/22 1232: Subjective HPI/CC On Admission Date Seen by Provider: Apr 03, 2022 Time Seen by Provider: 10:00 Admitted for acute cholecystitis with cholelithiasis, presented in sepsis, and concerning for NSTEMI vs stressed induced cardiomyopathy with associated acute HFrEF. Subjective/Events-last exam Patient states she is doing well this morning. Her only complaint is her chronic back pain but otherwise she has no complaints or concerns. She denies any headache, dizziness, n/v, chest pain, shortness of breath, abdominal pain, changes in bowel movements, difficulty urinating, hematuria, or musculoskeletal pain or abnormalities. She has no other questions or concerns at this time. Objective Exam Vital Signs Vital Signs Date Time Temp Pulse Resp B/P (MAP) Pulse Ox O2 Delivery O2 Flow Rate FiO2 04/03/22 12:17 36.1 60 20 170/75 (106) 98 Nasal Cannula 2.00 03/31/22 20:00 30 Capillary Refill : Less Than 3 Seconds General Appearance: No Apparent Distress, WD/WN HEENT: PERRL/EOMI Neck: Full Range of Motion, Normal Inspection Respiratory: Chest Non Tender, Lungs Clear, Normal Breath Sounds, No Accessory Muscle Use, No Respiratory Distress Cardiovascular: Regular Rate, Rhythm, No Gallop, No JVD, No Murmur, Normal Peripheral Pulses Gastrointestinal: Normal Bowel Sounds, No Organomegaly, No Pulsatile Mass, Non Tender Extremity: Normal Capillary Refill, Pedal Edema Neurologic/Psychiatric: Alert, Oriented x3, No Motor/Sensory Deficits, Normal Mood/Affect Skin: Normal Color, Warm/Dry Results/Procedures Lab Laboratory Tests 04/03/22 06:25 Patient resulted labs reviewed. Imaging: Reviewed Imaging Films, Reviewed Imaging Report Assessment/Plan Assessment and Plan Assess & Plan/Chief Complaint Ms. Janice Rainey is a 66 y/o female with past medical history of HLD, HTN, CAD, cholelithiasis, CKD, and obesity who is admitted for acute cholecystitis with cholelithiasis, sepsis and acute respiratory failure now resolved, and possible NSTEMI vs stress induced cardiomyopathy with associated acute HFrEF. Diagnosis/Problems Diagnosis/Problems (1) Elevated troponin Status: Resolved Assessment & Plan: Initial troponin elevation on 03/27 of [address] changes on EKG. Patient has not had cardiac cath due to TERE. On 03/30 Troponin of 0.19. DDx: NSTEMI vs Stress induced cardiomyopathy - Cardiac cath today - Cont atorvastatin 40mg QHS (2) Cholecystitis with cholelithiasis Status: Acute Assessment & Plan: CT 03/26: Large calcified gallstone with thickening of the gallbladder wall. This is nonspecific, but a cholecystitis is not excluded. 03/30: AST 48, ALT 30, Alk phos 310 04/03: AST 16, ALT 14, Alk phos 153 - Surgery following. Cont with cardiac cath for risk stratification of ability to tolerate a surgery. Will consider outpatient cholecystectomy. Qualifiers: Qualified Codes: K80.00 - Calculus of gallbladder with acute cholecystitis without obstruction (3) Hypertensive emergency without congestive heart failure Status: Resolved Assessment & Plan: Hypertensive to 170/75 but stable - Cont Imdur 60mg daily - Cont Hydralazine 50mg PO TID - Cont Metoprolol Succinate 100mg BID - Cont Labetalol 20mg q2 hrs IV PRN (4) Mixed hyperlipidemia Status: Chronic Assessment & Plan: - Cont Atorvastatin 40mg QHS (5) Acute HFrEF (heart failure with reduced ejection fraction) Status: Acute Assessment & Plan: - Left heart cath today to assess for ischemia - Cont Metoprolol succinate 100mg BID. (6) Sepsis Status: Resolved Assessment & Plan: - s/p Ceftriaxone (03/26) - s/p Zosyn (03/27 - 04/01) (7) Acute kidney injury superimposed on chronic kidney disease Status: Acute Assessment & Plan: Improving. Cr 2.61. Baseline is thought to be ~2.[address] Johnson. - Continue to monitor s/p LHC today. (8) Obesity Status: Chronic MOODY HUIZAR DO 04/04/22 0540: Subjective Subjective/Events-last exam Cardiac cath today Supportive care Supervisory-Addendum Brief Verification & Attestation Participated in pt care: history, MDM, physical Personally performed: exam, history, MDM, supervision of care Care discussed with: Medical Student Procedures: n/a Results interpretation: Verified all documentation Verification and Attestation of Medical Student E/M Service A medical student performed and documented this service in my presence. I reviewed and verified all information documented by the medical student and made modifications to such information, when appropriate. I personally performed the physical exam and medical decision making. Moody Huizar, Apr 04, 2022,05:40 ENID GARRETT Apr 03, 2022 12:32 MOODY HUIZAR DO Apr 04, 2022 05:40
[2022-04-03 12:33] LABS: CALCIUM 8.7 MG/DL (8.5-10.1)
[2022-04-03 12:37] LABS: CREATININE SERUM 2.51 MG/DL (0.60-1.30)
[2022-04-03 12:45] LABS: POTASSIUM 5.7 MMOL/L (3.6-5.0)
[2022-04-03] MEDS ORDERED: HEParin (CATH LAB) 2,000 ML IV ONE (13:00)
[2022-04-03] MEDS ORDERED: LIDOCAINE 1% INJ 30 ML (XYLOCAINE) VIAL ONE (13:00)
[2022-04-03] MEDS ORDERED: NS IV 1000 ML 0 ML ONE (13:00)
[2022-04-03] MEDS ORDERED: VERAPAMIL 5 MG/2 ML (CALAN) VIAL IV ONE (13:50)
[2022-04-03] MEDS ORDERED: MIDAZOLAM 2 MG/2 ML (VERSED) VIAL ONE (13:50)
[2022-04-03] MEDS ORDERED: HEParin 1000 UNIT/ML (10ML VIAL) FOR BOLUS ONE (13:51)
[2022-04-03] MEDS ORDERED: fentaNYL INJ 100 MCG/2 ML AMP ONE (13:51)
[2022-04-03] MEDS ORDERED: NITRO DRIP 25000 MCG/D5W 250 ML IV ONE (13:52)
[2022-04-03] MEDS: ENOXAPARIN INJECTION 30 MG/0.3 ML SYR SC SCH ×2 (14:00→17:43)
--- NOTE | 2022-04-03 14:57 | Pre-Op Note & Conscious Sedat ---
Pre-Operative Progress Note Date H&P Reviewed: Apr 03, 2022 Time H&P Reviewed: 14:55 History & Physical: H&P Reviewed, Patient Examed, No changes noted Changes from last HP Changes as noted in today's progress note. Pre-Op Diagnosis: NSTEMI and acute heart failure with reduced ejection fraction Conscious Sedation Pre-Proced ASA Score 3 For ASA 3 and 4: Consider anesthesia and medical clearance. Also, for patients with a history of failed moderate sedation consider anesthesia. Airway Lungs Heart ASA score ASA 1: a normal healthy patient ASA 2: a patient with a mild systemic disease (mid diabetes, controlled hypertension, obesity ASA 3: a patient with a severe systemic disease that limits activity (angina, COPD, prior Myocardial infarction) ASA 4: a patient with an incapacitating disease that is a constant threat to life (CHF, renal failure) ASA 5: a moribund patient not expected to survive 24 hrs. (ruptured aneurysm) ASA 6: a declared brain- patient whose organs are being harvested. For emergent operations, add the letter E after the classification Mallampati Classification Grade 2 Sedation Plan Analgesia, Amnesia, Plan communicated to team members, Discussed options with patient/fam, Discussed risks with patient/fam The patient is an appropriate candidate to undergo the planned procedure, sedation, and anesthesia. The patient immediately re-assessed prior to indication. Given her current clinical status, she is considered moderately frail. She has acute systolic heart failure, class III. JEREMIAS MANNING JR, MD Apr 03, 2022 14:57
[2022-04-03] MEDS ORDERED: NS (IVPB) 250 ML ONE (15:21)
[2022-04-03] MEDS ORDERED: ADENOSINE 6 MG/2 ML (ADENOCARD) VIAL IV ONE (15:21)
[2022-04-03] MEDS ORDERED: hydrALAZINE (APESOLINE) 20 MG/ML VIAL ONE (15:33)
--- NOTE | 2022-04-03 15:41 | Cardiac Cath Report ---
CARDIAC CATHETERIZATION DATE OF PROCEDURE: 04/03/2022 INDICATION: Non-ST elevation myocardial infarction with acute systolic heart failure due to cardiomyopathy. HISTORY: The patient is a 66 year old female with a known history of coronary artery disease previously followed by an outside facility. She presented to our hospital with multiple complaints and during her evaluation was found to have a probable non-ST elevation myocardial infarction as well as severe cardiomyopathy with acute systolic heart failure. She also had acute kidney injury on top of chronic kidney disease so we had to wait for her symptoms and renal function to stabilize before we could have her undergo a cardiac catheterization. As of today, her renal function had stabilized and her breathing was improved so she is now referred for further evaluation with a cardiac catheterization. Given her current clinical status, she is considered moderately frail. She has acute heart failure with reduced ejection fraction, class III. PROCEDURES PERFORMED: 1. Left heart catheterization with hemodynamic measurements. 2. Diagnostic [place] coronary angiography. 3. Flow reserve measurements of right coronary artery. PROCEDURE DESCRIPTION: After informed consent and in the fasting state, left heart catheterization was performed through the right radial artery utilizing a 6 [place] system by percutaneous approach. Standard 5 [place] Tyler catheters were utilized for the diagnostic portion of the procedure. A 6 [place] JR4 guide catheter was utilized for the flow reserve measurements. All catheters were exchanged over a guidewire. Following the procedure, a vascular band was applied to the radial artery access site and the sheath was removed with good hemostasis. RESULTS: HEMODYNAMICS: The aortic pressure was 168/63 mmHg. The left ventricular pressure was 170/0 mmHg with a left ventricular end-diastolic pressure of 19 mmHg. There was no significant pressure gradient upon pullback across the aortic valve. CORONARY ANGIOGRAPHY: Left main coronary artery: Free of significant disease. Left anterior descending coronary artery: Free of significant disease. Left circumflex coronary artery: Codominant and there was a 40% stenosis in the midportion of the vessel at the takeoff of the first large obtuse marginal branch. This was a bifurcation lesion with a Carroll classification of 1, 1, 1. Right coronary artery: Codominant and there was a long up to 70% stenosis in the mid segment with TEA-3 flow. FRACTIONAL FLOW RESERVE OF RIGHT CORONARY ARTERY: Fractional flow reserve was carried out on the mid right coronary artery through a 6 [place] JR4 guide c atheter. The FFR wire was zeroed and then normalized just outside the guide catheter. The lesion was then crossed with the FFR wire. The predrug measurement was 0.94. 96 mcg of intracoronary adenosine was then administered. The minimum FFR was 0.89. This is not considered hemodynamically significant. No intervention was performed. IMPRESSION: 1. Systemic hypertension with moderately elevated left ventricular end- diastolic pressure. 2. There is moderate disease of the codominant mid right coronary artery as outlined above. 3. Fractional flow reserve measurement on the lesion in the right coronary artery was 0.89. This is not considered hemodynamically significant. No revascularization is indicated. 4. The patient has known to have moderate left ventricular systolic dysfunction with an estimated ejection fraction of 30-35% by echocardiogram that was performed on 03/27/2022. 5. These findings are consistent with stress-induced cardiomyopathy (Takotsubo cardiomyopathy). Certain portions of this document may have been dictated utilizing voice recognition technology. Inherent to this technology, typographical and grammatical errors may exist. As much as I am diligent to identify and correct these mistakes, some errors may remain in the document. JEREMIAS MANNING JR, MD Apr 03, 2022 15:41
[2022-04-03] MEDS: NS IV 1000 ML 1,000 ML IV SCH (16:19)
[2022-04-03] MEDS: LABETALOL HCL 20 MG/4 ML VIAL IV PRN (16:32)
[2022-04-03] MEDS: AtorvaSTATin TABLET 10 MG TABLET PO SCH (17:43)
[2022-04-03] MEDS ORDERED: TERAZOSIN 5 MG (HYTRIN) CAPSULE PO NR (17:45)
[2022-04-03] MEDS: TERAZOSIN 5 MG (HYTRIN) CAPSULE PO SCH (20:37)
[2022-04-04] VITALS (7 sets, daily range): BP systolic 134–182; BP diastolic 70–78
[2022-04-04] MEDS: inSUlin ASPART (NovoLOG) 1 UNIT/0.01 ML (CHARGE PER UNIT) SC SCH ×4 (00:05→18:30)
[2022-04-04] MEDS: NS IV 1000 ML 1,000 ML IV SCH (01:53)
[2022-04-04] MEDS: RT-ALBUTEROL/IPRATROPIUM 3 ML (DUONEB) VIAL INH SCH ×5 (02:33→22:28)
[2022-04-04 06:09] LABS: BASOPHILS % (AUTO) 1 % (0-10); EOSINOPHILS # (AUTO) 0.2 10^3/uL (0.0-0.3); EOSINOPHILS % (AUTO) 4 % (0-10); HEMATOCRIT 28 % (35-52); HEMOGLOBIN 8.6 g/dL (11.5-16.0); LYMPHOCYTES # (AUTO) 0.5 10^3/uL (1.0-4.0); LYMPHOCYTES % (AUTO) 8 % (12-44); MEAN CORPUSCULAR HEMOGLOBIN 30 pg (25-34); MEAN CORPUSCULAR HGB CONC 31 g/dL (32-36); MEAN CORPUSCULAR VOLUME 97 fL (80-99); MEAN PLATELET VOLUME 9.7 fL (9.0-12.2); MONOCYTES # (AUTO) 0.5 10^3/uL (0.0-1.0); MONOCYTES % (AUTO) 8 % (0-12); NEUTROPHILS # (AUTO) 4.9 10^3/uL (1.8-7.8); NEUTROPHILS % (AUTO) 77 % (42-75); PLATELET COUNT 181 10^3/uL (130-400); WHITE BLOOD COUNT 6.3 10^3/uL (4.3-11.0)
[2022-04-04 06:15] LABS: ALBUMIN 2.6 GM/DL (3.2-4.5); POTASSIUM 5.3 MMOL/L (3.6-5.0)
[2022-04-04 06:16] LABS: CALCIUM 8.6 MG/DL (8.5-10.1)
[2022-04-04 06:18] LABS: TOTAL PROTEIN 6.2 GM/DL (6.4-8.2)
[2022-04-04 06:19] LABS: BILIRUBIN,TOTAL 0.3 MG/DL (0.1-1.0)
[2022-04-04 06:21] LABS: CREATININE SERUM 2.58 MG/DL (0.60-1.30)
[2022-04-04 06:25] LABS: MAGNESIUM 1.9 MG/DL (1.6-2.4)
[2022-04-04] MEDS: SODIUM BICARBONATE 650 MG TABLET PO SCH ×2 (10:19→19:45)
[2022-04-04] MEDS: ASPIRIN E.C. 81 MG (ECOTRIN) TAB PO SCH (10:20)
[2022-04-04] MEDS: FERROUS SULF 325 MG (IRON) TAB PO SCH ×2 (10:20→16:13)
[2022-04-04] MEDS: hydrALAZINE (APRESOLINE) 25 MG TAB PO SCH ×2 (10:20→19:45)
[2022-04-04] MEDS: CYCLOBENZAPRINE 10 MG (FLEXERIL) TAB PO SCH ×3 (10:20→19:45)
[2022-04-04] MEDS: meTOproloL SUCCINATE 50 MG (TOPROL XL) TAB PO SCH ×2 (10:20→19:45)
[2022-04-04] MEDS: ISOSORBIDE MONONITRATE 60 MG (IMDUR) TAB PO SCH (10:20)
[2022-04-04] MEDS: OMEGA 3 (FISH OIL) 1000 MG CAP PO SCH (10:20)
[2022-04-04] MEDS: GABAPENTIN 300 MG (NEURONTIN) CAP PO SCH ×3 (10:20→19:45)
[2022-04-04] MEDS: TIMOLOL MALEATE 0.5% 5 ML (TIMOPTIC) BTL OU SCH ×2 (10:21→19:45)
[2022-04-04] MEDS: PANTOPRAZOLE 40 MG (PROTONIX) TAB PO SCH ×2 (10:21→16:13)
[2022-04-04] MEDS: BRIMONIDINE 0.2% (ALPHAGAN) OPHTH SOLN 5 ML BTL OU SCH ×2 (10:21→19:45)
[2022-04-04] MEDS: FLUoxetine HCL 20 MG (PROzac) CAP PO SCH (10:21)
[2022-04-04] MEDS: MICONAZOLE 2% POWDER (DESENEX AF) 90 GM TOP SCH ×2 (10:22→19:45)
--- NOTE | 2022-04-04 11:07 | Physical Therapy Daily Note ---
PT Daily Note-Current Subjective Patient agrees to PT. Pain Section J - Health Conditions 1. Rarely or not at all 2. Occasionally 3. Frequently 4. Almost constantly 8. Unable to answer Pain Effect on Sleep: 8 Pain Interference with Therapy: 8 Pain Interference w/Day-to-Day: 8 Mental Status Patient Orientation: Confused Attachments: Oxygen, Christie Catheter Transfers SCALE: Activities may be completed with or without assistive devices. 7-Ociilyagyq-psryytu completes the activity by him/herself with no assistance from a helper. 5-Set-up or Clean-up Assistance-helper sets up or cleans up; patient completes activity. [place] assists only prior to or following the activity. 4-Supervision or Touching Assistance-helper provides verbal cues and/or touching/steadying and/or contact guard assistance as patient completes activity. Assistance may be provided throughout the activity or intermittently. 3-Partial/Moderate Assistance-helper does LESS THAN HALF the effort. [place] lifts, holds or supports trunk or limbs, but provides less than half the effort. 2-Substantial/Maximal Assistance-helper does MORE THAN HALF the effort. [place] lifts or holds trunk or limbs and provides more than half the effort. 6-Qulfetjbd-tuhhxz does ALL the effort. Patient does none of the effort to complete the activity. Or, the assistance of 2 or more helpers is required for the patient to complete the activity. If activity was not attempted, code reason: 7-Patient Refused. 9-Not Applicable-not attempted and the patient did not perform the activity before the current illness, exacerbation or injury. 10-Not Attempted due to Environmental Limitations-(lack of equipment, weather restraints, etc.). 88-Not Attempted due to Medical Conditions or Safety Concerns. Lying to Sitting/Side of Bed(Q: 1 Sit to Stand (QC): 2 Chair/Ugk-co-Maxcb Xfer(QC): 3 Weight Bearing Right Lower Extremity: Right Weight Bearing/Tolerated Left Lower Extremity: Left Weight Bearing/Tolerated Gait Training Distance: 5' Gait Assistive Device: FWW minimal assist with upright mobility Exercises Seated Therapy Exercises: Ankle pumps, Long arc quads Seated Reps: 15 Assessment Patient stood for 8 mins to strength core musculature. Patient in recliner with needs met. Continue to increase activity as tolerated by patient. PT Mcc Goals Mcc Goals PT Group Worker Goals Time Frame: Apr 13, 2022 Roll Left & Right (QC): 6 Sit to Lying (QC): 6 Lying-Sitting on Side/Bed(QC): 6 Sit to Stand (QC): 4 Chair/Gqa-rm-Qcdqh Xfer(QC): 4 Walk 10 feet (QC): 4 Walk 50ft with 2 Turns (QC): 4 PT Plan Treatment/Plan Treatment Plan: Continue Plan of Care Treatment Plan: Bed Mobility, Education, Functional Activity Pj, Functional Strength, Gait, Safety, Therapeutic Exercise, Transfers Treatment Duration: Apr 13, 2022 Frequency: 6 times per week Estimated Hrs Per Day: .25 hour per day Patient and/or Family Agrees t: Yes Time/GCodes Time In: 1040 Time Out: 1051 Total Billed Treatment Time: 11 Total Billed Treatment 1 visit EX 11 min COMPA SAEED PT Apr 04, 2022 11:07
[2022-04-04] MEDS ORDERED: polyethylene glycoL POWDER 17 GM (MIRALAX) PACK PO NR (11:45)
--- NOTE | 2022-04-04 11:49 | Occupational Ther Daily Note ---
OT Current Status-Daily Note Subjective Pt alert in recliner. Pt agrees to therapy. No c/o pain at this time. Mental Status/Objective Patient Orientation: Person, Confused, Place, Time, Situation Attachments: Christie Catheter, IV, Oxygen Acute change in mental status: 0 Inattention: 0 Disorganized thinkin Altered level of consciousness: 0 ADL-Treatment Therapy Code Descriptions/Definitions Functional [place] Measure: 0=Not Assessed/NA 4=Minimal Assistance 1=Total Assistance 5=Supervision or Setup 2=Maximal Assistance 6=Modified [place] 3=Moderate Assistance 7=Complete IndependenceSCALE: Activities may be completed with or without assistive devices. 4-Yjamzyxjzw-rwcxive completes the activity by him/herself with no assistance from a helper. 5-Set-up or Clean-up Assistance-helper sets up or cleans up; patient completes activity. [place] assists only prior to or following the activity. 4-Supervision or Touching Assistance-helper provides verbal cues and/or touchi ng/steadying and/or contact guard assistance as patient completes activity. Assistance may be provided throughout the activity or intermittently. 3-Partial/Moderate Assistance-helper does LESS THAN HALF the effort. [place] lifts, holds or supports trunk or limbs, but provides less than half the effort. 2-Substantial/Maximal Assistance-helper does MORE THAN HALF the effort. [place] lifts or holds trunk or limbs and provides more than half the effort. 0-Odortzuxi-ewqlyu does ALL the effort. Patient does none of the effort to complete the activity. Or, the assistance of 2 or more helpers is required for the patient to complete the activity. If activity was not attempted, code reason: 7-Patient Refused. 9-Not Applicable-not attempted and the patient did not perform the activity before the current illness, exacerbation or injury. 10-Not Attempted due to Environmental Limitations-(lack of equipment, weather restraints, etc.). 88-Not Attempted due to Medical Conditions or Safety Concerns. Other Treatment Pt completed 3 B UE exercises using yellow theraband, 3 sets 10 reps to strengthen B UE for daily functional tasks. Skilled instruction using verbal cues and demonstration. Pt required demonstration throughout exercises and multiple verbal cues to continue participating in exercises. Pt left in recliner call light/phone in reach. All needs met in room. Education OT Patient Education: Exercise program Teaching Recipient: Patient Teaching Methods: Demonstration, Discussion Response to Teaching: Verbalize Understanding, Return Demonstration, Reinforcement Needed OT [employer] Goals Group Home Goals Time Frame: Apr 12, 2022 Oral Hygiene (QC): 5 Toileting Hygiene (QC): 4 Shower/Bathe Self (QC): 4 Upper Body Dressing (QC): 5 Lower Body Dressing (QC): 4 On/Off Footwear (QC): 4 Additional Goals: 1-Demonstrate ADL Tasks, 2-Verbalize Understanding, 3- ImproveStrength/Pj 1=Demonstrate adherence to instructed precautions during ADL tasks. 2=Patient will verbalize/demonstrate understanding of assistive devices/modifications for ADL. 3=Patient will improve strength/tolerance for activity to enable patient to perform ADL's. OT Education/Plan Problem List/Assessment Assessment: Decreased Activ Tolerance, Decreased UE Strength, Impaired Cognition, Impaired Coordination Pt would benefit from skilled OT services at this time in order to increase safety and independence with ADLs and increase BUE strength and activity to lerance, in order to maximize LOF for safe return home. Discharge Recommendations Plan/Recommendations: Continue POC Treatment Plan/Plan of Care Patient would benefit from OT for education, treatment and training to promote independence in ADL's, mobility, safety and/or upper extremity function for ADL's. Plan of Care: ADL Retraining, Functional Mobility, UE Funct Exercise/Act Treatment Duration: Apr 12, 2022 Frequency: 3 times per week (3-5 times per week) Estimated Hrs Per Day: .25 hour per day Agreement: Yes Rehab Potential: Guarded Time/GCodes Start Time: 11:26 Stop Time: 11:40 Total Time Billed (hr/min): 14 Billed Treatment Time 1 visit EX 1 (14 min) WOODY CARLIN Apr 04, 2022 11:49
[2022-04-04] MEDS: ENOXAPARIN INJECTION 30 MG/0.3 ML SYR SC SCH (12:13)
--- NOTE | 2022-04-04 12:35 | Progress Note - Hospitalist ---
ENID GARRETT 04/04/22 1235: Subjective HPI/CC On Admission Date Seen by Provider: Apr 04, 2022 Time Seen by Provider: 11:45 Admitted for acute cholecystitis with cholelithiasis, presented in sepsis, and stressed induced cardiomyopathy with associated acute HFrEF. Subjective/Events-last exam Feeling well today Chronic back pain and some butt pain today Mild persistent RUQ pain but has not gotten worse Constipated Review of Systems Gastrointestinal: Abdominal Pain (mild RUQ pain that has not worsened) Musculoskeletal: back pain (chronic in nature, some new pain towards her lower back/butt region) Objective Exam Vital Signs Vital Signs Date Time Temp Pulse Resp B/P (MAP) Pulse Ox O2 Delivery O2 Flow Rate FiO2 04/04/22 11:56 36.4 61 18 171/73 (105) 96 Nasal Cannula 2.00 03/31/22 20:00 30 Capillary Refill : Less Than 3 Seconds General Appearance: No Apparent Distress, WD/WN HEENT: PERRL/EOMI Neck: Full Range of Motion, Normal Inspection, Non Tender Respiratory: Chest Non Tender, Lungs Clear, Normal Breath Sounds, No Accessory Muscle Use, No Respiratory Distress Cardiovascular: Regular Rate, Rhythm, No Gallop, No JVD, No Murmur, Normal Peripheral Pulses Gastrointestinal: Normal Bowel Sounds, No Organomegaly, No Pulsatile Mass, Non Tender, Soft Back: Normal Inspection Extremity: Normal Capillary Refill, Normal Inspection, Normal Range of Motion, Non Tender, No Calf Tenderness, Pedal Edema (1+ BLE) Neurologic/Psychiatric: Alert, Oriented x3, No Motor/Sensory Deficits, Normal Mood/Affect Skin: Normal Color, Warm/Dry Results/Procedures Lab Laboratory Tests 04/04/22 06:00 Patient resulted labs reviewed. Imaging: Reviewed Imaging Films, Reviewed Imaging Report Procedures Cardiac Cath 04/04: 1. Systemic hypertension with moderately elevated left ventricular end- diastolic pressure. 2. There is moderate disease of the codominant mid right coronary artery as outlined above. 3. Fractional flow reserve measurement on the lesion in the right coronary artery was 0.89. This is not considered hemodynamically significant. No revascularization is indicated. 4. The patient has known to have moderate left ventricular systolic dysfunction with an estimated ejection fraction of 30-35% by echocardiogram that was performed on 03/27/2022. 5. These findings are consistent with stress-induced cardiomyopathy (Takotsubo cardiomyopathy). Assessment/Plan Assessment and Plan Assess & Plan/Chief Complaint Ms. Janice Rainey is a 66 y/o female with past medical history of HLD, HTN, CAD, cholelithiasis, CKD, and obesity who is admitted for acute cholecystitis with cholelithiasis, sepsis and acute respiratory failure now resolved, and possible NSTEMI vs stress induced cardiomyopathy with associated acute HFrEF. Cardiac cath on 04/03 showed no signs of hemodynamically significant stenosis, th us she had stress induced cardiomyopathy. Today: Christie removal trial Miralax HTN management Diagnosis/Problems Diagnosis/Problems (1) Takotsubo cardiomyopathy Status: Acute Assessment & Plan: Initial troponin elevation on 03/27 of [address] changes on EKG. Patient has not had cardiac cath due to TERE. On 03/30 Troponin of 0.19. 04/03: Cardiac cath showed no hemodynamically significant stenosis, and thus it is thought to be stress induced cardiomyopathy (Takotsubo) - Cont atorvastatin 40mg QHS - Cont Metoprolol succinate 100mg BID (2) Cholecystitis with cholelithiasis Status: Acute Assessment & Plan: CT 03/26: Large calcified gallstone with thickening of the gallbladder wall. This is nonspecific, but a cholecystitis is not excluded. 03/30: AST 48, ALT 30, Alk phos 310 04/03: AST 16, ALT 14, Alk phos 153 04/04: AST 15, ALT 12, Alk phos 138 - Surgery following. Will consider outpatient cholecystectomy given stress induced cardiomyopathy and time needed for EF to recover. Qualifiers: Qualified Codes: K80.00 - Calculus of gallbladder with acute cholecystitis without obstruction (3) Hypertensive emergency without congestive heart failure Status: Resolved Assessment & Plan: Hypertensive to 182/71 but asymptomatic - Cont Imdur 60mg daily - Cont Hydralazine 50mg PO TID - Cont Metoprolol Succinate 100mg BID - Cont Labetalol 20mg q2 hrs IV PRN - Cont Terazosin 5mg QHS (4) Mixed hyperlipidemia Status: Chronic Assessment & Plan: - Cont Atorvastatin 40mg QHS (5) Acute HFrEF (heart failure with reduced ejection fraction) Status: Acute Assessment & Plan: secondary to stress induced cardiomyopathy. EF should hopefully recover in ~3 weeks - Cont Metoprolol succinate 100mg BID. (6) Sepsis Status: Resolved Assessment & Plan: - s/p Ceftriaxone (03/26) - s/p Zosyn (03/27 - 04/01) (7) Acute kidney injury superimposed on chronic kidney disease Status: Acute Assessment & Plan: Improving. Cr 2.58 s/p angiogram. Baseline is thought to be ~2.[address] Johnson. - Continue to monitor - Christie removal trial, bladder scans q8 hrs (8) Obesity Status: Chronic (9) Constipation Status: Acute Assessment & Plan: - Start Miralax PRN TIARA HUIZAR DO 04/04/222105: Subjective Subjective/Events-last exam Pt is doing a lot better Kidney function is stable at 2.58 Cardiac cath showed just mild disease so will proceed on with cholecystectomy as an outpatient Awaiting care home placement Supervisory-Addendum Brief Verification & Attestation Participated in pt care: history, MDM, physical Personally performed: exam, history, MDM, supervision of care Care discussed with: Medical Student Procedures: n/a Results interpretation: Verified all documentation Verification and Attestation of Medical Student E/M Service A medical student performed and documented this service in my presence. I reviewed and verified all information documented by the medical student and made modifications to such information, when appropriate. I personally performed the physical exam and medical decision making. Tiara Huizar Apr 04, 2022,21:05 ENID GARRETT Apr 04, 2022 12:35 TIARA HUIZAR DO Apr 04, 2022 21:06
--- NOTE | 2022-04-04 15:58 | Cardiology Progress Note ---
Progress Note-Cardiology Events since last exam Date Seen by Provider: Apr 04, 2022 Time Seen by Provider: 15:52 Events since last exam I am following her due to NSTEMI and acute heart failure with reduced ejection fraction. She was sitting up in a chair. Plans are being made to transfer her to an inpatient nursing home facility for physical rehabilitation. She denies dyspnea at rest. She denies chest pain, palpitations, syncope, or ankle edema. Certain portions of this document may have been dictated utilizing voice recognition technology. Inherent to this technology, typographical and grammatical errors may exist. As much as I am diligent to identify and correct these mistakes, some errors may remain in the document. Vitals Last set of Vitals Signs Vital Signs 03/31/22 04/04/22 04/04/22 04/04/22 20:00 11:56 13:00 14:46 Temp 36.4 Pulse 61 Resp 18 B/P (MAP) 171/73 (105) Pulse Ox 97 O2 Delivery Nasal Cannula O2 Flow Rate 2.00 FiO2 30 Labs Labs Laboratory Tests 04/04/22 06:00 Exam Vital Signs Vital Signs Date Time Temp Pulse Resp B/P (MAP) Pulse Ox O2 Delivery O2 Flow Rate FiO2 04/04/22 14:46 97 Nasal Cannula 2.00 04/04/22 13:00 61 04/04/22 11:56 36.4 18 171/73 (105) 03/31/22 20:00 30 Physical Exam General: Alert. No acute distress. She is obese. Eye: No xanthelasma. HENT: Normocephalic. Neck: Jugular venous pressure does not appear elevated. Respiratory: Lungs are clear to auscultation. Respirations are non-labored. Breath sounds are equal. Symmetrical chest wall expansion. Cardiovascular: Normal rate. Regular rhythm. Distant S1/S2. No murmur. No gall op. No edema. Gastrointestinal: Soft. Normal bowel sounds. Skin: Warm. Dry. Neurologic: Alert and oriented to person, place, time. Cranial nerves 3-11 grossly intact. Psychiatric: Cooperative. Appropriate mood & affect. Labs Laboratory Tests Test 04/03/22 17:49 04/04/22 00:05 04/04/22 05:05 04/04/22 06:00 Range/Units Glucometer 71 97 96 70-110 MG/DL White Blood Count 6.3 4.3-11.0 10^3/uL Red Blood Count 2.84 L 3.80-5.11 10^6/uL Hemoglobin 8.6 L 11.5-16.0 g/dL Hematocrit 28 L 35-52 % Mean Corpuscular Volume 97 80-99 fL Mean Corpuscular Hemoglobin 30 25-34 pg Mean Corpuscular Hemoglobin Concent 31 L 32-36 g/dL Red Cell Distribution Width 14.1 10.0-14.5 % Platelet Count 181 130-400 10^3/uL Mean Platelet Volume 9.7 9.0-12.2 fL Immature Granulocyte % (Auto) 3 % Neutrophils (%) (Auto) 77 H 42-75 % Lymphocytes (%) (Auto) 8 L 12-44 % Monocytes (%) (Auto) 8 0-12 % Eosinophils (%) (Auto) 4 0-10 % Basophils (%) (Auto) 1 0-10 % Neutrophils # (Auto) 4.9 1.8-7.8 10^3/uL Lymphocytes # (Auto) 0.5 L 1.0-4.0 10^3/uL Monocytes # (Auto) 0.5 0.0-1.0 10^3/uL Eosinophils # (Auto) 0.2 0.0-0.3 10^3/uL Basophils # (Auto) 0.0 0.0-0.1 10^3/uL Immature Granulocyte # (Auto) 0.2 H 0.0-0.1 10^3/uL Sodium Level 135 135-145 MMOL/L Potassium Level 5.3 H 3.6-5.0 MMOL/L Chloride Level 103 98-107 MMOL/L Carbon Dioxide Level 22 21-32 MMOL/L Anion Gap 10 5-14 MMOL/L Blood Urea Nitrogen 41 H 7-18 MG/DL Creatinine 2.58 H 0.60-1.30 MG/DL Estimat Glomerular Filtration Rate 20 BUN/Creatinine Ratio 16 Glucose Level 97 70-105 MG/DL Calcium Level 8.6 8.5-10.1 MG/DL Corrected Calcium 9.7 8.5-10.1 MG/DL Magnesium Level 1.9 1.6-2.4 MG/DL Total Bilirubin 0.3 0.1-1.0 MG/DL Aspartate Amino Transf (AST/SGOT) 15 5-34 U/L Alanine Aminotransferase (ALT/SGPT) 12 0-55 U/L Alkaline Phosphatase 138 H 40-136 U/L Total Protein 6.2 L 6.4-8.2 GM/DL Albumin 2.6 L 3.2-4.5 GM/DL Test 04/04/22 11:43 Range/Units Glucometer 119 H 70-110 MG/DL Diagnosis/Problems Diagnosis/Problems (1) Non-ST elevation myocardial infarction (NSTEMI), initial care episode Assessment & Plan: She appears to have suffered a possible non-ST elevation myocardial infarction. Her cardiac catheterization did not show any occlusive coronary artery disease. She most likely had a type II non-ST elevation myocardial infarction related to Takotsubo cardiomyopathy. I recommend she continue aspirin, beta-amadeo and statin medication. Given that she did not have any obstructive coronary artery disease, there is no class I indication for her to be on a P2Y12 inhibitor. (2) Acute HFrEF (heart failure with reduced ejection fraction) Status: Acute Assessment & Plan: Her chest x-rays have shown evidence of pulmonary edema. She did receive some intravenous diuretic and is also on metoprolol succinate, hydralazine and nitrates. Her symptoms have improved. She is not a candidate for JUAN RAMON, ARB, aldosterone antagonist or Entresto due to her stage IV chronic kidney disease. (3) Takotsubo cardiomyopathy Status: Acute Assessment & Plan: Based upon the findings on her echocardiogram, electrocardiogram, troponin levels and cardiac catheterization, the co nstellation of findings is consistent with stress-induced cardiomyopathy (Takotsubo cardiomyopathy). She is currently on the maximum tolerated guideline directed medical therapy. This is not a condition that we would typically prescribe a LifeVest since patients usually have full recovery of left ventricular systolic function within 30 days. She should continue the metoprolol succinate, hydralazine, and nitrates at the time of discharge. I will plan to see her in the office in approximately 1 week. As above, she is not a candidate for JUAN RAMON inhibitor, ARB, aldosterone antagonist or Entresto due to her stage IV chronic kidney disease. (4) Hypertensive emergency Assessment & Plan: Blood pressures remain elevated at times. I added an alpha-amadeo to her other agents and her blood pressure has started to improve. (5) Hyperkalemia Assessment & Plan: She has been receiving oral potassium supplements. I discontinued this on 04/03. The potassium level is starting to improve. (6) Mixed hyperlipidemia Status: Chronic Assessment & Plan: She was taking atorvastatin at home and I intensified the dose due to the possible non-ST elevation myocardial infarction. (7) Primary hypertension Assessment & Plan: As above. (8) Coronary artery disease with unstable angina pectoris Assessment & Plan: As above. (9) Cholelithiasis Assessment & Plan: General surgery is following her and is not recommending a cholecystectomy at this time. (10) Acute kidney injury superimposed on chronic kidney disease Status: Acute Assessment & Plan: Her creatinine has gone up and down but has in general been close to her baseline prior to admission. I did ask her about her thoughts on hemodialysis and she said that if her renal function gets worse and her oyster fisherman recommends hemodialysis, she would not be opposed. (11) Cigarette smoker Assessment & Plan: She needs to quit smoking. (12) Morbid obesity Assessment & Plan: She needs to work on weight loss. Some of the weight change here in the hospital could be due to volume retention. JEREMIAS MANNING JR, MD Apr 04, 2022 15:57
[2022-04-04] MEDS: AtorvaSTATin TABLET 10 MG TABLET PO SCH (16:13)
[2022-04-04] MEDS: TERAZOSIN 5 MG (HYTRIN) CAPSULE PO SCH (19:45)
[2022-04-04] MEDS: cloNIDine 0.1 MG (CATAPRES) TAB PO PRN (23:19)
[2022-04-05] MEDS: RT-ALBUTEROL/IPRATROPIUM 3 ML (DUONEB) VIAL INH SCH ×6 (02:54→22:59)
[2022-04-05 03:53] VITALS: BP 151/65
[2022-04-05 06:39] LABS: BASOPHILS % (AUTO) 0 % (0-10); EOSINOPHILS # (AUTO) 0.3 10^3/uL (0.0-0.3); EOSINOPHILS % (AUTO) 4 % (0-10); HEMATOCRIT 26 % (35-52); HEMOGLOBIN 8.5 g/dL (11.5-16.0); LYMPHOCYTES # (AUTO) 0.5 10^3/uL (1.0-4.0); LYMPHOCYTES % (AUTO) 8 % (12-44); MEAN CORPUSCULAR HEMOGLOBIN 31 pg (25-34); MEAN CORPUSCULAR HGB CONC 32 g/dL (32-36); MEAN CORPUSCULAR VOLUME 96 fL (80-99); MEAN PLATELET VOLUME 9.6 fL (9.0-12.2); MONOCYTES # (AUTO) 0.5 10^3/uL (0.0-1.0); MONOCYTES % (AUTO) 7 % (0-12); NEUTROPHILS # (AUTO) 5.4 10^3/uL (1.8-7.8); NEUTROPHILS % (AUTO) 78 % (42-75); PLATELET COUNT 188 10^3/uL (130-400); WHITE BLOOD COUNT 6.9 10^3/uL (4.3-11.0)
[2022-04-05 07:05] LABS: ALBUMIN 2.5 GM/DL (3.2-4.5); POTASSIUM 4.8 MMOL/L (3.6-5.0)
[2022-04-05 07:07] LABS: CALCIUM 8.5 MG/DL (8.5-10.1)
[2022-04-05 07:10] LABS: BILIRUBIN,TOTAL 0.4 MG/DL (0.1-1.0)
[2022-04-05 07:11] LABS: CREATININE SERUM 2.72 MG/DL (0.60-1.30)
[2022-04-05 07:14] LABS: MAGNESIUM 1.9 MG/DL (1.6-2.4)
[2022-04-05 08:35] VITALS: BP 154/67
--- NOTE | 2022-04-05 09:03 | Cardiology Progress Note ---
Progress Note-Cardiology Events since last exam Date Seen by Provider: Apr 05, 2022 Time Seen by Provider: 09:01 Events since last exam I am following her due to type II NSTEMI, acute heart failure with reduced ej ection fraction due to Takotsubo cardiomyopathy and hypertension. She denies chest discomfort, dyspnea at rest, palpitations, or syncope. She has mild bilateral ankle edema. Certain portions of this document may have been dictated utilizing voice recognition technology. Inherent to this technology, typographical and grammatical errors may exist. As much as I am diligent to identify and correct these mistakes, some errors may remain in the document. Vitals Last set of Vitals Signs Vital Signs 03/31/22 04/05/22 04/05/22 20:00 12:20 12:35 Temp 36.6 Pulse 62 Resp 20 B/P (MAP) 154/67 (96) Pulse Ox 96 O2 Delivery Nasal Cannula O2 Flow Rate 2.00 FiO2 30 Labs Labs Laboratory Tests 04/05/22 06:33 Exam Vital Signs Vital Signs Date Time Temp Pulse Resp B/P (MAP) Pulse Ox O2 Delivery O2 Flow Rate FiO2 04/05/22 12:35 62 04/05/22 12:20 36.6 20 154/67 (96) 96 Nasal Cannula 2.00 03/31/22 20:00 30 Physical Exam General: Alert. No acute distress. She is obese. Eye: No xanthelasma. HENT: Normocephalic. Neck: Jugular venous pressure does not appear elevated. Respiratory: Lungs are clear to auscultation. Respirations are non-labored. Breath sounds are equal. Symmetrical chest wall expansion. Cardiovascular: Normal rate. Regular rhythm. Distant S1/S2. 2/6 systolic ejection murmur. No gallop. Trace bilateral pretibial edema. Gastrointestinal: Soft. Normal bowel sounds. Skin: Warm. Dry. Neurologic: Alert and oriented to person, place, time. Cranial nerves 3-11 grossly intact. Psychiatric: Cooperative. Appropriate mood & affect. Labs Laboratory Tests Test 04/05/22 06:33 Range/Units White Blood Count 6.9 4.3-11.0 10^3/uL Red Blood Count 2.74 L 3.80-5.11 10^6/uL Hemoglobin 8.5 L 11.5-16.0 g/dL Hematocrit 26 L 35-52 % Mean Corpuscular Volume 96 80-99 fL Mean Corpuscular Hemoglobin 31 25-34 pg Mean Corpuscular Hemoglobin Concent 32 32-36 g/dL Red Cell Distribution Width 14.0 10.0-14.5 % Platelet Count 188 130-400 10^3/uL Mean Platelet Volume 9.6 9.0-12.2 fL Immature Granulocyte % (Auto) 3 % Neutrophils (%) (Auto) 78 H 42-75 % Lymphocytes (%) (Auto) 8 L 12-44 % Monocytes (%) (Auto) 7 0-12 % Eosinophils (%) (Auto) 4 0-10 % Basophils (%) (Auto) 0 0-10 % Neutrophils # (Auto) 5.4 1.8-7.8 10^3/uL Lymphocytes # (Auto) 0.5 L 1.0-4.0 10^3/uL Monocytes # (Auto) 0.5 0.0-1.0 10^3/uL Eosinophils # (Auto) 0.3 0.0-0.3 10^3/uL Basophils # (Auto) 0.0 0.0-0.1 10^3/uL Immature Granulocyte # (Auto) 0.2 H 0.0-0.1 10^3/uL Sodium Level 134 L 135-145 MMOL/L Potassium Level 4.8 3.6-5.0 MMOL/L Chloride Level 101 98-107 MMOL/L Carbon Dioxide Level 25 21-32 MMOL/L Anion Gap 8 5-14 MMOL/L Blood Urea Nitrogen 38 H 7-18 MG/DL Creatinine 2.72 H 0.60-1.30 MG/DL Estimat Glomerular Filtration Rate 19 BUN/Creatinine Ratio 14 Glucose Level 102 70-105 MG/DL Calcium Level 8.5 8.5-10.1 MG/DL Corrected Calcium 9.7 8.5-10.1 MG/DL Magnesium Level 1.9 1.6-2.4 MG/DL Total Bilirubin 0.4 0.1-1.0 MG/DL Aspartate Amino Transf (AST/SGOT) 14 5-34 U/L Alanine Aminotransferase (ALT/SGPT) 11 0-55 U/L Alkaline Phosphatase 114 40-136 U/L Total Protein 6.0 L 6.4-8.2 GM/DL Albumin 2.5 L 3.2-4.5 GM/DL Diagnosis/Problems Diagnosis/Problems (1) Non-ST elevation myocardial infarction (NSTEMI), initial care episode Assessment & Plan: She appears to have suffered a possible non-ST elevation myocardial infarction. Her cardiac catheterization did not show any occlusive coronary artery disease. She most likely had a type II non-ST elevation myocardial infarction related to Takotsubo cardiomyopathy. I recommend she continue aspirin, beta-amadeo and statin medication. Given that she did not have any obstructive coronary artery disease, there is no class I indication for her to be on a P2Y12 inhibitor. (2) Acute HFrEF (heart failure with reduced ejection fraction) Status: Acute Assessment & Plan: Her chest x-rays have shown evidence of pulmonary edema. She did receive some intravenous diuretic and is also on metoprolol succinate, hydralazine and nitrates. Her symptoms have improved. She is not a candidate for JUAN RAMON, ARB, aldosterone antagonist or Entresto due to her stage IV chronic kidney disease. (3) Takotsubo cardiomyopathy Status: Acute Assessment & Plan: Based upon the findings on her echocardiogram, electrocardiogram, troponin levels and cardiac catheterization, the co nstellation of findings is consistent with stress-induced cardiomyopathy (Takotsubo cardiomyopathy). This may have been caused by sepsis and the hypertensive emergency and that were present at the time of admission. She is currently on the maximum tolerated guideline directed medical therapy. This is not a condition that we would typically prescribe a LifeVest since patients usually have full recovery of left ventricular systolic function within 30 days. She should continue the metoprolol succinate, hydralazine, and nitrates at the time of discharge. I will plan to see her in the office in approximately 1 week. As above, she is not a candidate for JUAN RAMON inhibitor, ARB, aldosterone antagonist or Entresto due to her stage IV chronic kidney disease. (4) Hypertensive emergency Assessment & Plan: Blood pressures remain elevated at times. I added an alpha- amadeo to her other agents and her blood pressure has started to improve. I recommend further evaluation with a renal arterial ultrasound to assess for any evidence of renal artery stenosis. She may need some other blood tests and a 24-hour urine but I will wait for her to be discharged before doing these tests because they may not be accurate now in the setting of a prolonged hospit alization. (5) Hyperkalemia Assessment & Plan: She had been receiving oral potassium supplements. I discontinued this on 04/03. The potassium level improved. We will continue to monitor. (6) Mixed hyperlipidemia Status: Chronic Assessment & Plan: Continue intensive dose atorvastatin due to the NSTEMI. (7) Primary hypertension Assessment & Plan: As above. (8) Coronary artery disease with unstable angina pectoris Assessment & Plan: As above. (9) Cholelithiasis Assessment & Plan: General surgery is following her and is not recommending a cholecystectomy at this time. (10) Acute kidney injury superimposed on chronic kidney disease Status: Acute Assessment & Plan: Her creatinine has gone up and down but has in general been close to her baseline prior to admission. I did ask her about her thoughts on hemodialysis and she said that if her renal function gets worse and her supervisor evaporator recommends hemodialysis, she would not be opposed. Her renal function did not get particularly worse following the cardiac catheterization although there is typically a 72-96-hour delay between intra-arterial contrast and changes in renal function. (11) Cigarette smoker Assessment & Plan: She needs to quit smoking. (12) Morbid obesity Assessment & Plan: She needs to work on weight loss. Some of the weight change here in the hospital could be due to volume retention. JEREMIAS MANNING JR, MD Apr 05, 2022 09:03
[2022-04-05] MEDS: ASPIRIN E.C. 81 MG (ECOTRIN) TAB PO SCH (09:06)
[2022-04-05] MEDS: hydrALAZINE (APRESOLINE) 25 MG TAB PO SCH ×2 (09:06→21:21)
[2022-04-05] MEDS: OMEGA 3 (FISH OIL) 1000 MG CAP PO SCH (09:06)
[2022-04-05] MEDS: FERROUS SULF 325 MG (IRON) TAB PO SCH ×2 (09:06→15:48)
[2022-04-05] MEDS: PANTOPRAZOLE 40 MG (PROTONIX) TAB PO SCH ×2 (09:06→15:48)
[2022-04-05] MEDS: FLUoxetine HCL 20 MG (PROzac) CAP PO SCH (09:06)
[2022-04-05] MEDS: SODIUM BICARBONATE 650 MG TABLET PO SCH ×2 (09:06→21:21)
[2022-04-05] MEDS: GABAPENTIN 300 MG (NEURONTIN) CAP PO SCH ×3 (09:06→21:20)
[2022-04-05] MEDS: meTOproloL SUCCINATE 50 MG (TOPROL XL) TAB PO SCH ×2 (09:06→21:21)
[2022-04-05] MEDS: CYCLOBENZAPRINE 10 MG (FLEXERIL) TAB PO SCH ×3 (09:06→21:21)
[2022-04-05] MEDS: ISOSORBIDE MONONITRATE 60 MG (IMDUR) TAB PO SCH (09:06)
[2022-04-05] MEDS: TIMOLOL MALEATE 0.5% 5 ML (TIMOPTIC) BTL OU SCH ×2 (09:07→21:21)
[2022-04-05] MEDS: MICONAZOLE 2% POWDER (DESENEX AF) 90 GM TOP SCH ×2 (09:07→21:22)
[2022-04-05] MEDS: BRIMONIDINE 0.2% (ALPHAGAN) OPHTH SOLN 5 ML BTL OU SCH ×2 (09:07→21:21)
--- NOTE | 2022-04-05 11:55 | Occupational Ther Daily Note ---
OT Current Status-Daily Note Subjective Pt in bed, states she is very fatigued and has difficulty keeping her eyes open. Mental Status/Objective Patient Orientation: Person, Confused ADL-Treatment Therapy Code Descriptions/Definitions Functional [place] Measure: 0=Not Assessed/NA 4=Minimal Assistance 1=Total Assistance 5=Supervision or Setup 2=Maximal Assistance 6=Modified [place] 3=Moderate Assistance 7=Complete IndependenceSCALE: Activities may be completed with or without assistive devices. 2-Oklibyzhux-tblbddl completes the activity by him/herself with no assistance fr om a helper. 5-Set-up or Clean-up Assistance-helper sets up or cleans up; patient completes activity. [place] assists only prior to or following the activity. 4-Supervision or Touching Assistance-helper provides verbal cues and/or touching/steadying and/or contact guard assistance as patient completes activity. Assistance may be provided throughout the activity or intermittently. 3-Partial/Moderate Assistance-helper does LESS THAN HALF the effort. [place] lifts, holds or supports trunk or limbs, but provides less than half the effort. 2-Substantial/Maximal Assistance-helper does MORE THAN HALF the effort. [place] lifts or holds trunk or limbs and provides more than half the effort. 7-Cemcwnuhk-btwnnb does ALL the effort. Patient does none of the effort to complete the activity. Or, the assistance of 2 or more helpers is required for the patient to complete the activity. If activity was not attempted, code reason: 7-Patient Refused. 9-Not Applicable-not attempted and the patient did not perform the activity before the current illness, exacerbation or injury. 10-Not Attempted due to Environmental Limitations-(lack of equipment, weather restraints, etc.). 88-Not Attempted due to Medical Conditions or Safety Concerns. Other Treatment Pt in bed, completed 3 BUE exercises using light resistance theraband, 2 sets of 10 in order to increase BUE Strength for daily task. Pt required skilled verbal cues for proper technique, and cues to continue with exercises as she tends to close her eyes and stop moving her arms. Pt states this is because she is tired. Post tx, pt in recliner, call light in reach and all needs met. Education OT Patient Education: Correct positioning, Energy conservation, Exercise pr ogram, Modified ADL techniques, Progress toward Goal/Update tx plan, Purpose of tx/functional activities, Rehab process Teaching Recipient: Patient Teaching Methods: Discussion Response to Teaching: Verbalize Understanding OT [employer]ers Supervisor Goals Mcfp Goals Time Frame: Apr 12, 2022 Oral Hygiene (QC): 5 Toileting Hygiene (QC): 4 Shower/Bathe Self (QC): 4 Upper Body Dressing (QC): 5 Lower Body Dressing (QC): 4 On/Off Footwear (QC): 4 Additional Goals: 1-Demonstrate ADL Tasks, 2-Verbalize Understanding, 3- ImproveStrength/Pj 1=Demonstrate adherence to instructed precautions during ADL tasks. 2=Patient will verbalize/demonstrate understanding of assistive devices/modifications for ADL. 3=Patient will improve strength/tolerance for activity to enable patient to perform ADL's. OT Education/Plan Problem List/Assessment Assessment: Decreased Activ Tolerance, Decreased Safety Aware, Decreased UE Strength, Impaired Funct Balance, Impaired I ADL's, Impaired Self-Care Skills Pt would benefit from skilled OT services at this time in order to increase safety and independence with ADLs and increase BUE strength and activity tolerance, in order to maximize LOF for safe return home. Discharge Recommendations Plan/Recommendations: Continue POC Treatment Plan/Plan of Care Patient would benefit from OT for education, treatment and training to promote independence in ADL's, mobility, safety and/or upper extremity function for ADL's. Plan of Care: ADL Retraining, Functional Mobility, UE Funct Exercise/Act Treatment Duration: Apr 12, 2022 Frequency: 3 times per week (3-5 times per week) Estimated Hrs Per Day: .25 hour per day Agreement: Yes Rehab Potential: Guarded Time/GCodes Start Time: 11:34 Stop Time: 11:44 Total Time Billed (hr/min): 10 Billed Treatment Time 1, EX RIP PAREDES OT Apr 05, 2022 11:55
[2022-04-05 12:20] VITALS: BP 154/67
[2022-04-05] MEDS: ENOXAPARIN INJECTION 30 MG/0.3 ML SYR SC SCH (12:26)
--- NOTE | 2022-04-05 14:18 | Progress Note - Hospitalist ---
SHAHZAD SU 04/05/22 1418: Subjective HPI/CC On Admission Date Seen by Provider: Apr 05, 2022 Time Seen by Provider: 13:30 Admitted for acute cholecystitis with cholelithiasis, presented in sepsis, and stressed induced cardiomyopathy with associated acute HFrEF. Subjective/Events-last exam Pt resting comfortably in bed States she has no abdominal pain today She tolerated solid food and had one bowel movement today She is on fluid restriction at this time, daily max 2000mL Christie cath removed, tolerating well Review of Systems General: No Chills, No Night Sweats HEENT: No Visual Changes Pulmonary: No Dyspnea, No Cough Cardiovascular: No: Chest Pain Gastrointestinal: No: Nausea, Vomiting, Abdominal Pain, Diarrhea, Constipation Genitourinary: No Dysuria, No Frequency Neurological: No: Weakness, Numbness, Confusion Objective Exam Vital Signs Vital Signs Date Time Temp Pulse Resp B/P (MAP) Pulse Ox O2 Delivery O2 Flow Rate FiO2 04/05/22 12:35 62 04/05/22 12:20 36.6 20 154/67 (96) 96 Nasal Cannula 2.00 03/31/22 20:00 30 Capillary Refill : Less Than 3 Seconds General Appearance: No Apparent Distress, Chronically ill, Obese HEENT: PERRL/EOMI, Moist Mucous Membranes Neck: Non Tender, Supple Respiratory: Lungs Clear, Normal Breath Sounds, No Accessory Muscle Use, No Respiratory Distress Cardiovascular: Regular Rate, Rhythm, No Gallop, No Murmur, Normal Peripheral Pulses Gastrointestinal: Normal Bowel Sounds, Non Tender, Soft, Hernia (incisional hernia, reducible ) Back: No CVA Tenderness Extremity: Non Tender, No Calf Tenderness, Other (trace LE edema ) Neurologic/Psychiatric: Alert, Oriented x3, Normal Mood/Affect Skin: Normal Color, Warm/Dry Lymphatic: No Adenopathy Results/Procedures Lab Laboratory Tests 04/05/22 06:33 Patient resulted labs reviewed. Imaging: Reviewed Imaging Films, Reviewed Imaging Report Procedures Cardiac Cath 04/04: 1. Systemic hypertension with moderately elevated left ventricular end- diastolic pressure. 2. There is moderate disease of the codominant mid right coronary artery as outlined above. 3. Fractional flow reserve measurement on the lesion in the right coronary artery was 0.89. This is not considered hemodynamically significant. No revascularization is indicated. 4. The patient has known to have moderate left ventricular systolic dysfunction with an estimated ejection fraction of 30-35% by echocardiogram that was performed on 03/27/2022. 5. These findings are consistent with stress-induced cardiomyopathy (Takotsubo cardiomyopathy). Assessment/Plan Assessment and Plan Assess & Plan/Chief Complaint Respiratory Failure with hypoxia and hypercapnia - no longer requiring BIPAP. - 97% NC 2L, tolerating well Acute HFrEF - Cardiology consulted regarding cardiac drug dosing Sepsis - resolved Acute cholecystitis with cholelithiasis - No significant abdominal pain at this time. Tolerating solid diet. She had one bowel movement today - Surgery consulted. It appears cholecystectomy will be outpatient, once kidney and cardiac problems addressed. NSTEMI - troponins trended downward. Cardiology DC heparin and started DVT prophylaxis. Hypertensive Emergency - improved. Cardiology consulted regarding BP medication, recommended to avoid calcium channel blockers HLD - monitor lipids, continue medications CKD -managed by Dr. Johnson. Baseline Cr 2.2-2.4 Her Cr today is 2.72. Obesity Smoker Christie catheter removed. Fluid restriction at this time. Awaiting assisted living placement. DUSTIN SYLVESTER MD 04/05/22 1705: Supervisory-Addendum Brief Verification & Attestation Participated in pt care: history, MDM, physical Personally performed: exam, history, MDM, supervision of care Care discussed with: Medical Student Procedures: n/a Evaluated in conjunction with medical student. SHAHZAD SU Apr 05, 2022 14:18 DUSTIN SYLVESTER MD Apr 05, 2022 17:05
--- NOTE | 2022-04-05 14:48 | Physical Therapy Daily Note ---
PT Daily Note-Current Subjective Patient in bed pre tx, agrees to PT, voices no complaints of pain. Pain Section J - Health Conditions 1. Rarely or not at all 2. Occasionally 3. Frequently 4. Almost constantly 8. Unable to answer Pain Effect on Sleep: 8 Pain Interference with Therapy: 8 Pain Interference w/Day-to-Day: 8 Appearance Patient in recliner post tx with nurse call, phone, tray, all needs met. Mental Status Patient Orientation: Person, Place, Situation Attachments: Oxygen Transfers SCALE: Activities may be completed with or without assistive devices. 1-Eqdhmkgezp-aujgdby completes the activity by him/herself with no assistance from a helper. 5-Set-up or Clean-up Assistance-helper sets up or cleans up; patient completes activity. [place] assists only prior to or following the activity. 4-Supervision or Touching Assistance-helper provides verbal cues and/or touching/steadying and/or contact guard assistance as patient completes activity. Assistance may be provided throughout the activity or intermittently. 3-Partial/Moderate Assistance-helper does LESS THAN HALF the effort. [place] lifts, holds or supports trunk or limbs, but provides less than half the effort. 2-Substantial/Maximal Assistance-helper does MORE THAN HALF the effort. [place] lifts or holds trunk or limbs and provides more than half the effort. 2-Oojivsqte-gdyxpr does ALL the effort. Patient does none of the effort to complete the activity. Or, the assistance of 2 or more helpers is required for the patient to complete the activity. If activity was not attempted, code reason: 7-Patient Refused. 9-Not Applicable-not attempted and the patient did not perform the activity bef ore the current illness, exacerbation or injury. 10-Not Attempted due to Environmental Limitations-(lack of equipment, weather r estraints, etc.). 88-Not Attempted due to Medical Conditions or Safety Concerns. Roll Left & Right (QC): 2 Lying to Sitting/Side of Bed(Q: 2 Sit to Stand (QC): 2 Chair/Lei-gk-Oeryg Xfer(QC): 2 Weight Bearing Right Lower Extremity: Right Weight Bearing/Tolerated Left Lower Extremity: Left Weight Bearing/Tolerated Gait Training Distance: 2-3' Gait Persons Needed: 1 Gait Assistive Device: FWW slumped posture, patient was able to take several steps over to the recliner, poor foot clearance, slides feet across the floor. Exercises Seated Therapy Exercises: Ankle pumps, Long arc quads Seated Reps: 20 Treatments bed mobility and transfers, LE ROM Assessment Current Status: Poor Progress no change in mobility PT Fpc Goals Director Of Orthopedics Goals PT Fpc Goals Time Frame: Apr 13, 2022 Roll Left & Right (QC): 6 Sit to Lying (QC): 6 Lying-Sitting on Side/Bed(QC): 6 Sit to Stand (QC): 4 Chair/Xsx-qi-Hsndw Xfer(QC): 4 Walk 10 feet (QC): 4 Walk 50ft with 2 Turns (QC): 4 PT Plan Problem List Problem List: Activity Tolerance, Functional Strength, Safety, Balance, Gait, Transfer, Bed Mobility, ROM Treatment/Plan Treatment Plan: Continue Plan of Care Treatment Plan: Bed Mobility, Education, Functional Activity Pj, Functional Strength, Gait, Safety, Therapeutic Exercise, Transfers Treatment Duration: Apr 13, 2022 Frequency: 6 times per week Estimated Hrs Per Day: .25 hour per day Patient and/or Family Agrees t: Yes Safety Risks/Education Patient Education: Transfer Techniques, Correct Positioning, Safety Issues Teaching Recipient: Patient Teaching Methods: Demonstration, Discussion Response to Teaching: Reinforcement Needed Time/GCodes Time In: 1431 Time Out: 1441 Total Billed Treatment Time: 10 Total Billed Treatment 1 visit FA MARI HILARIO PT Apr 05, 2022 14:48
--- NOTE | 2022-04-05 15:42 | Diagnostic Imaging Report ---
PROCEDURE: US Renal/Bladder. TECHNIQUE: Multiple real-time grayscale images were obtained over the kidneys in various projections bilaterally. Doppler ultrasound of the renal arteries was also performed. INDICATION: Hypertensive urgency. Evaluate for renal artery stenosis. COMPARISON: 03/26/2022. FINDINGS: Right: The right kidney measures 10.4 cm in length. Renal cortical thickness and echogenicity are within normal limits. There is no evidence of calculi, solid focal mass or hydronephrosis. No perinephric fluid collections are identified. The peak systolic velocity within the right renal artery measures 95 cm/s. The right renal artery/aorta ratio is 0.47. The resistive indices within the arcuate arteries on the right measure 0.6. Left: The left kidney measures 8.3 cm in length. There is thinning and increased echogenicity of the left renal cortex. There is no evidence of calculi, solid focal mass or hydronephrosis. No perinephric fluid collections are identified. Doppler ultrasound of the left renal artery was not performed due to the diminutive size of the left kidney. The peak systolic velocity within the abdominal aorta measures 202 cm/s. IMPRESSION: 1. Atrophic appearance of the left kidney. Color Doppler ultrasound was unable to be performed on the left renal artery. Consider nuclear medicine renal scan to evaluate the renal function of the kidneys. 2. Normal sonographic appearance and color Doppler ultrasound of the right kidney. Dictated by: Dictated on workstation # [id number]
[2022-04-05] MEDS: AtorvaSTATin TABLET 10 MG TABLET PO SCH (15:48)
[2022-04-05 15:57] VITALS: BP 156/74
[2022-04-05 19:38] VITALS: BP 176/75
[2022-04-05] MEDS: TERAZOSIN 5 MG (HYTRIN) CAPSULE PO SCH (21:21)
[2022-04-05] MEDS: cloNIDine 0.1 MG (CATAPRES) TAB PO PRN (23:31)
[2022-04-05 23:52] VITALS: BP 185/74
[2022-04-06] MEDS: RT-ALBUTEROL/IPRATROPIUM 3 ML (DUONEB) VIAL INH SCH ×6 (02:44→22:20)
[2022-04-06 04:00] VITALS: BP 164/73
[2022-04-06 05:54] LABS: BASOPHILS % (AUTO) 0 % (0-10); EOSINOPHILS # (AUTO) 0.3 10^3/uL (0.0-0.3); EOSINOPHILS % (AUTO) 4 % (0-10); HEMATOCRIT 26 % (35-52); HEMOGLOBIN 8.3 g/dL (11.5-16.0); LYMPHOCYTES # (AUTO) 0.5 10^3/uL (1.0-4.0); LYMPHOCYTES % (AUTO) 7 % (12-44); MEAN CORPUSCULAR HEMOGLOBIN 31 pg (25-34); MEAN CORPUSCULAR HGB CONC 32 g/dL (32-36); MEAN CORPUSCULAR VOLUME 96 fL (80-99); MEAN PLATELET VOLUME 9.2 fL (9.0-12.2); MONOCYTES # (AUTO) 0.5 10^3/uL (0.0-1.0); MONOCYTES % (AUTO) 7 % (0-12); NEUTROPHILS # (AUTO) 5.2 10^3/uL (1.8-7.8); NEUTROPHILS % (AUTO) 78 % (42-75); PLATELET COUNT 177 10^3/uL (130-400); WHITE BLOOD COUNT 6.8 10^3/uL (4.3-11.0)
[2022-04-06 06:11] LABS: ALBUMIN 2.6 GM/DL (3.2-4.5); POTASSIUM 4.4 MMOL/L (3.6-5.0)
[2022-04-06 06:13] LABS: CALCIUM 8.4 MG/DL (8.5-10.1)
[2022-04-06 06:14] LABS: TOTAL PROTEIN 6.2 GM/DL (6.4-8.2)
[2022-04-06 06:16] LABS: BILIRUBIN,TOTAL 0.3 MG/DL (0.1-1.0)
[2022-04-06 06:17] LABS: CREATININE SERUM 2.36 MG/DL (0.60-1.30)
[2022-04-06 06:20] LABS: MAGNESIUM 1.9 MG/DL (1.6-2.4)
[2022-04-06 08:00] VITALS: BP 176/76
[2022-04-06] MEDS: SODIUM BICARBONATE 650 MG TABLET PO SCH ×2 (08:56→20:38)
[2022-04-06] MEDS: FLUoxetine HCL 20 MG (PROzac) CAP PO SCH (08:56)
[2022-04-06] MEDS: BRIMONIDINE 0.2% (ALPHAGAN) OPHTH SOLN 5 ML BTL OU SCH ×2 (08:56→20:38)
[2022-04-06] MEDS: MICONAZOLE 2% POWDER (DESENEX AF) 90 GM TOP SCH ×2 (08:56→20:38)
[2022-04-06] MEDS: TIMOLOL MALEATE 0.5% 5 ML (TIMOPTIC) BTL OU SCH ×2 (08:56→20:39)
[2022-04-06] MEDS: ASPIRIN E.C. 81 MG (ECOTRIN) TAB PO SCH (08:57)
[2022-04-06] MEDS: PANTOPRAZOLE 40 MG (PROTONIX) TAB PO SCH ×2 (08:57→17:37)
[2022-04-06] MEDS: OMEGA 3 (FISH OIL) 1000 MG CAP PO SCH (08:57)
[2022-04-06] MEDS: GABAPENTIN 300 MG (NEURONTIN) CAP PO SCH ×3 (08:57→20:38)
[2022-04-06] MEDS: meTOproloL SUCCINATE 50 MG (TOPROL XL) TAB PO SCH ×2 (08:57→20:38)
[2022-04-06] MEDS: ISOSORBIDE MONONITRATE 60 MG (IMDUR) TAB PO SCH (08:57)
[2022-04-06] MEDS: hydrALAZINE (APRESOLINE) 25 MG TAB PO SCH ×2 (08:57→20:38)
[2022-04-06] MEDS: CYCLOBENZAPRINE 10 MG (FLEXERIL) TAB PO SCH ×3 (08:58→20:38)
[2022-04-06] MEDS: FERROUS SULF 325 MG (IRON) TAB PO SCH ×2 (08:58→17:37)
[2022-04-06] MEDS: HYDROcodone/APAP 5 MG/325 MG (LORTAB) TAB PO PRN (09:03)
--- NOTE | 2022-04-06 09:14 | Cardiology Progress Note ---
Progress Note-Cardiology Events since last exam Date Seen by Provider: Apr 06, 2022 Time Seen by Provider: 09:09 Events since last exam I am following her due to type II NSTEMI concurrent with acute heart failure with reduced ejection fraction, probably both due to Takotsubo cardiomyopathy. She feels as though her breathing is at baseline. She denies chest discomfort, palpitations, or syncope. She has mild bilateral lower extremity edema. Certain portions of this document may have been dictated utilizing voice recognition technology. Inherent to this technology, typographical and grammatical errors may exist. As much as I am diligent to identify and correct these mistakes, some errors may remain in the document. Vitals Last set of Vitals Signs Vital Signs 03/31/22 04/06/22 20:00 08:00 Temp 36.1 Pulse 74 Resp 16 B/P (MAP) 176/76 (109) Pulse Ox 96 O2 Delivery Nasal Cannula O2 Flow Rate 2.00 FiO2 30 Labs Labs Laboratory Tests 04/06/22 05:48 Exam Vital Signs Vital Signs Date Time Temp Pulse Resp B/P (MAP) Pulse Ox O2 Delivery O2 Flow Rate FiO2 04/06/22 08:00 36.1 74 16 176/76 (109) 96 Nasal Cannula 2.00 03/31/22 20:00 30 Physical Exam General: Alert. No acute distress. She is obese. Eye: No xanthelasma. HENT: Normocephalic. Neck: Jugular venous pressure does not appear elevated. Respiratory: Lungs have scattered wheezes bilaterally and decreased breath sounds at the left base. Respirations are non-labored. Breath sounds are equal. Symmetrical chest wall expansion. Cardiovascular: Normal rate. Regular rhythm. Distant S1/S2. 2/6 systolic ejection murmur. No gallop. Trace bilateral pretibial edema. Gastrointestinal: Soft. Normal bowel sounds. Skin: Warm. Dry. Neurologic: Alert and oriented to person, place, time. Cranial nerves 3-11 grossly intact. Psychiatric: Cooperative. Appropriate mood & affect. Labs Laboratory Tests Test 04/06/22 05:48 Range/Units White Blood Count 6.8 4.3-11.0 10^3/uL Red Blood Count 2.67 L 3.80-5.11 10^6/uL Hemoglobin 8.3 L 11.5-16.0 g/dL Hematocrit 26 L 35-52 % Mean Corpuscular Volume 96 80-99 fL Mean Corpuscular Hemoglobin 31 25-34 pg Mean Corpuscular Hemoglobin Concent 32 32-36 g/dL Red Cell Distribution Width 14.0 10.0-14.5 % Platelet Count 177 130-400 10^3/uL Mean Platelet Volume 9.2 9.0-12.2 fL Immature Granulocyte % (Auto) 4 % Neutrophils (%) (Auto) 78 H 42-75 % Lymphocytes (%) (Auto) 7 L 12-44 % Monocytes (%) (Auto) 7 0-12 % Eosinophils (%) (Auto) 4 0-10 % Basophils (%) (Auto) 0 0-10 % Neutrophils # (Auto) 5.2 1.8-7.8 10^3/uL Lymphocytes # (Auto) 0.5 L 1.0-4.0 10^3/uL Monocytes # (Auto) 0.5 0.0-1.0 10^3/uL Eosinophils # (Auto) 0.3 0.0-0.3 10^3/uL Basophils # (Auto) 0.0 0.0-0.1 10^3/uL Immature Granulocyte # (Auto) 0.2 H 0.0-0.1 10^3/uL Sodium Level 135 135-145 MMOL/L Potassium Level 4.4 3.6-5.0 MMOL/L Chloride Level 101 98-107 MMOL/L Carbon Dioxide Level 24 21-32 MMOL/L Anion Gap 10 5-14 MMOL/L Blood Urea Nitrogen 39 H 7-18 MG/DL Creatinine 2.36 H 0.60-1.30 MG/DL Estimat Glomerular Filtration Rate 22 BUN/Creatinine Ratio 17 Glucose Level 118 H 70-105 MG/DL Calcium Level 8.4 L 8.5-10.1 MG/DL Corrected Calcium 9.5 8.5-10.1 MG/DL Magnesium Level 1.9 1.6-2.4 MG/DL Total Bilirubin 0.3 0.1-1.0 MG/DL Aspartate Amino Transf (AST/SGOT) 15 5-34 U/L Alanine Aminotransferase (ALT/SGPT) 11 0-55 U/L Alkaline Phosphatase 116 40-136 U/L Total Protein 6.2 L 6.4-8.2 GM/DL Albumin 2.6 L 3.2-4.5 GM/DL Diagnosis/Problems Diagnosis/Problems (1) Non-ST elevation myocardial infarction (NSTEMI), initial care episode Assessment & Plan: She appears to have suffered a probable non-ST elevation myocardial infarction. Her cardiac catheterization did not show any occlusive coronary artery disease. She most likely had a type II non-ST elevation myocardial infarction related to Takotsubo cardiomyopathy. I recommend she continue aspirin, beta-amadeo and statin medication. Given that she did not have any obstructive coronary artery disease, there is no class I indication for her to be on a P2Y12 inhibitor. (2) Acute HFrEF (heart failure with reduced ejection fraction) Status: Acute Assessment & Plan: Her chest x-rays have shown evidence of pulmonary edema. She did receive some intravenous diuretic and is also on metoprolol succinate, hydralazine and nitrates. Her symptoms have improved. She is not a candidate for JUAN RAMON, ARB, aldosterone antagonist or Entresto due to her stage IV chronic kidney disease. I will start her on a low-dose of oral Lasix to help prevent volume retention. (3) Takotsubo cardiomyopathy Status: Acute Assessment & Plan: Based upon the findings on her echocardiogram, electrocardiogram, troponin levels and cardiac catheterization, the constellation of findings is consistent with stress-induced cardiomyopathy (Takotsubo cardiomyopathy). This may have been caused by sepsis and the hyper tensive emergency that were present at the time of admission. She is currently on the maximum tolerated guideline directed medical therapy. This is not a condition that we would typically prescribe a LifeVest since patients usually have full recovery of left ventricular systolic function within 30 days. She should continue the metoprolol succinate, hydralazine, and nitrates at the time of discharge. I will plan to see her in the office in approximately 1 week. As above, she is not a candidate for JUAN RAMON inhibitor, ARB, aldosterone antagonist or Entresto due to her stage IV chronic kidney disease. (4) Hypertensive emergency Assessment & Plan: Blood pressures remain elevated at times. I added an alpha- amadeo to her other agents and her blood pressure has started to improve but still remains elevated. I will increase her dose of terazosin and give an extra dose today. Her renal arterial ultrasound performed on 04/05 showed an atrophic left kidney and Doppler measurements were not obtainable. This may need some additional evaluation but could certainly be done as an outpatient. The right kidney appeared normal. She may need some other blood tests and a 24-hour urine but I will wait for her to be discharged before doing these tests because they may not be accurate now in the setting of a prolonged hospitalization. (5) Hyperkalemia Assessment & Plan: She had been receiving oral potassium supplements. I discontinued this on 04/03. The potassium level improved. We will continue to monitor. Given her stage IV chronic kidney disease, I suspect even with the addition of low-dose oral diuretic, she will not need any potassium supplementation. (6) Mixed hyperlipidemia Status: Chronic Assessment & Plan: Continue intensive dose atorvastatin due to the NSTEMI. (7) Primary hypertension Assessment & Plan: As above. (8) Coronary artery disease with unstable angina pectoris Assessment & Plan: Her cardiac catheterization showed moderate disease of the right coronary artery but flow measurements were not hemodynamically significant. I did not see any footprints of a previous coronary stent during the procedure. We will continue guideline directed medical therapy for the NSTEMI as outlined above. (9) Cholelithiasis Assessment & Plan: General surgery is following her and is not recommending a cholecystectomy at this time. (10) Acute kidney injury superimposed on chronic kidney disease Status: Acute Assessment & Plan: Her creatinine has gone up and down but has in general been close to her baseline prior to admission. 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 Her renal function did not get particularly worse following the cardiac catheterization although there is typically a 3-5-day delay between intra-arterial contrast and changes in renal function. (11) Cigarette smoker Assessment & Plan: She needs to quit smoking. (12) Morbid obesity Assessment & Plan: She needs to work on weight loss. Some of the weight change here in the hospital could be due to volume retention. JEREMIAS MANNING JR, MD Apr 06, 2022 09:14
[2022-04-06] MEDS ORDERED: TERAZOSIN 5 MG (HYTRIN) CAPSULE PO NR (09:30)
[2022-04-06] MEDS ORDERED: FUROSEMIDE 20 MG (LASIX) TAB PO NR (09:30)
--- NOTE | 2022-04-06 11:23 | Physical Therapy Daily Note ---
PT Daily Note-Current Subjective Pt in bed, agreeable. Pain Numeric Pain Scale: 0-No Pain Section J - Health Conditions 1. Rarely or not at all 2. Occasionally 3. Frequently 4. Almost constantly 8. Unable to answer Pain Effect on Sleep: 1 Pain Interference with Therapy: 1 Pain Interference w/Day-to-Day: 1 Mental Status Patient Orientation: Person, Place, Time, Situation Attachments: Oxygen Transfers SCALE: Activities may be completed with or without assistive devices. 1-Byerxfxofu-zpwdvdj completes the activity by him/herself with no assistance from a helper. 5-Set-up or Clean-up Assistance-helper sets up or cleans up; patient completes activity. [place] assists only prior to or following the activity. 4-Supervision or Touching Assistance-helper provides verbal cues and/or touching/steadying and/or contact guard assistance as patient completes activity. Assistance may be provided throughout the activity or intermittently. 3-Partial/Moderate Assistance-helper does LESS THAN HALF the effort. [place] lifts, holds or supports trunk or limbs, but provides less than half the effort. 2-Substantial/Maximal Assistance-helper does MORE THAN HALF the effort. [place] lifts or holds trunk or limbs and provides more than half the effort. 6-Hqfzqjkbu-ygxolf does ALL the effort. Patient does none of the effort to complete the activity. Or, the assistance of 2 or more helpers is required for the patient to complete the activity. If activity was not attempted, code reason: 7-Patient Refused. 9-Not Applicable-not attempted and the patient did not perform the activity before the current illness, exacerbation or injury. 10-Not Attempted due to Environmental Limitations-(lack of equipment, weather restraints, etc.). 88-Not Attempted due to Medical Conditions or Safety Concerns. Sit to Lying (QC): 2 Sit to Stand (QC): 3 Chair/Eaq-ss-Okody Xfer(QC): 3 Sit->stand: max A x 1; bed->chair with FWW: mod-min A x 1 Weight Bearing Right Lower Extremity: Right Weight Bearing/Tolerated Left Lower Extremity: Left Weight Bearing/Tolerated Gait Training Does the Patient Walk?: No and Walking Goal IS indicated Treatments Transfer to chair. Pt requires assist to EOB and sit->stand but once upright with FWW, no significant LOB, able to shuffle feet to chair without LOB. Assessment Current Status: Good Progress Pt tolerated well. Improved ability to utilize FWW for chair transfer. Up in chair with O2 in situ, needs met. PT Fpc Goals Fpc Goals PT Fpc Goals Time Frame: Apr 13, 2022 Roll Left & Right (QC): 6 Sit to Lying (QC): 6 Lying-Sitting on Side/Bed(QC): 6 Sit to Stand (QC): 4 Chair/Qrb-ya-Jlngj Xfer(QC): 4 Walk 10 feet (QC): 4 Walk 50ft with 2 Turns (QC): 4 PT Plan Problem List Problem List: Activity Tolerance, Functional Strength, Safety, Balance, Gait, Transfer, Bed Mobility Treatment/Plan Treatment Plan: Continue Plan of Care Treatment Plan: Bed Mobility, Education, Functional Activity Pj, Functional Strength, Gait, Safety, Therapeutic Exercise, Transfers Treatment Duration: Apr 13, 2022 Frequency: 6 times per week Estimated Hrs Per Day: .25 hour per day Patient and/or Family Agrees t: Yes Time/GCodes Time In: 824 Time Out: 08 Total Billed Treatment Time: 16 Total Billed Treatment 1, FA x 16' ANN MORELAND DPThuy Apr 06, 2022 11:23
[2022-04-06 12:00] VITALS: BP 135/64
--- NOTE | 2022-04-06 12:19 | Progress Note - Hospitalist ---
Subjective HPI/CC On Admission Date Seen by Provider: Apr 06, 2022 Time Seen by Provider: 12:15 Admitted for acute cholecystitis with cholelithiasis, presented in sepsis, and stressed induced cardiomyopathy with associated acute HFrEF. Subjective/Events-last exam Patient reports feeling better she denies chest pain shortness of breath or abdominal pain. She is tolerating regular diet with no nausea or vomiting. Objective Exam Vital Signs Vital Signs Date Time Temp Pulse Resp B/P (MAP) Pulse Ox O2 Delivery O2 Flow Rate FiO2 04/06/22 10:43 96 Nasal Cannula 2.00 04/06/22 08:00 36.1 74 16 176/76 (109) 03/31/22 20:00 30 Capillary Refill : Less Than 3 Seconds General Appearance: No Apparent Distress, Chronically ill, Obese Respiratory: Chest Non Tender, Lungs Clear, Normal Breath Sounds, No Accessory Muscle Use, No Respiratory Distress Cardiovascular: Regular Rate, Rhythm, No Gallop, Systolic Murmur (2/6 heard over the aortic outflow tract) Gastrointestinal: Normal Bowel Sounds, No Organomegaly, No Pulsatile Mass, Non Tender, Soft Results/Procedures Lab Laboratory Tests 04/06/22 05:48 Patient resulted labs reviewed. Imaging: Reviewed Imaging Films, Reviewed Imaging Report Procedures Cardiac Cath 04/04: 1. Systemic hypertension with moderately elevated left ventricular end- diastolic pressure. 2. There is moderate disease of the codominant mid right coronary artery as outlined above. 3. Fractional flow reserve measurement on the lesion in the right coronary artery was 0.89. This is not considered hemodynamically significant. No revascularization is indicated. 4. The patient has known to have moderate left ventricular systolic dysfunction with an estimated ejection fraction of 30-35% by echocardiogram that was perfo rmed on 03/27/2022. 5. These findings are consistent with stress-induced cardiomyopathy (Takotsubo cardiomyopathy). Assessment/Plan Assessment and Plan Assess & Plan/Chief Complaint Assess & Plan/Chief Complaint Respiratory Failure with hypoxia and hypercapnia Likely due to underlying COPD former resolved - no longer requiring BIPAP. - 97% NC 2L, tolerating well Acute HFrEF - Cardiology consulted regarding cardiac drug dosing. likely due to Takotsubo cardiomyopathy Sepsis - resolved Acute cholecystitis resolved at this time with cholelithiasis - No significant abdominal pain at this time. Tolerating solid diet. She had one bowel movement today - Surgery consulted. It appears cholecystectomy will be outpatient, once kidney and cardiac problems addressed. NSTEMI - troponins trended downward. Cardiology DC heparin and started DVT prophylaxis. Hypertensive Emergency - improved. Cardiology consulted regarding BP medication, HLD - monitor lipids, continue medications CKD -managed by Dr. Johnson. Baseline Cr 2.2-2.4 She is now back to baseline creatinine 2.37 today. Obesity Smoker anemia likely due to chronic renal disease stable. Critical Care Critically Ill Patient DUSTIN SYLVESTER MD Apr 06, 2022 12:19
[2022-04-06] MEDS: ENOXAPARIN INJECTION 30 MG/0.3 ML SYR SC SCH (14:18)
[2022-04-06 15:24] VITALS: BP 178/78
[2022-04-06] MEDS: AtorvaSTATin TABLET 10 MG TABLET PO SCH (17:37)
[2022-04-06 19:17] VITALS: BP 177/74
[2022-04-06] MEDS: TERAZOSIN 5 MG (HYTRIN) CAPSULE PO SCH (20:38)
[2022-04-07 00:39] VITALS: BP 179/73
[2022-04-07] MEDS: RT-ALBUTEROL/IPRATROPIUM 3 ML (DUONEB) VIAL INH SCH ×6 (02:40→21:51)
[2022-04-07 04:45] VITALS: BP 180/72
[2022-04-07 06:44] LABS: BASOPHILS % (AUTO) 1 % (0-10); EOSINOPHILS # (AUTO) 0.2 10^3/uL (0.0-0.3); EOSINOPHILS % (AUTO) 3 % (0-10); HEMATOCRIT 26 % (35-52); HEMOGLOBIN 8.6 g/dL (11.5-16.0); LYMPHOCYTES # (AUTO) 0.5 10^3/uL (1.0-4.0); LYMPHOCYTES % (AUTO) 6 % (12-44); MEAN CORPUSCULAR HEMOGLOBIN 31 pg (25-34); MEAN CORPUSCULAR HGB CONC 33 g/dL (32-36); MEAN CORPUSCULAR VOLUME 96 fL (80-99); MEAN PLATELET VOLUME 10.1 fL (9.0-12.2); MONOCYTES # (AUTO) 0.5 10^3/uL (0.0-1.0); MONOCYTES % (AUTO) 6 % (0-12); NEUTROPHILS # (AUTO) 6.5 10^3/uL (1.8-7.8); NEUTROPHILS % (AUTO) 82 % (42-75); PLATELET COUNT 167 10^3/uL (130-400)
[2022-04-07 07:54] VITALS: BP 162/72
[2022-04-07] MEDS: meTOproloL SUCCINATE 50 MG (TOPROL XL) TAB PO SCH ×2 (08:17→21:03)
[2022-04-07] MEDS: FERROUS SULF 325 MG (IRON) TAB PO SCH ×2 (08:17→16:40)
[2022-04-07] MEDS: GABAPENTIN 300 MG (NEURONTIN) CAP PO SCH ×3 (08:17→21:03)
[2022-04-07] MEDS: CYCLOBENZAPRINE 10 MG (FLEXERIL) TAB PO SCH ×3 (08:17→21:03)
[2022-04-07] MEDS: hydrALAZINE (APRESOLINE) 25 MG TAB PO SCH ×2 (08:17→21:03)
[2022-04-07] MEDS: FUROSEMIDE 20 MG (LASIX) TAB PO SCH (08:17)
[2022-04-07] MEDS: ASPIRIN E.C. 81 MG (ECOTRIN) TAB PO SCH (08:17)
[2022-04-07] MEDS: OMEGA 3 (FISH OIL) 1000 MG CAP PO SCH (08:17)
[2022-04-07] MEDS: PANTOPRAZOLE 40 MG (PROTONIX) TAB PO SCH ×2 (08:17→16:41)
[2022-04-07] MEDS: TIMOLOL MALEATE 0.5% 5 ML (TIMOPTIC) BTL OU SCH ×2 (08:18→21:04)
[2022-04-07] MEDS: BRIMONIDINE 0.2% (ALPHAGAN) OPHTH SOLN 5 ML BTL OU SCH ×2 (08:18→21:04)
[2022-04-07] MEDS: MICONAZOLE 2% POWDER (DESENEX AF) 90 GM TOP SCH ×2 (08:18→21:04)
[2022-04-07] MEDS: SODIUM BICARBONATE 650 MG TABLET PO SCH ×2 (08:18→21:03)
[2022-04-07] MEDS: ISOSORBIDE MONONITRATE 60 MG (IMDUR) TAB PO SCH (08:18)
[2022-04-07] MEDS: FLUoxetine HCL 20 MG (PROzac) CAP PO SCH (08:20)
--- NOTE | 2022-04-07 10:12 | Cardiology Progress Note ---
Progress Note-Cardiology Events since last exam Date Seen by Provider: Apr 07, 2022 Time Seen by Provider: 10:07 Events since last exam I am following her due to NSTEMI with nonobstructive coronary artery disease as well as acute heart failure with reduced ejection fraction due to Takotsubo cardiomyopathy. She now feels as though her breathing is about baseline. She has mild bilateral ankle edema. She denies chest pain, abdominal pain, palpitations, or syncope. Certain portions of this document may have been dictated utilizing voice recognition technology. Inherent to this technology, typographical and grammatical errors may exist. As much as I am diligent to identify and correct these mistakes, some errors may remain in the document. Vitals Last set of Vitals Signs Vital Signs 04/07/22 04/07/22 07:54 08:00 Temp 36.9 Pulse 68 Resp 16 B/P (MAP) 162/72 (102) Pulse Ox 95 O2 Delivery Nasal Cannula O2 Flow Rate 2.00 Labs Labs Laboratory Tests 04/07/22 06:37 Exam Vital Signs Vital Signs Date Time Temp Pulse Resp B/P (MAP) Pulse Ox O2 Delivery O2 Flow Rate FiO2 04/07/22 08:00 Nasal Cannula 2.00 04/07/22 07:54 36.9 68 16 162/72 (102) 95 Physical Exam General: Alert. No acute distress. She is obese. She is wearing oxygen by nasal cannula. Eye: No xanthelasma. HENT: Normocephalic. Neck: Jugular venous pressure does not appear elevated. Respiratory: Lungs are clear to auscultation. Respirations are non-labored. Breath sounds are equal. Symmetrical chest wall expansion. Cardiovascular: Normal rate. Regular rhythm. 2/6 systolic ejection no murmur. No gallop. 1+ bilateral pretibial edema. Gastrointestinal: Soft. Normal bowel sounds. Skin: Warm. Dry. Neurologic: Alert and oriented to person, place, time. Cranial nerves 3-11 grossly intact. Psychiatric: Cooperative. Appropriate mood & affect. Labs Laboratory Tests Test 04/07/22 06:37 Range/Units White Blood Count 8.0 4.3-11.0 10^3/uL Red Blood Count 2.74 L 3.80-5.11 10^6/uL Hemoglobin 8.6 L 11.5-16.0 g/dL Hematocrit 26 L 35-52 % Mean Corpuscular Volume 96 80-99 fL Mean Corpuscular Hemoglobin 31 25-34 pg Mean Corpuscular Hemoglobin Concent 33 32-36 g/dL Red Cell Distribution Width 14.1 10.0-14.5 % Platelet Count 167 130-400 10^3/uL Mean Platelet Volume 10.1 9.0-12.2 fL Immature Granulocyte % (Auto) 3 % Neutrophils (%) (Auto) 82 H 42-75 % Lymphocytes (%) (Auto) 6 L 12-44 % Monocytes (%) (Auto) 6 0-12 % Eosinophils (%) (Auto) 3 0-10 % Basophils (%) (Auto) 1 0-10 % Neutrophils # (Auto) 6.5 1.8-7.8 10^3/uL Lymphocytes # (Auto) 0.5 L 1.0-4.0 10^3/uL Monocytes # (Auto) 0.5 0.0-1.0 10^3/uL Eosinophils # (Auto) 0.2 0.0-0.3 10^3/uL Basophils # (Auto) 0.0 0.0-0.1 10^3/uL Immature Granulocyte # (Auto) 0.2 H 0.0-0.1 10^3/uL Diagnosis/Problems Diagnosis/Problems (1) Non-ST elevation myocardial infarction (NSTEMI), initial care episode Assessment & Plan: She appears to have suffered a probable non-ST elevation myocardial infarction. Her cardiac catheterization did not show any occlusive coronary artery disease. She most likely had a type II non-ST elevation myocardial infarction related to Takotsubo cardiomyopathy. I recommend she continue aspirin, beta-amadeo and statin medication. Given that she did not have any obstructive coronary artery disease, there is no class I indication for her to be on a P2Y12 inhibitor. (2) Acute HFrEF (heart failure with reduced ejection fraction) Status: Acute Assessment & Plan: Her chest x-rays have shown evidence of pulmonary edema. She did receive some intravenous diuretic and is also on metoprolol succinate, hydralazine and nitrates. Her symptoms have improved. She is not a candidate for JUAN RAMON, ARB, aldosterone antagonist or Entresto due to her stage IV chronic kidney disease. I started her on a low-dose of oral Lasix on 04/06 to help prevent volume retention. (3) Primary hypertension Assessment & Plan: Renal ultrasound did not show definitive evidence of renal artery stenosis although her left kidney is atrophic which could have been due to renal artery stenosis. Her blood pressures have improved but are still elevated at times. I doubled her dose of terazosin on 04/06. I will give this at least a few days before adding any additional agents. I would prefer not to give her amlodipine as this could cause worsening peripheral edema. (4) Takotsubo cardiomyopathy Status: Acute Assessment & Plan: Based upon the findings on her echocardiogram, electrocardiogram, troponin levels and cardiac catheterization, the constellation of findings is consistent with stress-induced cardiomyopathy (Takotsubo cardiomyopathy). This may have been caused by sepsis and the hypertensive emergency that were present at the time of admission. She is currently on the maximum tolerated guideline directed medical therapy. This is not a condition that we would typically prescribe a LifeVest since patients usually have full recovery of left ventricular systolic function within 30 days. She should continue the metoprolol succinate, hydralazine, and nitrates at the time of discharge. I will plan to see her in the office in approximately 1 week. I will plan on a follow-up echocardiogram in about 1 month. As above, she is not a candidate for JUAN RAMON inhibitor, ARB, aldosterone antagonist or Entrest o due to her stage IV chronic kidney disease. (5) Hypertensive emergency Status: Resolved Assessment & Plan: As above. She may need some other blood tests and a 24-hour urine but I will wait for her to be discharged before doing these tests because they may not be accurate now in the setting of a prolonged hospitalization. Resolution Date/Time: 04/07/22 @ 10:09 (6) Hyperkalemia Assessment & Plan: She had been receiving oral potassium supplements. I discontinued this on 04/03. The potassium level improved. We will continue to monitor. Given her stage IV chronic kidney disease, I suspect even with the addition of low-dose oral diuretic, she will not need any potassium supplementation. (7) Mixed hyperlipidemia Status: Chronic Assessment & Plan: Continue intensive dose atorvastatin due to the NSTEMI. (8) Coronary artery disease with unstable angina pectoris Assessment & Plan: Her cardiac catheterization showed moderate disease of the right coronary artery but flow measurements were not hemodynamically significant. I did not see any footprints of a previous coronary stent during the procedure. We will continue guideline directed medical therapy for the NSTEMI as outlined above. (9) Cholelithiasis Assessment & Plan: General surgery is following her and is not recommending a cholecystectomy at this time. Her abdominal pain has improved. (10) Acute kidney injury superimposed on chronic kidney disease Status: Acute Assessment & Plan: Her creatinine has gone up and down but has in general been close to her baseline prior to admission. 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 Her renal function did not get particularly worse following the cardiac catheterization although there is typically a 3-5-day delay between intra-arterial contrast and changes in renal function. (11) Cigarette smoker Assessment & Plan: She needs to quit smoking. (12) Morbid obesity Assessment & Plan: She needs to work on weight loss. Some of the weight change here in the hospital could be due to volume retention. JEREMIAS MANNING JR, MD Apr 07, 2022 10:12
--- NOTE | 2022-04-07 10:27 | Progress Note - Hospitalist ---
Subjective HPI/CC On Admission Date Seen by Provider: Apr 07, 2022 Time Seen by Provider: 10:25 Admitted for acute cholecystitis with cholelithiasis, presented in sepsis, and stressed induced cardiomyopathy with associated acute HFrEF. Subjective/Events-last exam Patient voices no complaints no abdominal pain nausea shortness of breath or chest pain. Objective Exam Vital Signs Vital Signs Date Time Temp Pulse Resp B/P (MAP) Pulse Ox O2 Delivery O2 Flow Rate FiO2 04/07/22 08:00 Nasal Cannula 2.00 04/07/22 07:54 36.9 68 16 162/72 (102) 95 Capillary Refill : Less Than 3 Seconds General Appearance: No Apparent Distress Respiratory: Chest Non Tender, Lungs Clear, Normal Breath Sounds, No Accessory Muscle Use, No Respiratory Distress Cardiovascular: Regular Rate, Rhythm, No Gallop, No JVD, Systolic Murmur (2/6 to 3/6 systolic ejection murmur over the aortic outflow tract unchanged no diastolic murmurs noted.) Gastrointestinal: Normal Bowel Sounds, No Organomegaly, No Pulsatile Mass, Non Tender, Soft Extremity: Other ( 1+ bilateral edema to the upper tibia stable) Results/Procedures Lab Laboratory Tests 04/07/22 06:37 Patient resulted labs reviewed. Imaging: Reviewed Imaging Films, Reviewed Imaging Report Procedures Cardiac Cath 04/04: 1. Systemic hypertension with moderately elevated left ventricular end-diasto lic pressure. 2. There is moderate disease of the codominant mid right coronary artery as outlined above. 3. Fractional flow reserve measurement on the lesion in the right coronary artery was 0.89. This is not considered hemodynamically significant. No revascularization is indicated. 4. The patient has known to have moderate left ventricular systolic dysfunction with an estimated ejection fraction of 30-35% by echocardiogram that was performed on 03/27/2022. 5. These findings are consistent with stress-induced cardiomyopathy (Takotsubo cardiomyopathy). Assessment/Plan Assessment and Plan Assess & Plan/Chief Complaint Assess & Plan/Chief Complaint Respiratory Failure with hypoxia and hypercapnia Likely due to underlying COPD former resolved - no longer requiring BIPAP. - 97% NC 2L, tolerating well Acute HFrEF - Cardiology consulted regarding cardiac drug dosing. likely due to Takotsubo cardiomyopathy Heart failure appears to be well compensated Sepsis - resolved Acute cholecystitis resolved at this time with cholelithiasis - No significant abdominal pain at this time. Tolerating solid diet. She had one bowel movement today - Surgery consulted. It appears cholecystectomy will be outpatient, once kidney and cardiac problems addressed. NSTEMI - troponins trended downward. Cardiology DC heparin and started DVT prophy laxis. Hypertensive Emergency - improved. Cardiology consulted regarding BP medication, HLD - monitor lipids, continue medications CKD -managed by Dr. Johnson. Baseline Cr 2.2-2.4 She is now back to baseline creatinine 2.37 today. Obesity Smoker anemia likely due to chronic renal disease stable. patient will be ready for transfer [facility] in [facility] morning. Will need surgical and cardiology follow-up. Critical Care Critically Ill Patient DUSTIN SYLVESTER MD Apr 07, 2022 10:27
[2022-04-07 12:00] VITALS: BP 167/74
[2022-04-07] MEDS: ENOXAPARIN INJECTION 30 MG/0.3 ML SYR SC SCH (13:00)
[2022-04-07 15:53] VITALS: BP 160/80
[2022-04-07] MEDS: AtorvaSTATin TABLET 10 MG TABLET PO SCH (16:41)
[2022-04-07 20:13] VITALS: BP 180/80
[2022-04-07] MEDS: TERAZOSIN 5 MG (HYTRIN) CAPSULE PO SCH (21:03)
[2022-04-08] VITALS (7 sets, daily range): BP systolic 160–183; BP diastolic 62–75
[2022-04-08] MEDS: RT-ALBUTEROL/IPRATROPIUM 3 ML (DUONEB) VIAL INH SCH ×6 (02:56→22:38)
[2022-04-08] MEDS: FLUoxetine HCL 20 MG (PROzac) CAP PO SCH (08:09)
[2022-04-08] MEDS: CYCLOBENZAPRINE 10 MG (FLEXERIL) TAB PO SCH ×3 (08:09→20:49)
[2022-04-08] MEDS: meTOproloL SUCCINATE 50 MG (TOPROL XL) TAB PO SCH ×2 (08:09→20:49)
[2022-04-08] MEDS: GABAPENTIN 300 MG (NEURONTIN) CAP PO SCH ×3 (08:09→20:49)
[2022-04-08] MEDS: ISOSORBIDE MONONITRATE 60 MG (IMDUR) TAB PO SCH (08:09)
[2022-04-08] MEDS: ASPIRIN E.C. 81 MG (ECOTRIN) TAB PO SCH (08:09)
[2022-04-08] MEDS: FUROSEMIDE 20 MG (LASIX) TAB PO SCH (08:09)
[2022-04-08] MEDS: OMEGA 3 (FISH OIL) 1000 MG CAP PO SCH (08:09)
[2022-04-08] MEDS: PANTOPRAZOLE 40 MG (PROTONIX) TAB PO SCH ×2 (08:09→16:47)
[2022-04-08] MEDS: hydrALAZINE (APRESOLINE) 25 MG TAB PO SCH ×2 (08:10→20:49)
[2022-04-08] MEDS: MICONAZOLE 2% POWDER (DESENEX AF) 90 GM TOP SCH ×2 (08:10→20:49)
[2022-04-08] MEDS: FERROUS SULF 325 MG (IRON) TAB PO SCH ×2 (08:10→16:47)
[2022-04-08] MEDS: SODIUM BICARBONATE 650 MG TABLET PO SCH ×2 (08:10→20:49)
[2022-04-08] MEDS: BRIMONIDINE 0.2% (ALPHAGAN) OPHTH SOLN 5 ML BTL OU SCH ×2 (08:11→20:50)
[2022-04-08] MEDS: TIMOLOL MALEATE 0.5% 5 ML (TIMOPTIC) BTL OU SCH ×2 (08:11→20:50)
--- NOTE | 2022-04-08 09:45 | Cardiology Progress Note ---
Progress Note-Cardiology Events since last exam Date Seen by Provider: Apr 08, 2022 Time Seen by Provider: 09:43 Events since last exam I am following her due to NSTEMI and acute heart failure with reduced ejection fraction. Her breathing is about back to baseline. She denies chest pain, palpitations, or syncope. Her ankle edema has just about resolved. She had worn oxygen at home in the past but not recently prior to this admission. She is still awaiting insurance approval to be transferred to an inpatient rehabilitation facility. Certain portions of this document may have been dictated utilizing voice recognition technology. Inherent to this technology, typographical and grammatical errors may exist. As much as I am diligent to identify and correct these mistakes, some errors may remain in the document. Vitals Last set of Vitals Signs Vital Signs 04/08/22 15:37 Temp 36.7 Pulse 68 Resp 18 B/P (MAP) 177/74 (108) Pulse Ox 94 O2 Delivery Nasal Cannula O2 Flow Rate 2.50 Exam Vital Signs Vital Signs Date Time Temp Pulse Resp B/P (MAP) Pulse Ox O2 Delivery O2 Flow Rate FiO2 04/08/22 15:37 36.7 68 18 177/74 (108) 94 Nasal Cannula 2.50 Physical Exam General: Alert. No acute distress. She is obese. She is wearing oxygen by nasal cannula. Eye: No xanthelasma. HENT: Normocephalic. Neck: Jugular venous pressure does not appear elevated. Respiratory: Lungs are clear to auscultation. Respirations are non-labored. Kendal ath sounds are equal. Symmetrical chest wall expansion. Cardiovascular: Normal rate. Regular rhythm. 2/6 systolic ejection murmur. No gallop. Trace bilateral pretibial edema. Gastrointestinal: Soft. Normal bowel sounds. Skin: Warm. Dry. Neurologic: Alert and oriented to person, place, time. Cranial nerves 3-11 grossly intact. Psychiatric: Cooperative. Appropriate mood & affect. Labs Laboratory Tests Test 04/07/22 19:27 Range/Units SARS-CoV-2 RNA (RT-PCR) Not Detected Not Detecte Diagnosis/Problems Diagnosis/Problems (1) Non-ST elevation myocardial infarction (NSTEMI), initial care episode Status: Acute Assessment & Plan: She appears to have suffered a probable non-ST elevation myocardial infarction. Her cardiac catheterization did not show any occlusive coronary artery disease. She most likely had a type II non-ST elevation myocardial infarction related to Takotsubo cardiomyopathy. I recommend she continue aspirin, beta-amadeo and statin medication. Given that she did not have any obstructive coronary artery disease, there is no class I indication for her to be on a P2Y12 inhibitor. (2) Acute HFrEF (heart failure with reduced ejection fraction) Status: Acute Assessment & Plan: Her chest x-rays have shown evidence of pulmonary edema but have been improving. She did receive some intravenous diuretic and is also on metoprolol succinate, hydralazine and nitrates. Her symptoms have improved. She is not a candidate for JUAN RAMON, ARB, aldosterone antagonist or Entresto due to her stage IV chronic kidney disease. I started her on a low-dose of oral Lasix on 04/06 to help prevent volume retention. (3) Primary hypertension Status: Chronic Assessment & Plan: Renal ultrasound did not show definitive evidence of renal artery stenosis although her left kidney is atrophic which could have been due to renal artery stenosis. Her blood pressures have improved but are still eleva patrick at times. I doubled her dose of terazosin on 04/06. I will add a low-dose of clonidine twice daily due to persistently elevated blood pressures well over 150 mmHg systolic. (4) Takotsubo cardiomyopathy Status: Acute Assessment & Plan: Based upon the findings on her echocardiogram, electrocardiogram, troponin levels and cardiac catheterization, the constellation of findings is consistent with stress-induced cardiomyopathy (Takotsubo cardiomyopathy). This may have been caused by sepsis and the hypertensive emergency that were present at the time of admission. She is currently on the maximum tolerated guideline directed medical therapy. This is not a condition that we would typically prescribe a LifeVest since patients usually have full recovery of left ventricular systolic function within 30 days. She should continue the metoprolol succinate, hydralazine, and nitrates at the time of discharge. I will plan to see her in the office in approximately 1 week. I will plan on a follow-up echocardiogram in about 1 month. As above, she is not a candidate for JUAN RAMON inhibitor, ARB, aldosterone antagonist or Entresto due to her stage IV chronic kidney disease. (5) Mixed hyperlipidemia Status: Chronic Assessment & Plan: Continue intensive dose atorvastatin due to the NSTEMI. (6) Coronary artery disease with unstable angina pectoris Status: Acute Assessment & Plan: Her cardiac catheterization showed moderate disease of the right coronary artery but flow measurements were not hemodynamically significant. I did not see any footprints of a previous coronary stent during the procedure. We will continue guideline directed medical therapy for the NSTEMI as outlined above. (7) Hypertensive emergency Status: Resolved Assessment & Plan: As above. She may need some other blood tests and a 24-hour urine but I will wait for her to be discharged before doing these tests because they may not be accurate now in the setting of a prolonged hospitalization. Resolution Date/Time: 04/07/22 @ 10:09 (8) Hyperkalemia Status: Acute Assessment & Plan: She had been receiving oral potassium supplements. I discontinued this on 04/03. The potassium level improved. We will continue to monitor. Given her stage IV chronic kidney disease, I suspect even with the addition of low-dose oral diuretic, she will not need any potassium suppleme ntation. (9) Cholelithiasis Status: Acute Assessment & Plan: General surgery is following her and is not recommending a cholecystectomy at this time. Her abdominal pain has improved. (10) Acute kidney injury superimposed on chronic kidney disease Status: Acute Assessment & Plan: Her creatinine has gone up and down but has in general been close to her baseline prior to admission. I did ask her about her thoughts on hemodialysis and she said that if her renal function gets worse and her advice nurse recommends hemodialysis, she would not be opposed. Her renal function did not get particularly worse following the cardiac catheterization although there is typically a 3-5-day delay between intra-arterial contrast and changes in renal function. (11) Cigarette smoker Assessment & Plan: She needs to quit smoking. (12) Morbid obesity Status: Chronic Assessment & Plan: She needs to work on weight loss. Some of the weight change here in the hospital could be due to volume retention. JEREMIAS MANNING JR, MD Apr 08, 2022 09:45
--- NOTE | 2022-04-08 10:02 | Physical Therapy Progress Note ---
Therapy Progress Note Patient declined PT stating, "I just want to take a nap." RN notified. 1 ref COMPA SAEED PT Apr 08, 2022 10:02
--- NOTE | 2022-04-08 10:43 | Diagnostic Imaging Report ---
INDICATION: CHF. TECHNIQUE/COMPARISON: PA and lateral chest obtained at 8:47 AM and compared to 04/01/2022. FINDINGS: The heart and mediastinal silhouette are normal in appearance. There is mild central vascular prominence. There is some mild left basilar infiltrate versus atelectasis. The right lung appears clear. There is no pneumothorax. IMPRESSION: Mild left basilar infiltrate versus atelectasis with mild central vascular prominence. Dictated by: Dictated on workstation # [id number]
[2022-04-08] MEDS ORDERED: FURO20TA4 PO (11:53)
[2022-04-08] MEDS ORDERED: MTP100TCR PO (11:53)
[2022-04-08] MEDS ORDERED: NF-SODBICA PO (11:53)
[2022-04-08] MEDS ORDERED: ATOR40TA70 PO (11:53)
[2022-04-08] MEDS ORDERED: TERA5CAP10 PO (11:53)
[2022-04-08] MEDS ORDERED: ASPI-1238 PO (11:53)
[2022-04-08] MEDS ORDERED: ISOS60TA63 PO (11:53)
[2022-04-08] MEDS ORDERED: HYDR-3923 PO (11:53)
--- NOTE | 2022-04-08 13:30 | Occ Therapy Progress Note ---
Therapy Progress Note Pt in bed, eating lunch independently. Pt declined OT services at this time, as she is eating and once she is done she wants to rest. OT provided education on purpose and benefit of OT, but pt continued to decline, requesting OT attempt again tomorrow. OT will attempt tx next available date. 1, visit RIP PAREDES OT Apr 08, 2022 13:30
[2022-04-08] MEDS: ENOXAPARIN INJECTION 30 MG/0.3 ML SYR SC SCH (13:37)
--- NOTE | 2022-04-08 14:42 | Progress Note ---
Subjective Subjective/Events-last exam Pt states she is feeling okay and feels ready to go, but also is very weak and says she hasn't really been able to walk yet. Denies abdominal pain, is tolerating diet. States she has used oxygen at night in the past, doesn't have any oxygen at home right now. Objective Exam Last Set of Vital Signs Vital Signs Date Time Temp Pulse Resp B/P (MAP) Pulse Ox O2 Delivery O2 Flow Rate FiO2 04/08/22 13:00 64 04/08/22 12:46 36.5 18 166/75 (105) 96 Nasal Cannula 2.00 Capillary Refill : Less Than 3 Seconds I&O Intake and Output 04/08/22 00:00 Intake Total 1260 ml Balance 1260 ml Intake Oral 1260 ml # Voids 8 General: Alert, No Acute Distress Lungs: Other (squeaking inspiratory and expiratory noise over left anterior chest) Heart: Regular Rate, Other (2/6 systolic murmur) Abdomen: Normal Bowel Sounds, Soft Neuro: Normal Speech Psych/Mental Status: Mood NL Results/Procedures Lab Laboratory Tests 04/07/22 19:27: SARS-CoV-2 RNA (RT-PCR) Not Detected Microbiology 04/03/22 MRSA Screen - Final, Complete MRSA not isolated 03/27/22 Blood Culture - Final, Complete No growth 03/26/22 Urine Culture - Final, Complete NO GROWTH Radiology Date of Exam:03/26/22 CT ABDOMEN/PELVIS WO PROCEDURE: CT abdomen and pelvis without contrast. TECHNIQUE: Multiple contiguous axial images were obtained through the abdomen and pelvis without the use of intravenous contrast. Auto Exposure Controls were utilized during the CT exam to meet ALARA standards for radiation dose reduction. INDICATION: Abdominal pain, right ventral hernia, possible obstruction. COMPARISON: None FINDINGS: There is atelectasis in the dependent right lung. The heart is normal in size. The distal esophagus is distended with fluid. The liver demonstrates no focal lesions. There is a large stone in the gallbladder measuring 3.3 cm. There is gallbladder wall thickening. The spleen appears normal. The pancreas is normal. The adrenal glands appear normal. The left kidney is severely atrophic. The right kidney appears normal. There is no hydronephrosis or obstructing calculi. There is a right ventral hernia with an aperture measuring about 5 cm. This contains loops of colon, but no evidence of strangulation or obstruction. The appendix appears normal. There are anastomotic sutures in the bowel. The stomach is fluid-filled and mildly distended. The bowel loops are decompressed. There is aortic atherosclerosis. No free fluid or free air is seen. No acute osseous abnormality is seen. There is deformity of the left pubis which may be from remote trauma. There are sclerotic densities in the femoral heads, may represent areas of osteonecrosis. IMPRESSION: 1. Right ventral hernia containing a loop of colon but with no evidence of obstruction or strangulation. 2. Large calcified gallstone with thickening of the gallbladder wall. This is nonspecific, but a cholecystitis is not excluded. 3. Fluid-filled stomach with distended fluid-filled distal esophagus, likely due to reflux. Dictated by: Dictated on workstation # [id number] Dict: 03/26/222237 Trans: 03/26/222255 [facility] [id number] Interpreted by: MAX MORIN MD Electronically signed by: MAX MORIN MD 03/26/22 2256 Assessment/Plan Assessment/Plan Assessment & Plan Respiratory Failure with hypoxia and hypercapnia Likely due to underlying COPD former resolved - no longer requiring BIPAP. - 97% NC 2L, tolerating well, will check home O2 requirement for d/c Acute HFrEF - Cardiology consulted regarding cardiac drug dosing. likely due to Takotsubo cardiomyopathy Heart failure appears to be well compensated Sepsis - resolved Acute cholecystitis resolved at this time with cholelithiasis - No significant abdominal pain at this time. Tolerating solid diet. She had one bowel movement today - Surgery consulted. It appears cholecystectomy will be outpatient, once kidney and cardiac problems addressed. NSTEMI - troponins trended downward. Cardiology DC heparin and started DVT prophylaxis. Hypertensive Emergency - improved. Cardiology consulted regarding BP medication HLD - monitor lipids, continue medications CKD -managed by Dr. Johnson. Baseline Cr 2.2-2.4. Obesity Smoker Anemia likely due to chronic renal disease stable. Disposition -Awaiting insurance determination for SNF DUGLAS PATEL MD Apr 08, 2022 14:42
[2022-04-08] MEDS ORDERED: cloNIDine 0.2 MG (CATAPRES) TAB PO NR (16:30)
[2022-04-08] MEDS: AtorvaSTATin TABLET 10 MG TABLET PO SCH (16:47)
[2022-04-08] MEDS: TERAZOSIN 5 MG (HYTRIN) CAPSULE PO SCH (20:49)
[2022-04-08] MEDS: cloNIDine 0.2 MG (CATAPRES) TAB PO SCH (20:49)
[2022-04-08] MEDS: cloNIDine 0.1 MG (CATAPRES) TAB PO PRN (23:46)
[2022-04-09] MEDS: RT-ALBUTEROL/IPRATROPIUM 3 ML (DUONEB) VIAL INH SCH ×6 (02:18→21:53)
[2022-04-09 03:47] VITALS: BP 177/76
[2022-04-09] MEDS: cloNIDine 0.1 MG (CATAPRES) TAB PO PRN ×2 (03:55→23:25)
[2022-04-09 08:00] VITALS: BP 189/71
[2022-04-09] MEDS: FUROSEMIDE 20 MG (LASIX) TAB PO SCH (08:14)
[2022-04-09] MEDS: GABAPENTIN 300 MG (NEURONTIN) CAP PO SCH ×3 (08:15→20:17)
[2022-04-09] MEDS: FERROUS SULF 325 MG (IRON) TAB PO SCH ×2 (08:15→16:38)
[2022-04-09] MEDS: ISOSORBIDE MONONITRATE 60 MG (IMDUR) TAB PO SCH (08:15)
[2022-04-09] MEDS: ASPIRIN E.C. 81 MG (ECOTRIN) TAB PO SCH (08:15)
[2022-04-09] MEDS: PANTOPRAZOLE 40 MG (PROTONIX) TAB PO SCH ×2 (08:15→16:38)
[2022-04-09] MEDS: cloNIDine 0.2 MG (CATAPRES) TAB PO SCH (08:15)
[2022-04-09] MEDS: SODIUM BICARBONATE 650 MG TABLET PO SCH ×2 (08:15→20:17)
[2022-04-09] MEDS: FLUoxetine HCL 20 MG (PROzac) CAP PO SCH (08:15)
[2022-04-09] MEDS: OMEGA 3 (FISH OIL) 1000 MG CAP PO SCH (08:15)
[2022-04-09] MEDS: CYCLOBENZAPRINE 10 MG (FLEXERIL) TAB PO SCH ×3 (08:15→20:17)
[2022-04-09] MEDS: meTOproloL SUCCINATE 50 MG (TOPROL XL) TAB PO SCH ×2 (08:16→20:17)
[2022-04-09] MEDS: BRIMONIDINE 0.2% (ALPHAGAN) OPHTH SOLN 5 ML BTL OU SCH ×2 (08:16→20:18)
[2022-04-09] MEDS: hydrALAZINE (APRESOLINE) 25 MG TAB PO SCH ×2 (08:16→20:17)
[2022-04-09] MEDS: TIMOLOL MALEATE 0.5% 5 ML (TIMOPTIC) BTL OU SCH ×2 (08:16→20:18)
[2022-04-09] MEDS: MICONAZOLE 2% POWDER (DESENEX AF) 90 GM TOP SCH ×2 (08:17→20:18)
--- NOTE | 2022-04-09 09:41 | Cardiology Progress Note ---
Progress Note-Cardiology Events since last exam Date Seen by Provider: Apr 09, 2022 Time Seen by Provider: 09:39 Events since last exam I am following her due to type II NSTEMI due to acute heart failure with reduced ejection fraction as a result of probable Takotsubo cardiomyopathy. She feels as though her breathing is back to baseline. She was laying flat in bed. She denies chest discomfort, palpitations, or syncope. She has minimal bilateral ankle edema. She is still waiting for insurance approval to be transferred to an inpatient physical rehabilitation facility. Certain portions of this document may have been dictated utilizing voice recognition technology. Inherent to this technology, typographical and grammatical errors may exist. As much as I am diligent to identify and correct these mistakes, some errors may remain in the document. Vitals Last set of Vitals Signs Vital Signs 04/09/22 04/09/22 08:00 10:57 Temp 36.2 Pulse 67 Resp 16 B/P (MAP) 189/71 (110) Pulse Ox 94 O2 Delivery Nasal Cannula O2 Flow Rate 2.00 Exam Vital Signs Vital Signs Date Time Temp Pulse Resp B/P (MAP) Pulse Ox O2 Delivery O2 Flow Rate FiO2 04/09/22 10:57 94 Nasal Cannula 2.00 04/09/22 08:00 36.2 67 16 189/71 (110) Physical Exam General: Alert. No acute distress. She is obese. She is wearing oxygen by nasal cannula. Eye: No xanthelasma. HENT: Normocephalic. Neck: Jugular venous pressure does not appear elevated. Respiratory: Lungs are clear to auscultation. Respirations are non-labored. Breath sounds are equal. Symmetrical chest wall expansion. Cardiovascular: Normal rate. Regular rhythm. 2/6 systolic ejection murmur. No gallop. Trace bilateral pretibial edema. Gastrointestinal: Soft. Normal bowel sounds. Skin: Warm. Dry. Neurologic: Alert and oriented to person, place, time. Cranial nerves 3-11 grossly intact. Psychiatric: Cooperative. Appropriate mood & affect. Diagnosis/Problems Diagnosis/Problems (1) Non-ST elevation myocardial infarction (NSTEMI), initial care episode Status: Acute Assessment & Plan: She appears to have suffered a probable type II non-ST elevation myocardial infarction most likely due to acute heart failure due to Takotsubo cardiomyopathy. Her cardiac catheterization did not show any occlusive coronary artery disease. I recommend she continue aspirin, beta- amadeo and statin medication. Given that she did not have any obstructive coronary artery disease at the time of her cardiac catheterization, there is no class I indication for her to be on a P2Y12 inhibitor. (2) Acute HFrEF (heart failure with reduced ejection fraction) Status: Acute Assessment & Plan: Her chest x-rays have shown evidence of pulmonary edema but have been improving. She did receive some intravenous diuretic and is also on metoprolol succinate, hydralazine and nitrates. Her symptoms have improved. She is not a candidate for JUAN RAMON, ARB, aldosterone antagonist or Entresto due to her stage IV chronic kidney disease. I started her on a low-dose of oral Lasix on 04/06 to help prevent volume retention. (3) Primary hypertension Status: Chronic Assessment & Plan: Renal ultrasound did not show definitive evidence of renal artery stenosis although her left kidney is atrophic which could have been due to renal artery stenosis. Her blood pressures have improved but are still elevated at times. I doubled her dose of terazosin on 04/06. I added a low- dose of clonidine twice daily on 04/08. Due to persistently elevated blood pressures well over 150 mmHg systolic, I will increase the dose of clonidine to 0.3 mg twice daily.. (4) Takotsubo cardiomyopathy Status: Acute Assessment & Plan: Based upon the findings on her echocardiogram, electrocardiogram, troponin levels and cardiac catheterization, the constellation of findings is consistent with stress-induced cardiomyopathy (T akotsubo cardiomyopathy). This may have been caused by sepsis and the hypertensive emergency that were present at the time of admission. She is currently on the maximum tolerated guideline directed medical therapy. This is not a condition that we would typically prescribe a LifeVest since patients usually have full recovery of left ventricular systolic function within 30 days. She should continue the metoprolol succinate, hydralazine, and nitrates at the time of discharge. I will plan to see her in the office in approximately 1 week. I will plan on a follow-up echocardiogram in about 1 month. As above, she is not a candidate for JUAN RAMON inhibitor, ARB, aldosterone antagonist or Entresto due to her stage IV chronic kidney disease. (5) Mixed hyperlipidemia Status: Chronic Assessment & Plan: Continue intensive dose atorvastatin due to the NSTEMI. (6) Coronary artery disease with unstable angina pectoris Status: Acute Assessment & Plan: Her cardiac catheterization showed moderate disease of the right coronary artery but flow measurements were not hemodynamically significant. I did not see any footprints of a previous coronary stent during the procedure. We will continue guideline directed medical therapy for the NSTEMI as outlined above. (7) Hypertensive emergency Status: Resolved Assessment & Plan: As above. She may need some other blood tests and a 24-hour urine but I will wait for her to be discharged before doing these tests because they may not be accurate now in the setting of a prolonged hospitalization. Resolution Date/Time: 04/07/22 @ 10:09 (8) Hyperkalemia Status: Acute Assessment & Plan: She had been receiving oral potassium supplements. I discontinued this on 04/03. The potassium level improved. We will continue to monitor. Given her stage IV chronic kidney disease, I suspect even with the addition of low-dose oral diuretic, she will not need any potassium supplementation. (9) Cholelithiasis Status: Acute Assessment & Plan: General surgery is following her and is not recommending a cholecystectomy at this time. Her abdominal pain has improved. (10) Acute kidney injury superimposed on chronic kidney disease Status: Acute Assessment & Plan: Her creatinine has gone up and down but has in general been close to her baseline prior to admission. I did ask her about her thoughts on hemodialysis and she said that if her renal function gets worse and her nep hrologist recommends hemodialysis, she would not be opposed. Her renal function did not get particularly worse following the cardiac catheterization. I will obtain a follow-up BMP level today. (11) Cigarette smoker Assessment & Plan: She needs to quit smoking. (12) Morbid obesity Status: Chronic Assessment & Plan: She needs to work on weight loss. Some of the weight change here in the hospital could be due to volume retention. JEREMIAS MANNING JR, MD Apr 09, 2022 09:41
[2022-04-09] MEDS ORDERED: cloNIDine 0.1 MG (CATAPRES) TAB PO NR (10:00)
--- NOTE | 2022-04-09 11:33 | Physical Therapy Progress Note ---
Therapy Progress Note Patient extremely lethargic. Declined PT at this time. Will attempt later today or tomorrow a.m. 1 ref COMPA SAEED PT Apr 09, 2022 11:33
[2022-04-09 12:00] VITALS: BP 165/71
[2022-04-09 12:03] LABS: POTASSIUM 4.5 MMOL/L (3.6-5.0)
[2022-04-09 12:04] LABS: CALCIUM 8.8 MG/DL (8.5-10.1)
[2022-04-09 12:08] LABS: CREATININE SERUM 2.35 MG/DL (0.60-1.30)
--- NOTE | 2022-04-09 13:13 | Occupational Ther Daily Note ---
OT Current Status-Daily Note Subjective Pt alert, sitting in recliner. Pt agrees to therapy. No c/o pain only c/o fatigue. Mental Status/Objective Patient Orientation: Person, Place, Time Attachments: IV ADL-Treatment Therapy Code Descriptions/Definitions Functional [place] Measure: 0=Not Assessed/NA 4=Minimal Assistance 1=Total Assistance 5=Supervision or Setup 2=Maximal Assistance 6=Modified [place] 3=Moderate Assistance 7=Complete IndependenceSCALE: Activities may be completed with or without assistive devices. 9-Ebdwzjzrzd-ofdkpta completes the activity by him/herself with no assistance from a helper. 5-Set-up or Clean-up Assistance-helper sets up or cleans up; patient completes activity. [place] assists only prior to or following the activity. 4-Supervision or Touching Assistance-helper provides verbal cues and/or touching/steadying and/or contact guard assistance as patient completes activity. Assistance may be provided throughout the activity or intermittently. 3-Partial/Moderate Assistance-helper does LESS THAN HALF the effort. [place] lifts, holds or supports trunk or limbs, but provides less than half the effort. 2-Substantial/Maximal Assistance-helper does MORE THAN HALF the effort. [place] lifts or holds trunk or limbs and provides more than half the effort. 5-Atksajevm-ykyxcz does ALL the effort. Patient does none of the effort to complete the activity. Or, the assistance of 2 or more helpers is required for the patient to complete the activity. If activity was not attempted, code reason: 7-Patient Refused. 9-Not Applicable-not attempted and the patient did not perform the activity before the current illness, exacerbation or injury. 10-Not Attempted due to Environmental Limitations-(lack of equipment, weather restraints, etc.). 88-Not Attempted due to Medical Conditions or Safety Concerns. Eating (QC): 6 Other Treatment Pt completed 3 B UE theraband exercises 2 sets 10 reps to increase strength for daily functional tasks. Skilled instruction given for correct technique. After session, pt sitting in recliner with call light/phone in reach. All needs met in room. OT Materials Supervisor Goals [facility] Goals Time Frame: Apr 12, 2022 Oral Hygiene (QC): 5 Toileting Hygiene (QC): 4 Shower/Bathe Self (QC): 4 Upper Body Dressing (QC): 5 Lower Body Dressing (QC): 4 On/Off Footwear (QC): 4 Additional Goals: 1-Demonstrate ADL Tasks, 2-Verbalize Understanding, 3- ImproveStrength/Pj 1=Demonstrate adherence to instructed precautions during ADL tasks. 2=Patient will verbalize/demonstrate understanding of assistive devices/modifications for ADL. 3=Patient will improve strength/tolerance for activity to enable patient to perform ADL's. OT Education/Plan Problem List/Assessment Assessment: Decreased Activ Tolerance, Decreased UE Strength Pt would benefit from skilled OT services at this time in order to increase safety and independence with ADLs and increase BUE strength and activity tolerance, in order to maximize LOF for safe return home. Discharge Recommendations Plan/Recommendations: Continue POC Treatment Plan/Plan of Care Patient would benefit from OT for education, treatment and training to promote independence in ADL's, mobility, safety and/or upper extremity function for ADL's. Plan of Care: ADL Retraining, Functional Mobility, UE Funct Exercise/Act Treatment Duration: Apr 12, 2022 Frequency: 3 times per week (3-5 times per week) Estimated Hrs Per Day: .25 hour per day Agreement: Yes Rehab Potential: Guarded Time/GCodes Start Time: 13:00 Stop Time: 13:10 Total Time Billed (hr/min): 10 Billed Treatment Time 1 visit-EX 1 (10 min) WOODY CARLIN Apr 09, 2022 13:13
[2022-04-09] MEDS: ENOXAPARIN INJECTION 30 MG/0.3 ML SYR SC SCH (13:20)
[2022-04-09 16:03] VITALS: BP 188/73
--- NOTE | 2022-04-09 16:09 | Progress Note ---
Subjective Subjective/Events-last exam Afebrile, no acute events. She denies concerns. Objective Exam Last Set of Vital Signs Vital Signs Date Time Temp Pulse Resp B/P (MAP) Pulse Ox O2 Delivery O2 Flow Rate FiO2 04/09/22 16:03 36.0 60 18 188/73 (111) 96 Nasal Cannula 2.50 Capillary Refill : Less Than 3 Seconds I&O Intake and Output 04/09/22 00:00 Intake Total 1700 ml Output Total 2000 ml Balance -300 ml Intake Oral 1700 ml Output Urine Total 2000 ml # Voids 3 General: Other (sleeping but arouses and answers questions appropriately) Lungs: Clear to Auscultation, Normal Air Movement Heart: Regular Rate, Other (3/6 systolic murmur) Abdomen: Normal Bowel Sounds, Soft, Other (mild ttp) Psych/Mental Status: Mood NL Results/Procedures Lab Laboratory Tests 04/09/22 11:43: Sodium Level 137, Potassium Level 4.5, Chloride Level 98, Carbon Dioxide Level 30, Anion Gap 9, Blood Urea Nitrogen 47H, Creatinine 2.35H, Estimat Glomerular Filtration Rate 23, BUN/Creatinine Ratio 20, Glucose Level 116H, Calcium Level 8.8 Microbiology 04/03/22 MRSA Screen - Final, Complete MRSA not isolated 03/27/22 Blood Culture - Final, Complete No growth 03/26/22 Urine Culture - Final, Complete NO GROWTH Radiology Date of Exam:03/26/22 CT ABDOMEN/PELVIS WO PROCEDURE: CT abdomen and pelvis without contrast. TECHNIQUE: Multiple contiguous axial images were obtained through the abdomen and pelvis without the use of intravenous contrast. Auto Exposure Controls were utilized during the CT exam to meet ALARA standards for radiation dose reduction. INDICATION: Abdominal pain, right ventral hernia, possible obstruction. COMPARISON: None FINDINGS: There is atelectasis in the dependent right lung. The heart is normal in size. The distal esophagus is distended with fluid. The liver demonstrates no focal lesions. There is a large stone in the gallbladder measuring 3.3 cm. There is gallbladder wall thickening. The spleen appears normal. The pancreas is normal. The adrenal glands appear normal. The left kidney is severely atrophic. The right kidney appears normal. There is no hydronephrosis or obstructing calculi. There is a right ventral hernia with an aperture measuring about 5 cm. This contains loops of colon, but no evidence of strangulation or obstruction. The appendix appears normal. There are anastomotic sutures in the bowel. The stomach is fluid-filled and mildly distended. The bowel loops are decompressed. There is aortic atherosclerosis. No free fluid or free air is seen. No acute osseous abnormality is seen. There is deformity of the left pubis which may be from remote trauma. There are sclerotic densities in the femoral heads, may represent areas of osteonecrosis. IMPRESSION: 1. Right ventral hernia containing a loop of colon but with no evidence of obstruction or strangulation. 2. Large calcified gallstone with thickening of the gallbladder wall. This is nonspecific, but a cholecystitis is not excluded. 3. Fluid-filled stomach with distended fluid-filled distal esophagus, likely due to reflux. Dictated by: Dictated on workstation # [id number] Dict: 03/26/222237 Trans: 03/26/222255 [facility] [id number] Interpreted by: MAX MORIN MD Electronically signed by: MAX MORIN MD 03/26/22 2256 Assessment/Plan Assessment/Plan Assessment & Plan Respiratory Failure with hypoxia and hypercapnia Likely due to underlying COPD former resolved - no longer requiring BIPAP. - 97% NC 2L, tolerating well, will check home O2 requirement for d/c Acute HFrEF - Cardiology consulted regarding cardiac drug dosing. likely due to Takotsubo cardiomyopathy Heart failure appears to be well compensated Sepsis - resolved Acute cholecystitis resolved at this time with cholelithiasis - No significant abdominal pain at this time. Tolerating solid diet. She had one bowel movement today - Surgery consulted. It appears cholecystectomy will be outpatient, once kidney and cardiac problems addressed. NSTEMI - troponins trended downward. Cardiology DC heparin and started DVT prophylaxis. Hypertensive Emergency - improved. Cardiology consulted regarding BP medication HLD - monitor lipids, continue medications CKD -managed by Dr. Johnson. Baseline Cr 2.2-2.4. Obesity Smoker Anemia likely due to chronic renal disease stable. Disposition -Awaiting insurance determination for SNF DUGLAS PATEL MD Apr 09, 2022 16:09
[2022-04-09] MEDS: AtorvaSTATin TABLET 10 MG TABLET PO SCH (16:38)
[2022-04-09 20:08] VITALS: BP 192/74
[2022-04-09] MEDS: cloNIDine 0.1 MG (CATAPRES) TAB PO SCH (20:17)
[2022-04-09] MEDS: TERAZOSIN 5 MG (HYTRIN) CAPSULE PO SCH (20:17)
[2022-04-09 23:03] VITALS: BP 175/80
[2022-04-10] MEDS: RT-ALBUTEROL/IPRATROPIUM 3 ML (DUONEB) VIAL INH SCH ×3 (02:13→11:35)
[2022-04-10 03:11] VITALS: BP 157/72
[2022-04-10 08:00] VITALS: BP 184/77
[2022-04-10] MEDS: FERROUS SULF 325 MG (IRON) TAB PO SCH (08:25)
[2022-04-10] MEDS: ISOSORBIDE MONONITRATE 60 MG (IMDUR) TAB PO SCH (08:25)
[2022-04-10] MEDS: hydrALAZINE (APRESOLINE) 25 MG TAB PO SCH (08:25)
[2022-04-10] MEDS: cloNIDine 0.1 MG (CATAPRES) TAB PO SCH (08:26)
[2022-04-10] MEDS: PANTOPRAZOLE 40 MG (PROTONIX) TAB PO SCH (08:26)
[2022-04-10] MEDS: SODIUM BICARBONATE 650 MG TABLET PO SCH (08:26)
[2022-04-10] MEDS: OMEGA 3 (FISH OIL) 1000 MG CAP PO SCH (08:26)
[2022-04-10] MEDS: FLUoxetine HCL 20 MG (PROzac) CAP PO SCH (08:26)
[2022-04-10] MEDS: ASPIRIN E.C. 81 MG (ECOTRIN) TAB PO SCH (08:26)
[2022-04-10] MEDS: meTOproloL SUCCINATE 50 MG (TOPROL XL) TAB PO SCH (08:27)
[2022-04-10] MEDS: GABAPENTIN 300 MG (NEURONTIN) CAP PO SCH ×2 (08:27→12:58)
[2022-04-10] MEDS: BRIMONIDINE 0.2% (ALPHAGAN) OPHTH SOLN 5 ML BTL OU SCH (08:27)
[2022-04-10] MEDS: FUROSEMIDE 20 MG (LASIX) TAB PO SCH (08:27)
[2022-04-10] MEDS: CYCLOBENZAPRINE 10 MG (FLEXERIL) TAB PO SCH ×2 (08:27→12:58)
[2022-04-10] MEDS: TIMOLOL MALEATE 0.5% 5 ML (TIMOPTIC) BTL OU SCH (08:27)
[2022-04-10] MEDS: MICONAZOLE 2% POWDER (DESENEX AF) 90 GM TOP SCH (08:28)
--- NOTE | 2022-04-10 09:00 | Discharge Inst-Skilled Nursing ---
Discharge Inst-Skilled NF Patient Instructions Patient Problems: Respiratory Failure with hypoxia and hypercapnia Likely due to underlying COPD Acute HFrEF Takotsubo cardiomyopathy Sepsis - resolved Acute cholecystitis resolved at this time with cholelithiasis NSTEMI Hypertensive Emergency HLD CKD -managed by Dr. Johnson. Baseline Cr 2.2-2.4. Obesity Smoker Anemia likely due to chronic renal disease stable. Consult/Follow Up/Orders Skilled NF Admit to: Certifications SNF I certify that SNF services are required to be given on an inpatient basis because of the above named patient's need for fpc care on a continuing basis for the conditions(s) for which he/she was receiving inpatient hospital services prior to his/her transfer to the SNF. Group Home Facility Order: Nursing Services, Parimutuel Clerk-Evaluate & Treat, Physical Therapy-Evaluate & Treat Oxygen Delivery Method: Nasal Cannula Discharge Diet: Low Sodium Diet, Cardiac Diet Daily Activity as Tolerated: Yes New & Resume Previous Orders Other Instructions Will need outpatient Surgery follow up. Discharge Medications New, Converted or Re-Newed RX: Transmitted to Pharmacy New Medications: Aspirin (Aspirin EC) 81 Mg Tablet.dr 81 MG PO DAILY, #30 TAB 0 Refills Hydralazine HCl (Hydralazine HCl) 25 Mg Tablet 100 MG PO BID, #60 TAB 0 Refills Isosorbide Mononitrate (Isosorbide Mononitrate ER) 60 Mg Tab 60 MG PO DAILY, #30 TAB 0 Refills Metoprolol Succinate (Metoprolol Succinate) 100 Mg Tab.er.24h 100 MG PO BID, #60 TAB 0 Refills Sodium Bicarbonate (Sodium Bicarbonate) 650 Mg Tablet 1300 MG PO BID, #120 TAB 0 Refills Terazosin HCl (Terazosin HCl) 5 Mg Capsule 10 MG PO HS, #30 CAP 0 Refills Changed Medications: Atorvastatin Calcium (Atorvastatin Calcium) 40 Mg Tablet 40 MG PO HS, #30 TAB 0 Refills (Changed from: Atorvastatin Calcium 10 Mg Tablet 10 Mg PO 1600) Furosemide (Furosemide) 20 Mg Tablet 20 MG PO DAILY, #30 TAB 0 Refills (Changed from: Furosemide 40 Mg Tablet 40 Mg PO DAILY) Continued Medications: Brimonidine Tartrate/Timolol (Combigan Eye Drops) 0.2 %-0.5 % Drops 1 DROP OU BID, EA Cyclobenzaprine HCl (Cyclobenzaprine HCl) 10 Mg Tablet 10 MG PO TID, TAB Diazepam (Diazepam) 5 Mg Tablet 5 MG PO HS, TAB Famotidine (Famotidine) 20 Mg Tablet 20 MG PO 0800,1600, TAB Ferrous Sulfate (Ferosul) 325 Mg (65 Mg Iron) Tablet 325 MG PO 0800,1600, TAB Fluoxetine HCl (Fluoxetine HCl) 40 Mg Capsule 40 MG PO DAILY, CAP Gabapentin (Neurontin) 300 Mg Capsule 300 MG PO TID, CAP Hydrocodone/Acetaminophen (Hydrocodone-Acetamin 5-325 mg) 5 Mg-325 Mg Tablet 1 EA PO Q8H PRN for PAIN-MODERATE (5-7), TAB [place]-3/Dha/Epa/Fish Oil (Fish Oil 1,000 mg Softgel) 300 Mg-1,000 Mg Capsule 1000 MG PO DAILY, CAP Pantoprazole Sodium (Pantoprazole Sodium) 40 Mg Tablet.dr 40 MG PO 0800,1600, TAB Discontinued Medications: Hydrochlorothiazide (Hydrochlorothiazide) 25 Mg Tablet 25 MG PO DAILY, TAB Metoprolol Tartrate (Metoprolol Tartrate) 100 Mg Tablet 200 MG PO 0800,1600, TAB TAKES 2 (100MG) TABS Duglas Upton Apr 10, 2022 08:58 DUGLAS UPTON MD Apr 10, 2022 09:00
--- NOTE | 2022-04-10 09:03 | Cardiology Progress Note ---
Progress Note-Cardiology Events since last exam Date Seen by Provider: Apr 10, 2022 Time Seen by Provider: 09:03 Events since last exam I am following her due to type II NSTEMI in the setting of acute heart failure with reduced ejection fraction due to probable Takotsubo cardiomyopathy. Her breathing is about baseline. She still has trivial peripheral edema. She denies chest pain, syncope, or palpitations. She has been accepted to inpatient rehab in [place] and the plan is to transfer later this afternoon. Certain portions of this document may have been dictated utilizing voice recognition technology. Inherent to this technology, typographical and grammatical errors may exist. As much as I am diligent to identify and correct these mistakes, some errors may remain in the document. Vitals Last set of Vitals Signs Vital Signs 04/10/22 08:00 Temp 36.1 Pulse 62 Resp 19 B/P (MAP) 184/77 (112) Pulse Ox 94 O2 Delivery Nasal Cannula O2 Flow Rate 3.00 Labs Labs Laboratory Tests 04/09/22 11:43 Exam Vital Signs Vital Signs Date Time Temp Pulse Resp B/P (MAP) Pulse Ox O2 Delivery O2 Flow Rate FiO2 04/10/22 08:00 Nasal Cannula 3.00 04/10/22 08:00 36.1 62 19 184/77 (112) 94 Physical Exam General: Alert. No acute distress. She is obese. She is wearing oxygen by nasal cannula. Eye: No xanthelasma. HENT: Normocephalic. Neck: Jugular venous pressure does not appear elevated. Respiratory: Lungs are clear to auscultation. Respirations are non-labored. Breath sounds are equal. Symmetrical chest wall expansion. Cardiovascular: Normal rate. Regular rhythm. 2/6 systolic ejection murmur. No gallop. Trace bilateral pretibial edema. Gastrointestinal: Soft. Normal bowel sounds. Skin: Warm. Dry. Neurologic: Alert and oriented to person, place, time. Cranial nerves 3-11 grossly intact. Psychiatric: Cooperative. Appropriate mood & affect. Labs Laboratory Tests Test 04/09/22 11:43 Range/Units Sodium Level 137 135-145 MMOL/L Potassium Level 4.5 3.6-5.0 MMOL/L Chloride Level 98 98-107 MMOL/L Carbon Dioxide Level 30 21-32 MMOL/L Anion Gap 9 5-14 MMOL/L Blood Urea Nitrogen 47 H 7-18 MG/DL Creatinine 2.35 H 0.60-1.30 MG/DL Estimat Glomerular Filtration Rate 23 BUN/Creatinine Ratio 20 Glucose Level 116 H 70-105 MG/DL Calcium Level 8.8 8.5-10.1 MG/DL Diagnosis/Problems Diagnosis/Problems (1) Non-ST elevation myocardial infarction (NSTEMI), initial care episode Status: Acute Assessment & Plan: She appears to have suffered a probable type II non-ST elevation myocardial infarction most likely due to acute heart failure due to Takotsubo cardiomyopathy. Her cardiac catheterization did not show any occlusive coronary artery disease. I recommend she continue aspirin, beta- amadeo and statin medication. Given that she did not have any obstructive coronary artery disease at the time of her cardiac catheterization, there is no class I indication for her to be on a P2Y12 inhibitor. (2) Acute HFrEF (heart failure with reduced ejection fraction) Status: Acute Assessment & Plan: Her chest x-rays have shown evidence of pulmonary edema but have been improving. She did receive some intravenous diuretic and is also on metoprolol succinate, hydralazine and nitrates. Her symptoms have improved. She is not a candidate for JUAN RAMON, ARB, aldosterone antagonist or Entresto due to her stage IV chronic kidney disease. I started her on a low-dose of oral Lasix on 04/06 to help prevent volume retention. (3) Primary hypertension Status: Chronic Assessment & Plan: Renal ultrasound did not show definitive evidence of renal artery stenosis although her left kidney is atrophic which could have been due to renal artery stenosis. Her blood pressures have improved but are still elevated at times. I doubled her dose of terazosin on 04/06. I added a low- dose of clonidine twice daily on 04/08. Due to persistently elevated blood pressures well over 150 mmHg systolic, I increased the dose of clonidine to 0.3 mg twice daily on 04/09. (4) Takotsubo cardiomyopathy Status: Acute Assessment & Plan: Based upon the findings on her echocardiogram, electrocardiogram, troponin levels and cardiac catheterization, the constellation of findings is consistent with stress-induced cardiomyopathy (Takotsubo cardiomyopathy). This may have been caused by sepsis and the hypertensive emergency that were present at the time of admission. She is currently on the maximum tolerated guideline directed medical therapy. This is not a condition that we would typically prescribe a LifeVest since patients usually have full recovery of left ventricular systolic function within 30 days. She should continue the metoprolol succinate, hydralazine, and nitrates at the time of discharge. I will plan to see her in the office in approximately 1 week. I will plan on a follow-up echocardiogram in about 1 month. As above, she is not a candidate for JUAN RAMON inhibitor, ARB, aldosterone antagonist or Entresto due to her stage IV chronic kidney disease. (5) Mixed hyperlipidemia Status: Chronic Assessment & Plan: Continue intensive dose atorvastatin due to the NSTEMI. (6) Coronary artery disease with unstable angina pectoris Status: Acute Assessment & Plan: Her cardiac catheterization showed moderate disease of the right coronary artery but flow measurements were not hemodynamically significant. I did not see any footprints of a previous coronary stent during the procedure. We will continue guideline directed medical therapy for the NSTEMI as outlined above. (7) Hypertensive emergency Status: Resolved Assessment & Plan: As above. She may need some other blood tests and a 24-hour urine but I will wait for her to be discharged before doing these tests because they may not be accurate now in the setting of a prolonged hospitalization. Resolution Date/Time: 04/07/22 @ 10:09 (8) Hyperkalemia Status: Acute Assessment & Plan: She had been receiving oral potassium supplements. I discontinued this on 04/03. The potassium level improved. We will continue to monitor. Given her stage IV chronic kidney disease, I suspect even with the addition of low-dose oral diuretic, she will not need any potassium supplementation. (9) Cholelithiasis Status: Acute Assessment & Plan: General surgery is following her and is not recommending a cholecystectomy at this time. Her abdominal pain has improved. (10) Acute kidney injury superimposed on chronic kidney disease Status: Acute Assessment & Plan: Her creatinine has gone up and down but has in general been close to her baseline prior to admission. I did ask her about her thoughts on hemodialysis and she said that if her renal function gets worse and her catering cook recommends hemodialysis, she would not be opposed. Her renal function did not get particularly worse following the cardiac catheterization. I will obtain a follow-up BMP level today. (11) Cigarette smoker Assessment & Plan: She needs to quit smoking. (12) Morbid obesity Status: Chronic Assessment & Plan: She needs to work on weight loss. Some of the weight change here in the hospital could be due to volume retention. JEREMIAS MANNING JR, MD Apr 10, 2022 09:03
[2022-04-10 10:21] VITALS: BP 165/70
--- NOTE | 2022-04-10 11:26 | Discharge Summary ---
Discharge Summary Hospital Course Hospital Course Date of Admission: Mar 26, 2022 at 23:02 Admission Diagnosis : Respiratory failure with hypoxia and hypercapnia Acute heart failure with reduced ejection fraction Sepsis Acute cholecystitis Hypertensive emergency NSTEMI HLD CKD Obesity Smoker Anemia of CKD Family Physician/Provider: Nesha Baker Date of Discharge: 04/10/22 Discharge Diagnosis: Respiratory Failure with hypoxia and hypercapnia- resolved Acute HFrEF Takotsubo Cardiomyopathy Sepsis - resolved Acute cholecystitis resolved at this time with cholelithiasis NSTEMI- resolved Hypertensive Emergency - resolved HLD CKD Obesity Smoker Anemia likely due to chronic renal disease stable. Hospital Course: Respiratory Failure with hypoxia and hypercapnia Likely due to underlying COPD initially required Bipap, on 2 lpm supplemental oxygen at d/c. Acute HFrEF - Cardiology consulted, diagnosed with Takotsubo cardiomyopathy Heart failure appears to be well compensated Sepsis - resolved Acute cholecystitis resolved at this time with cholelithiasis - Surgery consulted. It appears cholecystectomy will be outpatient. NSTEMI - troponins trended downward. Cardiology cosnulted. Hypertensive Emergency - improved. Cardiology adjusted home medications CKD -managed by Dr. Johnson. Baseline Cr 2.2-2.4. Discharged to [facility]. Labs and Pending Lab Test: Laboratory Tests 04/09/22 11:43: Sodium Level 137, Potassium Level 4.5, Chloride Level 98, Carbon Dioxide Level 30, Anion Gap 9, Blood Urea Nitrogen 47H, Creatinine 2.35H, Estimat Glomerular Filtration Rate 23, BUN/Creatinine Ratio 20, Glucose Level 116H, Calcium Level 8.8 Microbiology 04/03/22 MRSA Screen - Final, Complete MRSA not isolated 03/27/22 Blood Culture - Final, Complete No growth 03/26/22 Urine Culture - Final, Complete NO GROWTH Home Meds Active Sodium Bicarbonate 650 Mg Tablet 1,300 Mg PO BID Aspirin EC (Aspirin) 81 Mg Tablet. 81 Mg PO DAILY Metoprolol Succinate 100 Mg Tab.er.24h 100 Mg PO BID Terazosin HCl 5 Mg Capsule 10 Mg PO HS Isosorbide Mononitrate ER (Isosorbide Mononitrate) 60 Mg Tab 60 Mg PO DAILY Hydralazine HCl 25 Mg Tablet 100 Mg PO BID Furosemide 20 Mg Tablet 20 Mg PO DAILY Atorvastatin Calcium 40 Mg Tablet 40 Mg PO HS Reported Combigan Eye Drops (Brimonidine Tartrate/Timolol) 0.2 %-0.5 % Drops 1 Drop OU BID Pantoprazole Sodium 40 Mg Tablet.dr 40 Mg PO 0800,1600 Hydrocodone-Acetamin 5-325 mg (Hydrocodone/Acetaminophen) 5 Mg-325 Mg Tablet 1 Ea PO Q8H PRN Neurontin (Gabapentin) 300 Mg Capsule 300 Mg PO TID Fluoxetine HCl 40 Mg Capsule 40 Mg PO DAILY Fish Oil 1,000 mg Softgel ([place]-3/Dha/Epa/Fish Oil) 300 Mg-1,000 Mg Capsule 1,000 Mg PO DAILY Ferosul (Ferrous Sulfate) 325 Mg (65 Mg Iron) Tablet 325 Mg PO 0800,1600 Diazepam 5 Mg Tablet 5 Mg PO HS Cyclobenzaprine HCl 10 Mg Tablet 10 Mg PO TID Famotidine 20 Mg Tablet 20 Mg PO 0800,1600 Assessment/Pt DC Instructions Follow up via SNF and with Monica Baker after d/c. Discharge Diet: Low Sodium Diet, Cardiac Diet (2000 ml fluid restriction) Activity as Tolerated: Yes Discharge Physical Examination Allergies: Coded Allergies: NSAIDS (Non-Steroidal Anti-Inflamma (Verified Allergy, Unknown, 03/27/22) patient tolerated aspirin diphenhydramine (Verified Allergy, Unknown, 10/17/18) lisinopril (Verified Allergy, Unknown, 10/17/18) General Appearance: No Apparent Distress Respiratory: Lungs Clear, Normal Breath Sounds Cardiovascular: Regular Rate, Rhythm Neurologic/Psychiatric: Alert, Normal Mood/Affect DUGLAS PATEL MD Apr 10, 2022 11:26
[2022-04-10] MEDS ORDERED: ASPI-1238 PO (11:36)
[2022-04-10] MEDS ORDERED: ATOR40TA70 PO (11:38)
[2022-04-10] MEDS ORDERED: BRIM5DRO OU (11:42)
[2022-04-10 11:45] VITALS: BP 184/77
[2022-04-10] MEDS ORDERED: FLUO40CA PO (11:46)
[2022-04-10] MEDS ORDERED: DIAZ5TAB49 PO (11:46)
[2022-04-10] MEDS ORDERED: ISOS60TA63 PO (11:46)
[2022-04-10] MEDS ORDERED: FERR325T24 PO (11:46)
[2022-04-10] MEDS ORDERED: GABA300C PO (11:46)
[2022-04-10] MEDS ORDERED: FAMO20TA5 PO (11:46)
[2022-04-10] MEDS ORDERED: CYCL10TA25 PO (11:46)
[2022-04-10] MEDS ORDERED: FURO20TA4 PO (11:46)
[2022-04-10] MEDS ORDERED: ACHD5005 PO (11:46)
[2022-04-10] MEDS ORDERED: TERA5CAP10 PO (11:46)
[2022-04-10] MEDS ORDERED: HYDR-3923 PO (11:46)
[2022-04-10] MEDS ORDERED: MTP100TCR PO (11:46)
[2022-04-10] MEDS ORDERED: OMEG-160 PO (11:46)
[2022-04-10] MEDS ORDERED: NF-SODBICA PO (11:46)
[2022-04-10] MEDS ORDERED: PANT40TA52 PO (11:46)
[2022-04-10 14:50] VITALS: BP 165/70
[2022-04-10] MEDS: ENOXAPARIN INJECTION 30 MG/0.3 ML SYR SC SCH (15:22)
== END 2022-04-10 13:50 | DRG 871 ==
LOC: ER 21:35 → EDUNIT# 21:35 → EDLOC 23:02 → 4TH 23:02 → ICU 03-27 01:47 → 4TH 03-29 15:38 → ICU 03-30 06:54 → 4TH 04-01 10:50 → ICU 04-03 15:59 → 4TH 04-03 19:56
PROVIDERS: ADMIT Surgery; ATTEND Family Medicine
PROC: 5A09357 Assistance with Respiratory Ventilation, Less than 24 Consecutive Hours, Continuous Positive Airway Pressure (ICD-10-PCS; 2022-03-30)
PROC: 4A023N7 Measurement of Cardiac Sampling and Pressure, Left Heart, Percutaneous Approach (ICD-10-PCS; principal; 2022-04-03)
PROC: B2111ZZ Fluoroscopy of Multiple Coronary Arteries using Low Osmolar Contrast (ICD-10-PCS; 2022-04-03)
PROC: 4A033BC Measurement of Arterial Pressure, Coronary, Percutaneous Approach (ICD-10-PCS; 2022-04-03)
DX: A41.9 Sepsis, unspecified organism (principal); I21.A1 Myocardial infarction type 2; I50.23 Acute on chronic systolic (congestive) heart failure; J96.01 Acute respiratory failure with hypoxia; J96.02 Acute respiratory failure with hypercapnia; I13.0 Hypertensive heart and chronic kidney disease with heart failure and stage 1 through stage 4 chronic kidney disease, or unspecified chronic kidney disease; N18.4 Chronic kidney disease, stage 4 (severe); N17.9 Acute kidney failure, unspecified; Z20.822 Contact with and (suspected) exposure to COVID-19; I16.1 Hypertensive emergency; K80.10 Calculus of gallbladder with chronic cholecystitis without obstruction; K43.0 Incisional hernia with obstruction, without gangrene; I25.110 Atherosclerotic heart disease of native coronary artery with unstable angina pectoris; N39.0 Urinary tract infection, site not specified; Z68.41 Body mass index [BMI] 40.0-44.9, adult; F17.210 Nicotine dependence, cigarettes, uncomplicated; J44.9 Chronic obstructive pulmonary disease, unspecified; E78.2 Mixed hyperlipidemia; E66.01 Morbid (severe) obesity due to excess calories; K59.00 Constipation, unspecified; E87.5 Hyperkalemia; N18.9 Chronic kidney disease, unspecified; D63.1 Anemia in chronic kidney disease; Z87.820 Personal history of traumatic brain injury; Z85.44 Personal history of malignant neoplasm of other female genital organs; Z95.5 Presence of coronary angioplasty implant and graft; Z88.6 Allergy status to analgesic agent; Z88.8 Allergy status to other drugs, medicaments and biological substances
CPT/HCPCS: 36415; 36600; 51702; 71045; 71046; 74176; 76770; 80048; 80053; 80061; 81000; 82805; 82947; 83036; 83605; 83735; 84100; 84145; 84443; 84484; 85007; 85025; 85027; 85610; 85730; 87040; 87077; 87081; 87088; 87186; 87636; 93005; 93306; 93458; 93975; 94640; 94660; 94664; 94760; 94761; 96361; 96365; 96367; 96375

== ENCOUNTER → 2022-05-07 | Outpatient (CLI) | payer MEDICARE, MEDICAID ==
[~2022-05-07] MED LIST changes: +ACHD5005 PO; +ASPI-1238 PO; +ATOR40TA70 PO; +BRIM5DRO OU; +FERR325T24 PO; +FLUO40CA PO; +FURO20TA4 PO; +FURO40TA4 PO; +GABA300C PO; +HYDR25TA4 PO; +ISOS60TA63 PO; +MTP100TCR PO; +NF-SODBICA PO; +OMEG-160 PO; +PANT40TA52 PO; +TERA5CAP10 PO
== END ==
LOC: CARD 13:30
PROVIDERS: ATTEND Internal Medicine Cardiovascular Disease
DX: I51.7 Cardiomegaly (principal); I34.81 Nonrheumatic mitral (valve) annulus calcification; I35.8 Other nonrheumatic aortic valve disorders
CPT/HCPCS: 93306

== ENCOUNTER → 2022-06-03 | Outpatient (CLI) | payer MEDICARE, MEDICAID | END | disposition home or self-care (01) | LOC: PREOP 05:39 | PROVIDERS: ATTEND Surgery | DX: Z01.818 Encounter for other preprocedural examination (principal) ==

== ENCOUNTER 2022-06-05 05:30 | Outpatient (CLI) | payer MEDICARE, MEDICAID ==
[~2022-06-05] VITALS: Ht 160 cm; Wt 98.9 kg
[2022-06-06] MEDS ORDERED: FLUO20TA28 PO (09:30)
[2022-06-06] MEDS ORDERED: CYAN1TAB66 PO (09:30)
[2022-06-06] MEDS ORDERED: RT-ALBUINH INH (09:30)
[2022-06-06] MEDS ORDERED: FURO40TA4 PO (09:30)
[2022-06-06] MEDS ORDERED: ALBU0.63 IH (09:30)
== END 2022-06-06 09:34 | disposition home or self-care (01) ==
LOC: PREOP 05:30
PROVIDERS: ATTEND Surgery
DX: Z01.818 Encounter for other preprocedural examination (principal)

== ENCOUNTER 2022-06-10 10:19 | Day surgery (SDC) | payer MEDICARE, MEDICAID ==
[~2022-06-10] VITALS: Ht 160 cm; Wt 98.9 kg
[~2022-06-10 10:19] MED LIST changes: +ALBU0.63 IH; +CYAN1TAB66 PO; +FLUO20TA28 PO; +RT-ALBUINH INH
[2022-06-10] MEDS ORDERED: LACTATED RINGERS 1,000 ML IV STA (10:22)
[2022-06-10 10:42] VITALS: BP 174/74
--- NOTE | 2022-06-10 11:00 | Progress Note-Pre Operative ---
Pre-Operative Progress Note Date of Available H&P: May 29, 2022 Date H&P Reviewed: Jun 10, 2022 Time H&P Reviewed: 10:57 History & Physical: H&P Reviewed, Patient Examed, No changes noted Pre-Operative Diagnosis: RACHID Cheema DO Jun 10, 2022 11:00
[2022-06-10] MEDS ORDERED: PROPOFOL INJECTION 50 ML IV ONE (11:40)
[2022-06-10 12:05] VITALS: BP 110/54
[2022-06-10 12:10] VITALS: BP 91/36
--- NOTE | 2022-06-10 12:10 | Progress Note-Post Operative ---
Post-Operative Progess Note Surgeon (s)/Facility Manager (s) Surgeon RACHID GONZALES DO Facility Manager: [facility] Pre-Operative Diagnosis screening Post-Operative Diagnosis polyps int hemorrhoids Procedure & Operative Findings Date of Procedure 06/10/22 Procedure Performed/Findings colonoscopy with snare polypectomy PROCEDURE NOTE: After informed consent was obtained, the patient was brought to the endoscopy suite, placed in bed in left lateral decubitus position. She was administered IV sedation by the PRODUCT MARKETING MANAGER who then monitored her vitals the entire time, heart rate, blood pressure and pulse ox and the scope was inserted, pushed all the way to about 150 cm and pushed into the cecum, took a picture of appendiceal orifice and noted the ileocecal valve. Then slowly withdrew the scope insufflating to look circumferentially at the ridley starting in the cecum and just outside the cecum found a small polyp. Elected to remove it with snare polypectomy. Continued up the ascending colon to the hepatic flexure, then down the transverse colon; where I found another polyp that was also removed with snare polypectomy. Next, to the splenic flexure, into the descending colon where another polyp was found. Elected to remove this one with a snare as well. Finally, down into the sigmoid and then into the rectal vault. I retroflexed the scope. Took picture of the internal hemorrhoids. The patient tolerated the procedure. She was recovered in endoscopy suite. Recommended for repeat colonoscopy in 5 years. Anesthesia Type IV sedation by PRODUCT MARKETING MANAGER Estimated Blood Loss Estimated blood loss (mL): scant Specimens/Packing Specimens Removed asc colon polyp transverse colon polyp desc colon polyp RACHID GONZALES DO Jun 10, 2022 12:10
--- NOTE | 2022-06-10 12:11 | Endoscopy Discharge Instruct ---
Endo Procedure/Findings Findings 1.: Polyp 2.: Internal Hemorrhoids Discharge Instructions - Activity: You might feel a little sleepy until tomorrow. This is due to the medicine you received to relax you. Until tomorrow, you should: NOT drive a car, operate machinery or power tools. NOT drink any alcoholic beverages. NOT make any important decisions or sign importortant papers. Do not return to work until tomorrow, unless otherwise instructed. Resume previous activities tomorrow. Diet: Start by taking liquids. If you tolerate liquids, advance to solid food. 1.: Colonscopy in 5 years Notify Physician - If you experience excessive bleeding, unusual abdominal pain, fever, or chest pain, contact your doctor immediately. RACHID GONZALES DO Jun 10, 2022 12:11
[2022-06-10 12:15] VITALS: BP 135/58
[2022-06-10 12:35] VITALS: BP 168/109
--- NOTE | 2022-06-10 13:32 | Anesthesia-General Post-Op ---
MAC Patient Condition Mental Status/LOC: Same as Preop Cardiovascular: Satisfactory Nausea/Vomiting: Absent Respiratory: Satisfactory Pain: Controlled Complications: Absent Post Op Complications Complications None Follow Up Care/Instructions Patient Instructions None needed. Anesthesiology Discharge Order Discharge Order Patient is doing well, no complaints, stable vital signs, no apparent adverse anesthesia problems. No complications reported per nursing. OLY ARANDA CRNA Jun 10, 2022 13:32
== END 2022-06-10 12:52 | disposition home or self-care (01) ==
LOC: ENDO 10:19
PROVIDERS: ATTEND Surgery
DX: Z12.11 Encounter for screening for malignant neoplasm of colon (principal); D12.2 Benign neoplasm of ascending colon; D12.3 Benign neoplasm of transverse colon; D12.4 Benign neoplasm of descending colon; K64.8 Other hemorrhoids; E66.01 Morbid (severe) obesity due to excess calories; Z68.38 Body mass index [BMI] 38.0-38.9, adult; I25.10 Atherosclerotic heart disease of native coronary artery without angina pectoris; E78.2 Mixed hyperlipidemia; I51.81 Takotsubo syndrome; I12.9 Hypertensive chronic kidney disease with stage 1 through stage 4 chronic kidney disease, or unspecified chronic kidney disease; N18.4 Chronic kidney disease, stage 4 (severe); K80.20 Calculus of gallbladder without cholecystitis without obstruction; Z87.891 Personal history of nicotine dependence; Z79.899 Other long term (current) drug therapy